=== PATIENT | male | born 1945 | race Caucasian/White ===

== ENCOUNTER 2022-04-03 12:17 | Outpatient (CLI) | payer MEDICARE, BC, SELFPAY ==
--- OUTSIDE RECORDS SUMMARY | 2022-04-03 12:33 | XMS_ITS | Encounter Summary ---
:1945 Author Organization [facility] Address [address] [place] [address] Support Name Relationship Address Phone MARINO LEWIS Unavailable [id number] [place] [address] MARION LEWIS Unavailable [phone] [place] [address] Insurance Providers: All historical and current Section Date Range: From patient's date of to the date document was created.This section includes the names of all active insurance providers for the patient. Insurance Type of Plan Start of End of Group Member Insurance Policy P atient's Provider Coverage Name Policy Policy Number ID Provider's Bird's Relationship Coverage Coverage Telephone Name to Policy Number Bird [place] Jul 15, [id number] HIGGINS P ATIENT [facility] (WNR) ADVANTAGE (WNR) 2017 9 [id number] [phone] NNIS 1 [place] Jul 15, [id number] LIANEWAGNER P ATIENT [facility] (WNR) ADVANTAGE (WNR) 2017 9 [id number] [phone] NN[place] 1 [place] Jul 15, [id number] TONIEMARGUERITE P ATIENT [facility] (WNR) ADVANTAGE (WNR) 2017 8 [id number] [phone] NNIS 1 Selected Encounter This section includes the information on record at [facility] for the Encounter. Date/Time Encounter Type Encounter Description Reason Provider Source Jun 12, 2021 09:32 Outpatient Encounter TELEPHONE TRIAGE KITTY CHAVEZ AM Encounter Template Text not used by [facility] Plan of Treatment: Future Appointments (+ 6 months) and Future Tests (+/- 45 days) The Plan of Treatment section includes future care activities for the patient from all [facility] treatment[facility]ilities. This section includes future appointments and future orders which are active, pending orscheduled.Future Appointments This section includes appointments that were scheduled to occur 6 months from the date of the Encounter, up to a maximum of 20 appointments. The data comes from all [facility] facilities. Appointment Date/Time Appointment Type Appointment Facili ty Name Jun 20, 2021 02:30 PM AM[facility]ATORY - [facility] ([facility]) Jul 19, 2021 01:00 PM [facility] ([facility]) Aug 16, 2021 01:00 PM [facility] ([facility]) November 21, 2021 12:30 PM AM[facility]ULATORY - [facility]INE [facility] Lab Results: +/- 30 days of the encounter This section includes the Chemistry and Hematology Lab Results on record with [facility] for the patient. Radiology Reports and Pathology Reports are provided separately, in subsequent sections.Lab Results This section contains the Chemistry/Hematology Results that were resulted 30 days before or 30 daysafter the date of the Encounter. Date/Time Source Result Type Result - Unit Interpretation Reference Range Comment Jun 20, 2021 02:28 [facility] LIVER FUNCTION TESTS Spec imen Type: PLASMA PM No comment enter ed. Ordering Provid er: JANESSA WISEMAN Report Released Date/Time: Jun 15, 2021 10:35 AM Reporting Lab: [facility] [address] [facility] [address] Performing Lab: [facility] [address] [facility] [address] BILIRUBIN, TOTAL 0.5 0.2-1.2 ALKALINE PHOSPHATASE 89 40-150 ALT/SGPT 18 <55 AST/SGOT 17 <34 GAMMA GTP 19 <64 Jun 20, 2021 [facility] CREATININE(INCLUDES EGFR) Sp ecimen Type: PLASMA 02:28 PM No comment enter ed. Ordering Provid er: JANESSA WISEMAN Report Released Date/Time: Jun 15, 2021 10:35 AM Reporting Lab: [facility] [address] [facility] [address] Performing Lab: [facility] [address] [facility] [address] CREATININE 1.2 0.7-1.2 ESTIMATED GFR(eGFR) 59 L >60 Jun 20, 2021 02:28 PM [facility] CBC Specim en Type: BLOOD No comment enter ed. Ordering Provid er: JANESSA WISEMAN Report Released Date/Time: Jun 15, 2021 10:35 AM Reporting Lab: [facility] [address] [facility] [address] Performing Lab: [facility] [address] [place] [facility] [address] WBC 8.62 4.0-11.0 RBC 4.48 L 4.6-6.2 HGB 14.4 13.5-17.9 HCT 44.5 41-54 MCV 99.3 80-100 MCH 32.1 27-33 MCHC 32.4 32.0-37.5 PLT 220 150-400 MPV 11.8 H 7.4-10.4 RDW 13.3 11.5-14.5 Encounter Notes: All associated encounter notes This section contains the clinical notes associated to the Encounter. Date/Time Encounter Note(s) Provider Source Jun 12, 2021 09:32 AM REPORT OF CONTACT: CECELIA HER [facility] LOCAL TITLE: SCREENING COVID CONTACT CENTER NOT E STANDARD TITLE: REPORT OF CONTACT DATE OF NOTE: JUN 12, 2021@09:32 ENTRY DATE: JUN 12, 2021@09:32:29 AUTHOR: CECELIA HER EXP COSIGNER: URGENCY: STATUS: COMPLETED Coronavirus Disease 2019 (COVID-19) Screen The patient was asked if in the last 14 days the y have had new onset of any COVID-19 symptoms. They report the following: No symptoms Within the past 14 days, the patient reports no exposure to someone with a febrile/respiratory illness or someone with a kn own or suspected case of COVID-19 (within 6 feet for > 15 minutes). Result: Screen is negative. /tahira/ CECELIA HER VISN23 [facility] Signed: 06/12/2021 09:32
--- OUTSIDE RECORDS SUMMARY | 2022-04-03 12:33 | XMS_ITS | Clinical Summary ---
:1945 Author Organization [facility] [place] [address] Care Team Providers Name Role Phone Gregory Day MD Primary Care Provider FlygenHolden phelps MD Unavailable [phone] Allergies Active Allergy Reactions Severity Noted Date Comments Diatrizoate Meglumine (Iv Contrast Dye) Renal Failure 03/29/2017 Lisinopril Cough 02/17/2016 Medications Medication Sig Dispensed Refills Start Date End Date Status CINNAMON 500 MG 1 tab BID 0 01/06/2008 Act enid CAPIndications: Type II or unspecified type diabetes mellitus without mention of complication, not stated as uncontrolled MULTIVITAMIN TAB take 1 tablet by 0 09/22/2008 Active oral route once daily with food [id number] Take by mouth. 0 Active Oil (FISH OIL) 1,000 Take 2 capsules by mg (120 mg-180 mg) mouth in the cap morning and 1 capsule in the evening. aspirin (ECOTRIN) 81 Take 81 mg by 0 Active mg enteric coated mouth once daily tablet with a meal. cholecalciferol Take 1,000 Units 0 Active (VITAMIN D3) 1,000 by mouth once unit tablet daily. polyethylene glycoL Take 17 g by mouth 255 g 12 05/22/2017 Active (MIRALAX) 17 once daily if gram/dose needed for powderIndications: Constipation. Constipation, unspecified constipation type Insulin Woody, As directed. For 2 box 9 05/04/2020 Active Disposable, (DAVID administering PEN NEEDLE) 32 gauge insulin at home. x Indications: Diabetes mellitus due to underlying condition with stage 3a chronic kidney disease, with long-term current use of insulin (HC) insulin glargine, Inject 45 units 15 mL 0 08/17/2020 Active U-100, (LANTUS subcutaneous SOLOSTAR U-100 before bedtime. INSULIN) 100 unit/mL Wait until they (3 mL) call for this. penIndications: type Indications: type 2 diabetes mellitus 2 diabetes mellitus insulin lispro, Inject 14 units subcutaneous 3 times daily before meals. Blood glucose <150 = no extra insulin 15 mL 0 08/17/2020 Active U-100, (HUMALOG 151-199 = + 2 units KWIKPEN INSULIN) 100 200-249 = + 4 units unit/mL inpn 250-299 = + 6 units penIndications: Type 300-349 = + 8 units 2 diabetes mellitus >350 = + 5 units with other diabetic neurological Inject 13 Units subcutaneous 3 times daily before meals. Blood glucose <150 = no extra insulin complication (HC) 151-199 = + 2 units 200-249 = + 4 units 250-299 = + 6 units 300-349 = + 8 units >350 = + 5 units Graduated For personal use. 2 Each 0 05/25/2021 A ctive Compression Length: calf StockingsIndications Strength: 20-30 : HTN (hypertension) mmHg Circumference in cm: isosorbide Take 1.5 Tablets 145 Tablet 3 05/25/2021 Active mononitrate (IMDUR) (90 mg) by mouth 60 mg extended once daily. release tablet 24 hourIndications: Coronary artery disease involving tuscarora coronary artery of tuscarora heart without angina pectoris torsemide (DEMADEX) Take 1 Tablet (20 180 tablet. 3 05/29/2021 Active 20 mg mg) by mouth 2 tabletIndications: times daily. Acute respiratory failure with hypoxia (HC) metFORMIN Take 1 Tablet (500 180 tablet. 3 05/29/2021 Active (GLUCOPHAGE XR) 500 mg) by mouth 2 mg Extended-Release times daily with tabletIndications: meals. Diabetes mellitus due to underlying condition with stage 3a chronic kidney disease, with long-term current use of insulin (HC) amLODIPine (NORVASC) Take 0.5 Tablets 90 tablet. 3 05/29/2021 Active 5 mg (2.5 mg) by mouth tabletIndications: once daily. HTN (hypertension) gabapentin Take 1 Capsule 180 capsule. 3 05/29/2021 Active (NEURONTIN) 100 mg (100 mg) by mouth capsuleIndications: 2 times daily. Neuropathy metoprolol succinate TAKE 1 AND 1/2 135 Tablet 3 07/24/2021 Active (TOPROL XL) 50 mg TABLETS BY MOUTH sustained-release ONCE DAILY tabletIndications: Coronary artery disease involving tuscarora coronary artery of tuscarora heart without angina pectoris Eliquis 5 mg TAKE 1 TABLET BY 180 Tablet 3 07/24/2021 Active tabletIndications: MOUTH TWICE DAILY PAF (paroxysmal atrial fibrillation) (HC) atorvastatin TAKE ONE TABLET BY 90 Tablet 3 07/24/2021 Active (LIPITOR) 80 mg MOUTH ONCE DAILY tabletIndications: Hyperlipidemia, unspecified hyperlipidemia type nitroglycerin Place 1 Tablet 25 tablet. 5 10/16/2021 Active (Nitrostat) 0.4 mg (0.4 mg) under the sublingual tongue every 5 tabletIndications: minutes if needed Coronary artery for Chest Pain. disease due to lipid rich plaque traMADoL (ULTRAM) 50 Take 1 Tablet (50 14 Tablet 0 10/16/2021 Active mg mg) by mouth every tabletIndications: 6 hours if needed Injury of right for Pain. rotator cuff, initial encounter Active Problems Problem Noted Date Arthritis of right shoulder region 10/17/2021 Systolic congestive heart failure 08/18/2020 Diabetes mellitus due to underlying condition with sta ge 3a chronic kidney 08/18/2020 disease, with long-term current use of insulin Type 2 diabetes mellitus with diabetic neuropathy, wit h long-term current 06/24/2017 use of insulin Coronary artery disease involving tuscarora coronary devon ry of tuscarora heart 04/05/2017 without angina pectoris Acute renal failure with tubular necrosis 03/28/2017 Atrial fibrillation with RVR 03/27/2017 Centrilobular emphysema 03/26/2017 NSTEMI (non-ST elevated myocardial infarction) 017 Carotid artery disease 03/25/2017 Morbid obesity 06/24/2015 CAD (coronary artery disease) 10/28/2014 NEO 06/22/2014 AHI-40 06/28/2014 Hyperlipidemia with target LDL less than 70 05/13/2013 Occlusion and stenosis of carotid artery without menti on of cerebral 08/20/2012 infarction Overview: -Carotid US 03/31/12: Occluded left ICA. 50-69% CITLALI. -MRA 08/26/12: Chronic microvascular isch emia, small mature infarcts. Occluded LICA. Widely patent CITLALI, common carotids, bilateral vertebral arteries. Collateral flow to left middle and anterior cerebra l arteries through patent inaja of Will is collaterals. Unspecified essential hypertension 12/30/2006 Impotence of organic origin 10/19/2006 Benign Neoplasm of Colon 10/19/2006 Overview: Colonoscopy 09/2013 polyps repeat in 5 ye ars Colonoscopy 03/2019 polyps, repeat in 5 y ears with PEG 8L Diverticulosis of colon (without mention of hemorrhage ) 10/19/2006 Hx tobacco abuse, quit 1982 Resolved Problems Problem Noted Date Resolved Date JAKUB (acute kidney injury) 03/27/2017 04/13/2019 Noncompliance with CPAP treatment 03/26/20172020 Pulmonary edema cardiac cause 03/25/2017 04/13/2019 Ulcer of toe of left foot 10/19/2015 04/13/2019 Encounters Date Type Specialty Care Team Description 03/27/2022 Telephone Rios Dumont, Medicat ion Management (Dennis ESPINOSA 5 mg tablet) 03/26/2022 Office Visit Rios Dumont, Musculo skeletal Problem (Follow up righ t knee pain, RFA on 07/18/21) 03/26/2022 Travel 01/24/2022 Office Visit Gregory Day, Musculo skeletal Problem (Would MD like steroid in jections for both knees if p ossible); Diabetes (Arianai jenniffer follow up; labs done today ) 01/24/2022 Orders Only Lab, [facility] 01/24/2022 Travel 01/22/2022 Telephone Gregory Day, Lab (Ne ed orders) from Last 3 Months Immunizations Name Administration Dates Next Due AMB Influenza, IIV3 (Age >=3 03/31/2013, 05/16/2011, 008 years)(Flu Clinic Only) COVID-19 vaccine (Gratci 09/14/2020, 08/24/2020 30mcg/0.3mL) PF, MDV Hepatitis A (Adult) 12/31/2001, 05/06/2000 Hepatitis B (Adult) 12/31/2001, 05/06/2000 Inactivated Polio Vaccine 05/06/2000 Influenza A (H1N1), Inactivated (Age 1206/21/2009 >=3 Years) Influenza RIV4 (Age 18+ Years) 04/07/2020 PRESERV FREE Influenza, High-dose Inactivated 05/23/2018, 05/23/2016, Influenza, IIV3 (Age >=3 years) 07/01/2012, 03/28/2010, 1202/2009, 05/14/2007, 05/29/2006 Influenza, Inactivated AIIV4 (Age 65+ 03/26/2022, 03/17/2021 Years) Preserv Free Influenza, Inactivated IIV3 (Age 65+ 03/20/2017 Years) Preserv Free Pneumococcal Poly,23-Valent 07/04/2015, 06/05/2005 (Pneumovax) Pneumococcal conj 13-Valent (Prevnar 03/20/2017, 12/13/2014 13) Td (Age >=7 Years) 04/18/2010, 05/02/2004 Tdap 06/06/2020 Typhoid (injectable) 07/09/2014 Zoster (Shingrix-RZV, recombinant) 08/04/2020, 06/06/2020, 0 12/16/2019, 08/06/2019 Zoster (Zostavax-ZVL, live) 12/13/2014 Family History Medical History Relation Name Comments Heart attack Brother 1 Stroke Brother 1 of stroke d ue to a rupured aneurysm at 73 Other Brother 2 Killed in [place] [employer] war No Known Problems Brother 3 No Known Problems Brother 4 Alcohol/Drug Father Heart Disease Father Heart attack Father Cancer-breast Mother Cancer-breast Sister Relation Name Status Comments Brother 1 Brother 2 Brother 3 Alive Brother 4 Alive Child 1 Alive adopted Child 2 Alive adopted Father (Age 63) PR Mother (Age late 60's) Sister Alive Son 1 Alive Son 2 Alive Social History Tobacco Use Types Packs/Day Years Used Date Former Smoker Cigarettes 2 20 Quit: 12/30/18 82 Smokeless Tobacco: Never Used Tobacco Cessation: Counseling Given: Yes Comments: Alcohol Use Standard Drinks/Week Comments Yes 1 (1 standard drink = 0.6 oz pure alcoho l) Alcohol Habits Answer Date Recorded How often do you have a drink containing alcohol? 2-3 times a week 04/13/2019 How many drinks containing alcohol do you have on a 1 or 2 04/13/2019 typical day when you are drinking? How often do you have six or more drinks on one Never 04/13/2019 occasion? Comment: Not asked Sex Assigned at Date Recorded Not on file COVID-19 Exposure Response Date Recorded In the last 10 days, have you been in contact with No / Unsu re 03/26/2022 10:12 AM CDT someone who was confirmed or suspected to have Coronavirus/COVID-19? 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 VENDOR Plan of Treatment Upcoming Encounters Date Type Specialty Care Team Description 04/03/2022 Procedure Only Rios Dumont MD Arrived [address] [place] [phone] (Joaquín gilliam) 05/07/2022 Office Visit Gregory Day MD [address] [address] (Joaquín gilliam) 07/18/2022 Orders Only Lab, [facility] 07/18/2022 Office Visit Gregory Day MD [address] [address] (Joaquín gilliam) Health Maintenance Due Date Last Done Comments Medicare Wellness for age 65+ 02/11/2020 02/11/2019, 2014 COVID-19 vaccine series (4 - 08/28/2021 04/27/2021, 021, Booster for Pfizer series) 08/24/2020 BMI (ht and wt on same day) for 05/29/2022 05/29/2021, 11/12, age 18+ 04/13/2020, Additional history exists Depression screening for age 12+ 10/16/2022 10/16/2021, 10/2020, 08/17/2020, Additional history exists Tetanus booster 06/06/2030 06/06/2020, 04/18/2010, 05/02/2004 Pneumococcal series for age 65+ Completed 03/20/2017, 06/15, 12/13/2014, Additional history exists Tdap Completed 06/06/2020 Zoster (shingles) series for age Completed 08/04/2020, , 50+ 12/16/2019, Additional history exists Hepatitis C screening for age Completed 01/24/2022 18-79 Influenza for age 65+ Completed 03/26/2022, 03/17/2021, 04/07/2020, Additional history exists Procedures Procedure Name Priority Date/Time Associated Diagnosis Comme nts LIPID PANEL W Routine 01/24/2022 1:44 PM Hyperlipidemia with R esults for this REFLEX MEASURED LDL CDT target LDL less than procedure are in 70 the results section. HEMOGLOBIN A1C Routine 01/24/2022 1:44 PM Type 2 diabetes Resu lts for this CDT mellitus with diabetic proce dure are in neuropathy, with the results long-term current use sectio n. of insulin (HC) BASIC METABOLIC Routine 01/24/2022 1:44 PM Type 2 diabetes Res ults for this PANEL CDT mellitus with diabetic proce dure are in neuropathy, with the results long-term current use sectio n. of insulin (HC) Unspecified essential hypertension ANTI HCV Routine 01/24/2022 1:44 PM Need for hepatitis C R esults for this CDT screening test procedure are in the results section. from Last 3 Months Results (ABNORMAL) LIPID PANEL W REFLEX MEASURED LDL (01/24/2022 1:44 PM CDT) Patholo gist Method Time Signature CHOLESTEROL,TOTAL 81 (L) 100 - 199 01/25/2022 [facility] mg/dL 7:30 AM CDT [facility] TRIGLYCERIDES 147 <150 01/25/2022 [facility] mg/dL 7:30 AM CDT [facility] HDL CHOLESTEROL 24 (L) >40 mg/dL 01/25/2022 [facility] 7:30 AM CDT [facility] NON-HDL 57 <145 01/25/2022 [facility] CHOLESTEROL mg/dl 7:30 AM CDT [facility] CHOL/HDL RATIO 3.38 <4.50 01/25/2022 [facility] 7:30 AM CDT [facility] LDL CHOLESTEROL 28 <=130 01/25/2022 [facility] mg/dL 7:30 AM CDT [facility] VLDL CHOLESTEROL 29 <=30 01/25/2022 [facility] mg/dL 7:30 AM CDT [facility] PROVIDER ORDERED RANDOM 01/25/2022 [facility] STATUS 7:30 AM CDT [facility] Specimen Anatomical Collection Method / Collection Time Recei jessica Time (Source) Location / Volume Laterality Blood BLOOD SPECIMEN / Venipuncture / 01/24/2022 1:44 2021 1:46 Unknown Unknown PM CDT PM CDT Gregory Day MD CHEMISTRY Performing Organization Address City/[facility]/ZIP Code Phon e Number [facility] [address] [place], [place] [id number] [place] [address] LAB[facility]ATORY[facility] 2000 LABORATORY ANTI HCV (01/24/2022 1:44 PM CDT) [facility] Method Time Signature HEPATITIS C Non-Reacti Non-Reacti 01/25/2022 [facility] ANTIBODY ve ve 10:19 AM CDT [facility] Comment: Antibodies to HCV not detected; does not exclude the possibility of exposure to HCV. Specimen Anatomical Collection Method / Collection Time Recei jessica Time (Source) Location / Volume Laterality Blood BLOOD SPECIMEN / Venipuncture / 01/24/2022 1:44 2021 1:46 Unknown Unknown PM CDT PM CDT Gregory Day MD SEND OUTS Performing Organization Address City/State/ZIP Code Phon e Number [facility] [address] [place] [address] LABORATORY-CENTR[facility] 2000 LABORATORY (ABNORMAL) HEMOGLOBIN A1C MONITORING (POCT) (01/24/2022 1:44 PM CDT) Analysis Performed At [facility] logist Time Signature HEMOGLOBIN A1C 6.9 (H) <=6.4 % 01/24/2022 [facility] MONITORING 1:57 PM CDT [place] [facility] Specimen Anatomical Collection Method / Collection Time Recei jessica Time (Source) Location / Volume Laterality Blood BLOOD SPECIMEN / Venipuncture / 01/24/2022 1:44 2021 1:46 Unknown Unknown PM CDT PM CDT Narrative [facility] - 2021 1:57 PM CDT ? (<=6.9%) ? Indicates good control ? (7.0% to 7.9%) ? Indicates fa ir control ? (>=8.0%) ? Indicates poor control ?? NOTE: ??These thresholds are guideli hair and ?individual targets may va ry. Falsely low levels may be seen with: Recent Transfusion, Recent Significant B lood Loss, Hemolytic Diseases, or Falsely elevated levels may be seen with : Untreated Anemias, Splenectomy ? Gregory Day MD CHEMISTRY Performing Organization Address City/State/ZIP Code Phon e Number [facility] [address] [place], [place] [id number] (ABNORMAL) BASIC METABOLIC PANEL (01/24/2022 1:44 PM CDT) [facility] gist Method Time Signature SODIUM 140 135 - 145 01/25/2022 [facility] mmol/L 7:29 AM CDT [facility] POTASSIUM 4.6 3.5 - 5.0 01/25/2022 [facility] mmol/L 7:29 AM CDT [facility] CHLORIDE 101 98 - 110 01/25/2022 [facility] mmol/L 7:29 AM CDT [facility] CO2,TOTAL 27 21 - 31 01/25/2022 [facility] mmol/L 7:29 AM CDT [facility] ANION GAP 12 5 - 18 01/25/2022 [facility] 7:29 AM CDT [facility] GLUCOSE 256 (H) 65 - 100 01/25/2022 [facility] mg/dL 7:29 AM CDT [facility] CALCIUM 9.2 8.5 - 10.5 01/25/2022 [facility] mg/dL 7:29 AM CDT [facility] BUN 28 (H) 8 - 25 01/25/2022 [facility] mg/dL 7:29 AM CDT [facility] CREATININE 1.29 (H) 0.72 - 01/25/2022 [facility] 1.25 mg/dL 7:29 AM CDT [facility] BUN/CREAT RATIO 22 (H) 10 - 20 01/25/2022 [facility] 7:29 AM CDT [facility] eGFR 57 (L) >90 01/25/2022 [facility] mL/min/1.7 7:29 AM CDT LABORATORY-CHAU 3m2 TRAL LABORATORY Comment: As of 2021, eGFR is calcu lated by the CKD-EPI creatinine equation without race adjustment. eGFR can be inf luenced by muscle mass, exercise, and diet. The reported eGFR is an estimation only and is only applicable if the renal function is stable. Specimen Anatomical Collection Method / Collection Time Recei jessica Time (Source) Location / Volume Laterality Blood BLOOD SPECIMEN / Venipuncture / 01/24/2022 1:44 2021 1:46 Unknown Unknown PM CDT PM CDT Gregory Day MD CHEMISTRY Performing Organization Address City/State/ZIP Code Phon e Number [facility] [address] [place] [address] LABORATORY-CENTRAL 2000 LABORATORY from Last 3 Months Insurance Payer Benefit Plan / Subscriber ID Effective Dates Phone Addre ss Type Group MEDICARE PART A MEDICARE PART A [id number] 2010-Prese ATTN: CLAIMS - HB USE ONLY HB ONLY [address] [place] [address] MEDICARE PART B MEDICARE PART B [id number] 2014-Presen ATTN: CLAIMS - HB USE ONLY HB ONLY t [address] [place] [address] [address] [place] [id number] 2019-Presen [address] [address] [place] [id number] [employer] [place] [employer] [place] [id number] 2016-Presen [address] [place] [address] [place] [id number] Mateus Red Retail Self [id number] ([address]) [place] [address] Mateus Red Personal/Family Self 1945 [id number]) [place] [address] Advance Directives Latest Code Status on File Code Status Date Activated Date Inactivated Comments Full Code 03/23/2019 8:53 AM 03/24/2019 2:13 AM Full Code 03/25/2017 4:54 PM 04/02/2017 8:21 PM Full Code 03/25/2017 4:45 PM 03/25/2017 4:54 PM Full Code 03/25/2017 12:43 PM 03/25/2017 4:45 PM Code Status Discussion: Discussed Full Code 09/24/2012 6:58 AM 09/24/2012 3:15 PM Care Teams 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
--- OUTSIDE RECORDS SUMMARY | 2022-04-03 12:33 | XMS_ITS | Encounter Summary ---
:1945 Author Organization [facility] Address [address] [place] [address] Support Name Relationship Address Phone MARION LEWIS Unavailable [id number] [place] [address] MARION LEWIS Unavailable [id number] [place] [address] Insurance Providers: All historical and current Section [...] Bird [place] Jul 15, [id number] TONIEMARGUERITE P ATIENT [facility] (WNR) ADVANTAGE (WNR) 2017 9 [id number] [phone] NNIS 1 [place] Jul 15, [id number] ZACHERYHOPKINS P ATIENT [facility] (WNR) ADVANTAGE (WNR) 2017 9 [id number] [phone] NNIS 1 [place] Jul 15, [id number] TONIEMARGUERITE P ATIENT [facility] (WNR) ADVANTAGE (WNR) 2017 [id number] [phone] NNIS 1 Selected Encounter This section includes the information on record at [facility] for the Encounter. Date/Time Encounter Type Encounter Description Reason Provider Source Apr 19, 2021 01:33 Outpatient Encounter TELEPHONE/MEDICINE IHE Encounter Template Text not used by [facility] Plan of Treatment: Future Appointments (+ 6 months) and Future Tests (+/- 45 days) The Plan of Treatment section includes future care activities for the patient from all [facility] treatmentfacilities. This section includes future appointments and future orders which are active, pending orscheduled.Future Appointments This section includes appointments that were scheduled to occur 6 months from the date of the Encounter, up to a maximum of 20 appointments. The data comes from all [facility] treatment facilities. Appointment Date/Time Appointment Type Appointment Facili ty Name Apr 25, 2021 02:00 PM [facility] May 09, 2021 02:00 PM AMBULATORY - MED[facility]INE [facility]) Jun 20, 2021 02:30 PM AMBULATORY - NONE [facility]) Jul 19, 2021 01:00 PM [facility] Aug 16, 2021 01:00 PM [facility]) Encounter Notes: All associated encounter notes This section contains the clinical notes associated to the Encounter. Date/Time Encounter Note(s) Provider Source Apr 19, 2021 01:33 PM SLEEP MEDICINE NOTE: LAURYN DIAZ [facility] LOCAL TITLE: SLEEP MEDICINE NOTE STANDARD TITLE: SLEEP MEDICINE NOTE DATE OF NOTE: APR 19, 2021@13:33 ENTRY DATE: APR 19, 2021@13:34:04 AUTHOR: LAURYN DIAZ EXP COSIGNER: URGENCY: STATUS: COMPLETED Attempted to contact vet regarding overnight oxi metry results 30day download -Avg usage: 6hr 12min -80% days used >4hrs -AHI: 8.6 (CARLOS: 1, OAI: 1.2, HI: 6.4) -90% EPAP: 13.5, PS: 8.3 -Settings: EPAP: 12-15, ps: 7-10, Pmax: 22 Nocturnal hypoxia improved from 229 min to 38 mi n, an improvement from the residual hypoxia of 60 min from October. Overnight oximetry That night with average EPAP 12.5, avg PS 7.3, 1 1% of night in periodic breathing, no leak. Residual AHI 11.9/hr. Index (1/hr.) 20.5 Adjusted Index (1/hr.) 20.6 Basal SpO2(%) 90.0 Minimum SpO2(%) 77 Average Pulse Rate(bpm) 51.1 Cumulative time spent <88% O2 38.3 minutes. Impression: 1. Obstructive Sleep Apnea: severe 2. Central Sleep Apnea 3. Nocturnal Hypoxia 4. Obesity 5. COPD: unknown severity Recommendation: 1. Continue ASV with ongoing excellent adherence . Will increase PS to [id number] and change EPAP to [id number]. Inc Pmax to 25 2. Repeat overnight oximetry on current ASV sett ings 3. Follow up w/ sleep provider pending higinio carver for 07/2021 /tahira/ FLORY GUERRA PHYSICIAN INTERIOR DESIGN COORDINATOR Signed: 04/19/2021 13:46
--- OUTSIDE RECORDS SUMMARY | 2022-04-03 12:33 | XMS_ITS | Continuity of Care Document ---
:1945 Author Organization [facility] Care Team Providers Name Role Phone [facility] Unavailable Unavailable Problems Combined list of problems from Department of Defense and Veterans Affairs facilities. It does not include entries that were removed or entered in error. Problem Status Onset Problem Date of Comments Source Date Type Resolution AF- Atrial Active Condition [place] Fibrillation (SCT (C BOC) [id number]) Chronic obstructive Active Condition LISA lung disease (CBOC) Congestive heart Active Condition [facility] failure (CBOC) Coronary Active Condition [place]ISA arteriosclerosis (CB OC) Diabetes mellitus Active Condition RO CH[facility]ELLE (CBOC) Edema of lower leg Active Condition R [place] (CBOC) Essential hypertension Active Condition LISA (CBOC) Hyperlipidemia Active Condition REBEKAH STER (CBOC) Iron deficiency anemia Active Condition LISA (CBOC) Obesity Active Condition LISA (CBOC) Sleep apnea Active Condition [place] R (CBOC) Umbilical hernia Active Condition [facility] (CBOC) Varicose veins of Active Condition RO [place] lower extremity (CBO C) WELLNESS EXAM/HCM Inactive Condition 11/03/2017 [place] (CBOC) Diagnosis: ICD-10-CM Active Diagnosis [place] G47.30 Sleep apnea, [facility]with Provider Comments: Sleep apnea (SCT 48166558) Diagnosis: ICD-10-CM Active Diagnosis [place] G47.33 Obstructive V A HCS sleep apnea (adult) (pediatric)with Provider Comments: Obstructive sleep apnea (adult) (pediatric) Diagnosis: ICD-10-CM Active Diagnosis [place] Z79.01 [facility] (current) use of anticoagulantswith Provider 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: 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 Diagnosis: ICD-10-CM Active Diagnosis WALKER I50.9 Heart failure, (CBOC) unspecifiedwith Provider Comments: CHF Diagnosis: ICD-10-CM Active Diagnosis [place] 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 Provider Comments: Idio sleep related nonobstructive alveolar hypoventilation Diagnosis: ICD-10-CM Active Diagnosis [place] G47.33 Obstructive V A HCS sleep apnea (adult) (pediatric)with Provider Comments: Obstructive Sleep Apnea (Adult) (Pediatric) Diagnosis: ICD-10-CM Active Diagnosis WALK[place] Z71.3 Dietary (CBOC) counseling and surveillancewith Provider Comments: Dietary counseling and surveillance Diagnosis: ICD-10-CM Active Diagnosis WALKER I50.9 Heart failure, (CBOC) unspecifiedwith Provider Comments: Congestive heart failure ([facility] [id number]) Medications Combined list of outpatient medications from Department of Defense and Veterans Affairs facilities. Medications provided include 1) outpatient medications from the last 15 months, and 2) patient-reported medications. Medication Details Route Status Patient Prescription Prescription Last Ordering Order Source Instructions Expires Number Dispense Provider Date Date AMLODIPINE TAKE ORALLY DISCONT 12/16/2021 [id number] BEHER A,SA 12/15/ [place] BESYLATE ONE-HALF INUED 2 NDHYA R 2020 ER 10MG TAB TABLET (EDIT) (CBOC) BY MOUTH EVERY DAY AMLODIPINE TAKE ORALLY ACTIVE 12/14/2022 [id number] TUAN, SA 12/13/ [place] BESYLATE ONE-HALF 2 NDHYA R 2021 ER 5MG TAB TABLET (CBOC) BY MOUTH EVERY DAY APIXABAN TAKE ONE ORALLY ACTIVE 12/15/2022 [id number] Reyes SCHWARZ 12/31/ [place] 5MG TAB TABLET 2 ATTHEW S 2021 [facility] BY MOUTH HCS EVERY 12 HOURS TO PREVENT STROKES APIXABAN TAKE ONE ORALLY DISCONT 12/21/2021 [id number] RID GEWELL 12/20/ [place] 5MG TAB TABLET INUED 2 ,NAGA L 2020 [facility] BY MOUTH [facility] EVERY 12 HOURS TO PREVENT STROKES ASPIRIN TAKE ONE ORALLY ACTIVE TUAN,SA 12/13/ [place] 81MG TAB,EC TABLET NDHYA R 2014 ER BY MOUTH (CBOC) ATORVASTATI TAKE ONE ORALLY ACTIVE 12/14/2022 [id number] TUAN,SA 12/31/ [place] N CA 80MG TABLET 2 NDHYA R 2021 ER TAB BY MOUTH (CBOC) AT BEDTIME FOR CHOLESTE ROL ATORVASTATI TAKE ONE ORALLY DISCONT 12/16/2021 [id number] TUAN,SA 12/15/ [place] N CA 80MG TABLET INUED 2 NDHYA R 2020 ER TAB BY MOUTH (CBOC) AT BEDTIME FOR CHOLESTE ROL CYANOCOBALA TAKE ONE ORALLY ACTIVE 12/15/2022 [id number] B EHERA, 12/14/ [place] MIN 1000MCG TABLET 2 NDHYA R 2021 ER TAB BY MOUTH (CBOC) EVERY DAY FERROUS SO4 TAKE ONE ORALLY ACTIVE 12/15/2022 [id number] B EHERA, 12/14/ [place] 325MG TAB TABLET 2 NDHYA R 2021 ER BY MOUTH (CBOC) EVERY DAY FISH OIL TAKE 1 ORALLY ACTIVE [facility], 12/13/ [facility] 1000MG CAPSULE NDA R 2014 ER (500MG BY MOUTH (CBOC) DHA/EPA) CAP,ORAL GABAPENTIN TAKE ORALLY ACTIVE 12/14/2022 [id number] TUAN , 12/31/ [place] 100MG CAP FOUR 2 NDHYA R 2021 ER CAPSULES (CBOC) BY MOUTH EVERY MORNING AND TAKE TWO CAPSULES AT BEDTIME GABAPENTIN TAKE ORALLY DISCONT 12/16/2021 [id number] TUAN , 12/15/ [place] 100MG CAP FOUR INUED 2 NDHYA R 2020 ER CAPSULES (CBOC) BY MOUTH EVERY MORNING AND TAKE TWO CAPSULES AT BEDTIME INSULIN,ASP INJECT SUBCUT ACTIVE 12/26/2022 [id number] BE CARLOTTA, 12/25/ [place] ART,HUMAN 18 UNITS ANEOUS 2 NDHY2021 ER 100U/ML,NOV UNDER (CBOC) OLOG,FLEXPE THE SKIN N,3ML BEFORE MEALS *INJECT IMMEDIAT AMINATA PRIOR TO MEALTIME *DISCARD 28 DAYS AFTER INITIAL USE INSULIN,ASP INJECT SUBCUT DISCONT 12/16/2021 [id number] B EHERA, 12/15/ [place] ART,HUMAN 18 UNITS ANEOUS INUED 2 NDHYA R 2020 ER 100U/ML,NOV UNDER (CBOC) OLOG,FLEXPE THE SKIN N,3ML BEFORE MEALS *INJECT IMMEDIAT AMINATA PRIOR TO MEALTIME *DISCARD 28 DAYS AFTER INITIAL USE INSULIN,GLA INJECT SUBCUT ACTIVE 12/14/2022 [id number] BE CARLOTTA,SA 12/13/ [place] RGINE,HUMAN 50 UNITS ANEOUS 2 NDHYA R 2021 ER 100 UNIT/ML UNDER (CBOC) INJ,SOLOSTA THE SKIN R,3ML AT BEDTIME FOR DIABETES DISCAR D PEN 28 DAYS AFTER INITIAL USE INSULIN,GLA INJECT SUBCUT DISCONT 12/16/2021 [id number] B EHERA,SA 12/15/ [place] RGINE,HUMAN 50 UNITS ANEOUS INUED 2 NDHYA R 2020 ER 100 UNIT/ML UNDER (CBOC) INJ,SOLOSTA THE SKIN R,3ML AT BEDTIME FOR DIABETES DISCAR D PEN 28 DAYS AFTER INITIAL USE ISOSORBIDE TAKE ONE ORALLY ACTIVE 12/14/2022 [id number] B EHERA,SA 12/31/ [place] MONONITRATE TABLET 2 NDHYA R 2021 ER 30MG TAB,SA BY MOUTH (CBOC ) EVERY DAY ISOSORBIDE TAKE ONE ORALLY DISCONT 12/16/2021 [id number] TUAN,SA 12/15/ [place] MONONITRATE TABLET INUED 2 NDHYA R 2020 ER 30MG TAB,SA BY MOUTH (CBOC ) EVERY DAY METFORMIN TAKE ONE ORALLY ACTIVE 06/24/2022 [id number] BE CARLOTTA,SA 03/26/ [place] HCL 500MG TABLET 2 NDHYA R 2021 ER 24HR TAB,SA BY MOUTH (CBOC ) TWICE A DAY FOR DIABETES METFORMIN TAKE ONE ORALLY DISCONT 03/13/2022 [id number] B EHERA,SA 12/31/ [place] HCL 500MG TABLET INUED 2 NDHYA R 2021 ER 24HR TAB,SA BY MOUTH (CBOC ) TWICE A DAY FOR DIABETES METFORMIN TAKE ONE ORALLY DISCONT 01/18/2022 [id number] B EHERA,SA 12/31/ [place] HCL 500MG TABLET INUED 2 NDHYA R 2021 ER 24HR TAB,SA BY MOUTH (CBOC ) TWICE A DAY FOR DIABETES METFORMIN TAKE ONE ORALLY DISCONT 01/10/2022 [id number] B EHERA,SA 10/12/ [place] HCL 500MG TABLET INUED 2 NDHYA R 2022 ER 24HR TAB,SA BY MOUTH (CBOC ) TWICE A DAY FOR DIABETES METFORMIN TAKE ONE ORALLY DISCONT 06/24/2021 [id number] B EHERA,SA 06/15/ [place] HCL 500MG TABLET INUED 1 ND2020 ER 24HR TAB,SA BY MOUTH (CBOC ) TWICE A DAY FOR DIABETES METFORMIN TAKE ONE ORALLY DISCONT 06/15/2021 [id number] B EHERA,SA 03/27/ [place] HCL 500MG TABLET INUE 1 ND2020 ER 24HR TAB,SA BY MOUTH (CBOC ) TWICE A DAY FOR DIABETES METFORMIN TAKE ONE ORALLY DISCONT 03/16/2021 [id number] BE CARLOTTA,SA 01/06/ [place] HCL 500MG TABLET INUE 1 ND2020 ER 24HR TAB,SA BY MOUTH (CBOC ) TWICE A DAY FOR DIABETES METOPROLOL TAKE ONE ORALLY ACTIVE 12/14/2022 [id number] B EHERA,SA 12/31/ [place] SUCCINATE AND 2 2021 ER 50MG TAB,SA ONE-HALF (CBOC ) TABLETS BY MOUTH EVERY DAY METOPROLOL TAKE ONE ORALLY DISCONT 12/16/2021 [id number] B EHERA,SA 12/15/ [place] SUCCINATE AND INUED 2 2020 ER 50MG TAB,SA ONE-HALF (CBOC ) TABLETS BY MOUTH EVERY DAY MULTIVITAMI TAKE ONE ORALLY ACTIVE TUAN,SA 12/13 / [place] N/MINERALS TABLET 2021 ER SENIOR BY MOUTH (CBOC) FORMULA TAB EVERY DAY MULTIVITAMI TAKE 1 ORALLY ACTIVE 11/07/2022 [id number] BE CARLOTTA,SA 11/30/ [place] NS CAP/TAB TABLET 2 NDHY2021 ER BY MOUTH (CBOC) EVERY DAY MULTIVITAMI TAKE 1 ORALLY DISCONT 12/16/2021 [id number] BE CARLOTTA,SA 12/15/ [place] NS CAP/TAB TABLET INUED 2 2020 ER BY MOUTH (CBOC) EVERY DAY NITROGLYCER DISSOLVE SUBLIN ACTIVE 12/14/2022 [id number] TUAN,SA 12/13/ [place] IN 0.4MG ONE GUAL 2 2021 ER TAB,SUBLING TABLET (CBOC) UAL UNDER THE TONGUE EVERY DAY NEEDED FOR CHEST PAIN * MAY REPEAT EVERY 5 MINUTES- -NO MORE THAN 3 TOTAL NYSTATIN APPLY TOPICA ACTIVE 12/14/2022 [id number] TUAN,SA 12/13/ [place] [id number] THIN LLY 2 2021 ER M CREAM,TOP LAYER (CBOC) TOPICALL Y TWICE A DAY 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 AL USE ONLY RASH IN RIGHT ARM PIT POLYETHYLEN TAKE 17 ORALLY ACTIVE 12/14/2022 [id number] B EHERA,SA 12/13/ [place] E GLYCOL GRAMS BY 2 HY2021 ER 3350 MOUTH (CBOC) PWDR,ORAL EVERY DAY *MIX IN 4 TO 8 OUNCES OF LIQUID DIRECTED *USE COVER TO MEASURE POWDER* POLYETHYLEN TAKE 17 ORALLY DISCONT 12/16/2021 [id number] B EHLEHR,SA 12/15/ [place] E GLYCOL GRAMS BY INUED 1 2020 ER 3350 MOUTH (CBOC) PWDR,ORAL EVERY DAY *MIX IN 4 TO 8 OUNCES OF LIQUID DIRECTED *USE COVER TO MEASURE POWDER* TORSEMIDE TAKE ONE ORALLY ACTIVE 12/14/2022 [id number] BE CARLOTTA,SA 12/31/ [place] 20MG TAB TABLET 2 2021 ER BY MOUTH (CBOC) TWICE A DAY FOR CONGESTI VE HEART FAILURE TORSEMIDE TAKE ONE ORALLY DISCONT 12/16/2021 [id number] B EHERA,SA 12/15/ [place] 20MG TAB TABLET INUED 2 2020 ER BY MOUTH (CBOC) TWICE A DAY FOR CONGESTI VE HEART FAILURE ZOLPIDEM TAKE ONE ORALLY 12/22/2021 [id number] MERCED PRIETO 11/22/ [place] TARTRATE TABLET 2 ICA J 2021 [facility] 5MG TAB BY MOUTH HCS ONCE FOR SLEEP. TAKE ON AN EMPTY STOMACH BRING TO SLEEP LAB FOR SLEEP STUDY PROCEDUR E. Allergies, Adverse Reactions, Alerts Combined list of allergies from Department of Defense and Veterans Affairs facilities. It does not include entries that were removed or entered in error. Substance Category Reaction Severity Reaction Status Date Comments S ource type Reported CONTRAST Propensity Renal Propensity active [place] MEDIA to adverse failure to adverse [facility] reactions syndrome reactions to drug to drug (finding) (finding) LISINOPRIL Propensity Propensity active [place] to adverse to adverse 7 [facility] reactions reactions to drug to drug (finding) (finding) Immunizations Combined list of available immunizations from the Department of Defense and Veterans Affairs facilities. Immunization Series Date Administered Site Reaction Lot CVX Drug St atus Comments Source Given By Number Code Surgical Processor COVID-19 3 complet [place] (Groupiter), 2020 ed [facility] MRNA, LNP-S, H CS PF, 30 MCG/0.3 ML DOSE INFLUENZA, complet [place] UNSPECIFIED 2020 ed HE ALTH FORMULATION COVID-19 2 complet [place] (Groupiter), 2020 ed HEAL TH MRNA, LNP-S, PF, 30 MCG/0.3 ML DOSE COVID-19 1 complet [place] (Groupiter), 2020 ed [facility] MRNA, LNP-S, H CS PF, 30 MCG/0.3 ML DOSE TDAP complet [place] 2020 ed [facility] H[facility] INFLUENZA, complet [place] UNSPECIFIED 2020 ed OL [facility] FORMULATION HC S ZOSTER 2 complet ROCH EST RECOMBINANT 2020 ed ER (CBOC) ZOSTER 1 complet ROCH EST RECOMBINANT 2020 ed ER (CBOC) INFLUENZA, complet [place] SEASONAL, 2019 ed [facility] INJECTABLE, HC S PRESERVATIVE FREE INFLUENZA, complet [place] HIGH DOSE 2018 ed [facility] SEAS[facility] HCS INFLUENZA, complet [place] HIGH DOSE 2016 ed [facility] INFLUENZA, complet [place] HIGH DOSE 2016 ed [facility] PNEUMOCOCCAL complet [employer] [place] POLYSACCHARID 2015 ed [id number] ER E PPV23 08/24/16 (CB OC) INFLUENZA, complet [place] HIGH DOSE 2015 ed ER SEASONAL (CBOC ) PNEUMOCOCCAL complet wyet h [place] CONJUGATE PCV 2015 ed Pharm, ER 13 [id number], (CBOC) 05/30 ZOSTER LIVE complet [employer] and [place] 2015 ed Co. Inc, ER [id number], (CBOC ) gato 09/2015 TD (ADULT), 2 complet per [place] LF TETANUS 2014 ed patient O [facility] TOXOID, reporting HC S PRESERVATIVE FREE, ADSORBED INFLUENZA, complet [place] SEASONAL, 2013 ed [facility] INJECTABLE H[facility] TDAP complet [place] 2009 ed [facility] Results Combined list of recent chemistry, hematology and other laboratory results from Department of Defense and Veterans Affairs, ranging from 15 months to all on record, depending upon the facility. Order Results Value Reference Date Interpretation Specimen Commen ts Source Name Range COVID-19 SARS-COV-2 Not 12/13 Specimen Typ e: NASOPHARYNGEAL [place] AND FLU (COVID-19) Detected /2021 No comment e ntered. IS [facility] SCRN RNA Ordering Provid er: LAURYN DIAZ PANEL [PRESENCE] Report Relea sed Date/Time: November 22, 2021 08:58 AM (REBEKAH) IN Reporting Lab: [facility] [address] Y SPECIMEN Performing L ab: [facility] BY [address] [place] [id number] WITH PROBE DETECTION COVID-19 INFLUENZA Not 12/13 Specimen Type : NASOPHARYNGEAL [place] AND FLU VIRUS A Detected /2021 No comment ente red. IS [facility] S[facility] RNA Ordering Provid er: LAURYN DIAZ PANEL [PRESENCE] Report Relea sed Date/Time: November 22, 2021 08:58 AM (REBEKAH) IN Reporting Lab: [facility] [address] Y SPECIMEN Performing L ab: [facility] BY [address] [facility] [address] WITH PROBE DETECTION COVID-19 INFLUENZA Not 12/13 Specimen Type : NASOPHARYNGEAL [place] AND FLU VIRUS B Detected /2021 No comment ente red. IS [facility] S[facility] RNA Ordering Provid er: LAURYN DIAZ PANEL [PRESENCE] Report Relea sed Date/Time: November 22, 2021 08:58 AM (REBEKAH) IN Reporting Lab: [facility] [address] [facility] [address] Y SPECIMEN Performing L ab: [facility] BY [address] [place] [phone] WITH PROBE DETECTION MICROALB CREATININE 67.4 58.0 - 12/13 Specimen Typ e: URINE LISA UMIN/CRE [MASS/VOLU 161.0 /2021 No comment e ntered. (CBOC) ATININE ME] IN Ordering Provid er: ALEXIS DICKERSON R RATIO URINE Report Released Date/Time: Dec 13, 2021 02:41 PM URINE Reporting Lab: [facility] [address] [place] [facility] [address] Performing Lab: [facility] [address] [place] [facility] [address] MICROALB MICROALBUM 22.0 <. - 12/13 Specimen Typ e: URINE LISA UMIN/CRE IN/CREATIN No comment e ntered. (CBOC) ATININE INE [MASS Ordering Prov ider: ALEXIS DICKERSON R RATIO RATIO] IN Report Releas ed Date/Time: Dec 13, 2021 02:41 PM URINE URINE Reporting Lab: [facility] [address] [place] [id number] Performing Lab: [facility] [address] [place] [phone] MICROALB MICROALBUM 14.8 <. - 12/13 Specimen Typ e: URINE LISA UMIN/CRE IN No comment ente red. (CBOC) ATININE [MASS/VOLU Ordering Pro vider: ALEXIS DICKERSON R RATIO ME] IN Report Released Date/Time: Dec 13, 2021 02:41 PM URINE URINE Reporting Lab: [facility] [address] [place] [id number] Performing Lab: [facility] [address] [place] [facility] [address] B 12 COBALAMIN 263 213 - 816 12/13 Specimen Typ e: SERUM LISA (VITAMIN /2021 No comment ente red. (CBOC) B12) Ordering Provid er: ALEXIS DICKERSON R [MASS/VOLU Report Relea sed Date/Time: Dec 13, 2021 02:41 PM ME] IN Reporting Lab: [facility] SERUM OR [address] [facility] [address] PLASMA Performing Lab: [facility] [address] [place] [facility] [address] CBC & LEUKOCYTES 8.93 4.0 - 11.0 06/ Specimen T ype: BLOOD LISA DIFF [#/VOLUME] /2021 Comment: Aut omated Differential Performed (CBOC) IN BLOOD Ordering Provi gay: ALEXIS DICKERSON BY Report Released Date/Time: Dec 13, 2021 02:29 PM AUTOMATED Reporting Lab : [facility] COUNT [address] [place] [facility] [address] Performing Lab: [facility] [address] [place] [facility] [address] CBC & ERYTHROCYT 3.86 4.6 - 6.2 06/ L Specimen Ty pe: BLOOD LISA DIFF ES /2021 Comment: Automa pedro Differential Performed (CBOC) [#/VOLUME] Ordering Pro vider: ALEXIS DICEKRSON IN BLOOD Report Release d Date/Time: Dec 13, 2021 02:29 PM BY Reporting Lab: [facility] AUTOMATED [facility] [address] COUNT Performing Lab: [facility] [address] [place] [facility] [address] CBC & HEMOGLOBIN 11.6 13.5 - 06/ L Specimen Type : BLOOD LISA DIFF [MASS/VOLU 17.9 /2021 Comment: Aut omated Differential Performed (CBOC) ME] IN Ordering Provid er: ALEXIS DICKERSON BLOOD Report Released Date/Time: Dec 13, 2021 02:29 PM Reporting Lab: [facility] [address] [place] [facility] [address] Performing Lab: [facility] [address] [place] [facility] [address] CBC & HEMATOCRIT 36.8 41 - 54 06/ L Specimen Type : BLOOD LISA DIFF [VOLUME /2021 Comment: Automa pedro Differential Performed (CBOC) FRACTION] Ordering Prov ider: ALEXIS DICKERSON OF BLOOD Report Release d Date/Time: Dec 13, 2021 02:29 PM BY Reporting Lab: [facility]OMATED [facility] [address] COUNT Performing Lab: [facility] [address] [place] [facility] [address] CBC & MCV 95.3 80 - 100 06/ Specimen Type: BLOOD LISA DIFF [ENTITIC /2021 Comment: Autom ated Differential Performed (CBOC) VOLUME] BY Ordering Pro vider: ALEXIS DICKERSON AUTOMATED Report Releas ed Date/Time: Dec 13, 2021 02:29 PM COUNT Reporting Lab: [facility] [address] [place] [address] Performing Lab: [facility] [address] [place] [address] CBC & MCH 30.1 27 - 33 12/13 Specimen Type: B LOOD LISA DIFF [ENTITIC /2021 Comment: Autom ated Differential Performed (CBOC) MASS] BY Ordering Provi gay: ALEXIS DICKERSON AUTOMATED Report Releas ed Date/Time: Dec 13, 2021 02:29 PM COUNT Reporting Lab: [facility] [address] [place] [address] Performing Lab: [facility] [address] [place] [address] CBC & MCHC 31.5 32.0 - 12/13 L Specimen Type: B LOOD LISA DIFF [MASS/VOLU 37.5 /2021 Comment: Aut omated Differential Performed (CBOC) ME] BY Ordering Provid er: ALEXIS DICKERSON AUTOMATED Report Releas ed Date/Time: Dec 13, 2021 02:29 PM COUNT Reporting Lab: [facility] [address] [place] [phone] Performing Lab: [facility] [address] [place] [phone] CBC & PLATELETS 275 150 - 400 12/13 Specimen Typ e: BLOOD LISA DIFF [#/VOLUME] /2021 Comment: Aut omated Differential Performed (CBOC) IN BLOOD Ordering Provi gay: ALEXIS DICKERSON BY Report Released Date/Time: Dec 13, 2021 02:29 PM AUTOMATED Reporting Lab : [facility] COUNT [address] [place] [address] Performing Lab: [facility] [address] [place] [facility] [address] CBC & PLATELET 11.6 7.4 - 10.4 12/13 H Specimen Typ e: BLOOD LISA DIFF MEAN /2021 Comment: Automa pedro Differential Performed (CBOC) VOLUME Ordering Provid er: ALEXIS DICKERSON [ENTITIC Report Release d Date/Time: Dec 13, 2021 02:29 PM VOLUME] IN Reporting La b: [facility] BLOOD BY [address] [facility] [address] AUTOMATED Performing La b: [facility] COUNT [address] [place] [phone] CBC & NEUTROPHIL 59.9 12/13 Specimen Type : BLOOD LISA DIFF S/100 Comment: Automa pedro Differential Performed (CBOC) LEUKOCYTES Ordering Pro vider: TUAN,ALEXIS R IN BLOOD Report Release d Date/Time: Dec 13, 2021 02:29 PM BY MANUAL Reporting Lab : [facility] COUNT [address] [place] [phone] Performing Lab: [facility] [address] [place] [facility] [address] CBC & LYMPHOCYTE 28.3 12/13 Specimen Type : BLOOD LISA DIFF S/ Comment: Automa pedro Differential Performed (CBOC) LEUKOCYTES Ordering Pro vider: TUAN,ALEXIS R IN BLOOD Report Release d Date/Time: Dec 13, 2021 02:29 PM BY MANUAL Reporting Lab : [facility] COUNT [address] [place] [facility] [address] Performing Lab: [facility] [address] [place] [facility] [address] CBC & MONOCYTES/ 9.0 12/13 Specimen Type : BLOOD LISA DIFF Comment: Automa pedro Differential Performed (CBOC) LEUKOCYTES Ordering Pro vider: TUAN,ALEXIS R IN BLOOD Report Release d Date/Time: Dec 13, 2021 02:29 PM BY Reporting Lab: [facility] [address] COUNT Performing Lab: [facility] [address] [place] [facility] [address] CBC & EOSINOPHIL 2.1 12/13 Specimen Type : BLOOD LISA DIFF S/ Comment: Automa pedro Differential Performed (CBOC) LEUKOCYTES Ordering Pro vider: TUAN,ALEXIS R IN BLOOD Report Release d Date/Time: Dec 13, 2021 02:29 PM BY Reporting Lab: [facility] AUTOMATED ONE [employer] [facility] [address] COUNT Performing Lab: [facility] [address] [place] [facility] [address] CBC & BASOPHILS/ 0.4 12/13 Specimen Type : BLOOD LISA DIFF Comment: Automa pedro Differential Performed (CBOC) LEUKOCYTES Ordering Pro vider: TUAN,ALEXIS R IN BLOOD Report Release d Date/Time: Dec 13, 2021 02:29 PM BY MANUAL Reporting Lab : [facility] COUNT [address] [place] [facility] [address] Performing Lab: [facility] [address] [place] [facility] [address] CBC & ERYTHROCYT 14.1 11.5 - 06 Specimen Type : BLOOD LISA DIFF E 14.5 /2021 Comment: Automa pedro Differential Performed (CBOC) DISTRIBUTI Ordering Pro vider: ALEXIS DICKERSON ON WIDTH Report Release d Date/Time: Dec 13, 2021 02:29 PM [RATIO] BY Reporting La b: [facility] AUTOMATED [facility] [address] COUNT Performing Lab: [facility] [address] [place] [facility] [address] CBC & LYMPHOCYTE 2.53 1.0 - 4.0 06 Specimen Ty pe: BLOOD LISA DIFF S /2021 Comment: Automa pedro Differential Performed (CBOC) [#/VOLUME] Ordering Pro vider: ALEXIS DICKERSON IN BLOOD Report Release d Date/Time: Dec 13, 2021 02:29 PM BY Reporting Lab: [facility] AUTOMATED [facility] [address] COUNT Performing Lab: [facility] [address] [place] [facility] [address] CBC & MONOCYTES 0.80 0.1 - 1.0 12/13 Specimen Typ e: BLOOD LISA DIFF [#/VOLUME] /2021 Comment: Aut omated Differential Performed (CBOC) IN BLOOD Ordering Provi gay: ALEXIS DICKERSON BY Report Released Date/Time: Dec 13, 2021 02:29 PM AUTOMATED Reporting Lab : [facility] COUNT [address] [place] [facility] [address] Performing Lab: [facility] [address] [place] [facility] [address] CBC & NEUTROPHIL 5.34 2.0 - 7.7 06 Specimen Ty pe: BLOOD LISA DIFF S /2021 Comment: Automa pedro Differential Performed (CBOC) [#/VOLUME] Ordering Pro vider: ALEXIS DICKERSON IN BLOOD Report Release d Date/Time: Dec 13, 2021 02:29 PM BY Reporting Lab: [facility] [id number] COUNT Performing Lab: [facility] [address] [place] [facility] [id number] CBC & EOSINOPHIL 0.19 0 - 0.5 06 Specimen Type : BLOOD LISA DIFF S /2021 Comment: Automa pedro Differential Performed (CBOC) [#/VOLUME] Ordering Pro vider: ALEXIS DICKERSON IN BLOOD Report Release d Date/Time: Dec 13, 2021 02:29 PM BY Reporting Lab: [facility] [address] [facility] [address] COUNT Performing Lab: [facility] [address] [place] [address] CBC & BASOPHILS 0.04 0 - 0.2 12/13 Specimen Type: BLOOD LISA DIFF [#/VOLUME] /2021 Comment: Aut omated Differential Performed (CBOC) IN BLOOD Ordering Provi gay: ALEXIS DICKERSON BY Report Released Date/Time: Dec 13, 2021 02:29 PM AUTOMATED Reporting Lab : [facility] [address] [place] [id number] Performing Lab: [facility] [address] [place] [id number] CBC & IG(META,MY 0.3 12/13 Specimen Type : BLOOD LISA DIFF KARISHMA,PRO) /2021 Comment: Autom ated Differential Performed (CBOC) Ordering Provid er: ALEXIS DICKERSON Report Released Date/Time: Dec 13, 2021 02:29 PM Reporting Lab: [facility] [address] [place] [id number] Performing Lab: [facility] [address] [place] [id number] CBC & IMMATURE 0.03 0 - 0.1 12/13 Specimen Type: BLOOD LISA DIFF GRANULOCYT /2021 Comment: Aut omated Differential Performed (CBOC) ES Ordering Provid er: ALEXIS DICKERSON [PRESENCE] Report Relea sed Date/Time: Dec 13, 2021 02:29 PM IN BLOOD Reporting Lab: [facility] [address] [place] [id number] AUTOMATED Performing La b: [facility] [address] [place] [address] COMPREHE CREATININE 1.0 0.7 - 1.2 12/13 Specimen T ype: PLASMA LISA NSIVE [MASS/VOLU /2021 No comment en tered. (CBOC) METABOLI ME] IN Ordering Provi gay: ALEXIS DICKERSON C SERUM OR Report Release d Date/Time: Dec 13, 2021 02:29 PM PANEL+MG PLASMA Reporting Lab: [facility] [address] [place] [facility] [address] Performing Lab: [facility] [address] [place] [facility] [address] COMPREHE UREA 26 8 - 26 12/13 Specimen Type: PLASMA LISA NSIVE /2021 No comment ente red. (CBOC) METABOLI [MASS/VOLU Ordering Pr ovider: TUAN,ALEXIS R C ME] IN Report Released Date/Time: Dec 13, 2021 02:29 PM PANEL+MG SERUM OR Reporting Lab : [facility] [address] [place] [facility] [address] Performing Lab: [facility] [address] [place] [facility] [address] COMPREHE GLUCOSE 96 74 - 100 12/13 Specimen Type: PLASMA LISA NSIVE [MASS/VOLU /2021 No comment en tered. (CBOC) METABOLI ME] IN Ordering Provi gay: TUAN,ALEXIS R C SERUM OR Report Release d Date/Time: Dec 13, 2021 02:29 PM PANEL+MG PLASMA Reporting Lab: [facility] [address] [place] [facility] [address] Performing Lab: [facility] [address] [place] [facility] [address] COMPREHE SODIUM 140 136 - 145 12/13 Specimen Type : PLASMA LISA NSIVE [MOLES/VOL /2021 No comment en tered. (CBOC) METABOLI UME] IN Ordering Provi gay: TUAN,ALEXIS R C SERUM OR Report Release d Date/Time: Dec 13, 2021 02:29 PM PANEL+MG PLASMA Reporting Lab: [facility] [address] [place] [facility] [address] Performing Lab: [facility] [address] [place] [facility] [address] COMPREHE POTASSIUM 4.0 3.5 - 5.1 12/13 Specimen Ty pe: PLASMA LISA NSIVE [MOLES/VOL /2021 No comment en tered. (CBOC) METABOLI UME] IN Ordering Provi gay: TUAN,ALEXIS R C SERUM OR Report Release d Date/Time: Dec 13, 2021 02:29 PM PANEL+MG PLASMA Reporting Lab: [facility] [address] [place] [facility] [address] Performing Lab: [facility] [address] [place] [facility] [address] COMPREHE CHLORIDE 103 98 - 107 12/13 Specimen Type : PLASMA LISA NSIVE [MOLES/VOL /2021 No comment en tered. (CBOC) METABOLI UME] IN Ordering Provi gay: TUAN,ALEXIS R C SERUM OR Report Release d Date/Time: Dec 13, 2021 02:29 PM PANEL+MG PLASMA Reporting Lab: [facility] [address] [place] [facility] [address] Performing Lab: [facility] [address] [place] [facility] [address] COMPREHE CARBON 26 22 - 29 12/13 Specimen Type: PLASMA LISA NSIVE DIOXIDE, No comment ente red. (CBOC) METABOLI TOTAL Ordering Provi gay: TUAN,ALEXIS R C [MOLES/VOL Report Relea sed Date/Time: Dec 13, 2021 02:29 PM PANEL+MG UME] IN Reporting Lab: [facility] [address] [facility] [address] PLASMA Performing Lab: [facility] [address] [place] [facility] [address] COMPREHE CALCIUM 9.8 8.4 - 10.2 12/13 Specimen Typ e: PLASMA LISA NSIVE [MASS/VOLU /2021 No comment en tered. (CBOC) METABOLI ME] IN Ordering Provi gya: TUAN,ALEXIS R C SERUM OR Report Release d Date/Time: Dec 13, 2021 02:29 PM PANEL+MG PLASMA Reporting Lab: [facility] [address] [place] [facility] [address] Performing Lab: [facility] [address] [place] [facility] [address] COMPREHE PROTEIN 7.1 6.0 - 8.3 12/13 Specimen Type : PLASMA LISA NSIVE [MASS/VOLU /2021 No comment en tered. (CBOC) METABOLI ME] IN Ordering Provi gay: TUAN,ALEXIS R C SERUM OR Report Release d Date/Time: Dec 13, 2021 02:29 PM PANEL+MG PLASMA Reporting Lab: [facility] [address] [place] [facility] [address] Performing Lab: [facility] [address] [place] [facility] [address] COMPREHE ALBUMIN 4.2 3.5 - 5.2 12/13 Specimen Type : PLASMA LISA NSIVE [MASS/VOLU /2021 No comment en tered. (CBOC) METABOLI ME] IN Ordering Provi gay: RIGO DICKERSONA R C SERUM OR Report Release d Date/Time: Dec 13, 2021 02:29 PM PANEL+MG PLASMA Reporting Lab: [facility] [address] [place] [address] Performing Lab: [facility] [address] [place] [facility] [address] COMPREHE BILIRUBIN. 0.5 0.2 - 1.2 12/13 Specimen T ype: PLASMA LISA NSIVE TOTAL /2021 No comment enter ed. (CBOC) METABOLI [MASS/VOLU Ordering Pr ovider: RIGO DICKERSONA R C ME] IN Report Released Date/Time: Dec 13, 2021 02:29 PM PANEL+MG SERUM OR Reporting Lab : [facility] [address] [place] [address] Performing Lab: [facility] [address] [place] [facility] [address] COMPREHE MAGNESIUM 2.4 1.6 - 2.6 12/13 Specimen Ty pe: PLASMA WALKER NSIVE [MASS/VOLU /2021 No comment en tered. (CBOC) METABOLI ME] IN Ordering Provi gay: RIGO DICKERSONA R C SERUM OR Report Release d Date/Time: Dec 13, 2021 02:29 PM PANEL+MG PLASMA Reporting Lab: [facility] [address] [place] [facility] [address] Performing Lab: [facility] [address] [place] [address] COMPREHE ANION GAP 11 5 - 15 12/13 Specimen Type : PLASMA LISA NSIVE IN SERUM /2021 No comment ente red. (CBOC) METABOLI OR PLASMA Ordering Pro vider: RIGO DICKERSONA R C Report Released Date/Time: Dec 13, 2021 02:29 PM PANEL+MG Reporting Lab: [facility] [address] [place] [facility] [address] Performing Lab: [facility] [address] [place] [facility] [address] COMPREHE ALKALINE 77 40 - 150 12/13 Specimen Type : PLASMA WALKER NSIVE PHOSPHATAS /2021 No comment en tered. (CBOC) METABOLI E Ordering Provi gay: ALEXIS DICKERSON R C [ENZYMATIC Report Relea sed Date/Time: Dec 13, 2021 02:29 PM PANEL+MG ACTIVITY/V Reporting L ab: [facility] OLUME] IN [address] [facility] [address] SERUM OR Performing Lab : [facility] [address] [place] [facility] [address] COMPREHE ALANINE 28 <55 - 55 12/13 Specimen Type: PLASMA WALKER NSIVE AMINOTRANS No comment en tered. (CBOC) METABOLI FERASE Ordering Provi gay: ALEXIS DICKERSON [ENZYMATIC Report Relea sed Date/Time: Dec 13, 2021 02:29 PM PANEL+MG ACTIVITY/V Reporting L ab: [facility] OLU[facility]] IN [address] [facility] [address] SERUM OR Performing Lab : [facility] [address] [place] [facility] [address] COMPREHE ASPARTATE 30 <34 - 34 12/13 Specimen Typ e: PLASMA WALKER NSIVE AMINOTRANS No comment en tered. (CBOC) METABOLI FERASE Ordering Prov ider: ALEXIS DICKERSON C [ENZYMATIC Report Relea sed Date/Time: Dec 13, 2021 02:29 PM PANEL+MG ACTIVITY/V Reporting L ab: [facility] OLUME] IN [address] [facility] [address] SERUM OR Performing Lab : [facility] [address] [place] [address] COMPREHE CREAT 78 60 12/13 Specimen Type: PLASMA WALKER NSIVE EGFR(CKD-E No comment en tered. (CBOC) METABOLI PI) Ordering Provi gay: ALEXIS DICKERSON Report Released Date/Time: Dec 13, 2021 02:29 PM PANEL+MG Reporting Lab: [facility] [address] [place] [facility] [address] Performing Lab: [facility] [address] [place] [facility] [address] FOLATE FOLATE 17.4 7.0 12/13 Specimen Type: S MARIA ALEJANDRA LISA [MASS/VOLU /2021 No comment en tered. (CBOC) ME] IN Ordering Provid er: ALEXIS DICKERSON SERUM OR Report Release d Date/Time: Dec 13, 2021 02:41 PM PLASMA Reporting Lab: [facility] [address] [place] [facility] [address] Performing Lab: [facility] [address] [place] [address] HEMOGLOB HEMOGLOBIN 7.7 4.0 - 6.0 06/ H Specimen T ype: BLOOD LISA IN A1C A1C/HEMOGL /2021 No comment en tered. (CBOC) OBIN.TOTAL Ordering Pro vider: ALEXIS DICKERSON IN BLOOD Report Release d Date/Time: Dec 13, 2021 02:29 PM Reporting Lab: [facility] [address] [place] [facility] [address] Performing Lab: [facility] [address] [place] [address] LIPID CHOLESTERO 93 <199 - 199 12/13 Specimen T ype: PLASMA LISA PANEL,NO L /2021 No comment ente red. (CBOC) N-FASTIN [MASS/VOLU Ordering Pr ovider: ALEXIS DICKERSON R G ME] IN Report Released Date/Time: Dec 13, 2021 02:29 PM SERUM OR Reporting Lab: [facility] [address] [place] [address] Performing Lab: [facility] [address] [place] [address] LIPID CHOLESTERO 27 40 06 L Specimen Type : PLASMA LISA PANEL,NO L IN HDL /2021 No comment ent ered. (CBOC) N-FASTIN [MASS/VOLU Ordering Pr ovider: ALEXIS DICKERSON R G ME] IN Report Released Date/Time: Dec 13, 2021 02:29 PM SERUM OR Reporting Lab: [facility] [address] [place] [address] Performing Lab: [facility] [address] [place] [address] LIPID CHOLESTERO 38 <99 - 99 12/13 Specimen Typ e: PLASMA LISA PANEL,NO L IN LDL /2021 No comment ent ered. (CBOC) N-FASTIN [MASS/VOLU Ordering Pr ovider: RIGO DICKERSONA R G ME] IN Report Released Date/Time: Dec 13, 2021 02:29 PM SERUM OR Reporting Lab: [facility] [address] CALCULATIO Performing L ab: [facility] [address] [place] [facility] [address] LIPID CHOLESTERO 28 <29 - 29 06 Specimen Typ e: PLASMA LISA PANEL,NO L IN VLDL /2021 No comment en tered. (CBOC) N-FASTIN [MASS/VOLU Ordering Pr ovider: ALEXIS DICKERSON G ME] IN Report Released Date/Time: Dec 13, 2021 02:29 PM SERUM OR Reporting Lab: [facility] [address] [facility] [address] CALCULATIO Performing L ab: [facility] N [address] [place] [facility] [address] LIPID CHOLESTERO 66 <129 - 129 12/13 Specimen T ype: PLASMA WALKER PANEL,NO L NON HDL /2021 No comment en tered. (CBOC) N-FASTIN [MASS/VOLU Ordering Pr ovider: ALEXIS DICKERSON G ME] IN Report Released Date/Time: Dec 13, 2021 02:29 PM SERUM OR Reporting Lab: [facility] [address] [place] [address] Performing Lab: [facility] [address] [place] [facility] [address] LIPID TRIGLYCERI 140 <149 - 149 12/13 Specimen T ype: PLASMA WALKER PANEL,NO DE /2021 No comment ente red. (CBOC) N-FASTIN [MASS/VOLU Ordering Pr ovider: ALEXIS DICKERSON G ME] IN Report Released Date/Time: Dec 13, 2021 02:29 PM SERUM OR Reporting Lab: [facility] [address] [place] [address] Performing Lab: [facility] [address] [place] [address] IRON IRON 50 65 - 175 06 L Specimen Type: SERUM [facility] [MASS/VOLU /2021 Comment: Spe cimen received is PLASMA. (CBOC) ME] IN Ordering Provid er: ALEXIS DICKERSON SERUM OR Report Release d Date/Time: Dec 14, 2021 07:50 AM PLASMA Reporting Lab: [facility] [address] [place] [address] Performing Lab: [facility] [address] [place] [facility] [address] IRON IRON 360 250 - 425 12/13 Specimen Type: SERUM LISA GROUP BINDING /2021 Comment: Specim en received is PLASMA. (CBOC) CAPACITY Ordering Provi gay: ALEXIS DICKERSON [MASS/VOLU Report Relea sed Date/Time: Dec 14, 2021 07:50 AM ME] IN Reporting Lab: [facility] SERUM OR [address] [place] [address] PLASMA Performing Lab: [facility] [address] [place] [address] IRON FERRITIN 20.6 21.8 - 06/ L Specimen Type: SERUM LISA GROUP [MASS/VOLU 274.7 /2021 Comment: Karlee lindsey received is PLASMA. (CBOC) ME] IN Ordering Provid er: ALEXIS DICKERSON SERUM OR Report Release d Date/Time: Dec 14, 2021 07:50 AM PLASMA Reporting Lab: [facility] [address] [place] [address] Performing Lab: [facility] [address] [place] [address] IRON IRON 14 20 - 50 12/13 L Specimen Type: S MARIA ALEJANDRA LISA GROUP SATURATION Comment: Karlee denysisidra received is PLASMA. (CBOC) Ordering Provid er: ALEXIS DICKERSON Report Released Date/Time: Dec 14, 2021 07:50 AM Reporting Lab: [facility] [address] [place] [address] Performing Lab: [facility] [address] [place] [address] IRON TRANSFERRI 288 163 - 382 12/13 Specimen Ty pe: SERUM LISA GROUP N /2021 Comment: Aleah miner received is PLASMA. (CBOC) [MASS/VOLU Ordering Pro vider: ALEXIS DICKERSON ME] IN Report Released Date/Time: Dec 14, 2021 07:50 AM SERUM OR Reporting Lab: [facility] [address] [place] [address] Performing Lab: [facility] [address] [place] [address] METHYLMA METHYLMALO 310 87 - 318 12/13 Specimen Ty pe: SERUM LISA ACID, RILEY /2021 Comment: This t est was developed and its analytical performance characteristics have been determined by [employer] [place], [place]. It has not been cleared or approved by the [place] (CBOC) [facility] [MOLES/VOL . Food and Dr ug Administration. This assay has been validated pursuant to the CLIA regulations and is used for clinical purposes. Test Performed by Jimmie Soto, [employer] Darlene Arredondokieran Coley, [employer]] [place] [address] [place] [address] Trent Olmstead M.D., Ph.D., Director of Laboratories , [place] [id number] SERUM OR Ordering Provi gay: ALEXIS DICKERSON PLASMA Report Released Date/Time: Dec 13, 2021 10:04 PM Reporting Lab: [facility] [address] [place] [facility] [address] Performing Lab: [facility] [address] [facility] Vital Signs Combined list of inpatient and outpatient Vital Signs from Department of Defense and Veterans Affairs, ranging from 12 months to all on record, depending upon the facility. Vital Sign Value Date Comments Source SYSTOLIC BLOOD PRESSURE 131 12/13/2021 14:13:05 LISA (CBOC) DIASTOLIC BLOOD PRESSURE 68 12/13/2021 14:13:05 LISA (CBOC) PULSE OXIMETRY 93% 12/13/2021 14:13:[address] (CBOC) WEIGHT 270 12/13/2021 14:13:05 [place] (CBOC) BMI 39kg/m2 12/13/2021 14:13:05 [place] (CBOC) PAIN 0 12/13/2021 14:13:05 [place] (CBOC) HEIGHT 69.783 12/13/2021 14:13:05 [place] (CBOC) TEMPERATURE 97.1 12/13/2021 14:13:05 [place] (CBOC) PULSE 70 12/13/2021 14:13:05 [place] (CBOC) RESPIRATION 20 12/13/2021 14:13:05 [place] (CBOC) WEIGHT 256 07/19/2021 14:06:52 [place] (CBOC) BMI 37kg/m2 07/19/2021 14:06:52 [place] (CBOC) WEIGHT 252 05/09/2021 15:37:23 [place] (CBOC) BMI 36kg/m2 05/09/2021 15:37:23 [place] (CBOC) WEIGHT 258 04/25/2021 15:27:16 [place] (CBOC) BMI 37kg/m2 04/25/2021 15:27:16 [place] (CBOC) WEIGHT 260 04/11/2021 15:15:48 [place] (CBOC) BMI 37kg/m2 04/11/2021 15:15:48 [place] (CBOC) Encounters Combined list of: 1) Encounters from Department of Veterans Affairs facilities going back up to the last 18 months. 2) Encounters from the Department of Defense facilities going back up to 280 months. Location Location Encounter Encounter Reason Attending ADM DC Stat us Disposition Source Details Type Number For Provider Date Date Visit MEASURE 08141-9.61 Diagnos CELIA BUCKNER 10/03 [place] BLOOD [id number] [facility] H[facility] LEVEL CM G47.33 Obstruc tive sleep apnea (adult) (pediat dewayne)
with Provide r Comment s: Obstruc tive Sleep Apnea (Adult) (Pediat dewayne) MEASURE 79427-6.61 Diagnos YANIRA STALLWORTHA 10/13 [place] BLOOD [id number] is: /2020 [facility] OXY[facility] ICD-10- HCS LEVEL CM G47.33 Obstruc tive sleep apnea (adult) (pediat dewayne)
with Provide r Comment s: Obstruc tive sleep apnea (adult) (pediat dewayne) PULMONARY 96856-4.61 Diagnos LAVERN, 10/19 [place] SERVICE/DE [id number] is: [place] [facility] OCEDURE ICD-10- HCS CM G47.33 Obstruc tive sleep apnea (adult) (pediat dewayne)
with Provide r Comment s: Obstruc tive Sleep Apnea (Adult) (Pediat dewayne) Outpatient 75933-3.61 10/21 [place] Encounter [id number] /2020 [facility] HCS Outpatient 00435-8.61 12/06 [place] Encounter [id number] [facility] OFFICE O/P 95369-6.61 Diagnos MARS DICKERSON 12/15 [place] EST MOD [id number] is: DHYA R ER 30-39 MIN 30 ICD-10- (CBOC) CM I50.9 Heart failure , unspeci fied
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 n Outpatient 32272-2.61 04/19 [place] Encounter [id number] /2020 [facility] Outpatient 47790-6.61 04/27 [place] Encounter [id number] /2020 [facility] Outpatient 24677-961 ZACARIAS,KITTY 06/12 [place] Encounter [id number] /2020 [facility] Outpatient 71819-2.61 06/14 [place] Encounter [id number] /2020 [facility] Outpatient 56685-7.61 06/15 [place] Encounter [id number] /2020 [facility] Outpatient 95114-1.61 08/16 [place] EST Encounter [id number] ER 94 (CBOC) Outpatient 12890-2.61 TRACE,JOD 11/20 [place] Encounter [id number] I [facility] Outpatient 29977-4.61 TRACE,JOD 11/20 [place] Encounter [id number] I [facility] OFFICE O/P 48316-6.61 Diagnos JOE,JODIE 11/21 [place] EST HI [id number] is: [place] J /2021 [facility] 40-54 MIN ICD-10- HCS CM G47.30 Sleep apnea, unspeci fied
with Provide r Comment s: Sleep apnea (SCT 0752432 6) Outpatient 09381-3.61 12/08 [place] Encounter [id number] /2021 [facility] OFFICE O/P 38550-4.61 Diagnos TUAN,CREWS 12/13 [place] EST MOD [id number] is: DHYA R ER 30-39 MIN 75 ICD-10- (CBOC) CM I50.9 Heart failure , unspeci fied
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
wi th Provide r Comment s: prison (curren t) use of anticoa gulants Outpatient 58913-1.61 12/18 [place] Encounter [id number] [facility] POLYSOM 04532-4.61 Diagnos PARKMALIKA 12/18 [place] 6/>YRS [id number] is: AHAT [facility] CPAP 4/> ICD-10- HCS PARM CM G47.30 Sleep apnea, unspeci fied
with Provide r Comment s: Sleep apnea (SCT 0021129 6) HC PRO 85635-6.61 Diagnos GENNARO MCKENNA 12/25 [place] PHONE CALL [id number] is: R MARISA O [facility] [place] 5-10 MIN ICD-10- HCS CM G47.33 Obstruc tive sleep apnea (adult) (pediat dewayne)
with Provide r Comment s: Obstruc tive sleep apnea (adult) (pediat dewayne) COLLJ & 18961-7.61 Diagnos MATIAS DIAZSSI 02/12 [place] INTERPJ [id number] is: [place] J [facility] [place] DATA EA 30 ICD-10- HCS D CM G47.30 Sleep apnea, unspeci fied
with Provide r Comment s: Sleep apnea ([facility] [id number] 6) Social History Combined list of available smoking, tobacco, and other social history from Department of Defense andVeterans Affairs facilities. Social History Type Response Date Comment Source Tobacco smoking status VA-TOBACCO FORMER USER 12/13/2021 [facility] ([facility] History of tobacco use VA-TOBACCO QUIT 15 YRS 12/13/2021 [facility] ([facility]) OR MORE History of tobacco use VA-TOBACCO FORMER USER 12/15/2020 [facility] ([facility]) History of tobacco use VA-TOBACCO QUIT 15 YRS 11/17/2019 [facility] ([facility]) OR MORE History of tobacco use VA-TOBACCO QUIT 15 YRS 01/13/2019 [facility] ([facility]) OR MORE History of tobacco use FORMER TOBACCO USER 7Y 12/24/2017 [facility] ([facility]) OR GREATER History of tobacco use FORMER TOBACCO USER 7Y 01/22/2017 [facility] ([facility]) OR GREATER History of tobacco use FORMER TOBACCO USER 7Y 01/02/2016 [facility] ([facility]) OR GREATER History of tobacco use FORMER TOBACCO USER 7Y 12/13/2014 [facility] ([facility]) OR GREATER
--- OUTSIDE RECORDS SUMMARY | 2022-04-03 12:33 | XMS_ITS | Encounter Summary ---
:1945 Author Organization [facility] Address [address] [place] [address] Support Name Relationship Address Phone MARION LEWIS Unavailable [address] [place] [address] MARION LEWIS Unavailable [phone] [employer] [place] [address] Insurance Providers: All historical and current Section [...] Bird [place] Jul 15, [id number] 800 TONIEMARGUERITE P ATIENT [facility] (WNR) ADVANTAGE (WNR) 2017 9 [id number] [phone] NNIS 1 [place] Jul 15, [id number] 800 LIANEWAGNER P ATIENT [facility] (WNR) ADVANTAGE (WNR) 2017 9 [id number] [phone] NN[place] 1 [place] Jul 15, [id number] 800 TONIEMARGUERITE P ATIENT [facility] (WNR) ADVANTAGE (WNR) 2017 8 [id number] [phone] NNIS 1 Selected Encounter This section includes the information on record at ID for the Encounter. 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 Date/Time Primary/Secondary Diagnosis Name Provider Source Diagnosis Apr 12, 2021 PRIMARY Idio sleep related NALLELYSMARLYN INIGUEZ [place] 11:59 AM nonobstructive HEN R HCS alveolar hypoventilation Apr 12, 2021 SECONDARY Other sleep apnea TALSNESSMARLYN [place] 11:59 AM HEN R HCS Apr 12, 2021 SECONDARY Sleep related TALSNESS,MARLYN [place] A 11:59 AM hypoventilation in HEN R HCS conditions classd elswhr Plan of Treatment: Future Appointments (+ 6 months) and Future Tests (+/- 45 days) The Plan of Treatment section includes future care activities for the patient from all ID treatmentfacilities. This section includes future appointments and future orders which are active, pending orscheduled.Future Appointments This section includes appointments that were scheduled to occur 6 months from the date of the Encounter, up to a maximum of 20 appointments. The data comes from all ID treatment facilities. Appointment Date/Time Appointment Type Appointment Facili ty Name Apr 11, 2021 02:00 PM AM[facility]ULATORY - [facility] [place] ([facility]) Apr 25, 2021 02:00 PM [facility] [place] ([facility]) May 09, 2021 02:00 PM [facility]ORY - [facility]IC[facility] [place] ([facility]) Jun 20, 2021 02:30 PM AMBULATORY - NONE [place] ([facility]) Jul 19, 2021 01:00 PM AM[facility] - [facility]IC[place] ([facility]) Aug 16, 2021 01:00 PM [facility]ORY - [facility] ([facility]) Encounter Notes: All associated encounter notes This section contains the clinical notes associated to the Encounter. Date/Time Encounter Note(s) Provider Source Apr 07, 2021 03:19 PM PROCEDURE NOTE: NEELIMA PEÑA [facility] LOCAL TITLE: SLEEP PROCEDURE NOTE STANDARD TITLE: PROCEDURE NOTE DATE OF NOTE: APR 07, 2021@15:19 ENTRY DATE: APR 07, 2021@15:19:18 AUTHOR: NEELIMA PEÑA EXP COSIGNER: URGENCY: STATUS: COMPLETED Overnight Oximetry Study Date: 03/30/2021 04/07/2021 - Overnight oximetry study results ent ered by RITCHIE Valero Patient on overnight oximetry study while on: Po sitive Airway Pressure (PAP) PAP Settings: ASV - Max Pressure: 22, EPAP 12-15 , PS 7-10, Breath Rate: Auto That night with average EPAP 12.5, avg PS 7.3, 1 1% of night in periodic breathing, no leak. Residual AHI 11.9/hr. Comments: Index (1/hr.) 20.5 Adjusted Index (1/hr.) 20.6 Basal SpO2(%) 90.0 Minimum SpO2(%) 77 Average Pulse Rate(bpm) 51.1 Cumulative time spent <88% O2 38.3 minutes. Time spent below(%) 100 100% 95 97.3% 90 47.3% 85 0.4% 80 0.0% 75 0.0% 70 0.0% Desaturation Event: drop in SpO2 by at least 4% for a minimum duration of 10 seconds. Comments: Assessment: Reviewed SLICK fro m 10/2020. 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 Residual AHI on night of this SLICK was in t he mild range, improved form severe baseline sleep apnea. Nocturnal hypoxia improved from 229 min to 38 min, an improvement from the residual hypoxia of 60 m in from October. Higher levels of pressure galicia pport appear to be improving the hypoxia, suggesting underlying hypoventilation as the explanation fo r the finding; would trial increasing the min PS to 8 cwp and repeating an SLICK. Clinical correlation recommended. Results of oximetry study will be discussed with patient. /tahira/ NEELIMA PEÑA DO Staff Physician Signed: 04/12/2021 12:00 Receipt Acknowledged By: * AWAITING SIGNATURE * ROSE SPARROW * AWAITING SIGNATURE * LAURYN DIAZ
--- OUTSIDE RECORDS SUMMARY | 2022-04-03 12:34 | XMS_ITS | Encounter Summary ---
:1945 Author Organization [facility] Address [address] [place] [address] Support Name Relationship Address Phone MARION LEWIS Unavailable [address] [place] [address] MARION LEWIS Unavailable [address] [address] Insurance Providers: All historical and current Section [...] Bird [place] Jul 15, [id number] HIGGINS P ATIENT [employer] (WNR) ADVANTAGE (WNR) 2017 9 [id number] [phone] NNIS 1 [place] Jul 15, [id number] 800 ZACHERYHOPKINS P ATIENT [employer] (WNR) ADVANTAGE (WNR) 2017 9 [id number] [phone] NN[place] 1 [place] Jul 15, [id number] 800 TONIEMARGUERITE P ATIENT [employer] (WNR) ADVANTAGE (WNR) 2017 8 [id number] [phone] NNIS 1 Selected Encounter This section includes the information on record at [place] for the Encounter. Date/Time Encounter Type Encounter Description Reason Provider Source Jun 14, 2021 02:18 Outpatient Encounter RESPIRATORY THERAPY PM IHE Encounter Template Text not used by [place] Plan of Treatment: Future Appointments (+ 6 [...] 20 appointments. The data comes from all [place] treatment facilities. Appointment Date/Time Appointment Type Appointment Lien ty Name Jun 20, 2021 02:30 PM AM[facility]ULATORY - [facility] ([facility]) Jul 19, 2021 01:00 PM AMBULATORY - MEDICINE [facility]) Aug 16, 2021 01:00 PM AMBULATORY - [facility] ([facility]) November 21, 2021 12:30 PM AMBULATORY - MEDICINE [facility] Dec 13, 2021 02:00 PM AMBULATORY - [facility] ([facility]) Dec 13, 2021 02:15 PM AMBULATORY - [facility]) Lab Results: +/- 30 days of the encounter This section includes the Chemistry and Hematology Lab Results on record with [place] for the patient. Radiology Reports and Pathology Reports are provided separately, in subsequent sections.Lab Results This section contains the Chemistry/Hematology Results that were resulted 30 days before or 30 daysafter the date of the Encounter. Date/Time Source Result Type Result - Unit Interpretation Reference Range Comment Jun 20, 2021 [facility] CREATININE(INCLUDES EGFR) Sp ecimen Type: PLASMA 02:28 PM No comment enter ed. Ordering Provid er: JANESSA WISEMAN Report Released Date/Time: Jun 15, 2021 10:35 AM Reporting Lab: [facility] [address] [facility] [address] Performing Lab: [facility] [address] [facility] [address] CREATININE 1.2 0.7-1.2 ESTIMATED GFR(eGFR) 59 L >60 Jun 20, 2021 02:28 [facility] LIVER FUNCTION TESTS Spec imen Type: PLASMA PM No comment enter ed. Ordering Provid er: JANESSA WISEMAN Report Released Date/Time: Jun 15, 2021 10:35 AM Reporting Lab: [facility] [address] [facility] [address] Performing Lab: [facility] [address] [facility] [address] BILIRUBIN, TOTAL 0.5 0.2-1.2 ALKALINE PHOSPHATASE 89 40-150 ALT/SGPT 18 <55 AST/SGOT 17 <34 GAMMA GTP 19 <64 Jun 20, 2021 02:[address] [facility] CBC Specim en Type: BLOOD No comment enter ed. Ordering Provid er: JANESSA WISEMAN Report Released Date/Time: Jun 15, 2021 10:35 AM Reporting Lab: [facility] [address] [place] [facility] [address] Performing Lab: [facility] [address] [facility] [address] WBC 8.62 4.0-11.0 RBC 4.48 L 4.6-6.2 HGB 14.4 13.5-17.9 HCT 44.5 41-54 MCV 99.3 80-100 MCH 32.1 27-33 MCHC 32.4 32.0-37.5 PLT 220 150-400 MPV 11.8 H 7.4-10.4 RDW 13.3 11.5-14.5 Encounter Notes: All associated encounter notes This section contains the clinical notes associated to the Encounter. Date/Time Encounter Note(s) Provider Source Jun 14, 2021 02:18 PM REPORT OF CONTACT: KRISTINA LUTZ [facility] LOCAL TITLE: PATIENT CONTACT NOTE STANDARD TITLE: REPORT OF CONTACT DATE OF NOTE: JUN 14, 2021@14:18 ENTRY DATE: JUN 14, 2021@14:18:25 AUTHOR: KRISTINA LUTZ EXP COSIGNER: URGENCY: STATUS: COMPLETED Patient contact Name of [place]: RONA SCHILLING Name/Relationship of Contact if other than Veter an: Date & Time of Contact: Jun@14:18 Type of Contact: Telephone Reason for Contact: Patient called left message regarding his supply order, senior underwriter called back left message to call back [phone] and advise goo d time to call him back. /tahira/ KRISTINA LUTZ ADVANCED MSA Signed: 06/14/2021 14:19
--- OUTSIDE RECORDS SUMMARY | 2022-04-03 12:34 | XMS_ITS | Encounter Summary ---
:1945 Author Organization [facility] Address [address] [place] [address] Support Name Relationship Address Phone MARION LEWIS Unavailable [address] [place] [address] MARION LEWIS Unavailable [address] [place] [address] Insurance Providers: All historical and current Section [...] [place] Jul 15, [id number] 800 HIGGINS P ATIENT [employer] (WNR) ADVANTAGE (WNR) 2017 9 [id number] [phone] NNIS 1 [place] Jul 15, [id number] 800 LIANEWAGNER P ATIENT [employer] (WNR) ADVANTAGE (WNR) 2017 9 [id number] [phone] NN[place] 1 [place] Jul 15, [id number] 800 TONIEMARGUERITE P ATIENT [employer] (WNR) ADVANTAGE (WNR) 2017 8 [id number] [phone] NNIS 1 Selected Encounter This section includes the information on record at [place] for the Encounter. Date/Time Encounter Type Encounter Description Reason Provider Source Aug 16, 2021 01:00 Outpatient Encounter TELEPHONE/ANCILLARY PM IHE Encounter Template Text not used [...] 20 appointments. The data comes from all [place] treatment facilities. Appointment Date/Time Appointment Type Appointment Facili ty Name November 21, 2021 12:30 PM AMBULATORY - MEDICINE [facility] Dec 13, 2021 02:00 PM [facility] - [facility] [place] ([facility]) Dec 13, 2021 02:15 PM AM[facility]ULATORY MEDICINE [place] ([facility]) Dec 18, 2021 08:30 PM AMBULATORY - MEDICINE [facility] Feb 12, 2022 10:00 AM AMBULATORY - MEDICINE [facility] Social History: Smoking Status (Most current) and Tobacco Use (All prior to encounter date) This section includes the most current, and the historical, smoking and tobacco-related health factors from the [place] facility where the Encounter took place.Current Smoking Status This section includes the most current smoking, or tobacco-related health factor, from the [place] facility where the Encounter took place. Date/Time Current Smoking Status Comment Facility Dec 15, 2020 09:15 AM VA-TOBACCO FORMER USER [facility] ([facility]) Tobacco Use History This section includes a history of the smoking, or tobacco- related health factors, that were collected on or before the date of the Encounter. The data comes from the [place] facility where the Encounter took place. Date/Time Smoking Status/Tobacco Use Comment [facility] Dec 15, 2020 09:15 AM VA-TOBACCO QUIT 15 YRS OR MORE [place] ([facility]) November 17, 2019 07:57 AM VA-TOBACCO FORMER USER [facility] ([facility]) November 17, 2019 07:57 AM VA-TOBACCO QUIT 15 YRS OR MORE [place] ([facility]) Jan 13, 2019 09:15 AM VA-TOBACCO FORMER USER [facility] ([facility]) Jan 13, 2019 09:15 AM VA-TOBACCO QUIT 15 YRS OR MORE [place] ([facility]) Dec 24, 2017 10:43 AM FORMER TOBACCO USER 7Y OR GREATER [place] ([facility]) Jan 22, 2017 10:10 AM FORMER TOBACCO USER 7Y OR GREATER [place] ([facility]) Jan 02, 2016 03:00 PM FORMER TOBACCO USER 7Y OR GREATER [facility] ([facility]) Dec 13, 2014 08:05 AM FORMER TOBACCO USER 7Y OR GREATER [facility] ([facility]) Encounter Notes: All associated encounter notes This section contains the clinical notes associated to the Encounter. Date/Time Encounter Note(s) Provider Source Aug 16, 2021 01:19 PM NO SHOW NOTE: [facility] ([facility]) LOCAL TITLE: NO SHOW/CANCELLATION CLINIC NOTE STANDARD TITLE: NO SHOW NOTE DATE OF NOTE: AUG 16, 2021@13:19 ENTRY DATE: AUG 16, 2021@13:19:15 AUTHOR: OLIVIER DURON EXP COSIGNER: URGENCY: STATUS: COMPLETED NO SHOW/CANCELLATION CLINIC NOTE Has ADDEND A not seen for scheduled appointment due t o: No Show - did not call in for scheduled MOVE Check-In Group No show letter sent. Appointment Rescheduled: Yes Patient is already scheduled for subsequent clas s Please review patient chart and medications for renewal needs (if appropriate). /tahira/ OLIVIER DURON RDN, LD REGISTERED DIETITIAN Signed: 08/16/2021 13:20 Receipt Acknowledged By: 08/16/2021 13:41 /RITCHIE Cabral [place], [place] CB for MONET MACIAS * AWAITING SIGNATURE * LOE CHACKO * AWAITING SIGNATURE * STEVE DOMINGUEZ 08/16/2021 13:41 /RITCHIE Cabral [place] [facility] 08/16/2021 ADDENDUM STATUS: COMPLETED Contact: No show letter sent to [place]'s addres s on file. Aug /RITCHIE Cabral [place] [facility] Signed: 08/16/2021 13:41
--- OUTSIDE RECORDS SUMMARY | 2022-04-03 12:34 | XMS_ITS | Encounter Summary ---
:1945 Author Organization [facility] Address [address] [place] [address] Support Name Relationship Address Phone MARION LEWIS Unavailable [address] [place] [address] MARION LEWIS Unavailable [address] [place] [address] Insurance Providers: All historical and current Section [...] Bird [place] Jul 15, [id number] 800 TONIEMARGUERITE P ATIENT [facility] (WNR) ADVANTAGE (WNR) 2017 9 [id number] [phone] NNIS 1 [place] Jul 15, [id number] 800 TONIEDE P ATIENT [facility] (WNR) ADVANTAGE (WNR) 2017 9 [id number] [phone] NN[place] 1 [place] Jul 15, [id number] 800 TONIEDE P ATIENT [facility] (WNR) ADVANTAGE (WNR) 2017 8 [id number] [phone] NNIS 1 Selected Encounter This section includes the information on record at [place] for the Encounter. Date/Time Encounter Type Encounter Reason Provider Source Description November 20, 2021 10:27 Outpatient ADMIN PAT ACTIVTIES Elizabeth WOODWARD AM Encounter (MASNONCT) IHE Encounter Template Text not used by [place] Plan of Treatment: Future Appointments (+ 6 months) and Future Tests (+/- 45 days) The Plan of Treatment section includes future care activities for the patient from all [place] [facility] This section includes future appointments and future orders which are active, pending orscheduled.Future Appointments This section includes appointments that were scheduled to occur 6 months from the date of the Encounter, up to a maximum of 20 appointments. The data comes from all [place] treatment facilities. Appointment Date/Time Appointment Type Appointment Facili ty Name November 21, 2021 12:30 PM AMBULATORY - MEDICINE [facility] Dec 13, 2021 02:00 PM AMBULATORY - MEDICINE [facility]) Dec 13, 2021 02:15 PM AMBULATORY - MEDICINE [facility]) Dec 18, 2021 08:30 PM AMBULATORY - MEDICINE [facility] Feb 12, 2022 10:00 AM AMBULATORY - MEDICINE [facility] Lab Results: +/- 30 days of the encounter This section includes the Chemistry and Hematology Lab Results on record with [place] for the patient. Radiology Reports and Pathology Reports are provided separately, in subsequent sections.Lab Results This section contains the Chemistry/Hematology Results that were resulted 30 days before or 30 daysafter the date of the Encounter. Date/Time Source Result Type Result - Unit Interpretation Reference Range Comment Dec 13, 2021 09:29 [facility] COVID-19 AND FLU SCRN Spe cimen Type: NASOPHARYNGEAL PM PANEL (REBEKAH) No comment enter ed. Ordering Provid er: LAURYN DIAZ Report Released Date/Time: November 22, 2021 08:58 AM Reporting Lab: [facility] [address] [facility] [address] Performing Lab: [facility] [address] COVID-19 PCR (REBEKAH) Not Detected Not De tected FLU A PCR (REBEKAH) Not Detected Not Detec pedro FLU B PCR (REBEKAH) Not Detected Not Detec pedro Dec 13, 2021 [place] ([facility] MICROALBUMIN/CREATININE RATIO Specimen Type: URINE 02:52 PM URINE No comment enter ed. Ordering Provid er: ALEXIS DICKERSON Report Released Date/Time: Dec 13, 2021 02:41 PM Reporting Lab: [facility] [address] [facility] [address] Performing Lab: [facility] [address] [facility] [address] CREATININE,UR RANDOM 67.4 58.0-161. 0 ALB/CREAT RATIO,UR 22.0 <29.9 MICROALBUMIN,UR 14.8 <29.9 Dec 13, 2021 02:52 PM [facility] ([facility]) HEMOGLOBIN A1C Specimen Type: BLOOD No comment enter ed. Ordering Provid er: ALEXIS DICKERSON Report Released Date/Time: Dec 13, 2021 02:29 PM Reporting Lab: [facility] [address] [facility] [address] Performing Lab: [facility] [address] [facility] [address] HEMOGLOBIN A1C 7.7 H 4.0-6.0 Dec 13, 2021 02:52 PM [facility] ([facility]) B 12 Specimen Type: SERUM No comment enter ed. Ordering Provid er: ALEXIS DICKERSON Report Released Date/Time: Dec 13, 2021 02:41 PM Reporting Lab: [facility] [address] [facility] [address] Performing Lab: [facility] [address] [facility] [address] B 12 [phone] Dec 13, 2021 02:52 [facility] ([facility]) LIPID PANEL,NON-FASTING Spe cimen Type: PLASMA PM No comment enter ed. Ordering Provid er: ALEXIS DICKERSON Report Released Date/Time: Dec 13, 2021 02:29 PM Reporting Lab: [facility] [address] [facility] [address] Performing Lab: [facility] [address] [facility] [address] CHOLESTEROL 93 <199 .HDL 27 L >40 LDL CALCULATION 38 <99 VLDL CALCULATION 28 <29 NON HDL CHOLESTEROL 66 <129 TRIG(NON FASTING) 140 <149 Dec 13, 2021 02:52 PM [facility] ([facility]) FOLATE Specimen Type: SERUM No comment enter ed. Ordering Provid er: ALEXIS DICKERSON R Report Released Date/Time: Dec 13, 2021 02:41 PM Reporting Lab: [facility] [address] [facility] [address] Performing Lab: [facility] [address] [facility] [address] FOLATE 17.4 >7.0 Dec 13, 2021 [place] ([facility]) COMPREHENSIVE METABOLIC Specim en Type: PLASMA 02:52 PM PANEL+MG No comment enter ed. Ordering Provid er: ALEXIS DICKERSON Report Released Date/Time: Dec 13, 2021 02:29 PM Reporting Lab: [facility] [address] Performing Lab: [facility] [address] CREATININE 1.0 0.7-1.2 UREA NITROGEN 26 8-26 GLUCOSE 96 74-100 SODIUM 140 136-145 POTASSIUM 4.0 3.5-5.1 CHLORIDE 103 98-107 CO2 26 22-29 CALCIUM 9.8 8.4-10.2 PROTEIN,TOTAL 7.1 6.0-8.3 ALBUMIN 4.2 3.5-5.2 BILIRUBIN, TOTAL 0.5 0.2-1.2 MAGNESIUM 2.4 1.6-2.6 ANION GAP 11 5-15 ALKALINE PHOSPHATASE 77 40-150 ALT/SGPT 28 <55 AST/SGOT 30 <34 CREAT EGFR(CKD-EPI) 78 >60 Dec 13, 2021 02:52 PM [facility] ([facility]) CBC & DIFF Specimen Type: BLOOD Comment: Automa pedro Differential Performed Ordering Provid er: ALEXIS DICKERSON Report Released Date/Time: Dec 13, 2021 02:29 PM Reporting Lab: [facility] [address] Performing Lab: [facility] [address] WBC 8.93 4.0-11.0 RBC 3.86 L 4.6-6.2 HGB 11.6 L 13.5-17.9 HCT 36.8 L 41-54 MCV 95.3 80-100 MCH 30.1 27-33 MCHC 31.5 L 32.0-37.5 PLT 275 150-400 MPV 11.6 H 7.4-10.4 NEUT 59.9 LYMPHS 28.3 MONO 9.0 EOSINO 2.1 BASO 0.4 RDW 14.1 11.5-14.5 ABS LYMPH 2.53 1.0-4.0 ABS MONO 0.80 0.1-1.0 ABS NEUT 5.34 2.0-7.7 ABS EOS 0.19 0-0.5 ABS BASO 0.04 0-0.2 IG(META,MYELO,PRO) 0.3 ABS IMMATURE GRAN 0.03 0-0.1 Dec 13, 2021 02:52 [facility] ([facility]) METHYLMA ACID, [facility] Specim en Type: SERUM PM Comment: This t est was developed and its analytical performance characteristics have been determined by [facility] [place], [place]. It has not been cleared or approved by the U.S . Food and Drug Administration. This assay has been validated pursuant to the CLIA regulations and is used for clinical purposes. Test Performed by [employer], [employer] [place], [address] [place] [address] Trent Olmstead M.D., Ph.D., Director of Laboratories , CLIA [id number] Ordering Provid er: ALEXIS DICKERSON Report Released Date/Time: Dec 13, 2021 10:04 PM Reporting Lab: [facility] [address] [facility] [address] Performing Lab: [address] METHYLMA ACID, [facility] [phone] Dec 13, 2021 02:52 PM [facility]) IRON GROUP Specimen Type: SERUM Comment: Specim en received is PLASMA. Ordering Provid er: ALEXIS DICKERSON Report Released Date/Time: Dec 14, 2021 07:50 AM Reporting Lab: [facility] [address] [facility] [address] Performing Lab: [facility] [address] [facility] [address] IRON 50 L 65-175 TIBC,CALCULATED 360 250-425 FERRITIN 20.6 L 21.8-274.7 IRON SATURATION 14 L 20-50 TRANSFERRIN 288 163-382 Encounter Notes: All associated encounter notes This section contains the clinical notes associated to the Encounter. Date/Time Encounter Note(s) Provider Source November 20, 2021 10:28 AM TELEHEALTH NOTE: YANET WOODWARD IS [facility] LOCAL TITLE: TELEHEALTH TECHNOLOGY SCREENING (T TS)-HISTORICAL STANDARD TITLE: TELEHEALTH NOTE DATE OF NOTE: NOVEMBER 20, 2021@10:28 ENTRY DATE: NOVEMBER 20, 2021@10:29:05 AUTHOR: YANET WOODWARD EXP COSIGNER: URGENCY: STATUS: COMPLETED unable to do [facility] ([facility]) at t his time. Unable to complete screen. Spoke with patient test call scheduled w [facility] residential mortgage underwriter today @1 /tahira/ YANET WOODWARD [employer] TECH Signed: 11/20/2021 10:30
--- OUTSIDE RECORDS SUMMARY | 2022-04-03 12:34 | XMS_ITS | Encounter Summary ---
:1945 Author Organization [facility] Address [address] [place] [address] Support Name Relationship Address Phone MARION LEWIS Unavailable [address] [place] [address] MARION LEWIS Unavailable [phone] [place] [address] Insurance Providers: All historical and current Section [...] Bird [place] Jul 15, [id number] 800 HIGGINS P ATIENT [facility] (WNR) ADVANTAGE (WNR) 2017 9 [id number] [phone] NNIS 1 [place] Jul 15, [id number] 800 LIANEWAGNER P ATIENT [facility] (WNR) ADVANTAGE (WNR) 2017 9 [id number] [phone] NN[place] 1 [place] Jul 15, [id number] 800 TONIEMARGUERITE P ATIENT [facility] (WNR) ADVANTAGE (WNR) 2017 8 [id number] [phone] NNIS 1 Selected Encounter This section includes the information on record at [place] for the Encounter. Date/Time Encounter Type Encounter Description Reason Provider Source Jun 15, 2021 10:29 Outpatient Encounter CLINICAL PHARMACY AM IHE Encounter Template Text not used by [place] Plan of Treatment: Future Appointments (+ 6 months) and Future Tests (+/- 45 days) The Plan of Treatment section includes future care activities for the patient from all [place] treatmentfacilities. This section includes future appointments and future orders which are active, pending orscheduled.Future Appointments This section includes appointments that were scheduled to occur 6 months from the date of the Encounter, up to a maximum of 20 appointments. The data comes from all [place] treatment facilities. Appointment Date/Time Appointment Type Appointment Lien ty Name Jun 20, 2021 02:30 PM AM[facility]ULATORY - [facility] Jul 19, 2021 01:00 PM AMBULATORY - [facility] [place] ([facility] Aug 16, 2021 01:00 PM AMBULATORY - [facility] November 21, 2021 12:30 PM AM[facility]ULATORY - MEDICINE [facility] Dec 13, 2021 02:00 PM AMBULATORY - [facility] ([facility] Dec 13, 2021 02:15 PM AMBULATORY - [facility] ([facility] Lab Results: +/- 30 days of the encounter This section includes the Chemistry and Hematology Lab Results on record with [place] for the patient. Radiology Reports and Pathology Reports are provided separately, in subsequent sections.Lab Results This section contains the Chemistry/Hematology Results that were resulted 30 days before or 30 daysafter the date of the Encounter. Date/Time Source Result Type Result - Unit Interpretation Reference Range Comment Jun 20, 2021 02:28 [facility] LIVER FUNCTION TESTS Spec imen Type: PLASMA PM No comment enter ed. Ordering Provid er: JANESSA WISEMAN Report Released Date/Time: Jun 15, 2021 10:35 AM Reporting Lab: [facility] [address] [facility] [address] Performing Lab: [facility] [address] [facility] [address] BILIRUBIN, TOTAL 0.5 0.2-1.2 ALKALINE PHOSPHATASE 89 40-150 ALT/SGPT 18 <55 AST/SGOT 17 <34 GAMMA GTP 19 <64 Jun 20, 2021 02:28 PM [facility] CBC Specim en Type: BLOOD No comment enter ed. Ordering Provid er: JANESSA WISEMAN Report Released Date/Time: Jun 15, 2021 10:35 AM Reporting Lab: [facility] [address] [facility] [address] Performing Lab: [facility] [address] [facility] [address] WBC 8.62 4.0-11.0 RBC 4.48 L 4.6-6.2 HGB 14.4 13.5-17.9 HCT 44.5 41-54 MCV 99.3 80-100 MCH 32.1 27-33 MCHC 32.4 32.0-37.5 PLT 220 150-400 MPV 11.8 H 7.4-10.4 RDW 13.3 11.5-14.5 Jun 20, 2021 [facility] CREATININE(INCLUDES EGFR) Sp ecimen Type: PLASMA 02:28 PM No comment enter ed. Ordering Provid er: JANESSA WISEMAN Report Released Date/Time: Jun 15, 2021 10:35 AM Reporting Lab: [facility] [address] [facility] [address] Performing Lab: [facility] [address] CREATININE 1.2 0.7-1.2 ESTIMATED GFR(eGFR) 59 L >60 Encounter Notes: All associated encounter notes This section contains the clinical notes associated to the Encounter. Date/Time Encounter Note(s) Provider Source Jun 15, 2021 10:29 AM LETTERS: KATHY DASH [facility] LOCAL TITLE: FOLLOW UP RESULTS LETTER STANDARD TITLE: LETTERS DATE OF NOTE: JUN 15, 2021@10:29 ENTRY DATE: JUN 15, 2021@10:29:36 AUTHOR: KATHY DASH EXP COSIGNER: URGENCY: STATUS: COMPLETED SUBJECT: Anticoag [facility] [address] [place] [address] Jun RONA BINGHAMANTHONY [address] [facility] [id number] Dear : I am writing to follow up with you on your antic oagulant (blood thinning) medication, Apixaban. Due to the importance of preventing blood clots and stroke, along with the bleeding risk associated with the medication , we check in periodically to make sure things are going well for you. I am sending you this letter as a courtesy follow up. We periodically (usually once yearly or every si x months) require [place] lab monitoring to assure your blood thinner medicati on is safe to continue. We check your complete blood count, creatinine and liver function. The complete blood count measures hemoglobin and platelets, w hich can be used to alert us if there may be a potential problem with bleedin g. The creatinine tests kidney function, to verify that your body elimin ates the medication at a good rate. The liver function tests verify that your liver is working well. You are due for some labs. I have scheduled your lab draw appointment for Jun at 12:45 in the [facility] to morelia arcos with your other appointment scheduled. If you would like to guerrero ge this appointment, please call our office at [phone], option 1 to have this appointment changed. If you ever have any questions or problems, incl uding any signs of bleeding, medication changes, or surgeries or procedures c oming up, you can always give our office a call. I hope you are doing well. Thank you for your se rvice. Sincerely, [facility] Team --------- Phone number: [phone] -option 1 to schedule or reschedule an appointm ent -option 2 to refill medications or call the april ne number on the bottle -option 3 for all other communication Fax number: [phone] Clinic Hours: Saturday-Saturday, 8:00am to 4:00pm (e xcluding Federal holidays) KATHY DASH MAGAZINE PUBLISHER
--- OUTSIDE RECORDS SUMMARY | 2022-04-03 12:35 | XMS_ITS | Encounter Summary ---
:1945 Author Organization [facility] rs Address [address] [place] [address] Support Name Relationship Address Phone MARION LEWIS Unavailable [phone] [place] [address] MARION LEWIS Unavailable [phone] [place] [address] Insurance Providers: All historical and current Section [...] Bird [place] Jul 15, [id number] TONIEMARGUERITE P ATIENT [facility] (WNR) ADVANTAGE (WNR) 2017 9 [id number] [phone] NNIS 1 [place] Jul 15, [id number] 800 LIANEHariDE P ATIENT [facility] (WNR) ADVANTAGE (WNR) 2017 9 [id number] [phone] NN[place] 1 [place] Jul 15, [id number] 800 TONIEDE P ATIENT [facility] (WNR) ADVANTAGE (WNR) 2017 8 [id number] [phone] NNIS 1 Selected Encounter This section includes the information on record at [place] for the Encounter. Date/Time Encounter Type Encounter Reason Provider Source Description November 20, 2021 01:39 Outpatient ADMIN PAT ACTIVTIES Elizabeth WOODWARD PM Encounter (MASNONCT) IHE Encounter Template Text not used by [place] Plan of Treatment: Future Appointments (+ 6 months) and Future Tests (+/- 45 days) The Plan of Treatment section includes future care activities for the patient from all [place] [facility] This section includes future appointments and future orders which are active, pending orscheduled.Future Appointments This section includes appointments that were scheduled to occur 6 months from the date of the Encounter, up to a maximum of 20 appointments. The data comes from all [place] treatment facilities. Appointment Date/Time Appointment Type Appointment Facili ty Name November 21, 2021 12:30 PM AMBULATORY - [facility]INE [facility] Dec 13, 2021 02:00 PM AMBULATORY - [facility] Dec 13, 2021 02:15 PM AMBULATORY - MED[facility]INE [facility] Dec 18, 2021 08:30 PM AMBULATORY - MEDICINE [facility] Feb 12, 2022 10:00 AM AMBULATORY - MEDICINE [facility] Lab Results: +/- 30 days of the encounter This section includes the Chemistry and Hematology Lab Results on record with [place] for the patient. Radiology Reports and Pathology Reports are provided separately, in subsequent sections.Lab Results This section contains the Chemistry/Hematology Results that were resulted 30 days before or 30 daysafter the date of the Encounter. Date/Time Source Result Type Result - Unit Interpretation Reference Range Comment Dec 13, 2021 09:29 [facility] COVID-19 AND FLU SCRN Spe cimen Type: NASOPHARYNGEAL PM PANEL (REBEKAH) No comment enter ed. Ordering Provid er: LAURYN DIAZ Report Released Date/Time: November 22, 2021 08:58 AM Reporting Lab: [facility] [address] [facility] [address] Performing Lab: [facility] [address] COVID-19 PCR (REBEKAH) Not Detected Not De tected FLU A PCR (REBEKAH) Not Detected Not Detec pedro FLU B PCR (REBEKAH) Not Detected Not Detec pedro Dec 13, 2021 [place] ([facility]) MICROALBUMIN/CREATININE RATIO Specimen Type: URINE 02:52 PM URINE No comment enter ed. Ordering Provid er: ALEXIS DICKERSON Report Released Date/Time: Dec 13, 2021 02:41 PM Reporting Lab: [facility] [address] [facility] [address] Performing Lab: [facility] [address] [facility] [address] CREATININE,UR RANDOM 67.4 58.0-161. 0 ALB/CREAT RATIO,UR 22.0 <29.9 MICROALBUMIN,UR 14.8 <29.9 Dec 13, 2021 02:52 PM [facility] ([facility]) HEMOGLOBIN A1C Specimen Type: BLOOD No comment enter ed. Ordering Provid er: ALEXIS DICKERSON Report Released Date/Time: Dec 13, 2021 02:29 PM Reporting Lab: [facility] [address] Performing Lab: [facility] [address] HEMOGLOBIN A1C 7.7 H 4.0-6.0 Dec 13, 2021 [facility] ([facility]) COMPREHENSIVE METABOLIC Specim en Type: PLASMA 02:52 PM PANEL+MG No comment enter ed. Ordering Provid er: ALEXIS DICKERSON Report Released Date/Time: Dec 13, 2021 02:29 PM Reporting Lab: [facility] [address] Performing Lab: [facility] [address] CREATININE 1.0 0.7-1.2 UREA NITROGEN 26 8-26 GLUCOSE 96 74-100 SODIUM 140 136-145 POTASSIUM 4.0 3.5-5.1 CHLORIDE 103 98-107 CO2 26 22-29 CALCIUM 9.8 8.4-10.2 PROTEIN,TOTAL 7.1 6.0-8.3 ALBUMIN 4.2 3.5-5.2 BILIRUBIN, TOTAL 0.5 0.2-1.2 MAGNESIUM 2.4 1.6-2.6 ANION GAP 11 5-15 ALKALINE PHOSPHATASE 77 40-150 ALT/SGPT 28 <55 AST/SGOT 30 <34 CREAT EGFR(CKD-EPI) 78 >60 Dec 13, 2021 02:52 [facility]) LIPID PANEL,NON-FASTING Spe cimen Type: PLASMA PM No comment enter ed. Ordering Provid er: ALEXIS DICKERSON Report Released Date/Time: Dec 13, 2021 02:29 PM Reporting Lab: [facility] [address] Performing Lab: [facility] [address] CHOLESTEROL 93 <199 .HDL 27 L >40 LDL CALCULATION 38 <99 VLDL CALCULATION 28 <29 NON HDL CHOLESTEROL 66 <129 TRIG(NON FASTING) 140 <149 Dec 13, 2021 02:52 PM [facility] ([facility]) B 12 Specimen Type: SERUM No comment enter ed. Ordering Provid er: ALEXIS DICKERSON Report Released Date/Time: Dec 13, 2021 02:41 PM Reporting Lab: [facility] [address] [facility] [address] Performing Lab: [facility] [address] B 12 [phone] Dec 13, 2021 02:52 PM [facility] ([facility]) FOLATE Specimen Type: SERUM No comment enter ed. Ordering Provid er: ALEXIS DICKERSON R Report Released Date/Time: Dec 13, 2021 02:41 PM Reporting Lab: [facility] [address] Performing Lab: [facility] [address] FOLATE 17.4 >7.0 Dec 13, 2021 02:52 PM [facility] ([facility]) CBC & DIFF Specimen Type: BLOOD Comment: Automa pedro Differential Performed Ordering Provid er: ALEXIS DICKERSON Report Released Date/Time: Dec 13, 2021 02:29 PM Reporting Lab: [facility] [address] Performing Lab: [facility] [address] WBC 8.93 4.0-11.0 RBC 3.86 L 4.6-6.2 [...] GRAN 0.03 0-0.1 Dec 13, 2021 02:52 [facility] ([facility]) METHYLMA ACID, QUEST Specim en Type: SERUM PM Comment: This t est was developed and its analytical performance characteristics have been determined by [employer] [place], [place]. It has not been cleared or approved by the U.S . Food and Drug Administration. This assay has been validated pursuant to the CLIA regulations and is used for clinical purposes. Test Performed by [employer], [employer] [place], [address] [place] [address] Trent Olmstead M.D., Ph.D., Director of Laboratories , CLIA [id number] Ordering Provid er: ALEXIS DICKERSON Report Released Date/Time: Dec 13, 2021 10:04 PM Reporting Lab: [facility] [address] [facility] [address] Performing Lab: [address] METHYLMA ACID, QUEST [phone] Dec 13, 2021 02:[address] [facility]) IRON GROUP Specimen Type: SERUM Comment: Specim en received is PLASMA. Ordering Provid er: ALEXIS DICKERSON Report Released Date/Time: Dec 14, 2021 07:50 AM Reporting Lab: [facility] [address] [facility] [address] Performing Lab: [facility] [address] [facility] [address] IRON 50 L 65-175 TIBC,CALCULATED 360 250-425 FERRITIN 20.6 L 21.8-274.7 IRON SATURATION 14 L 20-50 TRANSFERRIN 288 163-382 Encounter Notes: All associated encounter notes This section contains the clinical notes associated to the Encounter. Date/Time Encounter Note(s) Provider Source November 20, 2021 01:39 PM TELEHEALTH NOTE: YANET WOODWARD IS [facility] LOCAL TITLE: TELEHEALTH TECHNOLOGY SCREENING (T TS) STANDARD TITLE: TELEHEALTH NOTE DATE OF NOTE: NOVEMBER 20, 2021@13:39 ENTRY DATE: NOVEMBER 20, 2021@13:39:54 AUTHOR: YANET WOODWARD EXP COSIGNER: URGENCY: STATUS: COMPLETED [place] agrees to [place] Video Connect (VVC) and has capability to complete a VVC visit. has completed a test call or a VV C visit on his/her personal device. Phone (texting): Device(s) they can use: iOS Device (iPhone or iP ad) /tahira/ YANET Chambers [employer] Signed: 11/20/2021 13:40
--- OUTSIDE RECORDS SUMMARY | 2022-04-03 12:35 | XMS_ITS | Encounter Summary ---
:1945 Author Organization [facility] rs Address [address] [place] [address] Support Name Relationship Address Phone MARION LEWIS Unavailable [address] [place] [address] MARION LEWIS Unavailable [address] [place] [address] Insurance Providers: All historical and current Section [...] Bird [place] Jul 15, [id number] 800 TONIEMARGUERITE P ATIENT [facility] (WNR) ADVANTAGE (WNR) 2017 9 [id number] [phone] NNIS 1 [place] Jul 15, [id number] 800 ZACHERYHOPKINS P ATIENT [facility] (WNR) ADVANTAGE (WNR) 2017 9 [id number] [phone] NNIS 1 [place] Jul 15, [id number] 800 TONIEMARGUERITE P ATIENT [facility] (WNR) ADVANTAGE (WNR) 2017 8 [id number] [phone] NNIS 1 Selected Encounter This section includes the information on record at [place] for the Encounter. Date/Time Encounter Type Encounter Description Reason Provider Source Apr 27, 2021 12:00 Outpatient Encounter EVENT (HISTORICAL) AM IHE Encounter Template Text not used [...] 20 appointments. The data comes from all [place] treatment facilities. Appointment Date/Time Appointment Type Appointment Facili ty Name May 09, 2021 02:00 PM AM[facility]ATORY - [facility] [place] ([facility] Jun 20, 2021 02:30 PM AM[facility]ULATORY - [facility] ([facility] Jul 19, 2021 01:00 PM AMBULATORY - MEDICINE [place] ([facility]) Aug 16, 2021 01:00 PM AMBULATORY [facility] ([facility]) Immunizations: All administered on the encounter date This section contains immunizations associated to the Encounter. Immunization Series Date Issued Reaction Comments COVID-19 (Bid Nerd), MRNA, LNP-S, PF, 30 MCG/0.3 3 Apr 27, 2021 ML DOSE
--- OUTSIDE RECORDS SUMMARY | 2022-04-03 12:35 | XMS_ITS | Encounter Summary ---
:1945 Author Organization [facility] rs Address [address] [place] [address] Support Name Relationship Address Phone MARION LEWIS Unavailable [phone] [place] [address] MARION LEWIS Unavailable [phone] [place] [address] Insurance Providers: All historical and current Section [...] Bird [place] Jul 15, [id number] TONIEMARGUERITE P ATIENT [facility] (WNR) ADVANTAGE (WNR) 2017 9 [id number] [phone] NNIS 1 [place] Jul 15, [id number] LIANEHariDE P ATIENT [facility] (WNR) ADVANTAGE (WNR) 2017 9 [id number] [phone] NNIS 1 [place] Jul 15, [id number] TONIEDE P ATIENT [facility] (WNR) ADVANTAGE (WNR) 2017 8 [id number] [phone] NNIS 1 Selected Encounter This section includes the information on record at [facility] for the Encounter. Date/Time Encounter Type Encounter Reason Provider Source Description November 21, 2021 OFFICE O/P EST SLEEP MEDICINE ICD-10-CM G47.30 MERCED DIAZ 12:30 PM HI 40-54 MIN Sleep apnea, unspecified with Provider Comments: Sleep apnea (SCT [id number]) IHE Encounter Template Text not used by [facility] Assessments - Encounter Diagnoses This section includes the primary and secondary diagnoses documented for the Encounter. Date/Time Primary/Secondary Diagnosis Name Provider Source Diagnosis November 22, 2021 PRIMARY Sleep apnea, JOELAURYN Elizabeth LEÓN V A 08:50 AM unspecified HCS November 22, 2021 SECONDARY Chronic JOELAURYN Cohn MAU V A 08:50 AM obstructive [facility] pulmonary disease, unspecified November 22, 2021 SECONDARY Hypoxemia JOELAURYN J MAU V A 08:50 AM HCS Plan of Treatment: Future Appointments (+ 6 months) and Future Tests (+/- 45 days) The Plan of Treatment section includes future care activities for the [facility] This section includes future appointments and future orders which are active, pending orscheduled.Future Appointments This section includes appointments that were scheduled to occur 6 months from the date of the Encounter, up to a maximum of 20 appointments. The data comes from all [facility] treatment facilities. Appointment Date/Time Appointment Type Appointment Facili ty Name Dec 13, 2021 02:00 PM AMBULATORY - MEDICINE [place] ([facility]) Dec 13, 2021 02:15 PM [facility]ORY - MEDICINE [place] ([facility]) Dec 18, 2021 08:30 PM AM[facility]ORY - MEDICINE [facility] Feb 12, 2022 10:00 AM AMBULATORY - MEDICINE [facility] Lab Results: +/- 30 days of the encounter This section includes the Chemistry and Hematology Lab Results on record with [facility] for the patient. Radiology Reports and Pathology Reports are provided separately, in subsequent sections.Lab Results This section contains the Chemistry/Hematology Results that were resulted 30 days before or 30 daysafter the date of the Encounter. Date/Time Source Result Type Result - Unit Interpretation Reference Range Comment Dec 13, 2021 09:29 [facility] COVID-19 AND FLU SCRN Spe cimen Type: NASOPHARYNGEAL PM PANEL (REBEKAH) No comment enter ed. Ordering Provid er: LAURYN DIAZ Report Released Date/Time: November 22, 2021 08:58 AM Reporting Lab: [facility] [place] [place] [facility] [address] Performing Lab: [facility] M[place] [facility] [address] COVID-19 PCR (REBEKAH) Not Detected Not De tected FLU A PCR (REBEKAH) Not Detected Not Detec pedro FLU B PCR (REBEKAH) Not Detected Not Detec pedro Dec 13, 2021 [facility] [place] ([facility]) MICROALBUMIN/CREATININE RATIO Specimen Type: URINE 02:52 PM URINE No comment enter ed. Ordering Provid er: ALEXIS DICKERSON Report Released Date/Time: Dec 13, 2021 02:41 PM Reporting Lab: [facility] [address] [facility] [address] Performing Lab: [facility] [address] [facility] [address] CREATININE,UR RANDOM 67.4 58.0-161. 0 ALB/CREAT RATIO,UR 22.0 <29.9 MICROALBUMIN,UR 14.8 <29.9 Dec 13, 2021 02:52 PM [place] ([facility]) HEMOGLOBIN A1C Specimen Type: BLOOD No comment enter ed. Ordering Provid er: ALEXIS DICKERSON Report Released Date/Time: Dec 13, 2021 02:29 PM Reporting Lab: [facility] [address] [facility] [address] Performing Lab: [facility] [address] HEMOGLOBIN A1C 7.7 H 4.0-6.0 Dec 13, 2021 02:52 [facility] [place] ([facility]) LIPID PANEL,NON-FASTING Spe cimen Type: PLASMA PM No comment enter ed. Ordering Provid er: ALEXIS DICKERSON Report Released Date/Time: Dec 13, 2021 02:29 PM Reporting Lab: [facility] [address] [facility] [address] Performing Lab: [facility] [address] CHOLESTEROL 93 <199 .HDL 27 L >40 LDL CALCULATION 38 <99 VLDL CALCULATION 28 <29 NON HDL CHOLESTEROL 66 <129 TRIG(NON FASTING) 140 <149 Dec 13, 2021 02:52 PM [place] ([facility]) B 12 Specimen Type: SERUM No comment enter ed. Ordering Provid er: ALEXIS DICKERSON Report Released Date/Time: Dec 13, 2021 02:41 PM Reporting Lab: [facility] [address] [facility] [address] Performing Lab: [facility] [address] B 12 [phone] Dec 13, 2021 [place] ([facility]) COMPREHENSIVE METABOLIC Specim en Type: PLASMA 02:52 PM PANEL+MG No comment enter ed. Ordering Provid er: ALEXIS DICKERSON Report Released Date/Time: Dec 13, 2021 02:29 PM Reporting Lab: [facility] [address] Performing Lab: [facility] [address] CREATININE 1.0 0.7-1.2 UREA NITROGEN 26 8-26 GLUCOSE 96 74-100 SODIUM 140 136-145 POTASSIUM 4.0 3.5-5.1 CHLORIDE 103 98-107 CO2 26 22-29 CALCIUM 9.8 8.4-10.2 PROTEIN,TOTAL 7.1 6.0-8.3 ALBUMIN 4.2 3.5-5.2 BILIRUBIN, TOTAL 0.5 0.2-1.2 MAGNESIUM 2.4 1.6-2.6 ANION GAP 11 5-15 ALKALINE PHOSPHATASE 77 40-150 ALT/SGPT 28 <55 AST/SGOT 30 <34 CREAT EGFR(CKD-EPI) 78 >60 Dec 13, 2021 02:52 PM [place] ([facility]) FOLATE Specimen Type: SERUM No comment enter ed. Ordering Provid er: ALEXIS DICKERSON Report Released Date/Time: Dec 13, 2021 02:41 PM Reporting Lab: [facility] [address] Performing Lab: [facility] [address] FOLATE 17.4 >7.0 Dec 13, 2021 02:52 PM [place] ([facility]) CBC & DIFF Specimen Type: BLOOD Comment: Automa pedro Differential Performed Ordering Provid er: ALEXIS DICKERSON Report Released Date/Time: Dec 13, 2021 02:29 PM Reporting Lab: [facility] [address] Performing Lab: [facility] [address] WBC 8.93 4.0-11.0 RBC 3.86 L 4.6-6.2 [...] GRAN 0.03 0-0.1 Dec 13, 2021 02:52 [place] ([facility]) METHYLMA ACID, [facility] Specim en Type: SERUM PM Comment: This t est was developed and its analytical performance characteristics have been determined by [employer] [place], [place]. It has not been cleared or approved by the U.[place] . Food and Drug Administration. This assay has been validated pursuant to the CLIA regulations and is used for clinical purposes. Test Performed by [facility], [employer] [facility], [address] [place] [address] Trent Olmstead M.D., Ph.D., Director of Laboratories , CLIA [id number] Ordering Provid er: ALEXIS DICKERSON Report Released Date/Time: Dec 13, 2021 10:04 PM Reporting Lab: [facility] [address] [place] [facility] [address] Performing Lab: [address] METHYLMA ACID, [place]ST [phone] Dec 13, 2021 02:52 PM [place] ([facility]) IRON GROUP Specimen Type: SERUM Comment: Specim en received is PLASMA. Ordering Provid er: ALEXIS DICKERSON Report Released Date/Time: Dec 14, 2021 07:50 AM Reporting Lab: [facility] [address] [facility] [address] Performing Lab: [facility] [address] [facility] [address] IRON 50 L 65-175 TIBC,CALCULATED 360 250-425 FERRITIN 20.6 L 21.8-274.7 IRON SATURATION 14 L 20-50 TRANSFERRIN [phone] Encounter Notes: All associated encounter notes This section contains the clinical notes associated to the Encounter. Date/Time Encounter Note(s) Provider Source November 21, 2021 12:22 PM SLEEP MEDICINE NOTE: LAURYN DIAZ [facility] LOCAL TITLE: SLEEP MEDICINE NOTE STANDARD TITLE: SLEEP MEDICINE NOTE DATE OF NOTE: NOVEMBER 21, 2021@12:22 ENTRY DATE: NOVEMBER 21, 2021@12:22:07 AUTHOR: LAURYN DIAZ COSIGNER: URGENCY: STATUS: COMPLETED SLEEP MEDICINE NOTE Has ADDENDA Visit completed via [facility] video call with consent but switched to a phone encounter due to poor internet connection History of Present Illness -Mateus is a 76y/o male with a significant PMH for Obesity (BMI: 36.8), DM, HTN, CAD, CHF, COPD, and HLD. He was contacted today for follow up on his complex sleep disordered breathing. He was started on empiric ASV treatment due to high residual central and obstructive apneas on BiPAP 18/35jbH4G (residual 51). Empiric ASV was trialed because PSG titration roach d remained unavailable due to COVID-19. Mateus is doing well on ASV. He descri bes less fragmentation with ASV and wakes feeling more re sted. He denies any difficulty with mask fit or pressure settings. D kaylah was prescribed supplemental O2 with his prior BiPAP settings wh ich he is no longer using. Two overnight oximetry tests have been completed with ongoing nocturnal hypoxia. Rx changes on his ASV device were changed to inc EPAP to 13-16, PS: 08-12 04/2021 but was not synchron ized with [facility]. New settings were re-sent to [facility] today. Sleep Schedule -11:30pm -Sleep latency of <15min -Nocturnal awakenings: 1-3x -Wakes: 8am -Naps: none [place] Sleepiness Scale Using the scale: 0=Never 1=Slight chance of dozing 2=Moderate chance of dozing 3=High chance of dozing, how often are y ou likely to doze off in the following situations? 1. Sitting and reading 1 2. Watching TV 3 3. Sitting inactive in a public place 0 4. As a passenger in a car for an hour without a break 3 5. Lying down to rest in the afternoon as circu mstances permit 3 6. Sitting and talking to someone 1 7. Sitting quietly after lunch without alcohol 1 8. In a car while stopped for a few minutes in traffic 1 TOTAL: 13 day download -Avg usage: 5hr 40min -Percent days used >4hrs: 66.7% -AHI: 12.1 -Settings: EPAP: 11-12, PS: 5-10 -90% EPAP: 13.5 PS: 8.1 -Leak: 1hr 7min -Inc mask leak occurring in the second half of t he night 03/30/2021 - Overnight oximetry study results Patient on overnight oximetry study while on: [...] 0.4% 80 0.0% 75 0.0% 70 0.0% 10/13/2020 - Overnight oximetry study results Patient on overnight oximetry study while on: PAP Settings: ASV - Max Pressure: 22, Mi n EPAP: 10, Max EPAP: 12, Min Pressure Support: 4, Max Pressure Support: 10, Breath Rat e: Auto Positive airway pressure derived AHI on evening of this study 15.3 /hr. Comments: Index (1/hr.) 24.4 Adjusted Index (1/hr.) 24.5 Basal SpO2(%) 89.8 Minimum SpO2(%) 77 Average Pulse Rate(bpm) 49.6 Cumulative time spent <88% O2 60.7 minutes. Time spent below(%) 100 100% 95 97.2% 90 51.3% 85 1.5% 80 0.1% 75 0.0% 70 0.0% Date: 06/22/2014 ([facility]) Sleep Efficiency: 78.8% AHI: 40.7 (supine AHI: 98) O2 Danial: 75% BMI: 35.6 PLMi: 43 PLMi w/ arousal: 1.1 Date: 08/06/2017 (Titration study at [facility]) Sleep Efficiency: 92% AHI: 14 RDI: 16 O2 Danial: 81% BMI: 34 PLMi: 63 PLMi w/ arousal: 3.6 -Titrated to BiPAP 18/10 with 2lpm O2 (residual AHI: 3.1, TST: 38) -TCM: 39-46mm Past Medical History Active problems - Computerized Problem List is t he source for the followin. Diabetes mellitus 2. Essential hypertension 3. Hyperlipidemia 4. Obesity 5. Edema of lower leg 6. Umbilical hernia 7. Coronary arteriosclerosis 8. Congestive heart failure 9. Chronic obstructive lung disease 10. Iron deficiency anemia 11. Sleep apnea 12. AF- Atrial Fibrillation 13. Varicose veins of lower extremity Medications: Active Outpatient Medications (including Supplie s): Outpatient Medications Status 1) AMLODIPINE BESYLATE 10MG TAB TAKE ONE-HALF TA BLET BY ACTIVE MOUTH EVERY DAY 2) APIXABAN 5MG TAB TAKE ONE TABLET BY MOUTH TAYO RY 12 ACTIVE HOURS TO PREVENT STROKES 3) ATORVASTATIN CALCIUM 80MG TAB TAKE ONE TABLET BY ACTIVE MOUTH AT BEDTIME FOR CHOLESTEROL 4) GABAPENTIN 100MG CAP TAKE FOUR CAPSULES BY MO UTH ACTIVE EVERY MORNING AND TAKE TWO CAPSULES AT BEDTIME 5) INSULIN,ASPART 100UN/ML BETZY FLEXPEN 3ML INJE CT 18 ACTIVE UNITS UNDER THE SKIN BEFORE MEALS *INJECT IMMEDIATELY PRIOR TO MEALTIME *DISCARD 28 DAYS AFTER INITIAL USE 6) INSULIN,GLARGINE 100 UNT/ML 3ML SOLOSTAR INJE CT 50 ACTIVE UNITS UNDER THE SKIN AT BEDTIME FOR DIABETESDISCARD PEN 28 DAYS AFTER INITIAL USE 7) ISOSORBIDE MONONITRATE 30MG SA TAB TAKE ONE T ABLET BY ACTIVE MOUTH EVERY DAY 8) METFORMIN HCL 500MG 24HR SA TAB TAKE ONE TABL ET BY ACTIVE (S) MOUTH TWICE A DAY FOR DIABETES 9) METOPROLOL SUCCINATE 50MG SA TAB TAKE ONE AND ACTIVE ONE-HALF TABLETS BY MOUTH EVERY DAY 10) MULTIVITAMIN CAP/TAB TAKE 1 TABLET BY MOUTH EVERY DAY ACTIVE 11) NEEDLE,PEN 31G,8MM USE 1 NEEDLE UNDER THE SK IN ACTIVE DIRECTED *DISPOSE OF IN A HARD-PLASTIC CONTAINE R WITH A SCREW-ON LID CONTACT GARBAGE HAULER FO R PROPER DISPOSAL 12) NITROGLYCERIN 0.4MG SL TAB DISSOLVE ONE TABL ET UNDER ACTIVE THE TONGUE EVERY DAY NEEDED FOR CHEST PAIN * MAY REPEAT EVERY 5 MINUTES--NO MORE THAN 3 TOTAL 13) POLYETHYLENE GLYCOL 3350 ORAL PWDR TAKE 17 G DANIEL BY ACTIVE MOUTH EVERY DAY *MIX IN 4 TO 8 OUNCES OF LIQUID DIRECTED*USE COVER TO MEASURE POWDER* 14) TORSEMIDE 20MG TAB TAKE ONE TABLET BY MOUTH TWICE A ACTIVE DAY FOR CONGESTIVE HEART FAILURE Non-VA Medications Status 1) Non-VA ASPIRIN 81MG EC TAB 81MG MOUTH ACTIVE 2) Non-VA FISH OIL 1000MG (500MG DHA/EPA) CAP 10 00MG ACTIVE MOUTH 16 Total Medications Allergies: CONTRAST MEDIA (May 08, 2017) LISINOPRIL (May 08, 2017) Physical Exam: Vitals: BP: 134/60 (12/15/2020 09:18) P: 54 (12/15/2020 09:18) R: 18 (12/15/2020 09:18) T: 97.7 F [36.5 C] (12/15/2020 09:18) WT: 256 lb [116.12 kg] (07/19/2021 14:06) Pain: 0 (12/15/2020 09:18) General Appearance - Well nourished, NAD 04/07/2020 ECHO 1. Normal left ventricular size and systolic fun ction with an estimated ejection fraction between 55%-65% and no regiona l wall motion abnormalities. 2. Mild concentric left ventricular hypertrophy. 3. Mild aortic valve sclerosis without stenosis. Impression: 1. Obstructive Sleep Apnea: severe 2. Central Sleep Apnea 3. Nocturnal Hypoxia 4. Obesity 5. COPD: unknown severity Recommendation: 1. Continue ASV with ongoing excellent adherence. Pressure setting changes were resent to modem today 2. Titration PSG to optimize PAP settings 3. Pre-PSG COVID screening ordered 4. Zolpidem 5mg to take if needed the night of t he sleep study 5. RTC 6-8 wks after sleep testing 40min spent on chart review, documentati on of note, and examining the . /tahira/ FLORY GUERRA PHYSICIAN [employer]ION [employer]URE EQUIPMENT SUPERVISOR Signed: 11/22/2021 09:03 11/22/2021 ADDENDUM STATUS: [facility]ED [facility] for 12[facility]18[facility]21. Mohini poe will need a COVID test prior to sleep study and wou ld like to have that done on 12/15/21 when he is there for another appointment at the [facility]. William flaherty reach out to to schedule a COVID test for that day. /tahira/ LORRIE MORENO MSA DISABILITY CASE MANAGER Signed: 11/22/2021 09:16 Receipt Acknowledged By: * AWAITING SIGNATURE * LEO CHACKO
--- OUTSIDE RECORDS SUMMARY | 2022-04-03 12:35 | XMS_ITS | Encounter Summary ---
:1945 Author Organization [facility] Address [address] [place] [address] Support Name Relationship Address Phone MARION LEWIS Unavailable [id number] [place] [address] MARION LEWIS Unavailable [id number] [place] [address] Insurance Providers: All historical and current Section [...] Bird [place] M[place] Jul 15, [id number] TONIEMARGUERITE P ATIENT [facility] (WNR) ADVANTAGE (WNR) 2017 9 [id number] [phone] NNIS 1 [place] Jul 15, [id number] ZACHERYHOPKINS P ATIENT [facility] (WNR) ADVANTAGE (WNR) 2017 9 [id number] [phone] NNIS 1 [place] Jul 15, [id number] TONIEMARGUERITE P ATIENT [facility] (WNR) ADVANTAGE (WNR) 2017 [id number] [phone] NNIS 1 Selected Encounter This section includes the information on record at [place] for the Encounter. Date/Time Encounter Type Encounter Description Reason Provider Source December 08, 2021 03:20 Outpatient Encounter PRIMARY CARE/MEDICINE PM [facility] Encounter Template Text not used by [place] Plan of Treatment: Future Appointments (+ 6 [...] 20 appointments. The data comes from all [place] treatment facilities. Appointment Date/Time Appointment Type Appointment Facili ty Name Dec 13, 2021 02:00 PM AMBULATORY - MEDICINE [facility]) Dec 13, 2021 02:15 PM AMBULATORY - MEDICINE [facility]) Dec 18, 2021 08:30 PM AMBULATORY - MEDICINE [facility] Feb 12, 2022 10:00 AM AMBULATORY - MEDICINE [facility] Lab Results: +/- 30 days of the encounter This section includes the Chemistry and Hematology Lab Results on record with [place] for the patient. Radiology Reports and Pathology Reports are provided separately, in subsequent sections.Lab Results This section contains the Chemistry/Hematology Results that were resulted 30 days before or 30 daysafter the date of the Encounter. Date/Time Source Result Type Result - Unit Interpretation Reference Range Comment Dec 13, 2021 09:29 [facility] COVID-19 AND FLU SCRN Spe cimen Type: NASOPHARYNGEAL PM PANEL (REBEKAH) No comment enter ed. Ordering Provid er: LAURYN DIAZ Report Released Date/Time: November 22, 2021 08:58 AM Reporting Lab: [facility] I [facility] [address] Performing Lab: [facility] [address] [address] COVID-19 PCR (REBEKAH) Not Detected Not De tected FLU A PCR (REBEKAH) Not Detected Not Detec pedro FLU B PCR (REBEKAH) Not Detected Not Detec pedro Dec 13, 2021 [facility]) MICROALBUMIN/CREATININE RATIO Specimen Type: URINE 02:52 PM URINE No comment enter ed. Ordering Provid er: ALEXIS DICKERSON Report Released Date/Time: Dec 13, 2021 02:41 PM Reporting Lab: [facility] I [address] [facility] [address] Performing Lab: [facility] [address] [address] CREATININE,UR RANDOM 67.4 58.0-161. 0 ALB/CREAT RATIO,UR 22.0 <29.9 MICROALBUMIN,UR 14.8 <29.9 Dec 13, 2021 02:52 PM [facility]) HEMOGLOBIN A1C Specimen Type: BLOOD No comment enter ed. Ordering Provid er: ALEXIS DICKERSON R Report Released Date/Time: Dec 13, 2021 02:29 PM Reporting Lab: [facility] [address] [facility] [address] Performing Lab: [facility] [address] [address] HEMOGLOBIN A1C 7.7 H 4.0-6.0 Dec 13, 2021 02:52 [facility] ([facility]) LIPID PANEL,NON-FASTING Spe cimen Type: PLASMA PM No comment enter ed. Ordering Provid er: ALEXIS DICKERSON R Report Released Date/Time: Dec 13, 2021 02:29 PM Reporting [facility] [address] Performing Lab: [facility] [address] CHOLESTEROL 93 <199 .HDL 27 L >40 LDL CALCULATION 38 <99 VLDL CALCULATION 28 <29 NON HDL CHOLESTEROL 66 <129 TRIG(NON FASTING) 140 <149 Dec 13, 2021 02:52 PM [facility] ([facility]) B 12 Specimen Type: SERUM No comment enter ed. Ordering Provid er: ALEXIS DICKERSON R Report Released Date/Time: Dec 13, 2021 02:41 PM Reporting Lab: [facility] [address] [address] Performing Lab: [facility] [address] [address] B 12 [phone] Dec 13, 2021 02:52 PM [facility] ([facility]) FOLATE Specimen Type: SERUM No comment enter ed. Ordering Provid er: ALEXIS DICKERSON R Report Released Date/Time: Dec 13, 2021 02:41 PM Reporting Lab: [facility] [address] [facility] [address] Performing Lab: [facility] [address] [address] FOLATE 17.4 >7.0 Dec 13, 2021 [facility] ([facility]) COMPREHENSIVE METABOLIC Specim en Type: PLASMA 02:52 PM PANEL+MG No comment enter ed. Ordering Provid er: ALEXIS DICKERSON R Report Released Date/Time: Dec 13, 2021 02:29 PM Reporting Lab: [facility] [address] [address] Performing Lab: [facility] [address] [facility] [address] CREATININE 1.0 0.7-1.2 UREA NITROGEN 26 8-26 GLUCOSE 96 74-100 SODIUM 140 136-145 POTASSIUM 4.0 3.5-5.1 CHLORIDE 103 98-107 CO2 26 22-29 CALCIUM 9.8 8.4-10.2 PROTEIN,TOTAL 7.1 6.0-8.3 ALBUMIN 4.2 3.5-5.2 BILIRUBIN, TOTAL 0.5 0.2-1.2 MAGNESIUM 2.4 1.6-2.6 ANION GAP 11 5-15 ALKALINE PHOSPHATASE 77 40-150 ALT/SGPT 28 <55 AST/SGOT 30 <34 CREAT EGFR(CKD-EPI) 78 >60 Dec 13, 2021 02:52 PM [facility] ([facility]) CBC & DIFF Specimen Type: BLOOD Comment: Automa pedro Differential Performed Ordering Provid er: ALEXIS DICKERSON Report Released Date/Time: Dec 13, 2021 02:29 PM Reporting Lab: [facility] [address] Performing Lab: [facility] [address] WBC 8.93 4.0-11.0 RBC 3.86 L 4.6-6.2 [...] 0.03 0-0.1 Dec 13, 2021 02:52 [facility] ([facility]) METHYLMA ACID, QUEST Specim en Type: SERUM PM Comment: This t est was developed and its analytical performance characteristics have been determined by [employer] [place], [place]. It has not been cleared or approved by the [place] . Food and Drug Administration. This assay has been validated pursuant to the CLIA regulations and is used for clinical purposes. Test Performed by [facility], [employer] [facility], [address] [place] [address] Trent Olmstead M.D., Ph.D., Director of Laboratories , CLIA [id number] Ordering Provid er: ALEXIS DICKERSON Report Released Date/Time: Dec 13, 2021 10:04 PM Reporting Lab: [facility] [address] [facility] [address] Performing Lab: [address] METHYLMA ACID, QUEST [phone] Dec 13, 2021 02:52 PM [facility] ([facility]) IRON GROUP Specimen Type: SERUM Comment: Specim en received is PLASMA. Ordering Provid er: ALEXIS DICKERSON Report Released Date/Time: Dec 14, 2021 07:50 AM Reporting Lab: [facility] [address] [facility] [address] Performing Lab: [facility] [address] [facility] [address] [facility] [address] IRON 50 L 65-175 TIBC,CALCULATED 360 250-425 FERRITIN 20.6 L 21.8-274.7 IRON SATURATION 14 L 20-50 TRANSFERRIN 288 163-382 Encounter Notes: All associated encounter notes This section contains the clinical notes associated to the Encounter. Date/Time Encounter Note(s) Provider Source December 08, 2021 03:20 PM NURSING IMMUNIZATION NOTE: PETTY GREEN ([facility]) LOCAL TITLE: VAAES NSG COVID-19 VACCINE ADMINIS TRATION STANDARD TITLE: NURSING IMMUNIZATION NOTE DATE OF NOTE: DECEMBER 08, 2021@15:20 ENTRY DATE: DECEMBER 08, 2021@15:21:30 AUTHOR: PETTY GREEN EXP COSIGNER: URGENCY: STATUS: COMPLETED VAAES NSG COVID-19 VACCINE ADMINISTRATION H as ADDENDA Pfizer COVID-19 Vaccine given previously Patient received a prior dose of the Pfizer COVI D-19 Vaccine. Date: April 27, 2021 Series: Series 3 Location: [facility] // PETTY GREEN LPN LICENSED PRACTICAL NURSE Signed: 12/08/2021 15:22 12/08/2021 ADDENDUM STATUS: COMPLETED Influenza Immunization: The patient has received the seasonal influenza vaccine for the current season at another location. Date: March 17, 2021 Location: [facility] /[facility]/ PETTY GREEN LPN LICENSED PRACTICAL NURSE Signed: 12/08/2021 15:25
--- OUTSIDE RECORDS SUMMARY | 2022-04-03 12:35 | XMS_ITS | Encounter Summary ---
:1945 Author Organization [facility] rs Address [address] [place] [address] Support Name Relationship Address Phone MARION LEWIS Unavailable [id number] [place] [address] MARION LEWIS Unavailable [phone] [place] [address] Insurance Providers: All historical and current Section [...] Bird [place] M[place] Jul 15, [id number] [place] P ATIENT [facility] (WNR) ADVANTAGE (WNR) 2017 9 [id number] [phone] NNIS 1 [place] Jul 15, [id number] TONIEMARGUER[place] P ATIENT [facility] (WNR) ADVANTAGE (WNR) 2017 9 [id number] [phone] NNIS 1 [place] Jul 15, [id number] [place] P ATIENT [facility] (WNR) ADVANTAGE (WNR) 2017 8 [id number] [phone] NNIS 1 Selected Encounter This section includes the information on record at [place] for the Encounter. Date/Time Encounter Type Encounter Reason Provider Source Description Dec 13, 2021 OFFICE O/P EST PRIMARY ICD-10-CM I50.9 ALEXIS DICKERSON 02:15 PM MOD 30-39 MIN CARE/MEDICINE Heart failure, R unspecified with Provider Comments: CHF IHE Encounter Template Text not used by [facility] Assessments - Encounter Diagnoses This section includes the primary and secondary diagnoses documented for the Encounter. Date/Time Primary/Secondary Diagnosis Name Provider Source Diagnosis Dec 13, 2021 PRIMARY Heart failure, ALEXIS DICKERSON 02:52 PM unspecified R ([facility]) Dec 13, 2021 SECONDARY Asymptomatic ALEXIS DICKERSON 02:52 PM varicose veins of R ([facility]) bilateral lower extremities Dec 13, 2021 SECONDARY Athscl heart ALEXIS DICKERSON 02:52 PM disease of [place] R ([facility]) coronary artery w/o ang pctrs Dec 13, 2021 SECONDARY Edema, unspecified ALEXIS DICKERSONST ER 02:52 PM R ([facility]) Dec 13, 2021 SECONDARY Encounter for ALEXIS DICKERSON 02:52 PM general adult R ([facility]) medical exam w abnormal findings Dec 13, 2021 SECONDARY Essential (primary) ALEXIS DICKERSONS TER 02:52 PM hypertension R ([facility]) Dec 13, 2021 SECONDARY Hyperlipidemia, ALEXIS DICKERSON 02:52 PM unspecified R ([facility]) Dec 13, 2021 SECONDARY Obesity, ALEXIS DICKERSON 02:52 PM unspecified R ([facility]) Dec 13, 2021 SECONDARY Sleep apnea, ALEXIS DICKERSON 02:52 PM unspecified R ([facility]) Dec 13, 2021 SECONDARY Type 2 diabetes ALEXIS DICKERSON 02:52 PM mellitus with R ([facility]) diabetic neuropathy, unsp Dec 13, 2021 SECONDARY Type 2 diabetes ALEXIS DICKERSON 02:52 PM mellitus with R ([facility]) hyperglycemia Dec 13, 2021 SECONDARY Umbilical hernia ALEXIS DICKERSON 02:52 PM without obstruction R ([facility]) or gangrene Dec 13, 2021 SECONDARY Unspecified atrial ALEXIS DICKERSONST ER 02:52 PM fibrillation R ([facility]) Plan of Treatment: Future Appointments (+ 6 months) and Future Tests (+/- 45 days) The Plan of Treatment section includes future care activities for the patient from all [place] treatmentfacilities. This section includes future appointments and future orders which are active, pending orscheduled.Future Appointments This section includes appointments that were scheduled to occur 6 months from the date of the Encounter, up to a maximum of 20 appointments. The data comes from all [place] treatment facilities. Appointment Date/Time Appointment Type Appointment Facili ty Name Dec 18, 2021 08:30 PM AMBULATORY - MEDICINE [facility] CS Feb 12, 2022 10:00 AM AMBULATORY - MEDICINE [facility] CS Lab Results: +/- 30 days of the encounter This section includes the Chemistry and Hematology Lab Results on record with [place] for the patient. Radiology Reports and Pathology Reports are provided separately, in subsequent sections.Lab Results This section contains the Chemistry/Hematology Results that were resulted 30 days before or 30 daysafter the date of the Encounter. Date/Time Source Result Type Result - Unit Interpretation Reference Range Comment Dec 13, 2021 09:29 [facility] COVID-19 AND FLU SCRN Spe cimen Type: NASOPHARYNGEAL PM PANEL (REBEKAH) No comment enter ed. Ordering Provid er: LAURYN DIAZ Report Released Date/Time: November 22, 2021 08:58 AM Reporting Lab: [facility] [address] [facility] [address] [facility] [id number] Performing Lab: [facility] [id number] COVID-19 PCR (REBEKAH) Not Detected Not De tected FLU A PCR (REBEKAH) Not Detected Not Detec pedro FLU B PCR (REBEKAH) Not Detected Not Detec pedro Dec 13, 2021 [facility] ([facility]) MICROALBUMIN/CREATININE RATIO Specimen Type: URINE 02:52 PM URINE No comment enter ed. Ordering Provid er: ALEXIS DICKERSON Report Released Date/Time: Dec 13, 2021 02:41 PM Reporting Lab: [facility] [address] [facility] [address] Performing Lab: [facility] [address] CREATININE,UR RANDOM 67.4 58.0-161. 0 ALB/CREAT RATIO,UR 22.0 <29.9 MICROALBUMIN,UR 14.8 <29.9 Dec 13, 2021 02:52 PM [facility] ([facility]) HEMOGLOBIN A1C Specimen Type: BLOOD No comment enter ed. Ordering Provid er: ALEXIS DICKERSON Report Released Date/Time: Dec 13, 2021 02:29 PM Reporting Lab: [facility] [address] [facility] [address] Performing Lab: [facility] [address] HEMOGLOBIN A1C 7.7 H 4.0-6.0 Dec 13, 2021 02:52 PM [facility] ([facility]) B 12 Specimen Type: SERUM No comment enter ed. Ordering Provid er: ALEXIS DICKERSON Report Released Date/Time: Dec 13, 2021 02:41 PM Reporting Lab: [facility] [address] [facility] [address] Performing Lab: [facility] [address] [facility] [address] B 12 [phone] Dec 13, 2021 02:52 [facility] ([facility]) LIPID PANEL,NON-FASTING Spe cimen Type: PLASMA PM No comment enter ed. Ordering Provid er: ALEXIS DICKERSON Report Released Date/Time: Dec 13, 2021 02:29 PM Reporting Lab: [facility] [address] [facility] [address] Performing Lab: [facility] [address] CHOLESTEROL 93 <199 .HDL 27 L >40 LDL CALCULATION 38 <99 VLDL CALCULATION 28 <29 NON HDL CHOLESTEROL 66 <129 TRIG(NON FASTING) 140 <149 Dec 13, 2021 02:52 PM [facility] ([facility]) FOLATE Specimen Type: SERUM No comment enter ed. Ordering Provid er: ALEXIS DICKERSON Report Released Date/Time: Dec 13, 2021 02:41 PM Reporting Lab: [facility] [address] [facility] [address] Performing Lab: [facility] [address] [address] FOLATE 17.4 >7.0 Dec 13, 2021 [facility] ([facility]) COMPREHENSIVE METABOLIC Specim en Type: PLASMA 02:52 PM PANEL+MG No comment enter ed. Ordering Provid er: ALEXIS DICKERSON Report Released Date/Time: Dec 13, 2021 02:29 PM Reporting Lab: [facility] [address] [facility] [address] Performing Lab: [facility] [address] [facility] [address] CREATININE 1.0 0.7-1.2 UREA NITROGEN 26 8-26 GLUCOSE 96 74-100 SODIUM 140 136-145 POTASSIUM 4.0 3.5-5.1 CHLORIDE 103 98-107 CO2 26 22-29 CALCIUM 9.8 8.4-10.2 PROTEIN,TOTAL 7.1 6.0-8.3 ALBUMIN 4.2 3.5-5.2 BILIRUBIN, TOTAL 0.5 0.2-1.2 MAGNESIUM 2.4 1.6-2.6 ANION GAP 11 5-15 ALKALINE PHOSPHATASE 77 40-150 ALT/SGPT 28 <55 AST/SGOT 30 <34 CREAT EGFR(CKD-EPI) 78 >60 Dec 13, 2021 02:52 PM [facility] ([facility]) CBC & DIFF Specimen Type: BLOOD Comment: Automa pedro Differential Performed Ordering Provid er: ALEXIS DICKERSON Report Released Date/Time: Dec 13, 2021 02:29 PM Reporting Lab: [facility] [phone] Performing Lab: [facility] [address] WBC 8.93 4.0-11.0 RBC 3.86 L 4.6-6.2 [...] GRAN 0.03 0-0.1 Dec 13, 2021 02:52 [facility] ([facility]) METHYLMA ACID, QUEST Specim en Type: SERUM PM Comment: This t est was developed and its analytical performance characteristics have been determined by [facility] [place] [place]. It has not been cleared or approved by the U.S . Food and Drug Administration. This assay has been validated pursuant to the CLIA regulations and is used for clinical purposes. Test Performed by [facility]imm[facility], Mark media Darlene Arredondo [place], [address] [place] [address] Trent Olmstead M.D., Ph.D., Director of Laboratories , CLIA [id number] Ordering Provid er: ALEXIS DICKERSON Report Released Date/Time: Dec 13, 2021 10:04 PM Reporting Lab: [facility] [address] [facility] [address] Performing Lab: [facility] [address] [facility] METHYLMA ACID, QUEST [phone] Dec 13, 2021 02:52 PM [facility] ([facility]) IRON GROUP Specimen Type: SERUM Comment: Specim en received is PLASMA. Ordering Provid er: ALEXIS DICKERSON Report Released Date/Time: Dec 14, 2021 07:50 AM Reporting Lab: [facility] [address] [facility] [address] Performing Lab: [facility] [phone] IRON 50 L 65-175 TIBC,CALCULATED 360 250-425 FERRITIN 20.6 L 21.8-274.7 IRON SATURATION 14 L 20-50 TRANSFERRIN 288 163-382 Vital Signs: All taken on the encounter date This section contains inpatient and outpatient Vital Signs collected on the date of the Encounter. Date/Time Temperature Pulse Blood Respiratory SP02 Pain Height Weight Champ dy Source Pressure Rate Mass Index Dec 13, 97.1 F 70 131/68 20 /min 93 % 0 69.783 270 lb 39 ROCHES T 2021 02:13 /min mm[Hg] in ER PM ([facility]) Social History: Smoking Status (Most current) and Tobacco Use (All prior to encounter date) This section includes the most current, and the historical, smoking and tobacco-related health factors from the [place] facility where the Encounter took place.Current Smoking Status This section includes the most current smoking, or tobacco-related health factor, from the [place] facility where the Encounter took place. Date/Time Current Smoking Status Comment Facility Dec 13, 2021 02:15 PM VA-TOBACCO FORMER USER [facility] ([facility]) Tobacco Use History This section includes a history of the smoking, or tobacco- related health factors, that were collected on or before the date of the Encounter. The data comes from the [place] facility where the Encounter took place. Date/Time Smoking Status/Tobacco Use Comment [facility] Dec 13, 2021 02:15 PM VA-TOBACCO QUIT 15 YRS OR MORE [facility] ([facility]) Dec 15, 2020 09:15 AM VA-TOBACCO FORMER USER [facility] ([facility]) Dec 15, 2020 09:15 AM VA-TOBACCO QUIT 15 YRS OR MORE [facility] ([facility]) November 17, 2019 07:57 AM VA-TOBACCO FORMER USER [facility] ([facility]) November 17, 2019 07:57 AM VA-TOBACCO QUIT 15 YRS OR MORE [facility] ([facility]) Jan 13, 2019 09:15 AM VA-TOBACCO FORMER USER [facility] ([facility]) Jan 13, 2019 09:15 AM VA-TOBACCO QUIT 15 YRS OR MORE [facility] ([facility]) Dec 24, 2017 10:43 AM FORMER TOBACCO USER 7Y OR GREATER [facility] ([facility]) Jan 22, 2017 10:10 AM FORMER TOBACCO USER 7Y OR GREATER [facility] ([facility]) Jan 02, 2016 03:00 PM FORMER TOBACCO USER 7Y OR GREATER [facility] ([facility]) Dec 13, 2014 08:05 AM FORMER TOBACCO USER 7Y OR GREATER [facility] ([facility]) Encounter Notes: All associated encounter notes This section contains the clinical notes associated to the Encounter. Date/Time Encounter Note(s) Provider Source Dec 14, 2021 07:47 AM LETTERS: ALEXIS DICKERSON ([facility]) LOCAL TITLE: FOLLOW UP RESULTS LETTER STANDARD TITLE: LETTERS DATE OF NOTE: DEC 14, 2021@07:47 ENTRY DATE: DEC 14, 2021@07:47:34 AUTHOR: ALEXIS DICKERSON EXP COSIGNER: URGENCY: STATUS: COMPLETED [facility] [address] [place] [address] Dec RONA SCHILLING [address] [place] [address] Dear : I am writing to inform you of the results of the tests you had done at the [facility]. The tests below were performed and are satisfactory unless otherwise noted. - Cholesterol Tests (HDL = good and LDL = bad ) CHOLESTEROL 93 (12/13/21) (prefer less than 200 ) TRIGLYCERIDE____ (prefer less than 150) HDL 27 L (12/13/21) (prefer more than 39) LDL CALCULATION 38 (12/13/21) (prefer less than 100) MEASURED LDL____ (prefer less than 100) - Complete Blood Count (red/white blood cell cou nts and platelets) White count: WBC 8.93 (12/13/21) (normal is 4.0 -11.0) Hemoglobin: HGB 11.6 L (12/13/21) (normal Male is 13.5-17.9) (normal Female is 11.5-16) Hematocrit: HCT 36.8 L (12/13/21) (normal Male is 41-54) (normal Female is 34.5-48) Platelets: PLT 275 (12/13/21) (normal is 150-40 0) - Electrolytes including sodium and potassium SODIUM 140 (12/13/21) (normal is 137-144) POTASSIUM 4.0 (12/13/21) (normal is 3.5-5.0) CHLORIDE 103 (12/13/21) (normal is 98-107) CO2 26 (12/13/21) (normal is 22-29) UREA NITROGEN 26 (12/13/21) (normal Male is 8-2 6) (normal Female is 8-20) CREATININE 1.0 (12/13/21) (normal Male is 0.7-1 .2) (normal Female is 0.5-1.0) GLUCOSE 96 (12/13/21) (normal is 70-105) CALCIUM 9.8 (12/13/21) (normal is 8.4-10.2) MAGNESIUM 2.4 (12/13/21) (normal is 1.6-2.6) EGFR (02/15) 06/20/21 @ 1428 59 L CREATININE EGFR (CKD-EPI) 12/13/21 @ 1452 78 (norm al is >/=60) - Liver function Tests AST/SGOT 30 (12/13/21) (normal is 5-34) ALT/SGPT 28 (12/13/21) (normal is </= 55) ALK PHOSPHATASE 77 (12/13/21) (normal is 40-150 ) ALBUMIN 4.2 (12/13/21) (normal is 3.5-5.2) BILIRUBIN, TOTAL 0.5 (12/13/21) (normal is 0.3- 1.2) - Glycosylated Hemoglobin (good diabetic control if less than 7.0) HEMOGLOBIN A1C 7.7 H (12/13/21) (normal range i s 4.0-6.0) POC HGB A1C____ No data available - Vitamin B12/Folate Level SLT - Lab Tests Selected Collection DT Specimen Test Name Result Units Re f Range 12/13/2021 14:52 SERUM B 12 263 pg/mL 213 - 816 12/13/2021 14:52 SERUM FOLATE 17.4 ng/mL Ref: >= 7.0 MICROALBUMIN,UR 14.8 mg/L Ref: <=29.9 CREATININE,UR RANDOM 67.4 mg/dL 58.0 - 161.0 ALB/CREAT RATIO,UR 22.0 mg/g creat Ref: <=29.9 IRON 50 L ug/dL 65 - 175 TRANSFERRIN 288 mg/dL 163 - 382 TIBC,CALCULATED 360 ug/dL 250 - 425 IRON SATURATION 14 L % 20 - 50 FERRITIN 20.6 L ng/mL 21.8 - 274.7 Comments:A1C is stable with current diabetes man agement. HDL good cholesterol increases with increasing p hysical activity. B12 vitamin is borderline low normal. St art taking B12 1000mcg per day. I will send the prescription through [place] pharmacy. Your hemoglobin is low due t o borderline low iron level. As you do not have any sign and symptom of internal bleeding I will sta rt iron pills to take once daily. I will send that prescription from [facility]. Share this masage to your [facility] provider for appripriate follow up. If you have any further questions or problems, moises flaherty contact our nursing staff or me at the following number: ([place]) Sincerely, ALEXIS DICKERSON MD PHYSICIAN Dec 13, 2021 02:45 PM H & P NOTE: ALEXIS DICKERSON ([facility]) LOCAL TITLE: [facility] ANNUAL VISIT STANDARD TITLE: H & P NOTE DATE OF NOTE: DEC 13, 2021@14:45 ENTRY DATE: DEC 13, 2021@14:45:40 AUTHOR: ALEXIS DICKERSON COSIGNER: URGENCY: STATUS: COMPLETED Reason for Visit: Annual HPI: 76 years old MALE with PMH of listed below presents today for annual. He is comanaged at [facility] in [place], [place]. His Primary Care provider is Dr. Day. . His [facility] PCP reduced to his amlodipine from 5 mg to 2.5 mg. He does not have any other specific complaints. Past Medical History: Active problems - Computerized Problem List is t he source for the followin. Diabetes mellitus 2. Essential hypertension 3. Hyperlipidemia 4. Obesity 5. Edema of lower leg 6. Umbilical hernia 7. Coronary arteriosclerosis 8. Congestive heart failure 9. Chronic obstructive lung disease 10. Iron deficiency anemia 11. Sleep apnea 12. AF- Atrial Fibrillation ([facility] [id number]) 13. Varicose veins of lower extremity PAST SURGICAL HISTORY: Coronary artery disease, status post angioplasty . SOCIAL HISTORY: He lives with his in [place]. He quit [employer] in the . He does not drink alcohol. He does not use any illegal d rugs. 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 FAMILY HISTORY: Mother from breast cancer. Father from congestive heart failure and heart attacks. One sibling from diabete s complications. Seven siblings, they are healthy. Two children, they a re healthy. Essential Medication List - reviewed with [place] t/Caregiver FACILITY ALLERGY/ADR -------- No Remote Allergy/ADR Data available for this pa ti [facility] CONTRAST MEDIA [facility] LISINOPRIL Active Medications: + -+--------+--------+--------+--------+ Medication (Local) New Med Old Dose New Dose Discontd + -+--------+--------+--------+--------+ APIXABAN 5MG TAB Directions: TAKE ONE TABLET BY MOUTH EVERY 12 HOURS TO PREVENT STROKES Expires: 12/21/21 Status: ACTIVE + -+--------+--------+--------+--------+ ATORVASTATIN CALCIUM 80MG TAB Directions: TAKE ONE TABLET BY MOUTH AT BEDTIME FOR CHOLESTEROL Expires: 12/16/21 Status: ACTIVE + -+--------+--------+--------+--------+ GABAPENTIN 100MG CAP Directions: TAKE FOUR CAPSULES BY MOUTH EVERY MORNING AND TAKE TWO CAPSULES AT BEDTIME Expires: 12/16/21 Status: ACTIVE + -+--------+--------+--------+--------+ INSULIN,ASPART 100UN/ML BETZY FLEXPEN 3ML Directions: INJECT 18 UNITS UNDER THE SKIN BEFORE MEALS *INJECT IMMEDIATELY PRIOR TO MEALTIME *DISCARD 28 DAYS AFTER INITIAL USE Expires: 12/16/21 Status: ACTIVE + -+--------+--------+--------+--------+ INSULIN,GLARGINE 100 UNT/ML 3ML SOLOSTAR Directions: INJECT 50 UNITS UNDER THE SKIN AT BEDTIME FOR DIABETESDISCARD PEN 28 DAYS AFTER INITIAL USE Expires: 12/16/21 Status: ACTIVE + -+--------+--------+--------+--------+ ISOSORBIDE MONONITRATE 30MG SA TAB Directions: TAKE ONE TABLET BY MOUTH EVERY DAY Expires: 12/16/21 Status: ACTIVE + -+--------+--------+--------+--------+ METOPROLOL SUCCINATE 50MG SA TAB Directions: TAKE ONE AND ONE-HALF TABLETS BY MOUTH EVERY DAY Expires: 12/16/21 Status: ACTIVE + -+--------+--------+--------+--------+ MULTIVITAMIN CAP/TAB Directions: TAKE 1 TABLET BY MOUTH EVERY DAY Expires: 11/07/22 Status: ACTIVE + -+--------+--------+--------+--------+ NEEDLE,PEN 31G,8MM Directions: USE 1 NEEDLE UNDER THE SKIN DIRECTED *DISPOSE OF IN A HARD-PLASTIC CONTAINER WITH A SCREW-ON LID CONTACT GARBAGE KAVITA FOR PROPER DISPOSAL Expires: 12/16/21 Status: ACTIVE + -+--------+--------+--------+--------+ NITROGLYCERIN 0.4MG SL TAB Directions: DISSOLVE ONE TABLET UNDER THE TONGUE EVERY DAY NEEDED FOR CHEST PAIN * MAY REPEAT EVERY 5 MINUTES--NO MORE THAN 3 TOTAL Expires: 12/16/21 Status: ACTIVE + -+--------+--------+--------+--------+ POLYETHYLENE GLYCOL 3350 ORAL PWDR Directions: TAKE 17 GRAMS BY MOUTH EVERY DAY *MIX IN 4 TO 8 OUNCES OF LIQUID DIRECTED*USE COVER TO MEASURE POWDER* Expires: 12/16/21 Status: ACTIVE + -+--------+--------+--------+--------+ TORSEMIDE 20MG TAB Directions: TAKE ONE TABLET BY MOUTH TWICE A DAY FOR CONGESTIVE HEART FAILURE Expires: 12/16/21 Status: ACTIVE + -+--------+--------+--------+--------+ ZOLPIDEM TARTRATE 5MG TAB Directions: TAKE ONE TABLET BY MOUTH ONCE FOR SLEEP. TAKE ON AN EMPTY STOMACH BRING TO SLEEP LAB FOR SLEEP STUDY PROCEDURE. Expires: 12/22/21 Status: ACTIVE + -+--------+--------+--------+--------+ METFORMIN HCL 500MG 24HR SA TAB Directions: TAKE ONE TABLET BY MOUTH TWICE A DAY FOR DIABETES Expires: 01/18/22 Status: ACTIVE/SUSP + -+--------+--------+--------+--------+ Pending Medications: + -+--------+--------+--------+--------+ Medication (Local) New Med Old Dose New Dose Discontd + -+--------+--------+--------+--------+ AMLODIPINE BESYLATE 5MG TAB Directions: TAKE ONE-HALF TABLET BY MOUTH EVERY DAY Quantity: 45 Status: PENDING + -+--------+--------+--------+--------+ ATORVASTATIN CALCIUM 80MG TAB Directions: TAKE ONE TABLET BY MOUTH AT BEDTIME FOR CHOLESTEROL Quantity: 90 Status: PENDING + -+--------+--------+--------+--------+ GABAPENTIN 100MG CAP Directions: TAKE FOUR CAPSULES BY MOUTH EVERY MORNING AND TAKE TWO CAPSULES AT BEDTIME Quantity: 540 Status: PENDING + -+--------+--------+--------+--------+ INSULIN,GLARGINE 100 UNT/ML 3ML SOLOSTAR Directions: INJECT 50 UNITS UNDER THE SKIN AT BEDTIME FOR DIABETESDISCARD PEN 28 DAYS AFTER INITIAL USE Quantity: 10 Status: PENDING + -+--------+--------+--------+--------+ ISOSORBIDE MONONITRATE 30MG SA TAB Directions: TAKE ONE TABLET BY MOUTH EVERY DAY Quantity: 90 Status: PENDING + -+--------+--------+--------+--------+ METFORMIN HCL 500MG 24HR SA TAB Directions: TAKE ONE TABLET BY MOUTH TWICE A DAY FOR DIABETES Quantity: 180 Status: PENDING + -+--------+--------+--------+--------+ METOPROLOL SUCCINATE 50MG SA TAB Directions: TAKE ONE AND ONE-HALF TABLETS BY MOUTH EVERY DAY Quantity: 135 Status: PENDING + -+--------+--------+--------+--------+ NITROGLYCERIN 0.4MG SL TAB Directions: DISSOLVE ONE TABLET UNDER THE TONGUE EVERY DAY NEEDED FOR CHEST PAIN * MAY REPEAT EVERY 5 MINUTES--NO MORE THAN 3 TOTAL Quantity: 100 Status: PENDING + -+--------+--------+--------+--------+ NYSTATIN [id number] UNT/GM CREAM Directions: APPLY THIN LAYER TOPICALLY TWICE A DAY EXTERNAL USE ONLY Quantity: 30 Status: PENDING + -+--------+--------+--------+--------+ POLYETHYLENE GLYCOL 3350 ORAL PWDR Directions: TAKE 17 GRAMS BY MOUTH EVERY DAY *MIX IN 4 TO 8 OUNCES OF LIQUID DIRECTED*USE COVER TO MEASURE POWDER* Quantity: 510 Status: PENDING + -+--------+--------+--------+--------+ TORSEMIDE 20MG TAB Directions: TAKE ONE TABLET BY MOUTH TWICE A DAY FOR CONGESTIVE HEART FAILURE Quantity: 180 Status: PENDING + -+--------+--------+--------+--------+ Non-VA Medications: + -+--------+--------+--------+--------+ Medication (Local) New Med Old Dose New Dose Discontd + -+--------+--------+--------+--------+ ASPIRIN 81MG EC TAB Directions: 81MG MOUTH Status: ACTIVE + -+--------+--------+--------+--------+ FISH OIL 1000MG (500MG DHA/EPA) CAP Directions: 1000MG MOUTH Status: ACTIVE + -+--------+--------+--------+--------+ MULTIVITAMIN/MINERALS SENIOR FORMULA TAB Directions: 1 TABLET MOUTH EVERY DAY Status: ACTIVE + -+--------+--------+--------+--------+ REVIEW OF SYSTEMS: General: No weight change No weakness No fever, chills, night sweats. HEENT: No headache No dizziness CVS: No chest pain, chest pressure Respiratory: No shortness of breath, No wheezing, cough. GI: No constipation, diarrhea, No melena, hematochezia No abdominal pain. Urinary: No frequency, dysuria, hematuria or inc ontinence. Musculoskeletal: No muscle pain No joints pain. 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 Psychiatric: No depression, No suicidal thought Physical Exam: Temp: 97.1 F [36.2 C] (12/13/2021 14:) Pulse:70 (12/13/2021 14:) BP: 131/68 (12/13/2021 14:) Resp: 20 (12/13/2021:) Weight: 270 lb [122.47 kg] (12/13/2021:) Pain: 0 (12/13/2021:) O2 Sat: 93% (12/13/2021:) BMI: 39.1 General appearance: When I went in to see him, he was sitting on the chair in no acute distress. CVS: S1, S2 normal no murmur RR Lungs: Bilaterally clear, no wheezes or crackles noted. Abdomen: Soft, nontender, nondistended, no organomegaly, no CVA tenderness or suprapubic tenderness. Umbilical hernia present. Extremities: Varicose veins but no cyanosis, clu bbing, or edema. ELECTRONICS RESEARCH ENGINEER: AAOx3. Cranial nerves II through XII grossly intact. Motor and sensory exams are normal. HEENT: Head atraumatic, normocephalic, nontender . Neck: Neck is supple, no thyromegaly or lymphad enopathy. Eyes: PERRLA, EOI. Ears: Bilateral external ears, ear canals, and TM look normal. Musculoskeletal: Joints show full range of motio n no joint swelling. Psychiatric: Patient's mood and affect is normal . Skin: He has a few seborrheic keratosis on his b ack Labs: CBC, COMP, A1C, lipid panel, B12, folic ac id and urine microalbumin. Assessment/Plan: #1. Congestive heart failure, asymptomatic: Tors emide 20 mg twice daily. #2. Atrial fibrillation: Eliquis 5 mg twice mel y and metoprolol 75 mg once daily. #3. Coronary artery disease, asymptomatic: Aspir in 81 mg, Isosorbide Mononitrate 30 mg p.o. daily, Metoprolol 75 mg o nce daily. #4. Diabetes: Diabetic diet and regular exercise , Aspart 18 units with each meal and Lantus 50 units once daily. Six-mo [facility] follow-up with Dr. Day at [facility]. He gets a diabetic eye exam there. The last eye exam 1 month ago. I do not have the records to review. #5. Diabetic neuropathy: Gabapentin 400 mg in th e morning and 200 mg at bedtime. #6. Hypertension: His ambulatory blood pressures , as well as clinic blood pressures are normal. Amlodipine 2.5 mg, Metopro lol Succinate 75 mg. #7. Hyperlipidemia: He is tolerating Atorvastati n 80 mg without any side effects. #8. Obesity: Regular exercise and a healthy diet have been recommended. #9. Sleep apnea: Continue using the CPAP machine . #10. Leg edema due to congestive heart failure: Recommended him to keep the leg elevated while sleeping and sitting for a prolonged period. #11. Varicose veins in the lower extremities: As ymptomatic. 30-minute walking exercise every day. #12. Umbilical hernia, asymptomatic. #13. Annual Exam: RTC 1 yr. - I have renewed his medication with a one-year supply. - Continue current medicines. - Have ordered the above lab tests, will notify him of the results and further plan. - Regular exercise healthy diet. Health Care Maintenance - Colon Cancer Screening: Given his age he does not need a Pap test -PSA: Given his age he does not need a PSA test - Vaccinations: IM - Immunizations Immunization Series Date Facility Reaction Info COVID-19 ([employer]), MRNA, LNP-S, P* 3 04/27/2021 [facility] 2 09/14/2020 [facility] 1 08/24/2020 [facility] INFLUENZA, HIGH DOSE SEASONAL 05/23/2018 [facility] 04/12/2017 [facility] 06/13/2016 [facility]* 04/12/2015 [facility] * INFLUENZA, SEASONAL, INJECTABLE [facility] INFLUENZA, SEASONAL, INJECTABLE,* 04/14/2019 [facility]* INFLUENZA, UNSPECIFIED FORMULATIO* 03/17/2021 [facility]* 04/07/2020 [facility]* PNEUMOCOCCAL CONJUGATE PCV 13 12/13/2014 [facility] * <C> PNEUMOCOCCAL POLYSACCHARIDE PPV23 07/04/2015 [facility] * <C> TD (ADULT), 2 LF TETANUS TOXOID,* [place] <C> TDAP 06/06/2020 [facility]* [place] ZOSTER LIVE 12/13/2014 [facility] * <C> ZOSTER RECOMBINANT 2 12/16/2019 [facility] * 1 08/06/2019 [facility] * <C> See the Detailed Immunizations Health Summar y Component[DIM] for Comments CVF - Future Appointment: 12/18/2021 20:30 [facility] SLEEP PSG ATTENDED 02/12/2022 10:00 [facility] SLE[facility] PHONE JOE The above plan has been discussed with him. He v oiced understanding of the plan. I have spent a total of 35 minutes in direct dis cussion, physical exam, counseling, reviewing medical record and dictati ng medical note. Clinical Reminders: Diabetic Eye Screening: Patient declined eye exam at this encounter. Diabetic Foot Exam - Complete: A complete foot exam was completed at this visi t with the following findings: Visual Inspection: Normal Pedal pulses: Dorsalis pedis and/or posterior tibial pulses n ormal/present -SENSORY EXAM: Abnormal/Decreased or absent sensation to monof ilament The following risk level was identified for leigh s patient: RISK SCORE: --LEVEL 1 - (LOW RISK) No Level 3 red flag history Normal sensory exam Normal pedal pulse exam or normal vascular stud y Either foot deformity or minor foot infection p resent or both FOOT CARE EDUCATION: -Examine feet daily -Bathe feet daily -Use clean non-restrictive socks -Ulcers lead to gangrene and amputation -Do not walk barefoot and wear properly fitted shoes -Seek medical attention immediately for new grecia t injuries or ulcers /es/ ALEXIS DICKERSON MD PHYSICIAN Signed: 12/13/2021 14:53 Dec 13, 2021 02:22 PM ADVANCE DIRECTIVE: MERRICK CEDENO ([facility]) LOCAL TITLE: AD NOTIFICATION AND SCREENING STANDARD TITLE: ADVANCE DIRECTIVE DATE OF NOTE: DEC 13, 2021@14:22 ENTRY DATE: DEC 13, 2021@14:22:20 AUTHOR: MERRICK CEDENO EXP COSIGNER: URGENCY: STATUS: COMPLETED ADVANCE DIRECTIVE NOTIFICATION: Patient was given written notification of the f barbara rights: 1. Accept or refuse any medical treatment. 2. Complete a durable power of manager of distribution for the [facility] care. 3. Complete a living will. ADVANCE DIRECTIVE SCREENING: Does patient have an Advance Directive? The patient has an Advance Directive. Does the patient wish to make any changes or re voke their current Advance Directive? Yes, the patient has an Advance Directive, but it is not in the medical record. was asked to obtain a copy for their medical record. /tahira/ MERRICK CEDENO SHAKE TABLE OPERATOR Signed: 12/13/2021 14:22 Dec 13, 2021 02:16 PM PRIMARY CARE NURSING NOTE: MERRICK CEDENO ([facility]) LOCAL TITLE: [facility] NURSING PROGRESS NOTE STANDARD TITLE: PRIMARY CARE NURSING NOTE DATE OF NOTE: DEC 13, 2021@14:16 ENTRY DATE: DEC 13, 2021@14:16:40 AUTHOR: MERRICK CEDENO EXP COSIGNER: URGENCY: STATUS: COMPLETED TYPE OF VISIT: Appointment Check In Type of appointment: In-person appointment REASON FOR VISIT: Annual, comanaged with [facility], nonfasting ALLERGIES: CONTRAST MEDIA (May 08, 2017) LISINOPRIL (May 08, 2017) VITAL SIGNS: Blood Pressure: 131/68 (12/13/2021 14:13) Pulse: 70 (12/13/2021 14:13) Respiration: 20 (12/13/2021 14:13) Temperature: 97.1 F [36.2 C] (12/13/2021 14:13) Weight: 270 lb [122.47 kg] (12/13/2021 14:13) Height: 69.783 in [177.2 cm] (12/13/2021 14:13) BMI: 39.1 O2 Sat: 93% (12/13/2021 14:13) Pain: 0 (12/13/2021 14:13) PAIN SCREEN: Patient is not having significant pain that the y wish to discuss with their provider today. Suicide Screen: C-SSRS Screening [place] Suicide Severity Rating Scale (C-SSRS) screener 1. Over the past month, have you wished you wer e or wished you could go to sleep and not wake up? No 2. Over the past month, have you had any actual thoughts of killing yourself? No 3. Over the past month, have you been thinking about how you might do this? Response not required due to responses to other questions. 4. Over the past month, have you had these thou ghts and had some intention of acting on them? Response not required due to responses to other questions. 5. Over the past month, have you started to wor k out or worked out the details of how to kill yourself? Response not required due to responses to other questions. 6. If yes, at any time in the past month did yo u intend to carry out this plan? Response not required due to responses to other questions. 7. In your lifetime, have you ever done anythin g, started to do anything, or prepared to do anything to end you r life (for example, collected pills, obtained a gun, gave away valu steve, went to the roof but didn't jump)? No 8. If YES, was this within the past 3 months? Response not required due to responses to other questions. Depression Screening: Perform PHQ-2 A PHQ-2 screen was performed. The score was 0 w hich is a negative screen for depression. Over the past two weeks, how often have you bee n bothered by the following problems? 1. Little interest or pleasure in doing things Not at all 2. Feeling down, depressed, or hopeless Not at all Alcohol Use Screen (AUDIT-C): Alcohol Screen: SCREEN FOR ALCOHOL (AUDIT-C) An alcohol screening test (AUDIT-C) was negativ e (score=3). 1. How often did you have a drink containing al cohol in the past year? Two to three times per week 2. How many drinks containing alcohol did you h ave on a typical day when you were drinking in the past year? One or two drinks 3. How often did you have six or more drinks on one occasion in the past year? Never Nursing Annual Screening: Fall History Screen During the past 12 months, have you had any fal ls? Patient does not report any falls in the past 1 2 months. MEDICATIONS: Patient is on one of the following medication c lasses: Antihypertensives, Antidepressants, Antipsychot ics, Diuretics, or Controlled substance medication used for pain. FALL RISK ADVICE: Fall Risk Advice provided. Handout entitled Fa ll Prevention At Home reviewed and given to patient and/or significan t other. Alcohol Use Screen Alcohol Screen: SCREEN FOR ALCOHOL (AUDIT-C) An alcohol screening test (AUDIT-C) was negativ e (score=3). 1. How often did you have a drink containing al cohol in the past year? Two to three times per week 2. How many drinks containing alcohol did you h ave on a typical day when you were drinking in the past year? One or two drinks 3. How often did you have six or more drinks on one occasion in the past year? Never Script Talk Screen Are you able to read your prescription bottles with your glasses, magnifiers or other aids? Yes or patient not taking any prescriptions. Skin Screen Patient reports any current pressure ulcers, a history of pressure ulcers, or a wound from a medical billing supervisor or Patient is bed-confined or a wheelchair-user or Patient requires assistance to transfer/change position No, Skin Screen is Negative Home Abuse/Violence Screen Is your home free of abuse and violence? Yes Outpatient Nutrition Screen Body Mass Index (BMI)= 39.1 [place]: Collection DT Specimen Test Name Result Units R ef Range 12/15/2020 10:12 BLOOD HEMOGLOBIN A1C 6.8 H % 4 .0 - 6.0 [place] Hgb A1C: No data available [place] Hgb A1C: No data available Point of Care Hgb A1C: POC HGB A1C____ Is patient's BMI less than 18.5? No Does patient have swallowing, coughing, or chew ing problems affecting oral intake? No Has patient experienced unplanned weight loss o r gain greater than 10 pounds over the last 2 months? No Is patient's Hgb A1C (Glycosylated Hemoglobin) greater than 9.5? No Is patient receiving Total Parenteral Nutrition (TPN) or Tube Feedings? No Patient Health Education Screen BARRIERS/SPECIAL NEEDS: No barriers identified PREFERRED STYLE OF LEARNING: Reading Client Assistive Service (NICK) Screen Does the patient require assistance with outpat ient visit? No Tobacco Use Screening: The patient is a former tobacco user. The patient quit fifteen or more years ago. CHF Weight Monitoring Educ/[place]: CHF and Weight Monitoring Education Patient declined brochure related to CHF and We ight Monitoring at this visit. Homelessness/Food Insecurity Screen: In the past 2 months, have you been living in s table housing that you own, rent, or stay in as part of a household? Y es - Living in stable housing. Are you worried or concerned that in the next 2 months you may NOT have stable housing that you own, rent, or stay in a s part of a household? No - Not worried about housing near future The reports the following: Within the past 12 months, you worried whether your food would run out before you got money to buy more. Never true Within the past 12 months, the food you bought just didn't last and you didn't have money to get more. Never true /es/ MERRICK CEDENO LPN Signed: 12/13/2021 14:21
--- OUTSIDE RECORDS SUMMARY | 2022-04-03 12:36 | XMS_ITS | Encounter Summary ---
:1945 Author Organization [facility] Address [address] [place] [id number] Support Name Relationship Address Phone MARION LEWIS Unavailable [id number] [place] [address] MARION LEWIS Unavailable [phone] [employer] [place] [address] Insurance Providers: All historical and current Section [...] Bird [place] Jul 15, [id number] TONIEMARGUERITE P ATIENT [facility] (WNR) ADVANTAGE (WNR) 2017 9 [id number] [phone] NNIS 1 [place] Jul 15, [id number] ZACHERYHOPKINS P ATIENT [facility] (WNR) ADVANTAGE (WNR) 2017 9 [id number] [phone] NNIS 1 [place] Jul 15, [id number] TONIEMARGUERITE P ATIENT [facility] (WNR) ADVANTAGE (WNR) 2017 8 [id number] [phone] NNIS 1 Selected Encounter This section includes the information on record at [place] for the Encounter. Date/Time Encounter Type Encounter Reason Provider Source Description Dec 18, 2021 POLYSOM 6/>YRS SLEEP STUDY ICD-10-CM G47.30 JO PARK AT 08:30 PM CPAP 4/> PARM Sleep apnea, unspecified with Provider Comments: Sleep apnea ([facility] [id number]) IHE Encounter Template Text not used by [facility] Assessments - Encounter Diagnoses This section includes the primary and secondary diagnoses documented for the Encounter. Date/Time Primary/Secondary Diagnosis Name Provider Source Diagnosis Jan 18, 2022 PRIMARY Sleep apnea, [facility] 08:23 PM unspecified A [facility] Plan of Treatment: Future Appointments (+ 6 months) and Future Tests (+/- 45 days) The Plan of Treatment section includes future care activities for the patient from all [place] treatmentfacilities. This section includes future appointments and future orders which are active, pending orscheduled.Future Appointments This section includes appointments that were scheduled to occur 6 months from the date of the Encounter, up to a maximum of 20 appointments. The data comes from all [place] treatment facilities. Appointment Date/Time Appointment Type Appointment Facili ty Name Feb 12, 2022 10:00 AM AMBULATORY - MEDICINE [facility] Lab Results: +/- 30 days of the encounter This section includes the Chemistry and Hematology Lab Results on record with [facility] for the patient. Radiology Reports and Pathology Reports are provided separately, in subsequent sections.Lab Results This section contains the Chemistry/Hematology Results that were resulted 30 days before or 30 daysafter the date of the Encounter. Date/Time Source Result Type Result - Unit Interpretation Reference Range Comment Dec 13, 2021 09:29 [facility] COVID-19 AND FLU SCRN Spe cimen Type: NASOPHARYNGEAL PM PANEL (REBEKAH) No comment enter ed. Ordering Provid er: LAURYN DIAZ Report Released Date/Time: November 22, 2021 08:58 AM Reporting Lab: [facility] [phone] Performing Lab: [facility] [phone] COVID-19 PCR (REBEKAH) Not Detected Not De tected FLU A PCR (REBEKAH) Not Detected Not Detec pedro FLU B PCR (REBEKAH) Not Detected Not Detec pedro Dec 13, 2021 [facility] ([facility]) MICROALBUMIN/CREATININE RATIO Specimen Type: URINE 02:52 PM URINE No comment enter ed. Ordering Provid er: ALEXIS DICKERSON Report Released Date/Time: Dec 13, 2021 02:41 PM Reporting Lab: [facility] [phone] Performing Lab: [facility] [address] CREATININE,UR RANDOM 67.4 58.0-161. 0 ALB/CREAT RATIO,UR 22.0 <29.9 MICROALBUMIN,UR 14.8 <29.9 Dec 13, 2021 02:52 PM [facility] ([facility]) HEMOGLOBIN A1C Specimen Type: BLOOD No comment enter ed. Ordering Provid er: ALEXIS DICKERSON Report Released Date/Time: Dec 13, 2021 02:29 PM Reporting Lab: [facility] [phone] Performing Lab: [facility] [address] HEMOGLOBIN A1C 7.7 H 4.0-6.0 Dec 13, 2021 02:52 PM [facility] ([facility]) B 12 Specimen Type: SERUM No comment enter ed. Ordering Provid er: ALEXIS DICKERSON Report Released Date/Time: Dec 13, 2021 02:41 PM Reporting [facility] [address] Performing Lab: [facility] [address] B 12 [phone] Dec 13, 2021 [facility] ([facility]) COMPREHENSIVE METABOLIC Specim en Type: PLASMA 02:52 PM PANEL+MG No comment enter ed. Ordering Provid er: ALEXIS DICKERSON Report Released Date/Time: Dec 13, 2021 02:29 PM Reporting [facility] [address] Performing Lab: [facility] [address] CREATININE 1.0 0.7-1.2 UREA NITROGEN 26 8-26 GLUCOSE 96 74-100 SODIUM 140 136-145 POTASSIUM 4.0 3.5-5.1 CHLORIDE 103 98-107 CO2 26 22-29 CALCIUM 9.8 8.4-10.2 PROTEIN,TOTAL 7.1 6.0-8.3 ALBUMIN 4.2 3.5-5.2 BILIRUBIN, TOTAL 0.5 0.2-1.2 MAGNESIUM 2.4 1.6-2.6 ANION GAP 11 5-15 ALKALINE PHOSPHATASE 77 40-150 ALT/SGPT 28 <55 AST/SGOT 30 <34 CREAT EGFR(CKD-EPI) 78 >60 Dec 13, 2021 02:52 PM [facility] ([facility]) FOLATE Specimen Type: SERUM No comment enter ed. Ordering Provid er: ALEXIS DICKERSON Report Released Date/Time: Dec 13, 2021 02:41 PM Reporting Lab: [facility] [address] Performing Lab: [facility] [phone] FOLATE 17.4 >7.0 Dec 13, 2021 02:52 [facility] ([facility]) LIPID PANEL,NON-FASTING Spe cimen Type: PLASMA PM No comment enter ed. Ordering Provid er: ALEXIS DICKERSON Report Released Date/Time: Dec 13, 2021 02:29 PM Reporting Lab: [facility] [address] Performing Lab: [facility] [address] CHOLESTEROL 93 <199 .HDL 27 L >40 LDL CALCULATION 38 <99 VLDL CALCULATION 28 <29 NON HDL CHOLESTEROL 66 <129 TRIG(NON FASTING) 140 <149 Dec 13, 2021 02:52 PM [facility] ([facility]) CBC & DIFF Specimen Type: BLOOD Comment: Automa pedro Differential Performed Ordering Provid er: ALEXIS DICKERSON Report Released Date/Time: Dec 13, 2021 02:29 PM Reporting Lab: [facility] [address] Performing Lab: [facility] [address] WBC 8.93 4.0-11.0 RBC 3.86 L 4.6-6.2 [...] GRAN 0.03 0-0.1 Dec 13, 2021 02:52 [facility] ([facility]) METHYLMA ACID, QUEST Specim en Type: SERUM PM Comment: This t est was developed and its analytical performance characteristics have been determined by [employer] [place], [place]. It has not been cleared or approved by the U.S . Food and Drug Administration. This assay has been validated pursuant to the CLIA regulations and is used for clinical purposes. Test Performed by [employer], [employer] [facility] [place], [address] [place] [address] Trent Olmstead M.D., Ph.D., Director of Laboratories , CLIA [id number] Ordering Provid er: ALEXIS DICKERSON Report Released Date/Time: Dec 13, 2021 10:04 PM Reporting Lab: [facility] [address] Performing Lab: [address] METHYLMA ACID, QUEST [phone] Dec 13, 2021 02:[address] [facility]) IRON GROUP Specimen Type: SERUM Comment: Specim en received is PLASMA. Ordering Provid er: ALEXIS DICKERSON Report Released Date/Time: Dec 14, 2021 07:50 AM Reporting Lab: [facility] [address] Performing Lab: [facility] [address] IRON 50 L 65-175 TIBC,CALCULATED 360 250-425 FERRITIN 20.6 L 21.8-274.7 IRON SATURATION 14 L 20-50 TRANSFERRIN 288 163-382 Encounter Notes: All associated encounter notes This section contains the clinical notes associated to the Encounter. Date/Time Encounter Note(s) Provider Source Dec 21, 2021 03:23 PM PULMONARY PROCEDURE NOTE: [facility] LOCAL TITLE: CP SLEEP STUDY PROCEDURE STANDARD TITLE: PULMONARY PROCEDURE NOTE DATE OF NOTE: DEC 21, 2021@15:23:45 ENTRY DATE: DEC 21, 2021@15:23:45 AUTHOR: CLINICAL,DEVICE PRO EXP COSIGNER: URGENCY: STATUS: COMPLETED PROCEDURE SUMMARY CODE: Machine Resulted DATE/TIME PERFORMED: DEC 18, 2021@22:41:2 DOCUMENT IN VISTA IMAGING SEE FULL REPORT IN VISTA IMAGING SIGNATURE NOT REQUIRED SEE SIGNATURE IN VISTA IMAGING ([employer] PSG Bi) AUTO-INSTRUMENT DIAGNOS IS Procedure: PSG POLYSOMNOGRAM REPORT (TITRATION STUDY) Date of Study: 12/18/2021 22:47:55 Requesting Provider: LAURYN DIAZ, Interpreting Physician: NAKITA STALLWORTH MD, Douglas birmingham MD Scoring Technologist: Caterina Barragan, RPS, COUNTER ATTENDANT ------CLINICAL PRESENTATION------ The patient [age] year old male with a BMI o f 39.0, with history of complex sleep disordered breathing on ASV and Ep worth Sleepiness Scale value of 13 who presents with the following indication s for PSG: Excessive Daytime Sleepiness, Sleep-related disordered breathing. ------ASSESSMENT------ - This is a full night titration study which dem onstrated improvement of Sleep apnea in lateral position with ASV setting of EPAP 15 and PS 5-10 cwp with sleep consolidation but hypoxemia was noted in supine position and despite of IVAPS trial sleep fragmentation was n ot approved. ASV and iVAPS were attempted - Sleep-related hypoventilation was not present. ------RECOMMENDATIONS------ - Recommend nightly use of ASV EPAP 15 with pres sure support 5-10 cm H2O with concomitant positional therapy to control sleep- related breathing disorder for the entire duration of sleep or to a minimum target compliance of 70%. - Recommend concominant positional therapy. Base d on review of patient current ASV compliance report would also recomme nd to optimize mask fitting. - Clinical correlation for periodic limb movemen ts for RLS - Suggest optimizing sleep hygiene, avoiding sle ep deprivation, and advise against drowsy driving/hazardous situations. - Weight management recommended. - The results of the sleep study will be discuss ed with the patient. Follow-up in Sleep Clinic will be recommended to assess response to therapy. ------POLYSOMNOGRAPHIC DATA------ Titration study with standard montage and TCM mo nitoring ------SLEEP ARCHITECTURE------ - The total sleep time was 392 minutes minutes. Sleep latency was 02 minutes. REM latency was 73 minutes. There were 92 arous als with an arousal index of 14.1. Sleep efficiency was normal at 79.6%. Wake after sleep onset was 98 minutes. The patient spent 14.9% of total sleep time in Stage N1, 64.3% in Stage N2, 0.0% in Stage N3, and 20.7% in REM. ------CARDIORESPIRATORY PARAMETERS------ - Mean SpO2 during sleep was 90.0% on room air, and SpO2 danial was 77.0% during sleep on room air. - Events: Apnea/Hypopnea index was 17.6. With re spiratory effort related arousals (RERAs) added, the total respiratory di sturbance index (RDI) was 17.6. The obsructive apnea/hypopnea index was 12 .7, central apnea/hypopnea index was 4.9, and the mixed apnea index was 0.0 . - Sustained sleep associated hypoventilation was assessed with transcutaneous CO2 monitoring during this PSG. Patient had a ba seline average of 32.0 mmHg during sleep with a maximum PCO2 of 39.0 during sleep. - Cardiac Summary: The heart rate ranged from 50 to 97 with the following dysrhythmias noted: PVCs ------MOVEMENT ACTIVITY------ - Limb activity there were 499 limb movements re corded. The PLM index was76.4 per hour, and the PLM arousal index was 3.7. - Behavior: frequent limb movements. Stage REM s leep was expressed with normal muscle atonia. - Bruxism: none witnessed ------TREATMENT------ - ASV EPAP 15 with pressure support 5-10 cm H2O. Started on ASV settings of EPAP 8 cm H2O PS 3-15 cm H2O with improvement of obstructive events when in lateral position and on settings of EPAP 14-15 a nd pressure support 5-11 cm H2O. Despite getting to optimal pressures on ASV , patient had persistence of hypoxemia in supine position. Modality changed t o iVAPS EPAP 16 cm H2O Max PS 14 Min PS 7, target respiratory rate 13 and targ et Va 4.0 mid study due to persistence of hypoxia. Final settings were EPAP 17 cm H2O Max PS 13 Min PS 8, target respiratory rate 14 and target Va 4.3 where REM supine was observed but there was more central respiratory events ob served at these settings. Improvement of Sleep apnea in lateral position w ith ASV setting of EPAP 15 and PS 5-10 cwp with sleep consolidation but hyp oxemia was noted in supine position. - Pressure relief functionality was not employed - airfit f20 full face mask large Total Pressure-pending md review - ASV ASV ASV ASV ASV ASV IPAP (min/max) - {Range} 14 / 5 EPAP (min/max) - {Range} 08 / 08 10 / 1 0 Pressure Support (min/max) - PS Oxygen (L/min) - O2 Vol 0.0 0.0 0.0 0.0 0.0 0.0 0.0 ETCO2 (max) 0 {max} 0 0 0 0 0 0 0 TCO2 (max) 39 {max} 39 39 38 38 37 37 36 Total Sleep Time (min) 392 {min} 00 07 08 18 16 17 04 Supine (min) 163 {min} 00 07 08 18 04 00 00 REM (min) 81 {min} 00 00 00 00 00 00 02 Apnea Episodes (#) 25 {tot} 0 3 0 6 2 0 0 Apnea/Hypopnea Index (AHI) 17.6 {AHI} 0.0 85.7 30.0 70.0 18.8 0.0 0.0 NREM AHI 21.4 {AHI} 0.0 85.7 30.0 70.0 18.8 0.0 0.0 REM AHI 3.0 {AHI} 0.0 0.0 0.0 0.0 0.0 0.0 0.0 Obstructive Apnea Index 1.4 {AI} 0.0 8.6 0.0 20.0 7.5 0.0 0.0 Central Apnea Index 2.4 {CARLOS} 0.0 17.1 0.0 0.0 0.0 0.0 0.0 Mixed Apnea Index 0.0 {%} 0.0 0.0 0.0 0.0 0.0 0.0 0.0 Obstructive Hypopnea Index 11.3 {HI} 0.0 60.0 3 0.0 50.0 11.3 0.0 0.0 Central Hypopnea Index 2.4 {HI} 0.0 0.0 0.0 0.0 0.0 0.0 0.0 RERA Index 0.0 {RI} 0.0 0.0 0.0 0.0 0.0 0.0 0.0 AHI-4% (hypopneas w/4% desat) 13.3 {AHI4} 0.0 7 7.1 22.5 60.0 11.3 0.0 0.0 Mean Sleep SpO2 (%) 90.0 {%} 93.0 88.0 86.0 87.0 88.0 88.0 87.0 Min SpO2 (%) 77.0 {%} 93.0 78.0 84.0 77.0 78.0 88.0 86.0 % of Sleep Time with SpO2 < 88% 17.1 {88} 0.0 5 6.9 96.2 54.3 72.1 23.6 79.0 Total Pressure-pending md review - ASV IVAPS IVAPS - There is one more pressure change of only target va which is not showing up on here. IPAP (min/max) - {Range} 20 / 25 23 / 30 25 / 3 0 EPAP (min/max) - {Range} 15 / 15 16 / 16 17 / 1 7 Pressure Support (min/max) - PS 05 / 10 07 / 14 08 / 13 Oxygen (L/min) - O2 Vol 0.0 0.0 0.0 ETCO2 (max) 0 {max} 0 0 0 TCO2 (max) 39 {max} 36 33 33 Total Sleep Time (min) 392 {min} 106 18 197 Supine (min) 163 {min} 11 18 97 REM (min) 81 {min} 23 00 55 Apnea Episodes (#) 25 {tot} 3 0 11 Apnea/Hypopnea Index (AHI) 17.6 {AHI} 10.1 35.7 14.0 NREM AHI 21.4 {AHI} 13.0 35.7 17.8 REM AHI 3.0 {AHI} 0.0 0.0 4.3 Obstructive Apnea Index 1.4 {AI} 0.0 0.0 0.0 Central Apnea Index 2.4 {CARLOS} 1.7 0.0 3.4 Mixed Apnea Index 0.0 {%} 0.0 0.0 0.0 Obstructive Hypopnea Index 11.3 {HI} 7.3 35.7 6 .4 Central Hypopnea Index 2.4 {HI} 1.1 0.0 4.3 RERA Index 0.0 {RI} 0.0 0.0 0.0 AHI-4% (hypopneas w/4% desat) 13.3 {AHI4} 7.3 1 3.0 11.3 Mean Sleep SpO2 (%) 90.0 {%} 89.0 90.0 92.0 Min SpO2 (%) 77.0 {%} 81.0 83.0 85.0 % of Sleep Time with SpO2 < 88% 17.1 {88} 14.7 18.7 4.0 ------SLEEP ARCHITECTURE------ Start Time: 12/18/2021 22:41:21 End Time: 12/19/2021 07:00:15 Total Recording Time 492.5 Sleep Efficiency 79.59% Initial sleep latency 2.0 Initial REM latency 73.5 Wake after sleep onset 98.5 % TST Stage N1 58.5 14.9% Stage N2 252.0 64.3% Stage N3 0.0 0.0% Stage REM 81.0 20.7 % Supine Sleep 163.5 41.7% Total Sleep Time (TST) 392.0 ------DISORDERED BREATHING PROFILE------ NREM REM TST Obstructive Events Index 16.0 0.0 12.70 Apnea Index 1.7 0.0 1.38 Hypopnea Index 14.3 0.0 11.33 Central Events Index 5.4 3.0 4.90 Apnea Index 2.9 0.7 2.45 Hypopnea Index 2.5 2.2 2.45 Mixed Events Index 0.0 0.0 0.00 Apnea Index 0.0 0.0 0.00 Hypopnea Index 0.0 0.0 0.00 Overall Apnea/Hypopnea Index 21.41 2.96 17.60 RERA 0.0 0.0 0.0 Respiratory Disturbance Index 21.4 3.0 17.6 ------AROUSAL PROFILE------ Arousal Index (#/hr) Movement Related (%) Breathing Related (%) 14.1 0.3 0.5 Total NREM Index 13.7 Total REM Index 4.4 -----POSITION PROFILE------ Supine Left Right Prone AHI 36.7 2.3 6.0 0.0 RDI 36.7 2.3 6.0 0.0 ------PERIODIC LIMB MOVEMENT PROFILE------ PLM Index 76.4 PLM Arousal Index 3.7 ------OXYGEN SUMMARY------ Awake Baseline 92.0% Sleep Baseline 90.0% NREM Danial 86.0% REM Danial 86.0% Overall Danial 77.0% > 90% 81 ?? 90% 71 ?? 80% 61 ?? 70% < 61% %TST 51.6% 47.9% 0.4% 0.0% 0.0% Time Spent < 88% 17.1% 67.1 Minutes ------HEART RATE------ Max HR (Wake) 94.0 Max HR (TST) 97.0 Mean HR (TST) 66.0 -----TCM DATA BY SLEEP STAGE------ TOTAL SLEEP TIME NREM REM WAKE Avg (mmHg) (normal 35-45) 32.0 33.0 32.0 31.0 Max (mmHg)) 39.0 39.0 36.0 39.0 Time Spent > 50mmHg 0.0 minutes or 0.0 % of TST 0.0 minutes or 0.0 % of TST 0.0 minutes of 0.0 % of TST 0.0 minutes or 0.0 %of TIB Time Spent > 55mmHg 0.0 minutes or 0.0 % of TST 0.0 minutes or 0.0 % of TST 0.0 minutes of 0.0 % of TST 0.0 minutes or 0.0 %of TIB -----TCM DATA BY POSITION----- Supine Left Right Prone Avg (mmHg) (normal 35-45) 32.0 34.0 29.0 0.0 Max (mmHg) 39.0 37.0 31.0 0.0 Time Spent > 50mmHg 0.0 minutes or 0.0 % of TIB 0.0 minutes or 0.0 % of TIB 0.0 minutes or 0.0 % of TIB 0.0 minutes or 0.0 % of TIB Time Spent > 55mmHg 0.0 minutes or 0.0 % of TIB 0.0 minutes or 0.0 % of TIB 0.0 minutes or 0.0 % of TIB 0.0 minutes or 0.0 % of TIB TECHNOLOGIST COMMENTS: Patient was seen for an A SV titration with TCM monitoring. He has a hx of HTN, CHF, COPD, afib and NEO. He was on bipap but had centrals and obstructive apneas and was guerrero ged to ASV therapy. Patient feels ASV is working better for him and is more comfortable. He complains of dry mouth and we discussed some possible solutio ns. 5 mg trazadone was taken at 2230. Patient slept with the HOB flat in late ral and supine. All stages of sleep appeared to be present. EKG appeared NSR w ith occasional arrythmias, examples listed epochs 26, 137, 157, 943 Frequen t limb movements noted in NREM sleep. Limb movements reduced in REM sleep. PLMD 76.2 He wore an airfit F20 FFM large with good fit. He was started on A SV settings: EPAP 8, Max PS 15, Min PS 3. This was increased to an EPAP 15, max PS 10 and min PS 5. It was increased for obstructive events and low oxy gen saturations. These are the ASV's maxed out settings. The patient had lateral REM witnessed on these ASV settings that appeared to be well supp orted but patient had low baseline oxygen sats at 89%. Once patient was sl eeping supine he continued having obstructive events and low oxygen saturat ions on the maxed out ASV settings. He was then transitioned to IVAPS for observation with events and oxygen levels in supine sleep. Ivaps was started on epoch 477. First setting: EPAP 16, Max PS 14, Min PS 7. Target VA 4.0, Ti Max 2.0, Ti Min 0.5, RISE 300, Trigger M, Cycle M. The patient's settings were increased a few times. The EPAP and Min PS were increased for obstructi ve events and the target va was increased for low oxygen saturations and the rate was increased for observation with centrals/central hypopneas. Aman perez IVAPS settings : EPAP 17, Max PS 13, Min PS 8 Target VA 4.3, Target rate 1 4, ti Max 2.5, Ti min 1.8, Rise 300, trigger M, cycle H. These final settin gs appeared to support the patient's breathing in lateral and supine REM an d NREM sleep. More central apneas/hypopneas were seen on ivaps but overal o bstructions and oxygen saturations were better on ivaps. Many adjustmen ts were made to the ti min and max and the cycle/trigger to help create a b ramesh waveform but no adjustments seemed to make big changes. TCM avg 32 high 39 Hypoventilation did not appear to be present. MD to review and d etermine best treatment for patient. Sleep team will continue to follow. Monitored: Frontal, central and occipital EEG, E OG, submentalis EMG, oronasal thermocouple, nasal pressure, ECG, thoracic and abdominal inductance plethysmography, right and left anterior tibiali s EMG, snore sensor, plethysmography, pulse oximetry, and audio and v ideo recording. An epoch by epoch review of the entire study was performed vicky serra a board-certified/board-eligible sleep physician lu metcalf signature appears below the interpretation. Scoring: The AASM Manual for the Scoring of Sleep and Associated Events: Rules, Terminology and Techni benja Specifications v 2.4.0 2017. The AHI in this report uses a hypopnea def inition of 4% SpO2 desaturation. The AHI is consistent with the morelia urrent hypopnea definition according to AASM criteria. Report Digitally Signed By: NAKITA STALLWORTH MD (12/21/2021 3:23:39 PM) Administrative Closure: 12/21/2021 by: CLINICAL,DEVICE PROXY SERVICE Dec 19, 2021 01:44 PM PULMONARY PROCEDURE NOTE: [facility] LOCAL TITLE: CP SLEEP STUDY PROCEDURE STANDARD TITLE: PULMONARY PROCEDURE NOTE DATE OF NOTE: DEC 19, 2021@13:44:33 ENTRY DATE: DEC 19, 2021@13:44:33 AUTHOR: CLINICAL,DEVICE PRO EXP COSIGNER: URGENCY: STATUS: COMPLETED PROCEDURE SUMMARY CODE: Machine Resulted DATE/TIME PERFORMED: DEC 18, 2021@22:41:2 DOCUMENT IN [employer] IMAGING SEE FULL REPORT IN [employer] IMAGING SIGNATURE NOT REQUIRED SEE SIGNATURE IN [employer] IMAGING ([facility] PSG Bi) AUTO-INSTRUMENT DIAGNOS IS Procedure: PSG General Information Name: ID: Sex: Age: Medical \T\ Medication History Sleep Disorder Comments Patient was seen for an ASV titration with SHAWNEE lerma. He has a hx of HTN, CHF, COPD, afib and NEO. He was on bipap bu t had centrals and obstructive apneas and was changed to ASV therap y. Patient feels ASV is working better for him and is more comfortable. He complains of dry mouth and we discussed some possible solutions. 5 mg traza done was taken at 2230. Patient slept with the HOB flat in lateral and s upine. All stages of sleep appeared to be present. EKG appeared NSR with oc casional arrythmias, examples listed epochs 26, 137, 157, 943 Frequent limb mo vements noted in NREM sleep. Limb movements reduced in REM sleep. PLMD 76.2 H e wore an airfit F20 FFM large with good fit. He was started on ASV setti ngs: EPAP 8, Max PS 15, Min PS 3. This was increased to an EPAP 15, max PS 1 0 and min PS 5. It was increased for obstructive events and low oxygen saturations. These are the ASV's maxed out settings. The patient had late ral REM witnessed on these ASV settings that appeared to be well supported but patient had low baseline oxygen sats at 89%. Once patient was sleeping galicia pine he continued having obstructive events and low oxygen saturations on the maxed out ASV settings. He was then transitioned to IVAPS for observatio n with events and oxygen levels in supine sleep. Ivaps was started on epo ch 477. First setting: EPAP 16, Max PS 14, Min PS 7. Target VA 4.0, Ti Max 2 .0, Ti Min 0.5, RISE 300, Trigger M, Cycle M. The patient's settings were increased a few times. The EPAP and Min PS were increased for obstructive e vents and the target va was increased for low oxygen saturations and the rat e was increased for observation with centrals/central hypopneas. Fin al IVAPS settings : EPAP 17, Max PS 13, Min PS 8 Target VA 4.3, Target rate 1 4, ti Max 2.5, Ti min 1.8, Rise 300, trigger M, cycle H. These final settin gs appeared to support the patient's breathing in lateral and supine REM an d NREM sleep. More central apneas/hypopneas were seen on ivaps but overal o bstructions and oxygen saturations were better on ivaps. Many adjustmen ts were made to the ti min and max and the cycle/trigger to help create a b ramesh waveform but no adjustments seemed to make big changes. TCM avg 32 high 39 Hypoventilation did not appear to be present. to review and d etermine best treatment for patient. Sleep team will continue to follow. Lights out: 10:47:55 PM Lights on: 07:00:13 AM Time Total Supine Side Prone Upright Recording (TRT) 8h 12.5m 3h 31.5m 4h 41.0m 0h 0. 0m 0h 0.0m Sleep (TST) 6h 32.0m 2h 43.5m 3h 48.5m 0h 0.0m 0 h 0.0m Latency N1 N2 N3 REM Onset Per. Cnc Machinist. Eff. Actual 0h 2.0m 0h 4.0m 3h 52.5m 1h 13.5m 0h 2.0m 0h 15.0m 79.59% Stg Dur Wake N1 N2 N3 REM Total 97.0 58.5 252.0 0.5 81.0 Supine 46.0 37.0 98.0 0.5 28.0 Side 51.0 21.5 154.0 0.0 53.0 Prone 0.0 0.0 0.0 0.0 0.0 Upright 0.0 0.0 0.0 0.0 0.0 Stg % Wake N1 N2 N3 REM Total 19.8 14.9 64.3 0.1 20.7 Supine 9.4 9.4 25.0 0.1 7.1 Side 10.4 5.5 39.3 0.0 13.5 Prone 0.0 0.0 0.0 0.0 0.0 Upright 0.0 0.0 0.0 0.0 0.0 Apnea Summary Sub Supine Side Prone Upright Total 25 Total 25 22 3 REM 1 1 0 0 0 NREM 24 21 3 0 0 Obs 9 REM 0 0 0 NREM 9 9 0 0 0 Mix 0 REM 0 0 0 NREM 0 0 0 0 0 Rufus 16 REM 1 1 0 NREM 15 12 3 0 0 Rera Summary Sub Supine Side Prone Upright Total 0 Total 0 0 0 REM 0 0 0 0 0 NREM 0 0 0 0 0 Hypopnea Summary Sub Supine Side Prone Upright Total 90 Total 90 78 12 REM 3 3 0 0 0 NREM 87 75 12 0 0 AHI Total Obs Mix Rufus 17.60 Apnea 3.83 1.38 0.00 Hypopnea 13.78 -- -- -- Total Supine Side Prone Upright Position AHI 17.60 36.70 3.94 0.00 0.00 REM AHI 2.96 NREM AHI 21.41 Position RDI 17.60 36.70 3.94 0.00 0.00 REM RDI 2.96 NREM RDI 21.41 Threshold: 2% <100% <90% <80% <70% <60% <50% <40 % Supine 158.0 102.0 7.0 0.0 0.0 0.0 0.0 Side 97.0 43.0 0.0 0.0 0.0 0.0 0.0 Prone 0.0 0.0 0.0 0.0 0.0 0.0 0.0 Upright 0.0 0.0 0.0 0.0 0.0 0.0 0.0 Total 255.0 145.0 7.0 0.0 0.0 0.0 0.0 Index 31.3 17.8 0.9 0.0 0.0 0.0 0.0 Threshold: 3% <100% <90% <80% <70% <60% <50% <40 % Supine 131.0 91.0 7.0 0.0 0.0 0.0 0.0 Side 60.0 34.0 0.0 0.0 0.0 0.0 0.0 Prone 0.0 0.0 0.0 0.0 0.0 0.0 0.0 Upright 0.0 0.0 0.0 0.0 0.0 0.0 0.0 Total 191.0 125.0 7.0 0.0 0.0 0.0 0.0 Index 23.4 15.3 0.9 0.0 0.0 0.0 0.0 Threshold: 4% <100% <90% <80% <70% <60% <50% <40 % Supine 113.0 83.0 7.0 0.0 0.0 0.0 0.0 Side 47.0 29.0 0.0 0.0 0.0 0.0 0.0 Prone 0.0 0.0 0.0 0.0 0.0 0.0 0.0 Upright 0.0 0.0 0.0 0.0 0.0 0.0 0.0 Total 160.0 112.0 7.0 0.0 0.0 0.0 0.0 Index 19.6 13.7 0.9 0.0 0.0 0.0 0.0 Threshold: 4% <100% <90% <80% <70% <60% <50% <40 % Supine 113 83 7 0 0 0 0 Side 47 29 0 0 0 0 0 Prone 0 0 0 0 0 0 0 Upright 0 0 0 0 0 0 0 Total 160 112 7 0 0 0 0 # of Awakenings 11 Wake after sleep onset 97.0m Wake after persistent sleep 95.5m [employer] Arousals Index Apneas 9 1.4 Hypopneas 32 4.9 Leg Movements 24 3.7 Snore 0 0.0 PTT Arousals 0 0.0 Spontaneous 27 4.1 Total 89 13.6 PLMS LMs Index Total LMs during PLMS 499 76.4 LMs w/ Microarousals 24 3.7 LM LMs Index w/ Microarousal 0 0.0 w/ Awakening 0 0.0 w/ Resp Event 0 0.0 Spontaneous 2 0.3 Total 2 0.3 Desaturation threshold settin% Minimum desaturation settin seconds SaO2 danial: 77% The longest event was a 28 sec obstructive Hypop eder with a minimum SaO2 of 92%. The lowest SaO2 was 77% associated with a 26 sec obstructive Apnea. EKG Rates EKG Avg Max Min Awake 69 94 54 Asleep 66 97 50 EKG Events: Tachycardia Administrative Closure: 12/19/2021 by: CLINICAL,DEVICE PROXY SERVICE Dec 19, 2021 09:03 AM SLEEP MEDICINE NOTE: CATERINA BARRAGAN [facility] LOCAL TITLE: SLEEP PSG HANDOFF STANDARD TITLE: SLEEP MEDICINE NOTE DATE OF NOTE: DEC 19, 2021@09:03 ENTRY DATE: DEC 19, 2021@09:03:49 AUTHOR: CATERINA BARRAGAN EXP COSIGNER: URGENCY: STATUS: COMPLETED SLEEP PSG HANDOFF Has ADDENDA Sleep Lab to CPAP Clinic Polysomnography (PSG) H and-Off -Diagnostic Apnea-Hypopnea Index (AHI) -Chief complaint/indication for PSG Patient HX : Diabetes, HTN, CHF, COPD, afib. Was on BiPAP but his NEO and CSA were not well controlled so he was changed to ASV. Some discomfort on bipap but patient feels ASV is working better for him. Com plains of dry mouth with ASV. Effective treatment modality and suggested sett ings Volume Assured Pressure Support (iVAPS) -Pending physician interpretation Covid prescreening was conducted upon ar sandral. Patient denies all symptoms and their temperature was within normal range. Type of study ordered: Titration with TCM Sleep Medications: 5 mg trazadone taken at 2230 Positions and stages: Patient slept in lateral a nd supine. HOB was flat. All stages of sleep appeared to be present. EKG appeared NSR with occasi onal arrythmias. Examples listed on epochs 26, 137, 157, 943 PLMD 76.2 ; frequent limb mo vements were witnessed in NREM sleep. Limb movements were reduced in REM sleep. Mask: Patient wore an airfit F20 full fa ce mask with good fit. Leak maintained <5 the majority of the night, Titration: Patient was started on ASV se ttings : EPAP 8 , Max PS 15, Min PS 3. This was increased to EPAP 1 5, Max PS 10, Min PS 5. Treatment was increased for obstructive apneas and hypop neas and for low baseline oxygen saturations of 88- 90%. These are maxed out ASV settings. Patient h ad lateral REM witnessed on these settings with low baseline oxygen saturati ons. In supine, the patient began having obstructive hypopneas and low sats in supine sleep on the maxed out ASV settings. He was then transitioned to ivaps for ob servation on epoch 477. Ivaps starting pressure was EPAP 16, Max PS 14, Min PS 7. Target VA 4.0, target rate 13, ti max 2.0 ti min 0.5 rise 300 cycle medium, trigger me dium, The EPAP and min PS were titrated for obstructiv e events The target VA was titrated for low oxygen level s The rate was titrated for central hypopneas/investigations chief eas Ti min /max and trigger/cycl e were adjusted to create a better waveform but the changes did not appear to make a big impact in t he flow. Patient's I:E was maintained around 1:2. Final IVPAS settings: EPAP 17, Max PS 13 , Min PS 8, Target VA 4.3, Target Rate 14, Ti max 2.5, Ti min 1.8, Rise 300, Trigger Me dium cycle High. REM supine and lateral REM were both witnessed o n the final ivaps settings. Patient had increased centra ls on ivaps therapy but overall his obstructions and his oxygen saturations improved on ivaps. Low Sat 77% un-sustained TCM avg 33, high 39. Hypoventilation did not erma ear to be present. was patient seen REM supine? Yes on IVAPS therap yMissy ESPINOSA to review best pressures for the patient. Sleep team will continue to follow /tahira/ SAMMY CLEANING MULTIPLE PRESSURE RIVETER OPERATOR Signed: 12/19/2021 09:04 Receipt Acknowledged By: * AWAITING SIGNATURE * JOHN MCKENNA * AWAITING SIGNATURE * NAKITA STALLWORTH 12/21/2021 15:31 /tahira/ DOUGLAS BHATTI MD SLEEP MEDICINE FELLOW 12/21/2021 18:41 /tahira/ NORY NGUYEN RRT REGISTERED RESPIRATORY THERAPIST 12/21/2021 ADDENDUM STATUS: COMPLETED Reviewed PSG study with supervising physician this was a full night titration study. Patient has hx of compex sle ep disordered breathing and is currently on ASV EPAP to 13-15 cm H2O, PS: 8-12 cm H2O. Patient has persistence of hypoxia as noted on SLICK despite being adherent with ASV. current plan: - Based on study, patient had significant improv ement with respiratory events and hypoxia when on lateral position. - Can continue ASV but would change EPAP from 13 -15 cm H2O to 15 cm H2O and change PS from 8-12 cm H2O to 5-10 cm H2O. - New ASV settings recommended: EPAP 15 PS 5-15 cm H2O - Since events were more in the supine position, recommend concominant use of positional therapy with ASV- shift engineer sleep p ositional therapy- will recommend to place prosthetics order for this. Formal polysomnography repor t will follow in the EMR. Please refer to the formal PSG report for details. Sleep CM will call patient and discuss results /tahira/ DOUGLAS BHATTI MD SLEEP MEDICINE FELLOW Signed: 12/21/2021 15:42 Receipt Acknowledged By: * AWAITING SIGNATURE * JOHN MCKENNA 12/21/2021 18:41 /tahira/ NORY NGUYEN RRT REGISTERED RESPIRATORY THERAPIST 12/21/2021 ADDENDUM STATUS: COMPLETED Settings have been changed at this time. Changed settings: ASV settings : EPAP 15 , Max PS 15, Min PS 5. DreamStation settings: Max Pressure 30.0 Min EPAP 15 Max EPAP 15 Min PS 5 Max PS 15 Bi-Flex 2 /tahira/ NORY NGUYEN, COUNTER ATTENDANT REGISTERED RESPIRATORY THERAPIST Signed: 12/21/2021 18:45
--- OUTSIDE RECORDS SUMMARY | 2022-04-03 12:36 | XMS_ITS | Encounter Summary ---
:1945 Author Organization [facility] Address [address] [place] [address] Support Name Relationship Address Phone MARION LEWIS Unavailable [id number] [place] [address] MARION LEWIS Unavailable [phone] [place] [address] Insurance Providers: All historical and current Section [...] Bird [place] Jul 15, [id number] TONIEMARGUERITE P ATIENT [facility] (WNR) ADVANTAGE (WNR) 2017 9 [id number] [phone] NNIS 1 [place] Jul 15, [id number] ZACHERYHOPKINS P ATIENT [facility] (WNR) ADVANTAGE (WNR) 2017 9 [id number] [phone] NNIS 1 [place] Jul 15, [id number] TONIEMARGUERITE P ATIENT [facility] (WNR) ADVANTAGE (WNR) 2017 8 [id number] [phone] NNIS 1 Selected Encounter This section includes the information on record at [place] for the Encounter. 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 This section includes future appointments and future orders which are active, pending orscheduled.Future Appointments This section includes appointments that were scheduled to occur 6 months from the date of the Encounter, up to a maximum of 20 appointments. The data comes from all [place] treatment facilities. Appointment Date/Time Appointment Type Appointment Facili ty Name Dec 18, 2021 08:30 PM AMBULATORY - MEDICINE [facility] Feb 12, 2022 10:00 AM AMBULATORY - MEDICINE [facility] Lab Results: +/- 30 days of the encounter This section includes the Chemistry and Hematology Lab Results on record with [place] for the patient. Radiology Reports and Pathology Reports are provided separately, in subsequent sections.Lab Results This section contains the Chemistry/Hematology Results that were resulted 30 days before or 30 daysafter the date of the Encounter. Date/Time Source Result Type Result - Unit Interpretation Reference Range Comment Dec 13, 2021 09:29 [facility] COVID-19 AND FLU SCRN Spe cimen Type: NASOPHARYNGEAL PM PANEL (REBEKAH) No comment enter ed. Ordering Provid er: LAURYN DIAZ Report Released Date/Time: November 22, 2021 08:58 AM Reporting Lab: [facility] [address] [facility] [address] Performing Lab: [facility] [address] [facility] [address] COVID-19 PCR (REBEKAH) Not Detected Not De tected FLU A PCR (REBEKAH) Not Detected Not Detec pedro FLU B PCR (REBEKAH) Not Detected Not Detec pedro Dec 13, 2021 [place] ([facility]) MICROALBUMIN/CREATININE RATIO Specimen Type: URINE 02:52 PM URINE No comment enter ed. Ordering Provid er: ALEXIS DICKERSON Report Released Date/Time: Dec 13, 2021 02:41 PM Reporting Lab: [facility] [place] [address] Performing Lab: [facility] [address] CREATININE,UR RANDOM 67.4 58.0-161. 0 ALB/CREAT RATIO,UR 22.0 <29.9 MICROALBUMIN,UR 14.8 <29.9 Dec 13, 2021 02:52 PM [place] ([facility]) HEMOGLOBIN A1C Specimen Type: BLOOD No comment enter ed. Ordering Provid er: ALEXIS DICKERSON Report Released Date/Time: Dec 13, 2021 02:29 PM Reporting Lab: [facility] [address] Performing Lab: [facility] [address] HEMOGLOBIN A1C 7.7 H 4.0-6.0 Dec 13, 2021 02:52 PM [place] ([facility]) B 12 Specimen Type: SERUM No comment enter ed. Ordering Provid er: ALEXIS DICKERSON Report Released Date/Time: Dec 13, 2021 02:41 PM Reporting Lab: [facility] [address] Performing Lab: [facility] [address] B 12 [phone] Dec 13, 2021 [place] ([facility]) COMPREHENSIVE METABOLIC Specim en Type: PLASMA 02:52 PM PANEL+MG No comment enter ed. Ordering Provid er: ALEXIS DICKERSON Report Released Date/Time: Dec 13, 2021 02:29 PM Reporting Lab: [facility] [address] Performing Lab: [facility] [address] CREATININE 1.0 0.7-1.2 [place]A NITROGEN 26 8-26 GLUCOSE 96 74-100 SODIUM 140 136-145 POTASSIUM 4.0 3.5-5.1 CHLORIDE 103 98-107 CO2 26 22-29 CALCIUM 9.8 8.4-10.2 PROTEIN,TOTAL 7.1 6.0-8.3 ALBUMIN 4.2 3.5-5.2 BILIRUBIN, TOTAL 0.5 0.2-1.2 MAGNESIUM 2.4 1.6-2.6 ANION GAP 11 5-15 ALKALINE PHOSPHATASE 77 40-150 ALT/SGPT 28 <55 AST/SGOT 30 <34 CREAT EGFR(CKD-EPI) 78 >60 Dec 13, 2021 02:52 [place] ([facility]) LIPID PANEL,NON-FASTING Spe cimen Type: PLASMA PM No comment enter ed. Ordering Provid er: ALEXIS DICKERSON Report Released Date/Time: Dec 13, 2021 02:29 PM Reporting Lab: [facility] [address] [facility] [address] Performing Lab: [facility] [address] [facility] [address] CHOLESTEROL 93 <199 .HDL 27 L >40 LDL CALCULATION 38 <99 VLDL CALCULATION 28 <29 NON HDL CHOLESTEROL 66 <129 TRIG(NON FASTING) 140 <149 Dec 13, 2021 02:52 PM [place] ([facility]) FOLATE Specimen Type: SERUM No comment enter ed. Ordering Provid er: ALEXIS DICKERSON Report Released Date/Time: Dec 13, 2021 02:41 PM Reporting Lab: [facility] [address] [facility] [address] Performing Lab: [facility] [address] FOLATE 17.4 >7.0 Dec 13, 2021 02:52 PM [place] ([facility]) CBC & DIFF Specimen Type: BLOOD Comment: Automa pedro Differential Performed Ordering Provid er: ALEXIS DICKERSON Report Released Date/Time: Dec 13, 2021 02:29 PM Reporting Lab: [facility] [address] [facility] [address] Performing Lab: [facility] [address] [facility] [address] WBC 8.93 4.0-11.0 RBC 3.86 L 4.6-6.2 [...] GRAN 0.03 0-0.1 Dec 13, 2021 02:52 [place] ([facility]) METHYLMA ACID, [facility] Specim en Type: SERUM PM Comment: This t est was developed and its analytical performance characteristics have been determined by [employer], [place]. It has not been cleared or approved by the U.[place] . Food and Drug Administration. This assay has been validated pursuant to the CLIA regulations and is used for clinical purposes. Test Performed by [employer], [employer] [place], [address] [place] [address] Trent Olmstead M.D., Ph.D., Director of Laboratories , CLIA [id number] Ordering Provid er: ALEXIS DICKERSON Report Released Date/Time: Dec 13, 2021 10:04 PM Reporting Lab: [facility] [address] [facility] [address] Performing Lab: [address] METHYLMA ACID, [place] [phone] Dec 13, 2021 02:52 PM [place] ([facility]) IRON GROUP Specimen Type: SERUM Comment: Specim en received is PLASMA. Ordering Provid er: ALEXIS DICKERSON Report Released Date/Time: Dec 14, 2021 07:50 AM Reporting Lab: [facility] [address] [facility] [address] Performing Lab: [facility] [address] [facility] [address] IRON 50 L 65-175 TIBC,CALCULATED 360 250-425 FERRITIN 20.6 L 21.8-274.7 IRON SATURATION 14 L 20-50 TRANSFERRIN 288 163-382 Encounter Notes: All associated encounter notes This section contains the clinical notes associated to the Encounter. Date/Time Encounter Note(s) Provider Source Dec 14, 2021 11:47 AM PHARMACY OUTPATIENT MEDICATION MGT NOT E: JANESSA WISEMAN [facility] LOCAL TITLE: PHARMACY ANTICOAGULATION CLINIC F/ U STANDARD TITLE: PHARMACY OUTPATIENT MEDICATION M GT NOTE DATE OF NOTE: DEC 14, 2021@11:47 ENTRY DATE: DEC 14, 2021@11:47:10 AUTHOR: JANESSA WISEMAN EXP COSIGNER: URGENCY: STATUS: COMPLETED DOAC DASHBOARD ALERT - Anticoagulant regimen: Apixaban 5mg every 12 h ours - Indication: Atrial fibrillation - Secondary Indication/Relevant PMH: - HTN, DM - CHF - CAD: NSTEMI 03/2017 - Prior major bleeds: none - Prior anticoagulants: none - Start date: ~04/2020, [place] 12/20/20 - Anticipated duration of therapy: Indefinite - CHADS2-VASC = 6 (age, HTN, DM, CHF, CAD - HAS-BLED = 3 (age, aspirin/NSAID use, +/-anemi a) SUBJECTIVE/OBJECTIVE: Obtained from chart review. dashboard flags: > 2 g hgb drop Labs ==== Age: 76 Height: 69.783 in [177.2 cm] (12/13/2021 14:13) Weight: 270 lb [122.47 kg] (12/13/2021 14:13) Collection DT Specimen Test Name Result Units Re f Range 12/13/2021 14:52 PLASMA CREATININE 1.0 mg/dL 0.7 - 1.2 06/20/2021 14:28 PLASMA CREATININE 1.2 mg/dL 0.7 - 1.2 12/15/2020 10:12 PLASMA CREATININE 1.2 mg/dL 0.7 - 1.2 12/16/2019 09:28 PLASMA CREATININE 1.1 mg/dL 0.7 - 1.2 02/10/2019 09:53 PLASMA CREATININE 1.1 mg/dL 0.7 - 1.2 02/13/2018 10:11 PLASMA!! CREATININE 1.1 mg/dL . 7 - 1.2 01/22/2017 10:33 PLASMA CREATININE 1.0 mg/dL .7 - 1.2 01/02/2016 15:45 SERUM !! CREATININE 1.1 mg/dL . 7 - 1.2 12/13/2014 09:04 SERUM CREATININE 0.9 mg/dL .7 - 1.2 02/19/2007 09:50 PLASMA!! CREATININE 1.2 mg/dL . 7 - 1.3 !! Indicates COMMENTS AVAILABLE...Refer to Inter im Lab Report. Cockcroft & Gault (Actual body weight) = 109 mL/ min Collection DT Spec WBC HGB HCT PLT MCV NEUT LYMP HS 12/13/2021 14:52 BLOOD 8.93 11.6 L 36.8 L 275 95 .3 59.9 28.3 06/20/2021 14:28 BLOOD 8.62 14.4 44.5 220 99.3 12/15/2020 10:12 BLOOD 7.80 13.4 L 41.2 210 99.5 60.4 28.1 Collection DT Specimen Test Name Result Units Re f Range 12/13/2021 14:52 PLASMA BILIRUBIN, TOTAL 0.5 mg/ dL 0.2 - 1.2 12/13/2021 14:52 PLASMA ALKALINE PHOSPHAT 77 U/L 40 - 150 12/13/2021 14:52 PLASMA AST/SGOT 30 U/L Ref: <=3 4 12/13/2021 14:52 PLASMA ALT/SGPT 28 U/L Ref: <=5 5 06/20/2021 14:28 PLASMA GAMMA GTP 19 U/L Ref: <= 64 ASSESSMENT/PLAN: - Concerns with Hgb noted. N o s/sx bleeding noted in recent PCP note. PCP aware of low hgb and relates this to low iron and low vit B12. Pt has been started on iron and b12 supplementation . No changes required at this time, will continue to monitor via DOAC Dashboard. - Continue anticoagulation at current dose. - Monitor dashboard for labs, drug interactions, and compliance. - Dashboard flags reviewed/cleared. - Lab monitoring frequency defined by dashboard or as clinically indicated. Time Spent:15min /tahira/ JANESSA WISEMAN CLINICAL PHARMACIST Signed: 12/14/2021 11:52
--- OUTSIDE RECORDS SUMMARY | 2022-04-03 12:37 | XMS_ITS | Encounter Summary ---
:1945 Author Organization [place] Address [address] [place] [address]. [place] [address] Care Team Providers Name Role Phone Gregory Day MD Primary Care Provider Reason for Visit Reason Comments Wound Infection Encounter Details Date Type Department Care Team Description 02/03/2021 Emergency [facility] and Gregory Shi , Recurrent cellulitis of [facility] lower leg [address] [place] [address] [place], [place] [phone] [id number] Social History Tobacco Use Types Packs/Day Years Used Date Never Smoker Smokeless Tobacco: Never Used Alcohol Use Standard Drinks/Week Comments Not Currently 0 (1 standard drink = 0.6 oz pure alcoho l) Sex Assigned at Date Recorded Not on file COVID-19 Exposure Response Date Recorded In the last month, have you been in contact with No / Unsure 02/03/2021 10:46 AM CDT someone who was confirmed or suspected to have Coronavirus / COVID-19? documented as of this encounter Last Filed Vital Signs Vital Sign Reading Time Taken Comments Blood Pressure 139/64 02/03/2021 10:49 AM CDT Pulse 51 02/03/2021 10:49 AM CDT Temperature 36.6 ??C (97.9 ??F) 02/03/2021 10:49 AM CDT Respiratory Rate 14 02/03/2021 10:49 AM CDT Oxygen Saturation 94% 02/03/2021 10:49 AM CDT Inhaled Oxygen Concentration - - Weight 124.5 kg (274 lb 6.4 oz) 02/03/2021 10:49 AM CDT Height 182.9 cm (6') 02/03/2021 10:49 AM CDT Body Mass Index 37.22 02/03/2021 10:49 AM CDT documented in this encounter Discharge Instructions AttachmentsThe following attachments cannot be sent through Care Everywhere.Skin Infection, Cellulitis ([place])documented in this encounter Medications at Time of Discharge Medication Sig Dispensed Refills Start Date End Date saccharomyces boulardii Take 1 capsule (250 20 capsule 0 (FLORASTOR) 250 MG mg) by mouth 2 capsule times daily clindamycin (CLEOCIN) 300 Take 1 capsule (300 30 capsule 0 0 02/03/2021 02/13/2021 MG capsule mg) by mouth 3 times daily for 10 days documented as of this encounter ED Notes Louisa Lomax RN - 02/03/2021 11:00 AM CDT ED Nursing Triage Note (General) Mateus Red is a 75 year old Male that presents to triage private car With history of cellulitisto vasques of left leg. Took last of oral Keflex this morning and worried that leg is not getting any better. BP 139/64 Pulse 51 Temp 97.9 ??F (36.6 ??C) (Oral) Resp 14 Ht 1.829 m (6') Wt 124.5 kg (274 lb 6.4 oz) SpO2 94% BMI 37.22 kg/m?? t Patient appears alert and oriented, in no acute distress., and cooperative and calm behavior. GCS Total = 15 Airway: intact Breathing noted as Normal Circulation Normal Skin: Normal Action taken: Roomed in [facility] Spouse Gregory Shi PA-C - 02/03/2021 10:41 AM CDT Images from the original note were not included. History Chief Complaint Patient presents with ??? Wound Infection HPI Mateus Red is a 75 year old male who is up here on vacation staying at his daughter's cabin. Hehad a telemedicine appointment with his provider ( Michelle Sood PA-C) yesterday due to the fact that he had an infected left lower extremity that was complicated by infection and started on Keflex 4 times daily. She felt it was difficult to assess the wound through video and wanted someone to lay eyes on this wound. He took his last Keflex today. She had suggested may be starting him with doxycycline or extending the Keflex until his seen back in the [facility]. He denies any fever or chills.No drainage from this wound. He does have what appears to be a divot in the anterior tibial area butthis is scabbed over nicely and no warmth to the touch. His medical history is significant for atrial fibrillation for which she is on Eliquis, CAD, carotid artery disease, emphysema, diverticulosis, history of renal failure, obesity, non-STEMI, diabetes type 2 with diabetic neuropathy long-term use of insulin, and hypertension. Allergies: Allergies Allergen Reactions ??? Contrast Dye ??? Lisinopril Cough Problem List: There are no problems to display for this patient. Past Medical History: History reviewed. No pertinent past medical history. Past Surgical History: History reviewed. No pertinent surgical history. Family History: History reviewed. No pertinent family history. Social History: Marital Status: [2] Social History Tobacco Use ??? Smoking status: Never Smoker ??? Smokeless tobacco: Never Used Substance Use Topics ??? Alcohol use: Not Currently ??? Drug use: Never Medications: No current outpatient medications on file. Review of Systems Constitutional: Negative for fatigue and fever. HENT: Negative for facial swelling and sore throat. Eyes: Negative for visual disturbance. Respiratory: Negative for stridor. Cardiovascular: Negative for chest pain. Gastrointestinal: Negative for abdominal pain, constipation, diarrhea, nausea and vomiting. Skin: Positive for wound. Negative for pallor. Wound to the patient's left anterior vasques Neurological: Negative for seizures and weakness. Hematological: Negative for adenopathy. Psychiatric/Behavioral: Negative for agitation and confusion. Physical Exam BP: 139/64 Pulse: 51 Temp: 97.9 ??F (36.6 ??C) Resp: 14 Height: 182.9 cm (6') Weight: 124.5 kg (274 lb 6.4 oz) SpO2: 94 % Physical Exam Vitals and nursing note reviewed. Constitutional: General: He is not in acute distress. Appearance: He is not ill-appearing or toxic-appearing. HENT: Head: No raccoon eyes or Allison's sign. Jaw: No trismus. Right Ear: No drainage or tenderness. Left Ear: No drainage or tenderness. Nose: Nose normal. Eyes: General: Lids are normal. Gaze aligned appropriately. No scleral icterus. Extraocular Movements: Extraocular movements intact. Right eye: No nystagmus. Left eye: No nystagmus. Pupils: Right eye: Pupil is reactive and not sluggish. Left eye: Pupil is reactive and not sluggish. Neck: Vascular: No JVD. Trachea: No tracheal deviation. Cardiovascular: Rate and Rhythm: Normal rate. Pulmonary: Effort: Pulmonary effort is normal. No respiratory distress. Breath sounds: No stridor. No wheezing. Abdominal: General: Bowel sounds are normal. Palpations: There is no mass. Tenderness: There is no guarding. Musculoskeletal: General: No deformity or signs of injury. Normal range of motion. Skin: General: Skin is warm and dry. Coloration: Skin is not ashen, jaundiced, mottled or pale. Findings: Signs of injury and wound present. No abrasion, abscess, bruising, ecchymosis, erythema or rash. Comments: Healing wound to the patient's left anterior vasques no signs of significant erythema or warmth. Yellowish color to the surrounding skin. No drainage. I did not appreciate any abscess or fluid collection. Neurological: General: No focal deficit present. Mental Status: He is alert and oriented to person, place, and time. GCS: GCS eye subscore is 4. GCS verbal subscore is 5. GCS motor subscore is 6. Motor: No tremor or seizure activity. Psychiatric: Mood and Affect: Mood normal. ED Course Results for orders placed or performed during the hospital encounter of 02/03/21 (from the past 24 hour(s)) CBC with platelets differential Narrative The following orders were created for panel order CBC with platelets differential. Procedure Abnormality Status --------- ------ CBC with platelets and d...[[id number]] Abnormal Final result Please view results for these tests on the individual orders. Erythrocyte sedimentation rate auto Result Value Ref Range Erythrocyte Sedimentation Rate 18 0 - 20 mm/hr C-Reactive Protein high sensitivity GH Result Value Ref Range C-Reactive Protein High Sensitivity 0.6 mg/L CBC with platelets and differential Result Value Ref Range WBC Count 7.7 4.0 - 11.0 10e3/uL RBC Count 3.91 (L) 4.40 - 5.90 10e6/uL Hemoglobin 12.6 (L) 13.3 - 17.7 g/dL Hematocrit 38.1 (L) 40.0 - 53.0 % MCV 97 78 - 100 fL MCH 32.2 26.5 - 33.0 pg MCHC 33.1 31.5 - 36.5 g/dL RDW 13.7 10.0 - 15.0 % Platelet Count 205 150 - 450 10e3/uL % Neutrophils 60 % % Lymphocytes 27 % % Monocytes 9 % % Eosinophils 3 % % Basophils 1 % % Immature Granulocytes 0 % NRBCs per 100 WBC 0 <1 /100 Absolute Neutrophils 4.6 1.6 - 8.3 10e3/uL Absolute Lymphocytes 2.1 0.8 - 5.3 10e3/uL Absolute Monocytes 0.7 0.0 - 1.3 10e3/uL Absolute Eosinophils 0.3 0.0 - 0.7 10e3/uL Absolute Basophils 0.1 0.0 - 0.2 10e3/uL Absolute Immature Granulocytes 0.0 <=0.0 10e3/uL Absolute NRBCs 0.0 10e3/uL Medications - No data to display Assessments & Plan (with Medical Decision Making) I have reviewed the nursing notes. I have reviewed the findings, diagnosis, plan and need for follow up with the patient. Discharge Medication List as of 02/03/2021 11:46 AM START taking these medications Details clindamycin (CLEOCIN) 300 MG capsule Take 1 capsule (300 mg) by mouth 3 times daily for 10 days, Disp-30 capsule, R-0, Local Print saccharomyces boulardii (FLORASTOR) 250 MG capsule Take 1 capsule (250 mg) by mouth 2 times daily, Disp-20 capsule, R-0, Local Print Final diagnoses: Recurrent cellulitis of lower leg - left Afebrile. Vital signs stable. Patient with some recurrent infection to his left lower leg. Currentlyon Keflex but finishing this today. Did have a telemedicine evaluation by Michelle Sood PA-C yesterday with recommendations of either extending Keflex or adding doxycycline. Given his diabetes advised against Bactrim. Examining his wound I do not see any significant signs of infection. CBC shows normal white blood cells no left shift. CRP is normal. ESR is normal. Blood cultures are pending. However he does have a history of recurrent cellulitis. We will treat empirically at this time pending reviewby his provider in the [facility]. He can discontinue his Keflex and we will start him on clindamycin for broader coverage. Follow-up sooner if there is any other concerns problems or questions. Rx was written for probiotics as well given all of his antibiotic use. 02/03/2021 [facility] Gregory Shi PA-C 02/03/21 1218 documented in this encounter Plan of Treatment Not on filedocumented as of this encounter Procedures Procedure Name Priority Date/Time Associated Comments Diagnosis CBC WITH PLATELETS AND STAT 02/03/2021 11:16 R esults for this DIFFERENTIAL AM CDT procedure are i n the results section. C-REACTIVE PROTEIN, STAT 02/03/2021 11:16 Resu lts for this HIGH SENSITIVITY AM CDT procedure a re in the results section. CBC WITH PLATELETS & STAT 02/03/2021 11:16 Res ults for this DIFFERENTIAL AM CDT procedure are i n the results section. ERYTHROCYTE STAT 02/03/2021 11:16 Results for this SEDIMENTATION RATE AM CDT procedure are in AUTO the results section. BLOOD CULTURE STAT 02/03/2021 11:16 Results fo r this AM CDT procedure are i n the results section. BLOOD CULTURE STAT 02/03/2021 11:16 Results fo r this AM CDT procedure are i n the results section. documented in this encounter Results (ABNORMAL) CBC with platelets and differential (02/03/2021 11:16 AM CDT) [facility] Method Time Signature WBC Count 7.7 4.0 - 02/03/2021 LABORATORY 11.0 11:31 AM CDT 10e3/uL RBC Count 3.91 (L) 4.40 - 02/03/2021 [facility] 5.90 11:31 AM CDT 10e6/uL Hemoglobin 12.6 (L) 13.3 - 02/03/2021 [facility] 17.7 g/dL 11:31 AM CDT Hematocrit 38.1 (L) 40.0 - 02/03/2021 [facility] 53.0 % 11:31 AM CDT MCV 97 78 - 100 02/03/2021 [facility] fL 11:31 AM CDT MCH 32.2 26.5 - 02/03/2021 [facility] 33.0 pg 11:31 AM CDT MCHC 33.1 31.5 - 02/03/2021 [facility] 36.5 g/dL 11:31 AM CDT RDW 13.7 10.0 - 02/03/2021 [facility] 15.0 % 11:31 AM CDT Platelet Count 205 150 - 450 02/03/2021 [facility] 10e3/uL 11:31 AM CDT % Neutrophils 60 % 02/03/2021 [facility] 11:31 AM CDT % Lymphocytes 27 % 02/03/2021 [facility] 11:31 AM CDT % Monocytes 9 % 02/03/2021 [facility] 11:31 AM CDT % Eosinophils 3 % 02/03/2021 [facility] 11:31 AM CDT % Basophils 1 % 02/03/2021 [facility] 11:31 AM CDT % Immature 0 % 02/03/2021 [facility] Granulocytes 11:31 AM CDT NRBCs per 100 0 <1 /100 02/03/2021 [facility] WBC 11:31 AM CDT Absolute 4.6 1.6 - 8.3 02/03/2021 LAB[facility]ATORY Neutrophils 10e3/uL 11:31 AM CDT Absolute 2.1 0.8 - 5.3 02/03/2021 [facility] Lymphocytes 10e3/uL 11:31 AM CDT Absolute 0.7 0.0 - 1.3 02/03/2021 [facility] Monocytes 10e3/uL 11:31 AM CDT Absolute 0.3 0.0 - 0.7 02/03/2021 [facility] Eosinophils 10e3/uL 11:31 AM CDT Absolute 0.1 0.0 - 0.2 02/03/2021 [facility] Basophils 10e3/uL 11:31 AM CDT Absolute 0.0 <=0.0 02/03/2021 LABORATORY Immature 10e3/uL 11:31 AM CDT Granulocytes Absolute NRBCs 0.0 10e3/uL 02/03/2021 LABORATORY 11:31 AM CDT Specimen Anatomical Collection Method / Collection Time Recei jessica Time (Source) Location / Volume Laterality Blood STRUCTURE OF RIGHT Venipuncture / 02/03/2021 11:16 UPPER LIMB / Unknown AM CDT 11:27 AM CDT Unknown Gregory Windy Shi PA-C LAB - BLOOD ORDERABLES Performing Organization Address City/State/ZIP Code Phon e Number [place] [address] Hospital Laboratory [address] Laboratory Blood Culture Arm, Right (02/03/2021 11:16 AM CDT) athologist Signature Culture No Growth AMEYA 02/09/2021 LABORATORY 7:43 AM CDT Specimen Anatomical Collection Method / Collection Time Recei jessica Time (Source) Location / Volume Laterality Blood STRUCTURE OF RIGHT Venipuncture / 02/03/2021 11:16 UPPER LIMB / Unknown AM CDT 11:27 AM CDT Unknown Gregory Windy Shi PA-C LAB - MICRO GENERAL ORDERABL ES Performing Organization Address City/[facility]/ZIP Code Phon e Number [place] [address] Hospital Laboratory [address] Laboratory Blood Culture Arm, Right (02/03/2021 11:16 AM CDT) athologist Signature Culture No Growth AMEYA 02/09/2021 LABORATORY 7:43 AM CDT Specimen Anatomical Collection Method / Collection Time Recei jessica Time (Source) Location / Volume Laterality Blood STRUCTURE OF RIGHT Venipuncture / 02/03/2021 11:16 UPPER LIMB / Unknown AM CDT 11:26 AM CDT Unknown Gregory Windy Shi PA-C LAB - MICRO GENERAL ORDERABL ES Performing Organization Address City/State/ZIP Code Phon e [place] [address] Hospital Laboratory [address] Laboratory C-Reactive Protein high sensitivity GH (02/03/2021 11:16 AM CDT) P athologist Signature C-Reactive 0.6 mg/L 02/03/2021 LABORATORY Protein High 12:00 PM CDT Sensitivity Comment: Low risk < 1.0 mg/L Average risk 1.0 to 3.0 mg/L High risk > 3.0 mg/L Acute inflamation > 10.0 mg/L Specimen Anatomical Collection Method / Collection Time Recei jessica Time (Source) Location / Volume Laterality Blood STRUCTURE OF RIGHT Venipuncture / 02/03/2021 11:16 UPPER LIMB / Unknown AM CDT 11:27 AM CDT Unknown Gregory Shi PA-C LAB - BLOOD ORDERABLES Performing Organization Address City/[facility]/ZIP Code [place] [address] [facility] [address] Laboratory Erythrocyte sedimentation rate auto (02/03/2021 11:16 AM CDT) Patholo gist Method Time Signature Erythrocyte 18 0 - 20 02/03/2021 LABORATORY Sedimentation Rate mm/hr 12:16 PM CDT Specimen Anatomical Collection Method / Collection Time Recei jessica Time (Source) Location / Volume Laterality Blood STRUCTURE OF RIGHT Venipuncture / 02/03/2021 11:16 UPPER LIMB / Unknown AM CDT 11:28 AM CDT Unknown Gregory Shi PA-C LAB - BLOOD ORDERABLES Performing Organization Address City/State/ZIP Code Phon e Number LABORATORY [facility] [place] [address] [facility] [address] Laboratory documented in this encounter Visit Diagnoses Diagnosis Recurrent cellulitis of lower leg Cellulitis and abscess of leg, except fo ot documented in this encounter Care Teams Utilities Operator Relationship Specialty Start Date End Date Gregory Day MD PCP - General Family Medicine 02/03/21 [facility] [place] [address] documented as of this encounter
--- OUTSIDE RECORDS SUMMARY | 2022-04-03 12:37 | XMS_ITS | Encounter Summary ---
:1945 Author Organization [facility] Address [address] [place] [address] Support Name Relationship Address Phone MARION LEWIS Unavailable [address] [place] [address] MARION LEWIS Unavailable [phone] [place] [address] Insurance Providers: All historical and current Section [...] Bird [place] Jul 15, [id number] LIANEWAGNER P ATIENT [facility] (WNR) ADVANTAGE (WNR) 2017 9 [id number] [phone] NNIS 1 [place] Jul 15, [id number] ZACHERYHOPKINS P ATIENT [facility] (WNR) ADVANTAGE (WNR) 2017 9 [id number] [phone] NN[place] 1 [place] Jul 15, [id number] LIANEWAGNER P ATIENT [facility] (WNR) ADVANTAGE (WNR) 2017 8 [id number] [phone] NNIS 1 Selected Encounter This section includes the information on record at [facility] for the Encounter. Date/Time Encounter Type Encounter Reason Provider Source Description Dec 25, 2021 PRO PHONE TELEPHONE/MEDICIN ICD-10-CM G47.33 LIZA MCKENNA TINA 11:55 AM CALL 5-10 MIN E Obstructive sleep MARISA apnea (adult) (pediatric) with Provider Comments: Obstructive sleep apnea (adult) (pediatric) IHE Encounter Template Text not used by [facility] Assessments - Encounter Diagnoses This section includes the primary and secondary diagnoses documented for the Encounter. Date/Time Primary/Secondary Diagnosis Name Provider Source Diagnosis Dec 25, 2021 PRIMARY Obstructive sleep CLARISAJOHN [facility] 11:55 AM apnea (adult) MARISA [facility] (pediatric) Plan of Treatment: Future Appointments (+ 6 months) and Future Tests (+/- 45 days) The Plan of Treatment section includes future care activities for the patient from all [facility] treatmentfacilities. This section includes future appointments and future orders which are active, pending orscheduled.Future Appointments This section includes appointments that were scheduled to occur 6 months from the date of the Encounter, up to a maximum of 20 appointments. The data comes from all [facility] treatment facilities. Appointment Date/Time Appointment Type Appointment Facili ty Name Feb 12, 2022 10:00 AM AMBULATORY - MEDICINE [facility] CS Lab Results: +/- 30 days of [...] comment enter ed. Ordering Provid er: LAURYN BORGES Report Released Date/Time: November 22, 2021 08:58 AM Reporting Lab: [facility] [address] [facility] [address] Performing Lab: [facility] [address] [facility] [address] COVID-19 PCR (REBEKAH) Not Detected Not De tected FLU A PCR (REBEKAH) Not Detected Not Detec pedro FLU B PCR (REBEKAH) Not Detected Not Detec pedro Dec 13, 2021 [place] ([facility]) MICROALBUMIN/CREATININE RATIO Specimen Type: URINE 02:52 PM URINE No comment enter ed. Ordering Provid er: ALEXIS DICKERSON Report Released Date/Time: Dec 13, 2021 02:41 PM Reporting Lab: [facility] [address] [facility] [address] Performing Lab: [facility] [address] [facility] [address] CREATININE,UR RANDOM 67.4 58.0-161. 0 ALB/CREAT RATIO,UR 22.0 <29.9 MICROALBUMIN,UR 14.8 <29.9 Dec 13, 2021 02:52 PM [place] ([facility]) HEMOGLOBIN A1C Specimen Type: BLOOD No comment enter ed. Ordering Provid er: ALEXIS DICKERSON Report Released Date/Time: Dec 13, 2021 02:29 PM Reporting Lab: [facility] [address] [facility] [address] [facility] Lab[facility] [address] HEMOGLOBIN A1C 7.7 H 4.0-6.0 Dec 13, 2021 02:52 PM [place] ([facility]) B 12 Specimen Type: SERUM No comment enter ed. Ordering Provid er: ALEXIS DICKERSON Report Released Date/Time: Dec 13, 2021 02:41 PM Reporting Lab: [facility] [address] [facility] [address] Performing Lab: [facility] [address] B 12 [phone] Dec 13, 2021 02:52 [place] ([facility]) LIPID PANEL,NON-FASTING Spe cimen Type: PLASMA PM No comment enter ed. Ordering Provid er: ALEXIS DICKERSON Report Released Date/Time: Dec 13, 2021 02:29 PM Reporting Lab: [facility] [address] [facility] [address] Performing Lab: [facility] [address] CHOLESTEROL 93 <199 .HDL 27 L >40 LDL CALCULATION 38 <99 VLDL CALCULATION 28 <29 NON HDL CHOLESTEROL 66 <129 TRIG(NON FASTING) 140 <149 Dec 13, 2021 [place] ([facility]) COMPREHENSIVE METABOLIC Specim en Type: PLASMA 02:52 PM PANEL+MG No comment enter ed. Ordering Provid er: ALEXIS DICKERSON Report Released Date/Time: Dec 13, 2021 02:29 PM Reporting Lab: [facility] [address] [facility] [address] Performing Lab: [facility] [address] [facility] [address] CREATININE 1.0 0.7-1.2 UREA NITROGEN 26 8-26 GLUCOSE 96 74-100 SODIUM 140 136-145 POTASSIUM 4.0 3.5-5.1 CHLORIDE 103 98-107 CO2 26 22-29 CALCIUM 9.8 8.4-10.2 PROTEIN,TOTAL 7.1 6.0-8.3 ALBUMIN 4.2 3.5-5.2 BILIRUBIN, TOTAL 0.5 0.2-1.2 MAGNESIUM 2.4 1.6-2.6 ANION GAP 11 5-15 ALKALINE PHOSPHATASE 77 40-150 ALT/SGPT 28 <55 AST/SGOT 30 <34 CREAT EGFR(CKD-EPI) 78 >60 Dec 13, 2021 02:52 PM [place] ([facility]) FOLATE Specimen Type: SERUM No comment enter ed. Ordering Provid er: ALEXIS DICKERSON Report Released Date/Time: Dec 13, 2021 02:41 PM Reporting Lab: [facility] ONE [facility] D[address] [facility] [address] Performing Lab: [facility] [address] FOLATE 17.4 >7.0 Dec 13, 2021 02:52 PM [place] ([facility]) CBC & DIFF Specimen Type: BLOOD Comment: Automa pedro Differential Performed Ordering Provid er: ALEXIS DICKERSON Report Released Date/Time: Dec 13, 2021 02:29 PM Reporting Lab: [facility] [address] [facility] [address] Performing Lab: [facility] ONE [facility] DRI [facility] [address] WBC 8.93 4.0-11.0 RBC 3.86 L 4.6-6.2 [...] GRAN 0.03 0-0.1 Dec 13, 2021 02:52 [place] ([facility]) METHYLMA ACID, QUEST Specim en Type: SERUM PM Comment: This t est was developed and its analytical performance characteristics have been determined by [employer] [place], [place]. It has not been cleared or approved by the U.S . Food and Drug Administration. This assay has been validated pursuant to the CLIA regulations and is used for clinical purposes. Test Performed by [facility], [employer] [place], [address] [place] [address] Trent Olmstead M.D., Ph.D., Director of Laboratories , CLIA [id number] Ordering Provid er: ALEXIS DICKERSON Report Released Date/Time: Dec 13, 2021 10:04 PM Reporting Lab: [facility] [address] [facility] [address] Performing Lab: [address] METHYLMA ACID, [facility]ST [phone] Dec 13, 2021 02:52 PM [place] ([facility]) IRON GROUP Specimen Type: SERUM Comment: Specim en received is PLASMA. Ordering Provid er: ALEXIS DICKERSON Report Released Date/Time: Dec 14, 2021 07:50 AM Reporting Lab: [facility] [address] [facility] [address] Performing Lab: [facility] D[address] [facility] [address] IRON 50 L 65-175 TIBC,CALCULATED 360 250-425 FERRITIN 20.6 L 21.8-274.7 IRON SATURATION 14 L 20-50 TRANSFERRIN 288 163-382 Encounter Notes: All associated encounter notes This section contains the clinical notes associated to the Encounter. Date/Time Encounter Note(s) Provider Source Dec 25, 2021 11:56 AM SLEEP MEDICINE NOTE: JOHN MCKENNA PA [facility] LOCAL TITLE: SLEEP MEDICINE NOTE STANDARD TITLE: SLEEP MEDICINE NOTE DATE OF NOTE: DEC 25, 2021@11:56 ENTRY DATE: DEC 25, 2021@11:56:57 AUTHOR: JOHN MCKENNA EXP COSIGNER: URGENCY: STATUS: COMPLETED DIRECTOR OF INTERCOLLEGIATE ATHLETICS NOTE REASON: POST-PSG PATIENT FOLLOW-UP DATE OF STUDY: 12/18/2021 ORDERING PHYSICIAN: Lauryn Borges PA-C INTERPRETING PHYSICIAN: NAKITA STALLWORTH MD, Patience birmingham MD CHIEF COMPLAINT: Excessive Daytime Sleepiness, S leep-related disordered breathing. IMPRESSRION: - This is a full night titration study which dem onstrated improvement of Sleep apnea in lateral position with ASV setting of EPAP 15 and PS 5-10 cwp with sleep consolidation but hypoxemia was noted in supine position and despite of IVAPS trial sleep fragmentation was n ot approved. ASV and iVAPS were attempted - Sleep-related hypoventilation was not present. PLAN: - Recommend nightly use of ASV EPAP 15 with pres sure support 5-10 cm H2O with concomitant positional therapy to control sleep- related breathing disorder for the entire duration of sleep or to a minimum target compliance of 70%. - Based on study, patient had significant improv ement with respiratory events and hypoxia when on lateral position. - Can continue ASV but would change EPAP from 13 -15 cm H2O to 15 cm H2O and change PS from 8-12 cm H2O to 5-10 cm H2O. - New ASV settings recommended: EPAP 15 PS 5-15 cm H2O - Recommend concomitant positional therapy. Base d on review of patient current ASV compliance report would also recomme nd to optimize mask fitting. - Clinical correlation for periodic limb movemen ts for RLS - Suggest optimizing sleep hygiene, avoiding sle ep deprivation, and advise against drowsy driving/hazardous situations. - Weight management recommended. *Chief Complaint, Impression, and Plan obtained from interpreting provider. PATIENT RESPONSE: -Patient verbalized understanding of sleep study results and is agreeable to plan of care. -Discussed positional therapy with patient - salma balized understanding. PLAN OF CARE/FOLLOW-UP APPOINTMENTS: -Follow up in provider clinic as planned. F/U sc heduled 02/12/2022 -Order for [employer] positional therapy device placed through [employer] -Co-signing RT to verify PAP settings changed malka naik MD recommendations TOTAL TIME SPENT WITH PATIENT: 7 minutes /es/ JOHN MCKENNA RN REGISTERED NURSE Signed: 12/25/2021 12:01 Receipt Acknowledged By: * AWAITING SIGNATURE * MATIAS GIBSON
--- OUTSIDE RECORDS SUMMARY | 2022-04-03 12:37 | XMS_ITS | Encounter Summary ---
:1945 Author Organization [facility] Address [address] [place] [address]. [place] [address] Care Team Providers Name Role Phone Gregory Day MD Primary Care Provider Encounter Details Date Type Department Care Team Description 02/03/2021 Travel Social History Tobacco Use Types Packs/Day Years [...] / COVID-19? documented as of this encounter Plan of Treatment Not on filedocumented as of this encounter Visit Diagnoses Not on filedocumented in this encounter Care Teams Medical Instructor Relationship Specialty Start Date End Date Gregory Day MD PCP - General Family Medicine 02/03/21 [facility] [address] [place] [address] documented as of this encounter
--- OUTSIDE RECORDS SUMMARY | 2022-04-03 12:37 | XMS_ITS | Encounter Summary ---
:1945 Author Organization [facility] Address [address] [place] [address] Support Name Relationship Address Phone MARION LEWIS Unavailable [address] [place] [address] MARION LEWIS Unavailable [address] [place] [address] Insurance Providers: All historical and current Section [...] Bird [place] Jul 15, [id number] TONIEMARGUERITE P ATIENT [facility] (WNR) ADVANTAGE (WNR) 2017 9 [id number] [phone] NNIS 1 [place] Jul 15, [id number] ZACHERYHOPKINS P ATIENT [facility] (WNR) ADVANTAGE (WNR) 2017 8 [id number] [phone] NNIS 1 [place] Jul 15, [id number] 800 TONIEMARGUERITE P ATIENT [facility] (WNR) ADVANTAGE (WNR) 2017 9 [id number] [phone] NNIS 1 Selected Encounter This section includes the information on record at [place] for the Encounter. Date/Time Encounter Type Encounter Reason Provider Source Description Feb 12, 2022 [facility] [employer] [facility] TELEPHONE/MEDICIN ICD-10-CM G47.30 LAURYN DIAZ 10:00 AM DATA EA 30 D E Sleep apnea, unspecified with Provider Comments: Sleep apnea ([facility] [id number]) IHE Encounter Template Text not used by [facility] Assessments - Encounter Diagnoses This section includes the primary and secondary diagnoses documented for the Encounter. Date/Time Primary/Secondary Diagnosis Name Provider Source Diagnosis Feb 12, 2022 PRIMARY Sleep apnea, LAURYN DIAZ V A 10:00 AM unspecified [facility] Feb 12, 2022 SECONDARY Chronic LAURYN DIAZ V A 10:00 AM obstructive [facility] pulmonary disease, unspecified Feb 12, 2022 SECONDARY Hypoxemia LAURYN DIAZ V A 10:00 AM [facility] Feb 12, 2022 SECONDARY Obesity, LAURYN DIAZ V A 10:00 AM unspecified [facility] Encounter Notes: All associated encounter notes This section contains the clinical notes associated to the Encounter. Date/Time Encounter Note(s) Provider Source Feb 12, 2022 10:17 AM SLEEP MEDICINE NOTE: LAURYN DIAZ [facility] LOCAL TITLE: SLEEP MEDICINE NOTE STANDARD TITLE: SLEEP MEDICINE NOTE DATE OF NOTE: FEB 12, 2022@10:17 ENTRY DATE: FEB 12, 2022@10:17:32 AUTHOR: LAURYN DIAZ EXP COSIGNER: URGENCY: STATUS: COMPLETED Visit completed via phone encounter per patient request History of Present Illness -Mateus is a 76y/o male with a significant PMH f or Obesity (BMI: 39.06), DM, HTN, CAD, CHF, COPD, and HLD. He was contacted ruma lauren for follow up on his complex sleep disordered kenton athing. He was started on empiric ASV treatment due to high residual central and obstructive apneas on BiPAP 18/03fpD4U (residual 51). He was then referred for a titration PSG du e to nocturnal hypoxia on his ASV settings. He continued to have supine relate d in supine sleep despite an iVAPS trial. Recommendations were to continue ASV with inc EPAP [id number], PS: 5- 10. Mateus feels he is sleeping well with the ne w pressure settings. His ESS has improved from 13 during his last office visi t to 6 today. Download was significant for ongoing mask leak which may be contributing to inc residual AHI. Residual AHI was significant for mostly hypopnea s. He was also prescribed nightshift positional therapy after his sleep st udy which he has only used intermittently stating he has difficulty keeping it on because the magnets on the device keep disconnecting. Sleep Schedule -11-11:30pm -Sleep latency of <15min -Nocturnal awakenings: 1x (nocturia) -Wakes: 8-8:30 -Naps: none [place]ona Sleepiness Scale Using the scale: 0=Never 1=Slight chance of dozing 2=Moderate chance of dozing 3=High chance of dozing, how often are y ou likely to doze off in the following situations? 1. Sitting and reading 1 2. Watching TV 0 3. Sitting inactive in a public place 0 4. As a passenger in a car for an hour without a break 3 5. Lying down to rest in the afternoon as circu mstances permit 1 6. Sitting and talking to someone 0 7. Sitting quietly after lunch without alcohol 1 8. In a car while stopped for a few minutes in traffic 0 TOTAL: 6 30day download ASV -Avg usage: 6hr 3min -Percent days used >4hrs: 96.7% -AHI: 12.2 (OAI: 0.1, CARLOS: 0.3, HI: 11.8) -Settings: EPAP: 15, PS: 5-15 -90% EPAP: 15 PS: 6 -Leak: 3hr 21min PSG Date: 12/18/21 BMI: 39 Sleep efficiency: 79.6 PLMi: 76.4 PLMi w/ arousal: 3.7 TCM: 32-39 mmHg Stage REM w/ normal muscle atonia Improvement in sleep apnea in lateral position w/ ASV (EPAP: 15, PS: :5-10). Hypoxemia was noted in supine position despite t he use of IVAPS trial 03/30/2021 - Overnight oximetry study results Patient [...] 80 0.1% 75 0.0% 70 0.0% Date: 08/06/2017 (Titration study at [facility]) Sleep Efficiency: 92% AHI: 14 RDI: 16 O2 Danial: 81% BMI: 34 PLMi: 63 PLMi w/ arousal: 3.6 -Titrated to BiPAP 18/10 with 2lpm O2 (residual AHI: 3.1, TST: 38) -TCM: 39-46mm Date: 06/22/2014 ([facility]) Sleep Efficiency: 78.8% AHI: 40.7 (supine AHI: 98) O2 Danial: 75% BMI: 35.6 PLMi: 43 PLMi w/ arousal: 1.1 04/07/2020 ECHO 1. Normal left ventricular size and systolic fun ction with an estimated ejection fraction between 55%-65% and no regiona l wall motion abnormalities. 2. Mild concentric left ventricular hypertrophy. 3. Mild aortic valve sclerosis without stenosis. Impression: 1. Obstructive Sleep Apnea: severe 2. Central Sleep Apnea 3. Nocturnal Hypoxia in supine sleep: recent PSG w/ ineffective iVAPS trial 4. Obesity 5. COPD: unknown severity Recommendation: 1. Continue ASV with ongoing excellent adherence 2. Replace mask to improve l eak on his Airfit F30. Consider trial of Airfit F20 that fit well during PSG 3. Mail Bumper belt as an al ternative to nightshift positional therapy to avoid supine sleep 4. Consider repeating overnight oximetry once ma sk fit is optimized 5. RTC 6mo or sooner if needed Time on encounter: 30min /tahira/ FLORY GUERRA PHYSICIAN AVIONICS REPAIR TECHNICIAN Signed: 02/12/2022 12:36
--- OUTSIDE RECORDS SUMMARY | 2022-04-03 12:37 | XMS_ITS | Encounter Summary ---
:1945 Author Organization [facility] Address [address] [place] [address] Support Name Relationship Address Phone MARION LEWIS Unavailable [address] [place] [address] MARION LEWIS Unavailable [phone] [place] [address] Insurance Providers: All historical and current Section [...] Bird [place] Jul 15, [id number] HIGGINS P ATIENT [employer] (WNR) ADVANTAGE (WNR) 2017 9 [id number] [phone] NNIS 1 [place] Jul 15, [id number] ZACHERYHOPKINS P ATIENT [employer] (WNR) ADVANTAGE (WNR) 2017 9 [id number] [phone] NN[place] 1 [place] Jul 15, [id number] TONIEMARGUERITE P ATIENT [employer] (WNR) ADVANTAGE (WNR) 2017 8 [id number] [phone] NNIS 1 Selected Encounter This section includes the information on record at [place] for the Encounter. Date/Time Encounter Type Encounter Description Reason Provider Source Dec 18, 2021 08:30 Outpatient Encounter SLEEP STUDY PM IHE Encounter Template Text not used [...] 20 appointments. The data comes from all [place] treatment facilities. Appointment Date/Time Appointment Type Appointment Lien crowe Name Feb 12, 2022 10:00 AM AMBULATORY - MEDICINE [facility] Lab Results: +/- 30 days of the encounter This section includes the Chemistry and Hematology Lab Results on record with [place] for the patient. Radiology Reports and Pathology Reports are provided separately, in subsequent sections.Lab Results This section contains the Chemistry/Hematology Results that were resulted 30 days before or 30 daysafter the date of the Encounter. Date/Time Source Result Type Result - Unit Interpretation Reference Range Comment Dec 13, 2021 09:29 [facility] COVID-19 AND FLU SCRN Spe cimen Type: NASOPHARYNGEAL PM PANEL (REBEKAH) No comment enter ed. Ordering Provid er: LAURYN DIAZ Report Released Date/Time: November 22, 2021 08:58 AM Reporting Lab: [facility] [address] [facility] [address] Performing Lab: [facility] [address] [facility] [address] COVID-19 PCR (REBEKAH) Not Detected Not De tected FLU A PCR (REBEKAH) Not Detected Not Detec pedro FLU B PCR (REBEKAH) Not Detected Not Detec pedro Dec 13, 2021 [place] ([facility]) MICROALBUMIN/CREATININE RATIO Specimen Type: URINE 02:52 PM URINE No comment enter ed. Ordering Provid er: ALEXIS DICKERSON Report Released Date/Time: Dec 13, 2021 02:41 PM Reporting Lab: [facility] [address] [facility] [address] Performing Lab: [facility] [address] [facility] [address] CREATININE,UR RANDOM 67.4 58.0-161. 0 ALB/CREAT RATIO,UR 22.0 <29.9 MICROALBUMIN,UR 14.8 <29.9 Dec 13, 2021 02:52 PM [place] ([facility]) HEMOGLOBIN A1C Specimen Type: BLOOD No comment enter ed. Ordering Provid er: ALEXIS DICKERSON Report Released Date/Time: Dec 13, 2021 02:29 PM Reporting Lab: [facility] [address] [facility] [address] Performing Lab: [facility] DRI [facility] [address] HEMOGLOBIN A1C 7.7 H 4.0-6.0 Dec 13, 2021 02:52 [place] ([facility]) LIPID PANEL,NON-FASTING Spe cimen Type: PLASMA PM No comment enter ed. Ordering Provid er: ALEXIS DICKERSON Report Released Date/Time: Dec 13, 2021 02:29 PM Reporting Lab: [facility] DRI [facility] [address] Performing Lab: [facility] [address] CHOLESTEROL 93 <199 .HDL 27 L >40 LDL CALCULATION 38 <99 VLDL CALCULATION 28 <29 NON HDL CHOLESTEROL 66 <129 TRIG(NON FASTING) 140 <149 Dec 13, 2021 02:52 PM [place] ([place]) B 12 Specimen Type: SERUM No comment enter ed. Ordering Provid er: ALEXIS DICKERSON Report Released Date/Time: Dec 13, 2021 02:41 PM Reporting Lab: [facility] [address] Performing Lab: [facility] [address] B 12 [phone] Dec 13, 2021 02:52 PM [place] ([facility]) FOLATE Specimen Type: SERUM No comment enter ed. Ordering Provid er: ALEXIS DICKERSON Report Released Date/Time: Dec 13, 2021 02:41 PM Reporting Lab: [facility] I [facility] [address] Performing Lab: [facility] [address] FOLATE 17.4 >7.0 Dec 13, 2021 [place] ([facility]) COMPREHENSIVE METABOLIC Specim en Type: PLASMA 02:52 PM PANEL+MG No comment enter ed. Ordering Provid er: ALEXIS DICKERSON Report Released Date/Time: Dec 13, 2021 02:29 PM Reporting [facility] [address] Performing Lab: [facility] [address] CREATININE 1.0 0.7-1.2 UREA NITROGEN 26 8-26 GLUCOSE 96 74-100 SODIUM 140 136-145 POTASSIUM 4.0 3.5-5.1 CHLORIDE 103 98-107 CO2 26 22-29 CALCIUM 9.8 8.4-10.2 PROTEIN,TOTAL 7.1 6.0-8.3 ALBUMIN 4.2 3.5-5.2 BILIRUBIN, TOTAL 0.5 0.2-1.2 MAGNESIUM 2.4 1.6-2.6 ANION GAP 11 5-15 ALKALINE PHOSPHATASE 77 40-150 ALT/SGPT 28 <55 AST/SGOT 30 <34 CREAT EGFR(CKD-EPI) 78 >60 Dec 13, 2021 02:52 PM [place] ([facility]) CBC & DIFF Specimen Type: BLOOD Comment: Automa pedro Differential Performed Ordering Provid er: ALEXIS DICKERSON Report Released Date/Time: Dec 13, 2021 02:29 PM Reporting Lab: [facility] [address] Performing Lab: [facility] [address] WBC 8.93 4.0-11.0 RBC 3.86 L 4.6-6.2 [...] GRAN 0.03 0-0.1 Dec 13, 2021 02:52 [place] ([facility]) METHYLMA ACID, [facility] Specim en Type: SERUM PM Comment: This t est was developed and its analytical performance characteristics have been determined by [employer], [place]. It has not been cleared or approved by the U.S . Food and Drug Administration. This assay has been validated pursuant to the CLIA regulations and is used for clinical purposes. Test Performed by [facility] Darlene Arredondo [place], [address] [place], [place] Trent Olmstead M.D., Ph.D., Director of Laboratories , CLIA [id number] Ordering Provid er: ALEXIS DICKERSON Report Released Date/Time: Dec 13, 2021 10:04 PM Reporting Lab: [facility] ONE [facility] DRI [facility] [address] Performing Lab: [facility] [address] [facility] METHYLMA ACID, [facility] [phone] Dec 13, 2021 02:52 PM [place] ([facility]) IRON GROUP Specimen Type: SERUM Comment: Specim en received is PLASMA. Ordering Provid er: ALEXIS DICKERSON Report Released Date/Time: Dec 14, 2021 07:50 AM Reporting Lab: [facility] [address] Performing Lab: [facility] [address] IRON 50 L 65-175 TIBC,CALCULATED 360 250-425 FERRITIN 20.6 L 21.8-274.7 IRON SATURATION 14 L 20-50 TRANSFERRIN [phone]
--- OUTSIDE RECORDS SUMMARY | 2022-04-03 12:37 | XMS_ITS | Clinical Summary ---
:1945 Author Organization [facility] Address [address] [place] [address]. [place] [address] Care Team Providers Name Role Phone Gregory Day MD Primary Care Provider Allergies Active Allergy Reactions Severity Noted Date Comments Contrast Dye High 02/03/2021 Lisinopril Cough 02/03/2021 Medications Medication Sig Dispensed Refills Start Date End Date Status saccharomyces boulardii Take 1 capsule 20 capsule 0 02/03/2021 Active (FLORASTOR) 250 MG (250 mg) by capsule mouth 2 times daily Social History Tobacco Use Types Packs/Day Years Used Date Never Smoker Smokeless Tobacco: Never Used Alcohol Use Standard Drinks/Week Comments Not Currently 0 (1 standard drink = 0.6 oz pure alcoho l) Sex Assigned at Date Recorded Not on file Last Filed Vital Signs Vital Sign Reading [...] Mass Index 37.22 02/03/2021 10:49 AM CDT Plan of Treatment Health Maintenance Due Date Last Done Comments ADVANCE CARE PLANNING 1945 ANNUAL REVIEW OF HM ORDERS 1945 HEPATITIS C SCREENING 1963 LIPID 1980 FALL RISK ASSESSMENT 2010 MEDICARE ANNUAL WELLNESS 2010 VISIT COVID-19 Vaccine (3 - 02/14/2021 09/14/2020, 08/24/2020 Booster for Pfizer series) PHQ-2 (once per calendar 07/15/2021 year) INFLUENZA VACCINE (#1) 2022 04/07/2020, 05/23/2018, 03/20/2017, Additional history exists DTAP/TDAP/TD IMMUNIZATION 06/06/2030 06/06/2020, 05/02/2004 (2 - Td or Tdap) IPV IMMUNIZATION Aged Out 05/06/2000 No longer eligi ble based on patient 's age to complete this topic HEPATITIS B IMMUNIZATION Aged Out 12/31/2001, 05/06/2000 No longer eligible based on patient 's age to complete this topic Pneumococcal Vaccine: 65+ Completed 03/20/2017, 07/04/2015 , Years 12/13/2014, Additional history exists ZOSTER IMMUNIZATION Completed 08/04/2020, 06/06/2020, 12/13/2014 MENINGITIS IMMUNIZATION Aged Out No longe r eligible based on patient 's age to complete this topic Insurance Payer Benefit Plan / Subscriber ID Effective Phone Address T ype Group Dates BCBS BCBS [place] [id number] 2019-Prese [phone] [address] [address] PPO BLUE nt [address] [place] [address] MEDICARE MEDICARE FOR HB [id number] 2010-Pres [phone] ATTN CLAIMS Medicare SUPPLEMENT ent 40 [address] [place] [address] Care Teams Guest Services Director Relationship Specialty Start Date End Date Gregory Day MD PCP - General Family Medicine 02/03/21 [facility] [address] [place] [address]
== END 2022-04-03 12:18 | disposition home or self-care (01) ==
PROVIDERS: PCP Family Medicine; Visit Provider Family Medicine
DX: M17.12 Unilateral primary osteoarthritis, left knee (principal); M25.562 Pain in left knee
CPT/HCPCS: 64454

== ENCOUNTER 2022-04-23 14:59 | Outpatient (REF) | payer MEDICARE, BC, SELFPAY ==
--- OUTSIDE RECORDS SUMMARY | 2022-04-23 15:03 | XMS_ITS | Clinical Summary ---
:1945 Author Organization [facility] [place] [address] Care Team Providers Name Role Phone Gregory Day MD Primary Care Provider FlygenHolden phelps MD Unavailable [phone] Allergies Active Allergy Reactions Severity Noted Date [...] Active oral route once daily with food Hprvp-4-AFR-EPA-Fish Take by mouth. 0 Active Oil (FISH [...] powderIndications: Constipation. Constipation, unspecified constipation type Insulin [place], As directed. For 2 box 9 05/04/2020 [...] tablet 24 hourIndications: Coronary artery disease involving [place] coronary artery of [place] heart without angina pectoris torsemide (DEMADEX) Take [...] ONCE DAILY tabletIndications: Coronary artery disease involving [place] coronary artery of [place] heart without angina pectoris Eliquis 5 mg [...] use of insulin Coronary artery disease involving [place] coronary devon ry of [place] heart 04/05/2017 without angina pectoris Acute renal [...] and anterior cerebra l arteries through patent [place] of [place] is collaterals. Unspecified essential hypertension [...] Encounters Date Type Specialty Care Team Description 04/06/2022 Orders Only Rios Dumont, <No sca ns attached> 04/03/2022 Procedure Only Rios Dumont Proce dure (Left knee MD genicular nerve block ) 03/27/2022 Telephone Rios Dumont Medicat ion Management (Eliquis 5 mg t ablet) 03/26/2022 Office Visit Rios Dumont Musculo skeletal Problem (Follow up righ t knee pain, RFA on 07/18/21) 03/26/2022 Travel 01/24/2022 Office Visit Gregory Day Musculo skeletal Problem (Would like sue roid injections for both knees if possible); Diab etes (Routine follow up; labs done today) 01/24/2022 Orders Only Lab, [facility] 01/24/2022 Travel 01/22/2022 Telephone Gregory Day Lab (Ne ed orders) from Last 3 Months Immunizations Name Administration Dates Next Due AMB Influenza, IIV3 (Age >=3 03/31/2013, 05/16/2011, 008 years)(Flu Clinic Only) COVID-19 vaccine (MotherKnows 09/14/2020, 08/24/2020 30mcg/0.3mL) PF, MDV Hepatitis A (Adult) 12/31/2001, 05/06/2000 Hepatitis B (Adult) 12/31/2001, 05/06/2000 Inactivated Polio Vaccine 05/06/2000 Influenza A (H1N1), Inactivated (Age 1206/21/2009 >=3 Years) Influenza RIV4 (Age 18+ Years) 04/07/2020 PRESERV FREE Influenza, High-dose Inactivated 05/23/2018, 05/23/2016, Influenza, IIV3 (Age >=3 years) 07/01/2012, 03/28/2010, 02/2009, 05/14/2007, 05/29/2006 Influenza, Inactivated AIIV4 (Age 65+ [...] at 73 Other Brother 2 Killed in [employer] war No Known Problems Brother 3 No Known Problems Brother 4 Alcohol/Drug Father Heart Disease Father Heart attack Father Cancer-breast Mother Cancer-breast Sister Relation Name Status Comments Brother 1 Brother 2 Brother 3 Alive Brother 4 Alive Child 1 Alive adopted Child 2 Alive adopted Father (Age 63) [place] Mother (Age late 60's) Sister Alive Son [...] 180.3 cm (5' 10.98) 05/29/2021 9:19 AM HEEL COMPRESSOR Body Mass Index 38.32 05/29/2021 9:19 AM HEEL COMPRESSOR Plan of Treatment Upcoming Encounters Date Type Specialty Care Team Description 04/24/2022 Procedure Only Rios Dumont MD [address] [phone] (Wo tawana) 05/07/2022 Office Visit Gregory Day MD [address] [phone] (Joaquín gilliam) 07/18/2022 Orders Only Lab, [facility] 07/18/2022 Office Visit Gregory Day MD [address] [place], [place] [address] (Wo rk) Health Maintenance Due Date Last Done Comments Medicare Wellness for age 65+ 02/11/2020 02/11/2019, 2014 COVID-19 vaccine series (4 - 06/22/2021 04/27/2021, 021, Booster for Pfizer series) 08/24/2020 [...] Name Priority Date/Time Associated Diagnosis Comme nts AMB CONSULT FOR Routine 04/03/2022 12:00 Osteoarthritis of bot h Results for this INJECTION AM CDT knees, unspecified procedure are in osteoarthritis t ype the results Chronic pain of left section . knee LIPID PANEL W Routine 01/24/2022 1:44 PM [...] results section. from Last 3 Months Results AMB CONSULT FOR INJECTION (04/03/2022 12:00 AM CDT) Narrative This result has an attachment that is no t available. Rios Dumont MD AMB REFERRAL/CONSULT ORD (ABNORMAL) LIPID PANEL W REFLEX MEASURED LDL (01/24/2022 1:44 PM CDT) [facility] Method Time Signature CHOLESTEROL,TOTAL 81 (L) 100 [...] Organization Address City/State/ZIP Code Phon e Number [facility] [address] [place] [address] LABORATORY-CENTRAL 2000 LABORATORY ANTI HCV (01/24/2022 1:44 PM CDT) [facility] gist Method Time Signature HEPATITIS C Non-Reacti Non-Reacti 01/25/2022 [facility] ANTIBODY ve ve 10:19 AM CDT LABORATORY-CHAU TRAL LABORATORY Comment: Antibodies to HCV not detected; does not exclude the possibility of exposure to HCV. Specimen Anatomical Collection Method / Collection Time Recei jessica Time (Source) Location / Volume Laterality Blood BLOOD SPECIMEN / Venipuncture / 01/24/2022 1:44 2021 1:46 Unknown Unknown PM CDT PM CDT Gregory Day MD SEND OUTS Performing Organization Address City/[facility]/ZIP Code Phon e Number [facility] [address] [place] [address] LABORATORY-CENTRAL 2000 LABORATORY (ABNORMAL) HEMOGLOBIN A1C MONITORING (POCT) (01/24/2022 1:44 PM CDT) Analysis Performed At Path logist Time Signature HEMOGLOBIN A1C 6.9 (H) <=6.4 % 01/24/2022 [facility] MONITORING 1:57 PM CDT [place] (POCT) [facility] Specimen Anatomical Collection Method / Collection Time Recei jessica Time (Source) Location / Volume Laterality Blood BLOOD SPECIMEN / Venipuncture / 01/24/2022 1:44 2021 1:46 Unknown Unknown PM CDT PM CDT Narrative [facility] - 2021 1:57 PM CDT ? [...] Gregory Day MD CHEMISTRY Performing Organization Address [facility] Code Phon e Number [facility] [address] [place] [address] (ABNORMAL) BASIC METABOLIC PANEL (01/24/2022 1:44 PM CDT) [facility] gist Method Time Signature SODIUM 140 135 - 145 01/25/2022 [facility] mmol/L 7:29 AM CDT LABORATORY-CHAU TRAL LABORATORY POTASSIUM 4.6 3.5 - 5.0 01/25/2022 [facility] mmol/L 7:29 AM CDT LABORATORY-CHAU TRAL LABORATORY CHLORIDE 101 98 - 110 01/25/2022 [facility] mmol/L 7:29 AM CDT LABORATORY-[facility]AU TRAL LABORATORY CO2,TOTAL 27 21 - 31 01/25/2022 [facility] mmol/L 7:29 AM CDT LABORATORY-[facility]AU TRAL LABORATORY ANION GAP 12 5 - 18 01/25/2022 [facility] 7:29 AM CDT LABORATORY-[facility] LABORATORY GLUCOSE 256 (H) 65 - 100 01/25/2022 [facility] mg/dL 7:29 AM CDT LABORATORY-[facility]AU TRAL LABORATORY CALCIUM 9.2 8.5 - 10.5 01/25/2022 [facility] mg/dL 7:29 AM CDT LABORATORY-[facility]AU TRAL LABORATORY BUN 28 (H) 8 - 25 01/25/2022 [facility] mg/dL 7:29 AM CDT LABORATORY-[facility]AU TRAL LABORATORY CREATININE 1.29 (H) 0.72 - 01/25/2022 [facility] 1.25 mg/dL 7:29 AM CDT LABORATORY-[facility]AU TRAL LABORATORY BUN/CREAT RATIO 22 (H) 10 - 20 01/25/2022 [facility] 7:29 AM CDT LABORATORY-[facility] LABORATORY eGFR 57 (L) >90 01/25/2022 [facility] mL/min/1.7 7:29 AM CDT LABORATORY-CHAU 3m2 TRAL [...] Organization Address City/State/ZIP Code Phon e Number [facility] [address] [place] [address] LABORATORY-CENTRAL 2000 LABORATORY from Last 3 Months Insurance Payer Benefit Plan / Subscriber ID Effective Dates Phone Addre ss Type Group MEDICARE PART A MEDICARE PART A [id number] 2010-Prese ATTN: CLAIMS - HB USE ONLY HB ONLY nt [address] [place] [address] MEDICARE PART B MEDICARE PART B [id number] 2014-Presen ATTN: CLAIMS - HB USE ONLY HB ONLY t [address] [place] [address] [place] BL[place]OSS [id number] 2019-Presen [address] [address] [place], [place] MR PB ONLY [id number] [place] BL[place] [id number] 2016-Presen [address] [address] [place] [address] [place], [place] [id number] Mateus Red Retail Self 1945 [address] (Home) [place] [address] Mateus Red Personal/Family Self 1945 [phone] [place] (Home) [place] [address] Advance Directives Latest Code Status on File Code Status Date Activated Date Inactivated Comments Full Code 03/23/2019 8:53 AM 03/24/2019 2:13 AM Full Code 03/25/2017 4:54 PM 04/02/2017 8:21 PM Full Code 03/25/2017 4:45 PM 03/25/2017 4:54 PM Full Code 03/25/2017 12:43 PM 03/25/2017 4:45 PM Code Status Discussion: Discussed Full Code 09/24/2012 6:58 AM 09/24/2012 3:15 PM Care Teams Host Relationship Specialty Start Date End Date Gregory Day MD PCP - General 11/20/05 [address] [place] [address] Holden Pink, Cardiology Cardiovascular Disease 09/03
--- OUTSIDE RECORDS SUMMARY | 2022-04-23 15:03 | XMS_ITS | Encounter Summary ---
:1945 Author Organization [facility] rs Address [address] [place] [address] Support Name Relationship Address Phone MARION LEWIS Unavailable [address] [employer] [address] [place] [address] MARION LEWIS Unavailable [address] [place] [address] Insurance Providers: All historical and current Section [...] Bird [place] MEDICARE MCR Jul 15, [id number] TONIEMARGUERITE P ATIENT [facility] (WNR) ADVANTAGE (WNR) 2017 9 [id number] [phone] NNIS 1 [place] MEDICARE MCR Jul 15, [id number] LIANEHariDE P ATIENT [facility] (WNR) ADVANTAGE (WNR) 2017 9 [id number] [phone] NNIS 1 [place] MEDICARE MCR Jul 15, [id number] TONIEDE P ATIENT [facility] (WNR) ADVANTAGE (WNR) 2017 8 [id number] [phone] NNIS 1 Selected Encounter This section includes the information on record at [place] for the Encounter. Date/Time Encounter Type Encounter Reason Provider Source Description November 21, 2021 OFFICE O/P EST SLEEP MEDICINE ICD-10-CM G47.30 MERCED DIAZ 12:30 PM HI 40-54 MIN Sleep apnea, unspecified with Provider Comments: Sleep apnea (SCT [id number]) IHE Encounter Template Text not used by PR Assessments - Encounter Diagnoses This section includes [...] care activities for the patient from all [facility]. This section includes future appointments and future orders which are active, pending orscheduled.Future Appointments This section includes appointments that were scheduled to occur 6 months from the date of the Encounter, up to a maximum of 20 appointments. The data comes from all [place] treatment facilities. Appointment Date/Time Appointment Type Appointment Facili ty Name Dec 13, 2021 02:00 PM AMBULATORY - MEDICINE [place] [facility] Dec 13, 2021 02:15 PM [facility] - MEDICINE [place] [facility] Dec 18, 2021 08:30 PM AMBULATORY - MEDICINE [facility] Feb 12, 2022 10:00 AM AMBULATORY - MEDICINE [facility] Lab Results: +/- 30 days of the encounter This section includes the Chemistry and Hematology Lab Results on record with [place] for the patient. Radiology Reports and Pathology Reports are provided separately, in subsequent sections.Lab Results This section contains the Chemistry/Hematology Results that were resulted 30 days before or 30 daysafter the date of the Encounter. Date/Time Source Result Type Result - Unit Interpretation Reference Range Comment Dec 13, 2021 09:29 [facility] COVID-19 AND FLU SCRN Spe cimen Type: NASOPHARYNGEAL PM PANEL (REBEKAH) No comment enter ed. Ordering Provid er: LAURYN DIAZ Report Released Date/Time: November 22, 2021 08:58 AM Reporting Lab: [facility] [address] [facility] [facility] [address] Performing Lab: [facility] I M[facility]I [facility] [address] COVID-19 PCR (REBEKAH) Not Detected Not De tected FLU A PCR (REBEKAH) Not Detected Not Detec pedro FLU B PCR (REBEKAH) Not Detected Not Detec pedro Dec 13, 2021 [facility] [facility] MICROALBUMIN/CREATININE RATIO Specimen Type: URINE 02:52 PM URINE No comment enter ed. Ordering Provid er: ALEXIS DICKERSON Report Released Date/Time: Dec 13, 2021 02:41 PM Reporting Lab: [facility] [address] [facility] [address] Performing Lab: [facility] [address] [facility] [address] CREATININE,UR RANDOM 67.4 58.0-161. 0 ALB/CREAT RATIO,UR 22.0 <29.9 MICROALBUMIN,UR 14.8 <29.9 Dec 13, 2021 02:52 PM [place] [facility]) HEMOGLOBIN A1C Specimen Type: BLOOD No comment enter ed. Ordering Provid er: ALEXIS DICKERSON Report Released Date/Time: Dec 13, 2021 02:29 PM Reporting Lab: [facility] [address] [facility] [address] Performing Lab: [facility] [address] HEMOGLOBIN A1C 7.7 H 4.0-6.0 Dec 13, 2021 02:52 PM [place] ([facility]) B 12 Specimen Type: SERUM No comment enter ed. Ordering Provid er: ALEXIS DICKERSON Report Released Date/Time: Dec 13, 2021 02:41 PM Reporting Lab: [facility] [address] [facility] [address] Performing Lab: [facility] [address] [facility] [address] B 12 [phone] Dec 13, 2021 02:52 [place] [facility]) LIPID PANEL,NON-FASTING Spe cimen Type: PLASMA PM No comment enter ed. Ordering Provid er: ALEXIS DICKERSON R Report Released Date/Time: Dec 13, 2021 02:29 PM Reporting Lab: [facility] [address] [facility] [address] Performing Lab: [facility] [address] [facility] [address] CHOLESTEROL 93 <199 .HDL 27 L >40 LDL CALCULATION 38 <99 VLDL CALCULATION 28 <29 NON HDL CHOLESTEROL 66 <129 TRIG(NON FASTING) 140 <149 Dec 13, 2021 02:52 PM [place] [facility]) FOLATE Specimen Type: SERUM No comment enter ed. Ordering Provid er: ALEXIS DICKERSON R Report Released Date/Time: Dec 13, 2021 02:41 PM Reporting Lab: [facility] [address] [facility] [address] Performing Lab: [facility] [address] FOLATE 17.4 >7.0 Dec 13, 2021 [place] [facility]) COMPREHENSIVE METABOLIC Specim en Type: PLASMA 02:52 PM PANEL+MG No comment enter ed. Ordering Provid er: ALEXIS DICKERSON Report Released Date/Time: Dec 13, 2021 02:29 PM Reporting Lab: [facility] [address] [facility] [address] Performing Lab: [facility] [address] CREATININE 1.0 0.7-1.2 [facility] NITROGEN 26 8-26 GLUCOSE 96 74-100 SODIUM 140 136-145 POTASSIUM 4.0 3.5-5.1 CHLORIDE 103 98-107 CO2 26 22-29 CALCIUM 9.8 8.4-10.2 PROTEIN,TOTAL 7.1 6.0-8.3 ALBUMIN 4.2 3.5-5.2 BILIRUBIN, TOTAL 0.5 0.2-1.2 MAGNESIUM 2.4 1.6-2.6 ANION GAP 11 5-15 ALKALINE PHOSPHATASE 77 40-150 ALT/SGPT 28 <55 AST/SGOT 30 <34 CREAT EGFR(CKD-EPI) 78 >60 Dec 13, 2021 02:52 PM [place] ([facility]) CBC & DIFF Specimen Type: BLOOD Comment: Automa pedro Differential Performed Ordering Provid er: ALEXIS DICKERSON Report Released Date/Time: Dec 13, 2021 02:29 PM Reporting Lab: [facility] [address] Performing Lab: [facility] [address] WBC 8.93 4.0-11.0 RBC 3.86 L 4.6-6.2 [...] GRAN 0.03 0-0.1 Dec 13, 2021 02:52 [place] ([facility]) METHYLMA ACID, [facility] Specim en Type: SERUM PM Comment: This t est was developed and its analytical performance characteristics have been determined by [facility] [place], [place]. It has not been cleared or approved by the U.S . Food and Drug Administration. This assay has been validated pursuant to the CLIA regulations and is used for clinical purposes. Test Performed by [facility], [employer] [facility] [place], [address] [place] [address] Trent Olmstead M.D., Ph.D., Director of Laboratories , CLIA [id number] Ordering Provid er: ALEXIS DICKERSON Report Released Date/Time: Dec 13, 2021 10:04 PM Reporting Lab: [facility] [address] [facility] [address] [facility] [address] Performing Lab: [address] METHYLMA ACID, QUEST [phone] Dec 13, 2021 02:52 PM [place] ([facility]) IRON GROUP Specimen Type: SERUM Comment: Specim en received is PLASMA. Ordering Provid er: ALEXIS DICKERSON Report Released Date/Time: Dec 14, 2021 07:50 AM Reporting Lab: [facility] [address] [facility] [address] Performing Lab: [facility] [address] [facility] [address] IRON 50 L 65-175 TIBC,CALCULATED 360 250-425 FERRITIN 20.6 L 21.8-274.7 IRON SATURATION 14 L 20-50 TRANSFERRIN [phone] Encounter Notes: All associated encounter notes This section contains the clinical notes associated to the Encounter. Date/Time Encounter Note(s) Provider Source November 21, 2021 12:22 PM SLEEP MEDICINE NOTE: LAURYN DIAZ [facility] LOCAL TITLE: SLEEP MEDICINE NOTE STANDARD [...] residual central and obstructive apneas on BiPAP 18/23tzU7Y (residual 51). Empiric ASV was trialed because [...] 04/2021 but was not synchron ized with [facility]. New settings were re-sent to [facility] today. Sleep Schedule -11:30pm -Sleep latency of <15min -Nocturnal awakenings: 1-3x -Wakes: 8am -Naps: none [place] Sleepiness Scale Using the scale: 0=Never 1=Slight [...] 0.1% 75 0.0% 70 0.0% Date: 06/22/2014 ([facility]) Sleep Efficiency: 78.8% AHI: 40.7 (supine AHI: 98) O2 Danial: 75% BMI: 35.6 PLMi: 43 PLMi w/ arousal: 1.1 Date: 08/06/2017 (Titration study at [facility]) Sleep Efficiency: 92% AHI: 14 [...] examining the . /tahira/ FLORY GUERRA PHYSICIAN BUSINESS SYSTEMS ADMINISTRATOR Signed: 11/22/2021 09:03 11/22/2021 ADDENDUM STATUS: COMPLETED [facility] sleep [facility] is scheduled for 12/18/21. Mohini poe will need a COVID test prior to sleep study and wou ld like to have that done on 12/15/21 when he is there for another appointment at the [facility]. William flaherty reach out to to schedule a COVID test for that day. /tahira/ LORRIE MORENO MSA GUITAR TECHNICIAN Signed: 11/22/2021 09:16 Receipt Acknowledged By: * AWAITING SIGNATURE * LEO CHACKO
--- OUTSIDE RECORDS SUMMARY | 2022-04-23 15:03 | XMS_ITS | Encounter Summary ---
:1945 Author Organization [facility] rs Address [address] [place] [address] Support Name Relationship Address Phone MARION LEWIS Unavailable [id number] [place] [address] MARION LEWIS Unavailable [phone] [place] [address] Insurance Providers: All historical and current Section [...] [place] Jul 15, [id number] [place] P ATIENT [facility] (WNR) ADVANTAGE (WNR) 2017 9 [id number] [phone] NNIS 1 [place] Jul 15, [id number] TONIEMARGUERITE P ATIENT [facility] (WNR) ADVANTAGE (WNR) 2017 9 [id number] [phone] NNIS 1 [place] Jul 15, [id number] [place] P ATIENT [facility] (WNR) ADVANTAGE (WNR) 2017 8 [id number] [phone] NNIS 1 Selected Encounter This section includes the information on record at PA for the Encounter. Date/Time Encounter Type Encounter [...] heart ALEXIS DICKERSON 02:52 PM disease of [place] R ([facility]) coronary artery w/o ang pctrs [...] care activities for the patient from all PA treatmentfacilities. This section includes future appointments and future orders which are active, pending orscheduled.Future Appointments This section includes appointments that were scheduled to occur 6 months from the date of the Encounter, up to a maximum of 20 appointments. The data comes from all PA treatment facilities. Appointment Date/Time Appointment Type Appointment Facili ty Name Dec 18, 2021 08:30 PM AMBULATORY - MEDICINE [facility] CS Feb 12, 2022 10:00 AM AMBULATORY - MEDICINE [facility] CS Lab Results: +/- 30 days of the encounter This section includes the Chemistry and Hematology Lab Results on record with PA for the patient. Radiology Reports and Pathology Reports are provided separately, in subsequent sections.Lab Results This section contains the Chemistry/Hematology Results that were resulted 30 days before or 30 daysafter the date of the Encounter. Date/Time Source Result Type Result - Unit Interpretation Reference Range Comment Dec 13, 2021 09:29 [facility] COVID-19 AND FLU SCRN Spe cimen Type: NASOPHARYNGEAL PM PANEL (REBEKAH) No comment enter ed. Ordering Provid er: LAURYN DIAZ Report Released Date/Time: November 22, 2021 08:58 AM Reporting Lab: [facility] [address] [facility] [address] [facility] [id number] Performing Lab: [facility] [address] [facility] [address] COVID-19 PCR (REBEKAH) Not Detected Not De tected FLU A PCR (REBEKAH) Not Detected Not Detec pedro FLU B PCR (REBEKAH) Not Detected Not Detec pedro Dec 13, 2021 [facility] ([facility]) MICROALBUMIN/CREATININE RATIO Specimen Type: URINE 02:52 PM URINE No comment enter ed. Ordering Provid er: ALEXIS DICKERSON Report Released Date/Time: Dec 13, 2021 02:41 PM Reporting Lab: [facility] [address] [facility] [address] Performing Lab: [facility] [address] [facility] [address] CREATININE,UR RANDOM 67.4 58.0-161. 0 ALB/CREAT RATIO,UR 22.0 <29.9 MICROALBUMIN,UR 14.8 <29.9 Dec 13, 2021 02:52 PM [facility] ([facility]) HEMOGLOBIN A1C Specimen Type: BLOOD No comment enter ed. Ordering Provid er: ALEXIS DICKERSON Report Released Date/Time: Dec 13, 2021 02:29 PM Reporting Lab: [facility] [address] [facility] [address] Performing Lab: [facility] [address] [facility] [address] HEMOGLOBIN A1C 7.7 H 4.0-6.0 Dec 13, 2021 02:52 [facility] ([facility]) LIPID PANEL,NON-FASTING Spe cimen Type: PLASMA PM No comment enter ed. Ordering Provid er: ALEXIS DICKERSON Report Released Date/Time: Dec 13, 2021 02:29 PM Reporting Lab: [facility] [address] [facility] [address] Performing Lab: [facility] [address] [facility] [address] CHOLESTEROL 93 <199 .HDL 27 L >40 LDL CALCULATION 38 <99 VLDL CALCULATION 28 <29 NON HDL CHOLESTEROL 66 <129 TRIG(NON FASTING) 140 <149 Dec 13, 2021 [facility] ([facility]) COMPREHENSIVE METABOLIC Specim en Type: PLASMA 02:52 PM PANEL+MG No comment enter ed. Ordering Provid er: ALEXIS DICKERSON Report Released Date/Time: Dec 13, 2021 02:29 PM Reporting Lab: [facility] [address] [facility] [address] Performing [facility]: [facility] [address] CREATININE 1.0 0.7-1.2 UREA NITROGEN 26 8-26 GLUCOSE 96 74-100 SODIUM 140 136-145 POTASSIUM 4.0 3.5-5.1 CHLORIDE 103 98-107 CO2 26 22-29 CALCIUM 9.8 8.4-10.2 PROTEIN,TOTAL 7.1 6.0-8.3 ALBUMIN 4.2 3.5-5.2 BILIRUBIN, TOTAL 0.5 0.2-1.2 MAGNESIUM 2.4 1.6-2.6 ANION GAP 11 5-15 ALKALINE PHOSPHATASE 77 40-150 ALT/SGPT 28 <55 AST/SGOT 30 <34 CREAT EGFR(CKD-EPI) 78 >60 Dec 13, 2021 02:52 PM [facility] ([facility]) B 12 Specimen Type: SERUM No comment enter ed. Ordering Provid er: ALEXIS DICKERSON Report Released Date/Time: Dec 13, 2021 02:41 PM Reporting Lab: [facility] [address] [facility] [address] Performing Lab: [facility] [address] [facility] [address] B 12 [phone] Dec 13, 2021 02:52 PM [facility] ([facility]) FOLATE Specimen Type: SERUM No comment enter ed. Ordering Provid er: TUAN,ALEXIS R Report Released Date/Time: Dec 13, 2021 02:41 PM Reporting Lab: [facility] [address] Performing Lab: [facility] [address] FOLATE 17.4 >7.0 Dec 13, 2021 02:52 PM [facility] ([facility]) CBC & DIFF Specimen Type: BLOOD Comment: Automa pedro Differential Performed Ordering Provid er: ALEXIS DICKERSON R Report Released Date/Time: Dec 13, 2021 02:29 PM Reporting Lab: [facility] [address] Performing Lab: [facility] [address] WBC 8.93 4.0-11.0 RBC 3.86 L 4.6-6.2 [...] GRAN 0.03 0-0.1 Dec 13, 2021 02:52 [facility] ([facility]) METHYLMA ACID, QUEST Specim en Type: SERUM PM Comment: This t est was developed and its analytical performance characteristics have been determined by [email or web address] [place], [place]. It has not been cleared or approved by the U.S . Food and Drug Administration. This assay has been validated pursuant to the CLIA regulations and is used for clinical purposes. Test Performed by [facility] [place] [facility] [place], [address] [place] [address] Trent Olmstead M.D., Ph.D., Director of Laboratories , CLIA [id number] Ordering Provid er: ALEXIS DICKERSON Report Released Date/Time: Dec 13, 2021 10:04 PM Reporting Lab: [facility] [address] [facility] [address] Performing Lab: [facility] [id number] [facility] METHYLMA ACID, QUEST [phone] Dec 13, 2021 02:52 PM [facility] ([facility]) IRON GROUP Specimen Type: SERUM Comment: Specim en received is PLASMA. Ordering Provid er: ALEXIS DICKERSON Report Released Date/Time: Dec 14, 2021 07:50 AM Reporting Lab: [facility] [address] Performing Lab: [facility] [address] IRON 50 L 65-175 TIBC,CALCULATED 360 250-425 [...] smoking and tobacco-related health factors from the PA facility where the Encounter took place.Current Smoking Status This section includes the most current smoking, or tobacco-related health factor, from the PA facility where the Encounter took place. Date/Time Current Smoking Status Comment Facility Dec 13, 2021 02:15 PM PA-TOBACCO QUIT 15 YRS OR MORE [facility] ([facility]) Tobacco Use History This section includes a history of the smoking, or tobacco- related health factors, that were collected on or before the date of the Encounter. The data comes from the PA facility where the Encounter took place. Date/Time Smoking Status/Tobacco Use Comment [facility] Dec 13, 2021 02:15 PM PA-TOBACCO QUIT 15 YRS OR MORE [facility] ([facility]) Dec 15, 2020 09:15 AM VA-TOBACCO FORMER USER [facility] Dec 15, 2020 09:15 AM VA-TOBACCO QUIT 15 YRS OR MORE [facility] ([facility]) November 17, 2019 07:57 AM VA-TOBACCO FORMER USER [facility] ([facility]) November 17, 2019 07:57 AM VA-TOBACCO QUIT 15 YRS OR MORE [facility] ([facility]) Jan 13, 2019 09:15 AM VA-TOBACCO FORMER USER [facility] ([facility]) Jan 13, 2019 09:15 AM VA-TOBACCO QUIT 15 YRS OR MORE [facility] ([facility]) Dec 24, 2017 10:43 AM FORMER TOBACCO USER 7Y OR GREATER [facility] ([facility]) Jan 22, 2017 10:10 AM FORMER TOBACCO USER 7Y OR GREATER [facility] ([facility]) Jan 02, 2016 03:00 PM FORMER TOBACCO USER 7Y OR GREATER [facility] ([facility]) Dec 13, 2014 08:05 AM FORMER TOBACCO USER 7Y OR GREATER [facility] ([facility]) Encounter Notes: All associated encounter notes This section contains the clinical notes associated to the Encounter. Date/Time Encounter Note(s) Provider Source Dec 14, 2021 07:47 AM LETTERS: ALEXIS DICKERSON ([facility]) LOCAL TITLE: FOLLOW UP RESULTS LETTER STANDARD TITLE: LETTERS DATE OF NOTE: DEC 14, 2021@07:47 ENTRY DATE: DEC 14, 2021@07:47:34 AUTHOR: ALEXIS DICKERSON EXP COSIGNER: URGENCY: STATUS: COMPLETED [facility] [address] [place] [address] Dec RONA SCHILLING [address] [place] [address] Dear [place]: I am writing to inform you of the results of the tests you had done at the [facility] [place], operated by [facility]. The tests below were performed and are [...] day. I will send the prescription through PA pharmacy. Your hemoglobin is low due t o borderline low iron level. As you do not have any sign and symptom of internal bleeding I will sta rt iron pills to take once daily. I will send that prescription from [facility]. Share this masage to your [facility] provider for appripriate follow up. If you have any further questions or problems, moises flaherty contact our nursing staff or me at the following number: ([place]) Sincerely, ALEXIS DICKERSON MD PHYSICIAN Dec 13, 2021 02:45 PM H & P NOTE: ALEXIS DICKERSON ([facility]) LOCAL TITLE: [facility] ANNUAL VISIT STANDARD TITLE: H & P NOTE DATE OF NOTE: DEC 13, 2021@14:45 ENTRY DATE: DEC 13, 2021@14:45:40 AUTHOR: ALEXIS DICKERSON COSIGNER: URGENCY: STATUS: COMPLETED Reason for Visit: Annual HPI: 76 years old MALE with PMH of listed below presents today for annual. He is comanaged at [facility] in [place], [place]. His Primary Care provider is Dr. [...] 11. Sleep apnea 12. AF- Atrial Fibrillation ([facility] [id number]) 13. Varicose veins of lower extremity PAST SURGICAL HISTORY: Coronary artery disease, status post angioplasty . SOCIAL HISTORY: He lives with his in [place]. He quit Jor[employer] in the . He does not drink alcohol. He does not use any illegal d rugs. 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 FAMILY HISTORY: Mother from breast cancer. Father from congestive heart failure and heart attacks. One sibling from diabete s complications. Seven siblings, they are healthy. Two children, they a re healthy. Essential Medication List - reviewed with [place] t/Caregiver FACILITY ALLERGY/ADR -------- No Remote Allergy/ADR Data available for this pa ti [facility] CONTRAST MEDIA [facility] LISINOPRIL Active Medications: + -+--------+--------+--------+--------+ Medication [...] HARD-PLASTIC CONTAINER WITH A SCREW-ON LID CONTACT [place] FOR PROPER DISPOSAL Expires: 12/16/21 Status: ACTIVE [...] Quantity: 100 Status: PENDING + -+--------+--------+--------+--------+ NYSTATIN [id number] UNT/GM CREAM Directions: APPLY THIN LAYER TOPICALLY [...] Musculoskeletal: No muscle pain No joints pain. APPLICATIONS SUPPORT SPECIALIST: No numbness, tingling sensation, weakness. Psychiatric: No [...] but no cyanosis, clu bbing, or edema. APPLICATIONS SUPPORT SPECIALIST: AAOx3. Cranial nerves II through XII grossly [...] and Lantus 50 units once daily. Six-mo [facility] follow-up with Dr. Day at [facility]. He gets a diabetic eye exam [...] Immunization Series Date Facility Reaction Info COVID-19 ([employer]), MRNA, LNP-S, P* 3 04/27/2021 [facility]* 2 09/14/2020 [facility] 1 08/24/2020 [facility] INFLUENZA, HIGH DOSE SEASONAL 05/23/2018 [facility] 04/12/2017 [facility]* 06/13/2016 [facility]* 04/12/2015 [facility] * INFLUENZA, SEASONAL, INJECTABLE [facility] INFLUENZA, SEASONAL, INJECTABLE,* 04/14/2019 [facility] INFLUENZA, UNSPECIFIED FORMULATIO* 03/17/2021 [facility]* 04/07/2020 [facility]* PNEUMOCOCCAL CONJUGATE PCV 13 12/13/2014 [facility] * <C> PNEUMOCOCCAL POLYSACCHARIDE PPV23 07/04/2015 [facility] * <C> TD (ADULT), 2 LF TETANUS TOXOID,* [place] <C> TDAP 06/06/2020 [facility]* [place] ZOSTER LIVE 12/13/2014 [facility] * <C> ZOSTER RECOMBINANT 2 12/16/2019 [facility] * 1 08/06/2019 [facility] * <C> See the Detailed Immunizations Health [...] 2021 02:22 PM ADVANCE DIRECTIVE: MERRICK CEDENO ([facility]) LOCAL TITLE: AD NOTIFICATION AND SCREENING STANDARD TITLE: ADVANCE DIRECTIVE DATE OF NOTE: DEC 13, 2021@14:22 ENTRY DATE: DEC 13, 2021@14:22:20 AUTHOR: MERRICK CEDENO EXP COSIGNER: URGENCY: STATUS: COMPLETED ADVANCE DIRECTIVE NOTIFICATION: Patient was given written notification of the f barbara rights: 1. Accept or refuse any medical treatment. 2. Complete a durable power of ip attorney for [facility] care. 3. Complete a living will. ADVANCE DIRECTIVE SCREENING: Does patient have an Advance Directive? The patient has an Advance Directive. Does the patient wish to make any changes or re voke their current Advance Directive? Yes, the patient has an Advance Directive, but it is not in the medical record. [place] was asked to obtain a copy for their medical record. /tahiar/ MERRICK CEDENO VOTING MACHINE REPAIRER Signed: 12/13/2021 14:22 Dec 13, 2021 02:16 PM PRIMARY CARE NURSING NOTE: MERRICK CEDENO ([facility]) LOCAL TITLE: [facility] NURSING PROGRESS NOTE STANDARD TITLE: PRIMARY CARE NURSING NOTE DATE OF NOTE: DEC 13, 2021@14:16 ENTRY DATE: DEC 13, 2021@14:16:40 AUTHOR: MERRICK CEDENO EXP COSIGNER: URGENCY: STATUS: COMPLETED TYPE OF VISIT: Appointment Check In Type of appointment: In-person appointment REASON FOR VISIT: Annual, comanaged with [place], nonfasting ALLERGIES: CONTRAST MEDIA (May 08, 2017) [...] their provider today. Suicide Screen: C-SSRS Screening [place] Suicide Severity Rating Scale (C-SSRS) screener 1. [...] pressure ulcers, or a wound from a pediatric medical assistant or Patient is bed-confined or a wheelchair-user or Patient requires assistance to transfer/change position No, Skin Screen is Negative Home Abuse/Violence Screen Is your home free of abuse and violence? Yes Outpatient Nutrition Screen Body Mass Index (BMI)= 39.1 [place]: Collection DT Specimen Test Name Result Units R ef Range 12/15/2020 10:12 BLOOD HEMOGLOBIN A1C 6.8 H % 4 .0 - 6.0 [place] Hgb A1C: No data available [place] Hgb A1C: No data available Point of [...]
--- OUTSIDE RECORDS SUMMARY | 2022-04-23 15:03 | XMS_ITS | Continuity of Care Document ---
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 It does not include entries that were removed or entered in error. 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 Provider Comments: 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 Diagnosis: ICD-10-CM Active Diagnosis [place] I50.9 Heart failure, (CBOC) unspecifiedwith Provider Comments: CHF Diagnosis: ICD-10-CM Active Diagnosis [place] 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 Provider Comments: Idio sleep related nonobstructive alveolar hypoventilation Diagnosis: ICD-10-CM Active Diagnosis [place] G47.33 Obstructive V A HCS sleep apnea (adult) (pediatric)with Provider Comments: Obstructive Sleep Apnea (Adult) (Pediatric) Diagnosis: ICD-10-CM Active Diagnosis [place] Z71.3 Dietary (CBOC) counseling and surveillancewith Provider Comments: Dietary counseling and surveillance Diagnosis: ICD-10-CM Active Diagnosis [place] I50.9 Heart failure, (CBOC) unspecifiedwith Provider Comments: Congestive heart failure ([facility] [id number]) Medications Combined list of outpatient medications from Department of Defense and Veterans Affairs facilities. Medications provided include 1) outpatient medications from the last 15 months, and 2) patient-reported medications. Medication Details Route Status Patient Prescription Prescription Last Ordering Order Source Instructions Expires Number Dispense Provider Date Date AMLODIPINE TAKE ORALLY DISCONT 12/16/2021 [id number] BEHER A,SA 12/15/ [place] BESYLATE ONE-HALF INUED 2 NDHYA R 2020 ER 10MG TAB TABLET (EDIT) (CBOC) BY MOUTH EVERY DAY AMLODIPINE TAKE ORALLY ACTIVE 12/14/2022 [id number] TUAN, SA 12/13/ [place] BESYLATE ONE-HALF 2 NDHYA R 2021 ER 5MG TAB TABLET (CBOC) BY MOUTH EVERY DAY APIXABAN TAKE ONE ORALLY ACTIVE 12/15/2022 [id number] Reyes SCHWARZ 12/31/ [place] 5MG TAB TABLET 2 ATTHEW S 2021 [facility] BY MOUTH HCS EVERY 12 HOURS TO PREVENT STROKES APIXABAN TAKE ONE ORALLY DISCONT 12/21/2021 [id number] RID GEWELL 12/20/ [place] 5MG TAB TABLET INUED 2 ,NAGA L 2020 [facility] BY MOUTH [facility] EVERY 12 HOURS TO PREVENT STROKES ASPIRIN TAKE ONE ORALLY ACTIVE TUAN,SA 12/13/ [place] 81MG TAB,EC TABLET NDHYA R 2014 ER BY MOUTH (CBOC) ATORVASTATI TAKE ONE ORALLY ACTIVE 12/14/2022 [id number] TUAN,SA 12/31/ [place] N CA 80MG TABLET 2 NDHYA R 2021 ER TAB BY MOUTH (CBOC) AT BEDTIME FOR CHOLESTE ROL ATORVASTATI TAKE ONE ORALLY DISCONT 12/16/2021 [id number] TUAN,SA 12/15/ [place] N CA 80MG TABLET INUED 2 NDHYA R 2020 ER TAB BY MOUTH (CBOC) AT BEDTIME FOR CHOLESTE ROL CYANOCOBALA TAKE ONE ORALLY ACTIVE 12/15/2022 [id number] B EHERA, 12/14/ [place] MIN 1000MCG TABLET 2 NDHYA R 2021 ER TAB BY MOUTH (CBOC) EVERY DAY FERROUS SO4 TAKE ONE ORALLY ACTIVE 12/15/2022 [id number] B EHERA, 12/14/ [place] 325MG TAB TABLET 2 NDHYA R 2021 ER BY MOUTH (CBOC) EVERY DAY FISH OIL TAKE 1 ORALLY ACTIVE [facility], 12/13/ [facility] 1000MG CAPSULE NDA R 2014 ER (500MG BY MOUTH (CBOC) DHA/EPA) CAP,ORAL GABAPENTIN TAKE ORALLY ACTIVE 12/14/2022 [id number] TUAN , 12/31/ [place] 100MG CAP FOUR 2 NDHYA R 2021 ER CAPSULES (CBOC) BY MOUTH EVERY MORNING AND TAKE TWO CAPSULES AT BEDTIME GABAPENTIN TAKE ORALLY DISCONT 12/16/2021 [id number] TUAN , 12/15/ [place] 100MG CAP FOUR INUED 2 NDHYA R 2020 ER CAPSULES (CBOC) BY MOUTH EVERY MORNING AND TAKE TWO CAPSULES AT BEDTIME INSULIN,ASP INJECT SUBCUT ACTIVE 12/26/2022 [id number] BE CARLOTTA, 12/25/ [place] ART,HUMAN 18 UNITS ANEOUS 2 NDHY2021 ER 100U/ML,NOV UNDER (CBOC) OLOG,FLEXPE THE SKIN N,3ML BEFORE MEALS *INJECT IMMEDIAT AMINATA PRIOR TO MEALTIME *DISCARD 28 DAYS AFTER INITIAL USE INSULIN,ASP INJECT SUBCUT DISCONT 12/16/2021 [id number] B EHERA, 12/15/ [facility] ART,HUMAN 18 UNITS ANEOUS INUED 2 NDHYA R 2020 ER 100U/ML,NOV UNDER (CBOC) OLOG,FLEXPE THE SKIN N,3ML BEFORE MEALS *INJECT IMMEDIAT AMINATA PRIOR TO MEALTIME *DISCARD 28 DAYS AFTER INITIAL USE INSULIN,GLA INJECT SUBCUT ACTIVE 12/14/2022 [id number] BE CARLOTTA,SA 12/13/ [facility] RGINE,HUMAN 50 UNITS ANEOUS 2 NDHYA R 2021 ER 100 UNIT/ML UNDER (CBOC) INJ,SOLOSTA THE SKIN R,3ML AT BEDTIME FOR DIABETES DISCAR D PEN 28 DAYS AFTER INITIAL USE INSULIN,GLA INJECT SUBCUT DISCONT 12/16/2021 [id number] B EHERA,SA 12/15/ [place] RGINE,HUMAN 50 UNITS ANEOUS INUED 2 NDHYA R 2020 ER 100 UNIT/ML UNDER (CBOC) INJ,SOLOSTA THE SKIN R,3ML AT BEDTIME FOR DIABETES DISCAR D PEN 28 DAYS AFTER INITIAL USE ISOSORBIDE TAKE ONE ORALLY ACTIVE 12/14/2022 [id number] B EHERA,SA 12/31/ [place] MONONITRATE TABLET 2 NDHYA R 2021 ER 30MG TAB,SA BY MOUTH (CBOC ) EVERY DAY ISOSORBIDE TAKE ONE ORALLY DISCONT 12/16/2021 [id number] TUAN,SA 12/15/ [place] MONONITRATE TABLET INUED 2 NDHYA R 2020 ER 30MG TAB,SA BY MOUTH (CBOC ) EVERY DAY METFORMIN TAKE ONE ORALLY ACTIVE 06/24/2022 [id number] BE CARLOTTA,SA 03/26/ [place] HCL 500MG TABLET 2 NDHYA R 2021 ER 24HR TAB,SA BY MOUTH (CBOC ) TWICE A DAY FOR DIABETES METFORMIN TAKE ONE ORALLY DISCONT 03/13/2022 [id number] B EHERA,SA 12/31/ [facility] HCL 500MG TABLET INUED 2 NDHYA R 2021 ER 24HR TAB,SA BY MOUTH (CBOC ) TWICE A DAY FOR DIABETES METFORMIN TAKE ONE ORALLY DISCONT 01/18/2022 [id number] B EHERA,SA 12/31/ [facility] HCL 500MG TABLET INUED 2 NDHYA R 2021 ER 24HR TAB,SA BY MOUTH (CBOC ) TWICE A DAY FOR DIABETES METFORMIN TAKE ONE ORALLY DISCONT 01/10/2022 [id number] B EHERA,SA 10/12/ [facility] HCL 500MG TABLET INUED 2 NDHYA R 2022 ER 24HR TAB,SA BY MOUTH (CBOC ) TWICE A DAY FOR DIABETES METFORMIN TAKE ONE ORALLY DISCONT 06/24/2021 [id number] B EHERA,SA 06/15/ [facility] HCL 500MG TABLET INUED 1 2020 ER 24HR TAB,SA BY MOUTH (CBOC ) TWICE A DAY FOR DIABETES METFORMIN TAKE ONE ORALLY DISCONT 06/15/2021 [id number] B EHERA,SA 03/27/ [facility] HCL 500MG TABLET INUE 1 2020 ER 24HR TAB,SA BY MOUTH (CBOC ) TWICE A DAY FOR DIABETES METOPROLOL TAKE ONE ORALLY ACTIVE 12/14/2022 [id number] B EHERA,SA 12/31/ [facility] SUCCINATE AND 2 2021 ER 50MG TAB,SA ONE-HALF (CBOC ) TABLETS BY MOUTH EVERY DAY METOPROLOL TAKE ONE ORALLY DISCONT 12/16/2021 [id number] B EHERA,SA 12/15/ [facility] SUCCINATE AND INUED 2 2020 ER 50MG TAB,SA ONE-HALF (CBOC ) TABLETS BY MOUTH EVERY DAY MULTIVITAMI TAKE ONE ORALLY ACTIVE TUAN,SA 12/13 / [place] N/MINERALS TABLET 2021 ER SENIOR BY MOUTH (CBOC) FORMULA TAB EVERY DAY MULTIVITAMI TAKE 1 ORALLY ACTIVE 11/07/2022 [id number] BE CARLOTTA,SA 11/30/ [facility] NS CAP/TAB TABLET 2 2021 ER BY MOUTH (CBOC) EVERY DAY MULTIVITAMI TAKE 1 ORALLY DISCONT 12/16/2021 [id number] BE CARLOTTA,SA 12/15/ [facility] NS CAP/TAB TABLET INUED 2 2020 ER BY MOUTH (CBOC) EVERY DAY NITROGLYCER DISSOLVE SUBLIN ACTIVE 12/14/2022 [id number] TUAN,SA 12/13/ [facility] IN 0.4MG ONE GUAL 2 2021 ER TAB,SUBLING TABLET (CBOC) UAL UNDER THE TONGUE EVERY DAY NEEDED FOR CHEST PAIN * MAY REPEAT EVERY 5 MINUTES- -NO MORE THAN 3 TOTAL NYSTATIN APPLY TOPICA ACTIVE 12/14/2022 [id number] TUAN,SA 12/13/ [place] [id number] THIN LLY 2 R 2021 ER M CREAM,TOP LAYER (CBOC) TOPICALL Y TWICE A DAY GAGGERMAN AL USE ONLY RASH IN RIGHT ARM PIT POLYETHYLEN TAKE 17 ORALLY ACTIVE 12/14/2022 [id number] B EHERA,SA 12/13/ [facility] E GLYCOL GRAMS BY 2 NDHY R 2021 ER 3350 MOUTH (CBOC) PWDR,ORAL EVERY DAY *MIX IN 4 TO 8 OUNCES OF LIQUID DIRECTED *USE COVER TO MEASURE POWDER* POLYETHYLEN TAKE 17 ORALLY DISCONT 12/16/2021 [id number] B EHERA,SA 12/15/ [facility] E GLYCOL GRAMS BY INUED 1 NDHY2020 ER 3350 MOUTH (CBOC) PWDR,ORAL EVERY DAY *MIX IN 4 TO 8 OUNCES OF LIQUID DIRECTED *USE COVER TO MEASURE POWDER* TORSEMIDE TAKE ONE ORALLY ACTIVE 12/14/2022 [id number] BE CARLOTTA,SA 12/31/ [facility] 20MG TAB TABLET 2 NDHY R 2021 ER BY MOUTH (CBOC) TWICE A DAY FOR CONGESTI VE HEART FAILURE TORSEMIDE TAKE ONE ORALLY DISCONT 12/16/2021 [id number] B EHERA,SA 12/15/ [facility] 20MG TAB TABLET INUED 2 HY2020 ER BY MOUTH (CBOC) TWICE A DAY FOR CONGESTI VE HEART FAILURE ZOLPIDEM TAKE ONE ORALLY 12/22/2021 [id number] YANIRA N,MERCED 11/22/ [place] TARTRATE TABLET 2 ICA J [...] atus Comments Source 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-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 complet [place] ([employer] [place]), 2020 ed [facility] MRNA, LNP-S, H CS PF, 30 MCG/0.3 ML DOSE INFLUENZA, complet [place] UNSPECIFIED 2020 ed HE ALTH FORMULATION COVID-19 2 complet AL [place] ([employer] [place]), 2020 ed HEAL TH MRNA, LNP-S, PF, 30 MCG/0.3 ML DOSE COVID-19 1 complet [place] ([employer] [place]), 2020 ed [facility] MRNA, LNP-S, H CS PF, 30 MCG/0.3 ML DOSE TDAP complet [place] 2020 ed [facility] HCS INFLUENZA, complet [place] UNSPECIFIED 2019 ed OL [facility] FORMULATION HC S ZOSTER 2 complet ROCH EST RECOMBINANT 2019 ed ER (CBOC) ZOSTER 1 complet ROCH EST RECOMBINANT 2020 ed ER (CBOC) INFLUENZA, complet [place] SEASONAL, 2019 ed [facility] INJECTABLE, HC S PRESERVATIVE FREE INFLUENZA, complet [place] HIGH DOSE 2017 ed [facility] SEASONAL HCS INFLUENZA, complet [place] HIGH DOSE 2016 ed [facility] SEASONAL HCS INFLUENZA, complet [place] HIGH DOSE 2016 ed [facility] SEASONAL HCS PNEUMOCOCCAL complet [employer] [facility] POLYSACCHARID 2014 ed [id number] 5 ER E PPV23 08/24/16 (CB OC) INFLUENZA, complet [place] HIGH DOSE 2014 ed ER SEASONAL (CBOC ) PNEUMOCOCCAL complet wyet h [facility] CONJUGATE PCV 2015 ed Pharm, ER 13 [id number], (CBOC) 05/30 ZOSTER LIVE complet [employer] and [facility] 2014 ed [employer], ER [id number], (CBOC ) dec 1509/2015 TD (ADULT), 2 complet per [place] LF TETANUS 2015 ed patient O [facility] TOXOID, reporting [...] Detected /2021 No comment e ntered. IS [facility] SCRN RNA Ordering Provid er: LAURYN DIAZ PANEL [PRESENCE] Report Relea sed Date/Time: November 22, 2021 08:58 AM (REBEKAH) IN Reporting Lab: [facility] RESPIRATOR [facility] [address] Y SPECIMEN Performing L ab: [facility] BY [facility] [address] [facility] [address] WITH PROBE DETECTION COVID-19 INFLUENZA Not 12/13 Specimen Type : NASOPHARYNGEAL [place] AND FLU VIRUS A Detected /2021 No comment ente red. IS [facility] SCR[facility] RNA Ordering Provid er: LAURYN DIAZ PANEL [PRESENCE] Report Relea sed Date/Time: November 22, 2021 08:58 AM (REBEKAH) IN Reporting Lab: [facility] [address] Y SPECIMEN Performing L ab: [facility] BY [facility] [address] [facility] [address] WITH PROBE DETECTION COVID-19 INFLUENZA Not 12/13 Specimen Type : NASOPHARYNGEAL [place] AND FLU VIRUS B Detected /2021 No comment ente red. IS [facility] S[facility] RNA Ordering Provid er: LAURYN DIAZ PANEL [PRESENCE] Report Relea sed Date/Time: November 22, 2021 08:58 AM (REBEKAH) IN Reporting Lab: [facility] [address] Y SPECIMEN Performing L ab: [facility] BY [facility] [address] [facility] [address] WITH PROBE DETECTION MICROALB CREATININE 67.4 58.0 - 12/13 Specimen Typ e: URINE LISA UMIN/CRE [MASS/VOLU 161.0 /2021 No comment e ntered. (CBOC) ATININE ME] IN Ordering Provid er: TUAN,ALEXIS R RATIO URINE Report Released Date/Time: Dec 13, 2021 02:41 PM URINE Reporting Lab: [facility] [address] [place] [address] Performing Lab: [facility] [address] [facility] [address] MICROALB MICROALBUM 22.0 <. - 12/13 Specimen Typ e: URINE LISA UMIN/CRE IN/CREATIN No comment e ntered. (CBOC) ATININE INE [MASS Ordering Prov ider: TUAN,ALEXIS R RATIO RATIO] IN Report Releas ed Date/Time: Dec 13, 2021 02:41 PM URINE URINE Reporting Lab: [facility] [address] [facility] [address] [place] [address] Performing Lab: [facility] [address] [place] [address] MICROALB MICROALBUM 14.8 <. - 12/13 Specimen Typ e: URINE LISA UMIN/CRE IN No comment ente red. (CBOC) ATININE [MASS/VOLU Ordering Pro vider: TUAN,ALEXIS R RATIO ME] IN Report Released Date/Time: Dec 13, 2021 02:41 PM URINE URINE Reporting Lab: [facility] [address] [place] [address] Performing Lab: [facility] [address] [place] [address] HEMOGLOB HEMOGLOBIN 7.7 4.0 - 6.0 12/13 H Specimen T ype: BLOOD LISA IN A1C A1C/HEMOGL /2021 No comment en tered. (CBOC) OBIN.TOTAL Ordering Pro vider: TUANELEANOR JOHNSONHYA R IN BLOOD Report Release d Date/Time: Dec 13, 2021 02:29 PM Reporting Lab: [facility] [address] [place] [address] Performing Lab: [facility] [address] [place] [address] B 12 COBALAMIN 263 213 - 816 12/13 Specimen Typ e: SERUM LISA (VITAMIN /2021 No comment ente red. (CBOC) B12) Ordering Provid er: ALEXIS DICKERSON [MASS/VOLU Report Relea sed Date/Time: Dec 13, 2021 02:41 PM ME] IN Reporting Lab: [facility] SERUM OR [address] [facility] [address] PLASMA Performing Lab: [facility] [address] [place] [facility] [address] LIPID CHOLESTERO 93 <199 - 199 12/13 Specimen T ype: PLASMA LISA PANEL,NO L /2021 No comment ente red. (CBOC) N-FASTIN [MASS/VOLU Ordering Pr ovider: ALEXIS DICKERSON R G MA] IN Report Released Date/Time: Dec 13, 2021 02:29 PM SERUM OR Reporting Lab: [facility] PLASMA [address] [place] [address] Performing Lab: [facility] [address] [place] [address] LIPID CHOLESTERO 27 40 06/ L Specimen Type : PLASMA LISA PANEL,NO L IN HDL /2021 No comment ent ered. (CBOC) N-FASTIN [MASS/VOLU Ordering Pr ovider: ALEXIS DICKERSON R G MA] IN Report Released Date/Time: Dec 13, 2021 02:29 PM SERUM OR Reporting Lab: [facility] PLASMA [address] [place] [address] Performing Lab: [facility] [address] [place] [place] [address] LIPID CHOLESTERO 38 <99 - 99 12/13 Specimen Typ e: PLASMA LISA PANEL,NO L IN LDL /2021 No comment ent ered. (CBOC) N-FASTIN [MASS/VOLU Ordering Pr ovider: ALEXIS DICKERSON R G MA] IN Report Released Date/Time: Dec 13, 2021 02:29 PM SERUM OR Reporting Lab: [facility] PLASMA BY [address] [facility] [address] CALCULATIO Performing L ab: [facility] N [address] [place] [facility] [address] LIPID CHOLESTERO 28 <29 - 29 06 Specimen Typ e: PLASMA LISA PANEL,NO L IN VLDL /2021 No comment en tered. (CBOC) N-FASTIN [MASS/VOLU Ordering Pr ovider: ALEXIS DICKERSON G MA] IN Report Released Date/Time: Dec 13, 2021 02:29 PM SERUM OR Reporting Lab: [facility] PLASMA BY [address] [facility] [address] CALCULATIO Performing L ab: [facility] N [address] [place] [facility] [address] LIPID CHOLESTERO 66 <129 - 129 12/13 Specimen T ype: PLASMA LISA PANEL,NO L NON HDL /2021 No comment en tered. (CBOC) N-FASTIN [MASS/VOLU Ordering Pr ovider: ALEXIS DICKERSON ME] IN Report Released Date/Time: Dec 13, 2021 02:29 PM SERUM OR Reporting Lab: [facility] PLASMA [address] [place] [facility] [address] Performing Lab: [facility] [address] [place] [facility] [address] LIPID TRIGLYCERI 140 <149 - 149 12/13 Specimen T ype: PLASMA LISA PANEL,NO DE /2021 No comment ente red. (CBOC) N-FASTIN [MASS/VOLU Ordering Pr ovider: ALEXIS DICKERSON ME] IN Report Released Date/Time: Dec 13, 2021 02:29 PM SERUM OR Reporting Lab: [facility] PLASMA [address] [place] [facility] [address] Performing Lab: [facility] [address] [place] [facility] [address] COMPREHE CREATININE 1.0 0.7 - 1.2 12/13 Specimen T ype: PLASMA LISA NSIVE [MASS/VOLU /2021 No comment en tered. (CBOC) METABOLI ME] IN Ordering Provi gay: ALEXIS DICKERSON SERUM OR Report Release d Date/Time: Dec 13, 2021 02:29 PM PANEL+MG PLASMA Reporting Lab: [facility] [address] [place] [facility] [address] Performing Lab: [facility] [address] [place] [facility] [address] COMPREHE UREA 26 8 - 26 12/13 Specimen Type: PLASMA LISA NSIVE NITROGEN /2021 No comment ente red. (CBOC) METABOLI [MASS/VOLU Ordering Pr ovider: ALEXIS DICKERSON ME] IN Report Release d Date/Time: Dec 13, 2021 02:29 PM PANEL+MG SERUM OR Reporting Lab : [facility] PLASMA [address] [place] [facility] [address] Performing Lab: [facility] [address] [place] [address] COMPREHE GLUCOSE 96 74 - 100 12/13 Specimen Type: PLASMA LISA NSIVE [MASS/VOLU /2021 No comment en tered. (CBOC) METABOLI ME] IN Ordering Provi gay: TUAN,ALEXIS R C SERUM OR Report Release d Date/Time: Dec 13, 2021 02:29 PM PANEL+MG PLASMA Reporting Lab: [facility] [address] [place] [facility] [address] Performing Lab: [facility] [address] [facility] [address] COMPREHE SODIUM 140 136 - 145 12/13 Specimen Type : PLASMA LISA NSIVE [MOLES/VOL /2021 No comment en tered. (CBOC) METABOLI UME] IN Ordering Provi gay: TUAN,ALEXIS R C SERUM OR Report Release d Date/Time: Dec 13, 2021 02:29 PM PANEL+MG PLASMA Reporting Lab: [facility] [address] [facility] [address] [facility] [address] Performing Lab: [facility] [address] [facility] [address] COMPREHE POTASSIUM 4.0 3.5 - 5.1 12/13 Specimen Ty pe: PLASMA LISA NSIVE [MOLES/VOL /2021 No comment en tered. (CBOC) METABOLI UME] IN Ordering Provi gay: TUAN,ALEXIS R C SERUM OR Report Release d Date/Time: Dec 13, 2021 02:29 PM PANEL+MG PLASMA Reporting Lab: [facility] [address] [place] [facility] [address] Performing Lab: [facility] [address] [facility] [address] [facility] [address] COMPREHE CHLORIDE 103 98 - 107 12/13 Specimen Type : PLASMA LISA NSIVE [MOLES/VOL /2021 No comment en tered. (CBOC) METABOLI UME] IN Ordering Provi gay: TUAN,ALEXIS R C SERUM OR Report Release d Date/Time: Dec 13, 2021 02:29 PM PANEL+MG PLASMA Reporting Lab: [facility] [address] [place] [facility] [address] Performing Lab: [facility] [address] [place] [facility] [address] COMPREHE CARBON 26 22 - 29 12/13 Specimen Type: PLASMA LISA NSIVE DIOXIDE, No comment ente red. (CBOC) METABOLI TOTAL Ordering Provi gay: TUANELEANORALEXIS R C [MOLES/VOL Report Relea sed Date/Time: Dec 13, 2021 02:29 PM PANEL+MG UME] IN Reporting Lab: [facility] SERUM OR [address] [facility] [address] PLASMA Performing Lab: [facility] [address] [facility] [address] [place] [facility] [address] COMPREHE CALCIUM 9.8 8.4 - 10.2 12/13 Specimen Typ e: PLASMA LISA NSIVE [MASS/VOLU /2021 No comment en tered. (CBOC) METABOLI ME] IN Ordering Provi gay: TUAN,ALEXIS R C SERUM OR Report Release d Date/Time: Dec 13, 2021 02:29 PM PANEL+MG PLASMA Reporting Lab: [facility] [address] [facility] [address] [facility] [address] Performing Lab: [facility] [address] [facility] [address] COMPREHE PROTEIN 7.1 6.0 - 8.3 12/13 Specimen Type : PLASMA [place] NSIVE [MASS/VOLU /2021 No comment en tered. (CBOC) METABOLI ME] IN Ordering Provi gay: TUANRIGO JOHNSONA R C SERUM OR Report Release d Date/Time: Dec 13, 2021 02:29 PM PANEL+MG PLASMA Reporting Lab: [facility] [address] [place] [facility] [address] Performing Lab: [facility] [address] [facility] [address] COMPREHE ALBUMIN 4.2 3.5 - 5.2 12/13 Specimen Type : PLASMA LISA NSIVE [MASS/VOLU /2021 No comment en tered. (CBOC) METABOLI ME] IN Ordering Provi gay: TUAN,ALEXIS R C SERUM OR Report Release d Date/Time: Dec 13, 2021 02:29 PM PANEL+MG PLASMA Reporting Lab: [facility] [address] [place] [facility] [address] Performing Lab: [facility] [address] [facility] [address] COMPREHE BILIRUBIN. 0.5 0.2 - 1.2 12/13 Specimen T ype: PLASMA LISA NSIVE TOTAL /2021 No comment enter ed. (CBOC) METABOLI [MASS/VOLU Ordering Pr ovider: ALEXIS DICKERSON ME] IN Report Released Date/Time: Dec 13, 2021 02:29 PM PANEL+MG SERUM OR Reporting Lab : [facility] PLASMA [address] [place] [facility] [address] Performing Lab: [facility] [address] [place] [facility] [address] COMPREHE MAGNESIUM 2.4 1.6 - 2.6 12/13 Specimen Ty pe: PLASMA [place] NSIVE [MASS/VOLU /2021 No comment en tered. (CBOC) METABOLI ME] IN Ordering Provi gay: ALEXIS DICKERSON SERUM OR Report Release d Date/Time: Dec 13, 2021 02:29 PM PANEL+MG PLASMA Reporting Lab: [facility] [address] [place] [facility] [address] Performing Lab: [facility] [address] [place] [facility] [address] COMPREHE ANION GAP 11 5 - 15 12/13 Specimen Type : PLASMA [place] NSIVE IN SERUM /2021 No comment ente red. (CBOC) METABOLI OR PLASMA Ordering Pro vider: ALEXIS DICKERSON Report Released Date/Time: Dec 13, 2021 02:29 PM PANEL+MG Reporting Lab: [facility] [address] [place] [facility] [address] Performing Lab: [facility] [address] [place] [facility] [address] COMPREHE ALKALINE 77 40 - 150 12/13 Specimen Type : PLASMA [place] NSIVE PHOSPHATAS /2021 No comment en tered. (CBOC) METABOLI E Ordering Provi gay: ALEXIS DICKERSON [ENZYMATIC Report Relea sed Date/Time: Dec 13, 2021 02:29 PM PANEL+MG ACTIVITY/V Reporting L ab: [facility]] IN [address] [facility] [address] [place] Performing Lab : [facility] [address] [place] [facility] [address] COMPREHE ALANINE 28 <55 - 55 12/13 Specimen Type: PLASMA [place] NSIVE AMINOTRANS /2021 No comment en tered. (CBOC) METABOLI FERASE Ordering Provi gay: ALEXIS DICKERSON [ENZYMATIC Report Relea sed Date/Time: Dec 13, 2021 02:29 PM PANEL+MG ACTIVITY/V Reporting L ab: [facility]] IN [address] [facility] [address] [place] Performing Lab : [facility] [address] [place] [address] COMPREHE ASPARTATE 30 <34 - 34 12/13 Specimen Typ e: PLASMA LISA NSIVE AMINOTRANS /2021 No comment en tered. (CBOC) METABOLI FERASE Ordering Provi gay: ALEXIS DICKERSON [ENZYMATIC Report Relea sed Date/Time: Dec 13, 2021 02:29 PM PANEL+MG ACTIVITY/V Reporting L ab: [facility]] IN [address] [facility] [address] [place] Performing Lab : [facility] [address] [place] [facility] [address] COMPREHE CREAT 78 60 12/13 Specimen Type: PLASMA LISA NSIVE EGFR(CKD-E /2021 No comment en tered. (CBOC) METABOLI PI) Ordering Provi gay: ALEXIS DICKERSON Report Released Date/Time: Dec 13, 2021 02:29 PM PANEL+MG Reporting Lab: [facility] [address] [place] [facility] [address] Performing Lab: [facility] [address] [place] [facility] [address] FOLATE FOLATE 17.4 7.0 12/13 Specimen Type: S MARIA ALEJANDRA LISA [MASS/VOLU /2021 No comment en tered. (CBOC) ME] IN Ordering Provid er: ALEXIS DICKERSON [place] Report Release d Date/Time: Dec 13, 2021 02:41 PM PLASMA Reporting Lab: [facility] [address] [place] [facility] [address] Performing Lab: [facility] [address] [place] [facility] [address] CBC & LEUKOCYTES 8.93 4.0 - 11.0 12/13 Specimen T ype: BLOOD [place] DIFF [#/VOLUME] /2021 Comment: Aut omated Differential Performed (CBOC) IN BLOOD Ordering Provi gay: ALEXIS DICKERSON Report Released Date/Time: Dec 13, 2021 02:29 PM AUTOMATED Reporting Lab : [facility] [address] [place] [facility] [address] Performing Lab: [facility] [address] [facility] [facility] [address] CBC & ERYTHROCYT 3.86 4.6 - 6.2 12/13 L Specimen Ty pe: BLOOD LISA DIFF ES /2021 Comment: Automa pedro Differential Performed (CBOC) [#/VOLUME] Ordering Pro vider: ALEXIS DICKERSON IN BLOOD Report Release d Date/Time: Dec 13, 2021 02:29 PM BY Reporting Lab: [facility] AUTOMATED [facility] [address] COUNT Performing Lab: [facility] [address] [place] [address] CBC & HEMOGLOBIN 11.6 13.5 - 06/ L Specimen Type : BLOOD LISA DIFF [MASS/VOLU 17.9 /2021 Comment: Aut omated Differential Performed (CBOC) ME] IN Ordering Provid er: ALEXIS DICKERSON BLOOD Report Released Date/Time: Dec 13, 2021 02:29 PM Reporting Lab: [facility] [address] [place] [address] Performing Lab: [facility] [address] [facility] [address] CBC & HEMATOCRIT 36.8 41 - 54 12/13 L Specimen Type : BLOOD LISA DIFF [VOLUME /2021 Comment: Automa pedro Differential Performed (CBOC) FRACTION] Ordering Prov ider: ALEXIS DICKERSON OF BLOOD Report Release d Date/Time: Dec 13, 2021 02:29 PM BY Reporting Lab: [facility] [address] COUNT Performing Lab: [facility] [address] [facility] [address] CBC & MCV 95.3 80 - 100 12/13 Specimen Type: BLOOD LISA DIFF [ENTITIC /2021 Comment: Autom ated Differential Performed (CBOC) VOLUME] BY Ordering Pro vider: ALEXIS DICKERSON AUTOMATED Report Releas ed Date/Time: Dec 13, 2021 02:29 PM COUNT Reporting Lab: [facility] [address] [facility] [address] [facility] [facility] [address] Performing Lab: [facility] [address] [facility] [facility] [address] CBC & MCH 30.1 27 - 33 12/13 Specimen Type: B LOOD LISA DIFF [ENTITIC /2021 Comment: Autom ated Differential Performed (CBOC) MASS] BY Ordering Provi gay: ALEXIS DICKERSON AUTOMATED Report Releas ed Date/Time: Dec 13, 2021 02:29 PM COUNT Reporting Lab: [facility] [address] [place] [address] Performing Lab: [facility] [address] [place] [address] CBC & MCHC 31.5 32.0 - 06/ L Specimen Type: B LOOD LISA DIFF [MASS/VOLU 37.5 /2021 Comment: Aut omated Differential Performed (CBOC) ME] BY Ordering Provid er: ALEXIS DICKERSON AUTOMATED Report Releas ed Date/Time: Dec 13, 2021 02:29 PM COUNT Reporting Lab: [facility] [address] [facility] [facility] [address] Performing Lab: [facility] [address] [place] [address] CBC & PLATELETS 275 150 - 400 12/13 Specimen Typ e: BLOOD LISA DIFF [#/VOLUME] /2021 Comment: Aut omated Differential Performed (CBOC) IN BLOOD Ordering Provi gay: ALEXIS DICKERSON BY Report Released Date/Time: Dec 13, 2021 02:29 PM AUTOMATED Reporting Lab : [facility] COUNT [address] [facility] [facility] [address] Performing Lab: [facility] [address] [facility] [facility] [address] CBC & PLATELET 11.6 7.4 - 10.4 12/13 H Specimen Typ e: BLOOD LISA DIFF MEAN /2021 Comment: Automa pedro Differential Performed (CBOC) VOLUME Ordering Provid er: ALEXIS DICKERSON [ENTITIC Report Release d Date/Time: Dec 13, 2021 02:29 PM VOLUME] IN Reporting La b: [facility] BLOOD BY [address] [facility] [address] AUTOMATED Performing La b: [facility] [address] [place] [address] CBC & NEUTROPHIL 59.9 12/13 Specimen Type : BLOOD LISA DIFF S/100 /2021 Comment: Automa pedro Differential Performed (CBOC) LEUKOCYTES Ordering Pro vider: ALEXIS DICKERSON IN BLOOD Report Release d Date/Time: Dec 13, 2021 02:29 PM BY MANUAL Reporting Lab : [facility] [address] [place] [address] Performing Lab: [facility] [address] [place] [address] CBC & LYMPHOCYTE 28.3 12/13 Specimen Type : BLOOD LISA DIFF S/100 /2021 Comment: Automa pedro Differential Performed (CBOC) LEUKOCYTES Ordering Pro vider: TUANELEANORALEXIS R IN BLOOD Report Release d Date/Time: Dec 13, 2021 02:29 PM BY MANUAL Reporting Lab : [facility] [address] [place] [address] Performing Lab: [facility] [address] [place] [address] CBC & MONOCYTES/ 9.0 12/13 Specimen Type : BLOOD LISA DIFF 100 /2021 Comment: Automa pedro Differential Performed (CBOC) LEUKOCYTES Ordering Pro vider: TUANALEXIS R IN BLOOD Report Release d Date/Time: Dec 13, 2021 02:29 PM BY Reporting Lab: [facility] AUTOMATED [facility] [address] COUNT Performing Lab: [facility] [address] [place] [facility] [address] CBC & EOSINOPHIL 2.1 12/13 Specimen Type : BLOOD LISA DIFF S/100 Comment: Automa pedro Differential Performed (CBOC) LEUKOCYTES Ordering Pro vider: ELEANOR DICKERSONHYA R IN BLOOD Report Release d Date/Time: Dec 13, 2021 02:29 PM BY Reporting Lab: [facility] AUTOMATED [facility] [address] COUNT Performing Lab: [facility] [address] [facility] [facility] [address] CBC & BASOPHILS/ 0.4 12/13 Specimen Type : BLOOD LISA DIFF 100 Comment: Automa pedro Differential Performed (CBOC) LEUKOCYTES Ordering Pro vider: TUANELEANORALEXIS R IN BLOOD Report Release d Date/Time: Dec 13, 2021 02:29 PM BY MANUAL Reporting Lab : [facility] [address] [facility] [facility] [address] Performing Lab: [facility] [address] [place] [facility] [address] CBC & ERYTHROCYT 14.1 11.5 - 12/13 Specimen Type : BLOOD LISA DIFF E 14.5 /2021 Comment: Automa pedro Differential Performed (CBOC) DISTRIBUTI Ordering Pro vider: ELEANOR DICKERSONHYA R ON WIDTH Report Release d Date/Time: Dec 13, 2021 02:29 PM [RATIO] BY Reporting La b: [facility] AUTOMATED ONE [employer] [facility] [address] COUNT Performing Lab: [facility] [address] [place] [address] CBC & LYMPHOCYTE 2.53 1.0 - 4.0 06/ Specimen Ty pe: BLOOD LISA DIFF S /2021 Comment: Automa pedro Differential Performed (CBOC) [#/VOLUME] Ordering Pro vider: ALEXIS DICKERSON IN BLOOD Report Release d Date/Time: Dec 13, 2021 02:29 PM BY Reporting Lab: [facility] AUT[facility]ATED [facility] [address] COUNT Performing Lab: [facility] [address] [facility] [facility] [address] CBC & MONOCYTES 0.80 0.1 - 1.0 06 Specimen Typ e: BLOOD LISA DIFF [#/VOLUME] /2021 Comment: Aut omated Differential Performed (CBOC) IN BLOOD Ordering Provi gay: ALEXIS DICKERSON BY Report Released Date/Time: Dec 13, 2021 02:29 PM AUTOMATED Reporting Lab : [facility] COUNT [address] [facility] [facility] [address] Performing Lab: [facility] [address] [place] [address] CBC & NEUTROPHIL 5.34 2.0 - 7.7 12/13 Specimen Ty pe: BLOOD LISA DIFF S /2021 Comment: Automa pedro Differential Performed (CBOC) [#/VOLUME] Ordering Pro vider: ALEXIS DICKERSON IN BLOOD Report Release d Date/Time: Dec 13, 2021 02:29 PM BY Reporting Lab: [facility] AUTOMATED [facility] [address] COUNT Performing Lab : [facility] [address] [facility] [facility] [address] CBC & EOSINOPHIL 0.19 0 - 0.5 12/13 Specimen Type : BLOOD LISA DIFF S /2021 Comment: Automa pedro Differential Performed (CBOC) [#/VOLUME] Ordering Pro vider: ALEXIS DICKERSON IN BLOOD Report Release d Date/Time: Dec 13, 2021 02:29 PM BY Reporting Lab: [facility] AUTOMATED [facility] [address] COUNT Performing Lab: [facility] [address] [facility] [facility] [address] CBC & BASOPHILS 0.04 0 - 0.2 12/13 Specimen Type: BLOOD LISA DIFF [#/VOLUME] /2021 Comment: Aut omated Differential Performed (CBOC) IN BLOOD Ordering Provi gay: ALEXIS DICKERSON BY Report Released Date/Time: Dec 13, 2021 02:29 PM AUTOMATED Reporting Lab : [facility] [address] [place] [address] Performing Lab: [facility] [address] [place] [address] CBC & IG(META,MY 0.3 12/13 Specimen Type : BLOOD [place] DIFF KARISHMA,PRO) /2021 Comment: Autom ated Differential Performed (CBOC) Ordering Provid er: ALEXIS DICKERSON Report Released Date/Time: Dec 13, 2021 02:29 PM Reporting Lab: [facility] [address] [place] [address] Performing Lab: [facility] [address] [place] [address] CBC & IMMATURE 0.03 0 - 0.1 12/13 Specimen Type: BLOOD [place] DIFF GRANULOCYT /2021 Comment: Aut omated Differential Performed (CBOC) ES Ordering Provid er: ALEXIS DICKERSON [PRESENCE] Report Relea sed Date/Time: Dec 13, 2021 02:29 PM IN BLOOD Reporting Lab: [facility] BY [address] [place] [address] AUTOMATED Performing La b: [facility] COUNT [address] [place] [address] METHYLMA METHYLMALO 310 87 - 318 12/13 Specimen Ty pe: SERUM LISA ACID, RILEY /2021 Comment: This t est was developed and its analytical performance characteristics have been determined by [employer] [facility], [place]. It has not been cleared or approved by the [place] (CBOC) [place] [MOLES/VOL . Food and Dr ug Administration. This assay has been validated pursuant to the CLIA regulations and is used for clinical purposes. Test Performed by [employer], [employer] [facility] [place], [employer]] [place] [address] [place] [address] Trent Olmstead M.D., Ph.D., Director of Laboratories , CLIA [id number] SERUM OR Ordering Provi gay: ALEXIS DICKERSON PLASMA Report Released Date/Time: Dec 13, 2021 10:04 PM Reporting Lab: [facility] [address] [place] [address] Performing Lab: [address] IRON IRON 50 65 - 175 06/ L Specimen Type: SERUM [place] [facility] [MASS/VOLU /2021 Comment: Karlee lindsey received is PLASMA. (CBOC) ME] IN Ordering Provid er: ALEXIS DICKERSON SERUM OR Report Release d Date/Time: Dec 14, 2021 07:50 AM PLASMA Reporting Lab: [facility] [address] [place] [address] Performing Lab: [facility] [address] [facility] [facility] [address] IRON IRON 360 250 - 425 12/13 Specimen Type: SERUM [place] [facility] BINDING /2021 Comment: Specim en received is PLASMA. (CBOC) CAPACITY Ordering Provi gay: ALEXIS DICKERSON [MASS/VOLU Report Relea sed Date/Time: Dec 14, 2021 07:50 AM ME] IN Reporting Lab: [facility] SERUM OR [address] [facility] [address] PLASMA Performing Lab: [facility] [address] [place] [address] IRON FERRITIN 20.6 21.8 - 06 L Specimen Type: SERUM [facility] [MASS/VOLU 274.7 /2021 Comment: Karlee lindsey received is PLASMA. (CBOC) ME] IN Ordering Provid er: ALEXIS DICKERSON SERUM OR Report Release d Date/Time: Dec 14, 2021 07:50 AM PLASMA Reporting Lab: [facility] [address] [place] [address] Performing Lab: [facility] [address] [place] [address] IRON IRON 14 20 - 50 / L Specimen Type: S MARIA ALEJANDRA LISA GROUP SATURATION /2021 Comment: Karlee lindsey received is PLASMA. (CBOC) Ordering Provid er: ALEXIS DICKERSON Report Released Date/Time: Dec 14, 2021 07:50 AM Reporting Lab: [facility] [address] [place] [address] Performing Lab: [facility] [address] [place] [address] IRON TRANSFERRI 288 163 - 382 12/13 Specimen Ty pe: SERUM [facility] N /2021 Comment: Specim en received is PLASMA. (CBOC) [MASS/VOLU Ordering Pro vider: ALEXIS DICKERSON ME] IN Report Released Date/Time: Dec 14, 2021 07:50 AM SERUM OR Reporting Lab: [facility] PLASMA [address] [place] [facility] [address] Performing Lab: [facility] [address] [place] [facility] [address] Vital Signs Combined list of inpatient and [...] BMI 37kg/m2 04/25/2021 15:27:16 [place] R (CBOC) Encounters Combined list of: 1) Encounters from Department of Veterans Affairs facilities going back up to the last 18 months. 2) Encounters from the Department of Defense facilities going back up to 280 months. Location Location Encounter Encounter Reason Attending ADM DC Stat us Disposition Source Details Type Number For Provider Date Date Visit Outpatient 12/06 [place] Encounter [id number] /2021 [facility] OFFICE O/P Diagnos MARS DICKERSON 12/15 [place] EST MOD [id number] is: DHYA R /2020 ER 30-39 MIN 30 ICD-10- (CBOC) CM I50.9 Heart failure , unspeci fied
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 n Outpatient [id number] 04/19 [place] Encounter [id number] [facility] Outpatient [id number] 04/27 [place] Encounter [id number] /2020 [facility] Outpatient 98179-3.61 ZACARIAS,KITTY 06/12 [place] Encounter [id number] /2020 [facility] Outpatient [id number] 06/14 [place] Encounter [id number] /2020 [facility] Outpatient [id number] 06/15 [place] Encounter [id number] /2020 [facility] Outpatient 45179-4.61 08/16 [place] EST Encounter [id number] ER 94 (CBOC) Outpatient 49503-4.61 TRACE,JOD 11/20 [place] Encounter [id number] I [facility] Outpatient 41075-7.61 TRACE,JOD 11/20 [place] Encounter [id number] I [facility] OFFICE O/P 50528-3.61 Diagnos JOE,JODIE 11/21 [place] EST HI [id number] is: [place] [facility] 40-54 MIN ICD-10- HCS CM G47.30 Sleep apnea, unspeci fied
with Provide r Comment s: Sleep apnea ([facility] [id number] 6) Outpatient [id number] 12/08 [place] Encounter [id number] /2021 [facility] 17618-6.61 12/13 [place] EST Encounter [id number] ER 53 (CBOC) OFFICE O/P [id number] Diagnos TUAN,CREWS 12/13 [place] EST MOD [id number] is: DHYA R /2021 ER 30-39 MIN 75 ICD-10- (CBOC) CM I50.9 Heart failure , unspeci fied
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
with Provide r Comment s: Sleep apnea ([facility] [id number] 6) HC PRO 92285-6 Diagnos GENNARO MCKENNA 12/25 [place] PHONE CALL [id number] is: R MARISA /2021 O [facility] 5-10 MIN ICD-10- HCS CM G47.33 Obstruc tive sleep apnea (adult) (pediat dewayne)
with Provide r Comment s: Obstruc tive sleep apnea (adult) (pediat dewayne) COLLJ & 11045-1.61 Diagnos JODIE DIAZ 02/12 [place] INTERPJ [id number] is: [place] J /2021 [facility] DATA EA 30 ICD-10- HCS D CM G47.30 Sleep apnea, unspeci fied
with Provide r Comment s: Sleep apnea ([facility] [id number] 6) Social History Combined list of available smoking, tobacco, and other social history [facility]. Social History Type Response Date Comment Source Tobacco smoking status VA-TOBACCO FORMER USER 12/13/2021 [place] [facility] History of tobacco use VA-TOBACCO QUIT 15 YRS 12/13/2021 [place] [facility]) OR MORE History of tobacco use VA-TOBACCO FORMER USER 12/15/2020 [place] [facility]) History of tobacco use VA-TOBACCO QUIT 15 YRS 11/17/2019 [place] [facility]) OR MORE History of tobacco use VA-TOBACCO QUIT 15 YRS 01/13/2019 [place] ([facility]) OR MORE History of tobacco use FORMER TOBACCO USER 7Y 12/24/2017 [place] ([facility]) OR GREATER History of tobacco use FORMER TOBACCO USER 7Y 01/22/2017 [place] ([facility]) OR GREATER History of tobacco use FORMER TOBACCO USER 7Y 01/02/2016 [place] ([facility]) OR GREATER History of tobacco use FORMER TOBACCO USER 7Y 12/13/2014 [place] ([facility]) OR GREATER
--- OUTSIDE RECORDS SUMMARY | 2022-04-23 15:04 | XMS_ITS | Encounter Summary ---
:1945 Author Organization [facility] Address [address] [place] [address] Support Name Relationship Address Phone MARION LEWIS Unavailable [address] [place] [address] MARION LEWIS Unavailable [address] [address] Insurance Providers: All historical and current Section [...] Bird [place] Jul 15, [id number] TONIEMARGUERITE P ATIENT [facility] (WNR) ADVANTAGE (WNR) 2017 9 [id number] [phone] NN[place] 1 [place] Jul 15, [id number] 800 ZACHERYHOPKINS P ATIENT [facility] (WNR) ADVANTAGE (WNR) 2017 9 [id number] [phone] NN[place] 1 [place] Jul 15, [id number] 800 TONIEMARGUERITE P ATIENT [facility] (WNR) ADVANTAGE (WNR) 2017 8 [id number] [phone] NNIS 1 Selected Encounter This section includes the information on record at [place] for the Encounter. Date/Time Encounter Type Encounter Reason Provider Source Description Dec 18, 2021 POLYSOM 6/>YRS SLEEP STUDY ICD-10-CM G47.30 JO PARK AT 08:30 PM CPAP 4/> PARM Sleep apnea, unspecified with Provider Comments: Sleep apnea ([facility] [id number]) IHE Encounter Template Text not used by [facility] Assessments - Encounter Diagnoses This section includes the primary and secondary diagnoses documented for the Encounter. Date/Time Primary/Secondary Diagnosis Name Provider Source Diagnosis Jan 18, 2022 PRIMARY Sleep apnea, [facility] 08:23 PM unspecified A [facility] Plan of Treatment: Future Appointments (+ 6 months) and Future Tests (+/- 45 days) The Plan of Treatment section includes future care activities for the patient from all [place] treatmentfacilities. This section includes future appointments and future orders which are active, pending orscheduled.Future Appointments This section includes appointments that were scheduled to occur 6 months from the date of the Encounter, up to a maximum of 20 appointments. The data comes from all [place] treatment facilities. Appointment Date/Time Appointment Type Appointment Facili ty Name Feb 12, 2022 10:00 AM AMBULATORY - MEDICINE [facility] Lab Results: +/- 30 days of the encounter This section includes the Chemistry and Hematology Lab Results on record with [place] for the patient. Radiology Reports and Pathology Reports are provided separately, in subsequent sections.Lab Results This section contains the Chemistry/Hematology Results that were resulted 30 days before or 30 daysafter the date of the Encounter. Date/Time Source Result Type Result - Unit Interpretation Reference Range Comment Dec 13, 2021 09:29 [facility] COVID-19 AND FLU SCRN Spe cimen Type: NASOPHARYNGEAL PM PANEL (REBEKAH) No comment enter ed. Ordering Provid er: LAURYN DIAZ Report Released Date/Time: November 22, 2021 08:58 AM Reporting Lab: [facility] D[facility] [address] Performing Lab: [facility] [address] COVID-19 PCR (REBEKAH) Not Detected Not De tected FLU A PCR (REBEKAH) Not Detected Not Detec pedro FLU B PCR (REBEKAH) Not Detected Not Detec pedro Dec 13, 2021 [place] [facility]) MICROALBUMIN/CREATININE RATIO Specimen Type: URINE 02:52 PM URINE No comment enter ed. Ordering Provid er: ALEXIS DICKERSON Report Released Date/Time: Dec 13, 2021 02:41 PM Reporting Lab: [facility] [address] Performing Lab: [facility] [address] CREATININE,UR RANDOM 67.4 58.0-161. 0 ALB/CREAT RATIO,UR 22.0 <29.9 MICROALBUMIN,UR 14.8 <29.9 Dec 13, 2021 02:52 PM [place] ([facility]) HEMOGLOBIN A1C Specimen Type: BLOOD No comment enter ed. Ordering Provid er: ALEXIS DICKERSON Report Released Date/Time: Dec 13, 2021 02:29 PM Reporting Lab: [facility] [address] Performing Lab: [facility] [address] HEMOGLOBIN A1C 7.7 H 4.0-6.0 Dec 13, 2021 02:52 [place] ([facility]) LIPID PANEL,NON-FASTING Spe cimen Type: PLASMA PM No comment enter ed. Ordering Provid er: ALEXIS DICKERSON Report Released Date/Time: Dec 13, 2021 02:29 PM Reporting Lab: [facility] [address] Performing Lab: [facility] [address] CHOLESTEROL 93 <199 .HDL 27 L >40 LDL CALCULATION 38 <99 VLDL CALCULATION 28 <29 NON HDL CHOLESTEROL 66 <129 TRIG(NON FASTING) 140 <149 Dec 13, 2021 [place] ([facility]) COMPREHENSIVE METABOLIC Specim en Type: PLASMA 02:52 PM PANEL+MG No comment enter ed. Ordering Provid er: ALEXIS DICKERSON Report Released Date/Time: Dec 13, 2021 02:29 PM Reporting Lab: [facility] [address] Performing Lab: [facility] [address] CREATININE 1.0 0.7-1.2 UREA NITROGEN 26 8-26 GLUCOSE 96 74-100 SODIUM 140 136-145 POTASSIUM 4.0 3.5-5.1 CHLORIDE 103 98-107 CO2 26 22-29 CALCIUM 9.8 8.4-10.2 PROTEIN,TOTAL 7.1 6.0-8.3 ALBUMIN 4.2 3.5-5.2 BILIRUBIN, TOTAL 0.5 0.2-1.2 MAGNESIUM 2.4 1.6-2.6 ANION GAP 11 5-15 ALKALINE PHOSPHATASE 77 40-150 ALT/SGPT 28 <55 AST/SGOT 30 <34 CREAT EGFR(CKD-EPI) 78 >60 Dec 13, 2021 02:52 PM [place] ([facility]) FOLATE Specimen Type: SERUM No comment enter ed. Ordering Provid er: ALEXIS DICKERSON Report Released Date/Time: Dec 13, 2021 02:41 PM Reporting Lab: [facility] [address] Performing Lab: [facility] [address] FOLATE 17.4 >7.0 Dec 13, 2021 02:52 PM [place] ([facility]) B 12 Specimen Type: SERUM No comment enter ed. Ordering Provid er: ALEXIS DICKERSON Report Released Date/Time: Dec 13, 2021 02:41 PM Reporting Lab: [facility] [address] Performing Lab: [facility] [address] B 12 [phone] Dec 13, 2021 02:52 PM [place] ([facility]) CBC & DIFF Specimen Type: BLOOD Comment: Automa pedro Differential Performed Ordering Provid er: ALEXIS DICKERSON Report Released Date/Time: Dec 13, 2021 02:29 PM Reporting Lab: [facility] [address] Performing Lab: [facility] [address] WBC 8.93 4.0-11.0 RBC 3.86 L 4.6-6.2 [...] GRAN 0.03 0-0.1 Dec 13, 2021 02:52 [place] ([facility]) METHYLMA ACID, [place] Specim en Type: SERUM PM Comment: This t est was developed and its analytical performance characteristics have been determined by [facility] [place], [place]. It has not been cleared or approved by the U.S . Food and Drug Administration. This assay has been validated pursuant to the CLIA regulations and is used for clinical purposes. Test Performed by [facility], [facility] [place], [address] [place] [address] Trent Olmstead M.D., Ph.D., Director of Laboratories , CLIA [id number] Ordering Provid er: ALEXIS DICKERSON Report Released Date/Time: Dec 13, 2021 10:04 PM Reporting Lab: [facility] D[facility] [address] Performing Lab: [address] METHYLMA ACID, QUEST [phone] Dec 13, 2021 02:52 PM [facility]) IRON GROUP Specimen Type: SERUM Comment: Specim en received is PLASMA. Ordering Provid er: ALEXIS DICKERSON Report Released Date/Time: Dec 14, 2021 07:50 AM Reporting Lab: [facility] [address] Performing Lab: [facility] [address] IRON 50 L 65-175 TIBC,CALCULATED 360 250-425 FERRITIN 20.6 L 21.8-274.7 IRON SATURATION 14 L 20-50 TRANSFERRIN 288 163-382 Encounter Notes: All associated encounter notes This section contains the clinical notes associated to the Encounter. Date/Time Encounter Note(s) Provider Source Dec 21, 2021 03:23 PM PULMONARY PROCEDURE NOTE: [facility] LOCAL TITLE: CP SLEEP STUDY PROCEDURE STANDARD [...] [place] MD Scoring Technologist: Caterina Barragan, RPS, PHOTOVOLTAIC PANEL INSTALLER ------CLINICAL PRESENTATION------ The patient is a 76.5 [...] 19, 2021 01:44 PM PULMONARY PROCEDURE NOTE: [facility] LOCAL TITLE: CP SLEEP STUDY PROCEDURE STANDARD TITLE: PULMONARY PROCEDURE NOTE DATE OF NOTE: DEC 19, 2021@13:44:33 ENTRY DATE: DEC 19, 2021@13:44:33 AUTHOR: CLINICAL,DEVICE PRO EXP COSIGNER: URGENCY: STATUS: COMPLETED PROCEDURE SUMMARY CODE: Machine Resulted DATE/TIME PERFORMED: DEC 18, 2021@22:41:2 DOCUMENT IN [facility] SEE FULL REPORT IN [facility] SIGNATURE NOT REQUIRED SEE SIGNATURE IN [facility] ([facility] PSG Bi) AUTO-INSTRUMENT DIAGNOS IS [...] Latency N1 N2 N3 REM Onset Per. Rubber Trimmer. Eff. Actual 0h 2.0m 0h 4.0m 3h [...] 09:03 AM SLEEP MEDICINE NOTE: [facility] LOCAL TITLE: SLEEP PSG HANDOFF STANDARD [...] s The rate was titrated for central hypopneas/cigarette filter inspector eas Ti min /max and trigger/cycl e [...] will continue to follow /tahira/ [employer] QUALITY ENGINEER Signed: 12/19/2021 09:04 Receipt Acknowledged By: * [...] concominant use of positional therapy with ASV- night baker sleep p ositional therapy- will recommend to [...] PS 15 Bi-Flex 2 /tahira/ NORY NGUYEN, PHOTOVOLTAIC PANEL INSTALLER REGISTERED RESPIRATORY THERAPIST Signed: 12/21/2021 18:45
--- OUTSIDE RECORDS SUMMARY | 2022-04-23 15:04 | XMS_ITS | Encounter Summary ---
:1945 Author Organization [facility] Address [address] [place] [address] Support Name Relationship Address Phone MARION LEWIS Unavailable [address] [place] [address] MARION LEWIS Unavailable [address] [place] [address] Insurance Providers: All historical and current Section [...] [place] Jul 15, [id number] 800 TONIEMARGUERITE P ATIENT [facility] (WNR) ADVANTAGE (WNR) 2017 9 [id number] [phone] NNIS 1 [place] Jul 15, [id number] 800 ZACHERYHOPKINS P ATIENT [facility] (WNR) ADVANTAGE (WNR) 2017 9 [id number] [phone] NN[place] 1 [place] Jul 15, [id number] 800 TONIEMARGUERITE P ATIENT [facility] (WNR) ADVANTAGE (WNR) 2017 8 [id number] [phone] NNIS 1 Selected Encounter This section includes the information on record at [place] for the Encounter. Date/Time Encounter Type Encounter Reason Provider Source Description Feb 12, 2022 [facility] TELEPHONE/MEDICIN ICD-10-CM G47.30 LAURYN DIAZ 10:00 AM DATA EA 30 D E Sleep apnea, unspecified with Provider Comments: Sleep apnea ([facility] [id number]) IHE Encounter Template Text not used by [...] LAURYN DIAZ V A 10:00 AM unspecified [facility] Encounter Notes: All associated encounter notes This section contains the clinical notes associated to the Encounter. 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 He was then referred for a titration PSG du e to nocturnal hypoxia on his ASV settings. He continued to have supine relate d in supine sleep despite an iVAPS trial. Recommendations were to continue ASV with inc EPAP [id number], PS: 5- 10. Mateus feels he is [...] awakenings: 1x (nocturia) -Wakes: 8-8:30 -Naps: none Wilcox Sleepiness Scale Using the scale: 0=Never 1=Slight [...] 70 0.0% Date: 08/06/2017 (Titration study at [facility]) Sleep Efficiency: 92% AHI: 14 RDI: 16 O2 Danial: 81% BMI: 34 PLMi: 63 PLMi w/ arousal: 3.6 -Titrated to BiPAP 18/10 with 2lpm O2 (residual AHI: 3.1, TST: 38) -TCM: 39-46mm Date: 06/22/2014 ([facility]) Sleep Efficiency: 78.8% AHI: 40.7 (supine AHI: [...] on encounter: 30min /tahira/ FLORY GUERRA PHYSICIAN CHILD CARE SITTER Signed: 02/12/2022 12:36
--- OUTSIDE RECORDS SUMMARY | 2022-04-23 15:05 | XMS_ITS | Clinical Summary ---
:1945 Author Organization [facility] Address [address] [place] [address]. [place] [address] Care Team Providers Name Role Phone Gregory [...] Tobacco Use Types Packs/Day Years Used Date Smoking Tobacco: Never Smokeless Tobacco: Never Alcohol Use Standard Drinks/Week Comments Not Currently [...] WELLNESS 2010 VISIT COVID-19 Vaccine (3 - 11/09/2020 09/14/2020, 08/24/2020 Booster for Pfizer series) PHQ-2 [...] Address T ype Group Dates BCBS BCBS [place] [id number] 2019-Prese [phone] [address] [address] PPO BLUE nt [address] [place] [address] MEDICARE MEDICARE FOR HB [id number] 2010-Pres [phone] ATTN CLAIMS Medicare SUPPLEMENT ent 40 [address] [place] [address] Care Teams Manager Access Relationship Specialty Start Date End Date Gregory Day MD PCP - General Family Medicine 02/03/21 [facility] [address] [place] [address]
--- OUTSIDE RECORDS SUMMARY | 2022-04-23 15:05 | XMS_ITS | Encounter Summary ---
:1945 Author Organization [facility] Address [address] [place] [address]. [place] [address] Care Team Providers Name Role Phone Gregory Day MD Primary Care Provider Reason for Visit Reason Comments Wound Infection Encounter Details Date Type Department Care Team Description 02/03/2021 Emergency [facility] and Gregory Shi , Recurrent cellulitis of [facility] lower leg [address] [place] [place] [address] [place], [place] [phone] [id number] Social History Tobacco Use Types Packs/Day Years [...] be sent through Care Everywhere.Skin Infection, Cellulitis (Malawian)documented in this encounter Medications at Time of [...] Keflex until his seen back in the [facility]. He denies any fever or chills.No drainage [...] Status --------- ------ CBC with platelets and d...[[id number]] Abnormal Final result Please view results for [...] time pending reviewby his provider in the [facility]. He can discontinue his Keflex and we will start him on clindamycin for broader coverage. Follow-up sooner if there is any other concerns problems or questions. Rx was written for probiotics as well given all of his antibiotic use. 02/03/2021 [facility] Gregory Shi PA-C 02/03/21 1218 documented [...] platelets and differential (02/03/2021 11:16 AM CDT) [facility] Method Time Signature WBC Count 7.7 [...] CDT Absolute 4.6 1.6 - 8.3 02/03/2021 [facility] Neutrophils 10e3/uL 11:31 AM CDT Absolute [...] Address City/State/ZIP Code Phon e Number LABORATORY [place] [facility] [place] [address] Hospital Laboratory [address] Laboratory [...] MICRO GENERAL ORDERABL ES Performing Organization Address City/[facility]/ZIP Code Phon e Number LABORATORY [place] [facility] [place] [address] Hospital Laboratory [address] Laboratory Blood Culture Arm, Right (02/03/2021 11:16 AM CDT) P athologist Signature Culture No Growth AMEYA 02/09/2021 LABORATORY 7:43 AM CDT Specimen Anatomical Collection Method / Collection Time Recei jessica Time (Source) Location / Volume Laterality Blood STRUCTURE OF RIGHT Venipuncture / 02/03/2021 11:16 UPPER LIMB / Unknown AM CDT 11:26 AM CDT Unknown Gregory Windy Shi PA-C LAB - MICRO GENERAL ORDERABL ES Performing Organization Address City/State/ZIP Code Phon e Number LABORATORY [place] [facility] [place] [address] Hospital Laboratory [address] Laboratory [...] LAB - BLOOD ORDERABLES Performing Organization Address City/[facility]/ZIP Code Phon e Number LABORATORY [facility] [place] [address] [facility] Laboratory [address] Laboratory Erythrocyte [...] Address City/State/ZIP Code Phon e Number LABORATORY [facility] [place] [address] Hospital Laboratory [address] Laboratory documented in this encounter Visit Diagnoses Diagnosis Recurrent cellulitis of lower leg Cellulitis and abscess of leg, except fo ot documented in this encounter Care Teams Check Inspector Relationship Specialty Start Date End Date Gregory Day MD PCP - General Family Medicine 02/03/21 [place] [address] [place] [address] documented as of this encounter
--- OUTSIDE RECORDS SUMMARY | 2022-04-23 15:05 | XMS_ITS | Encounter Summary ---
:1945 Author Organization [facility] Address [address] [place] [address] Support Name Relationship Address Phone MARION LEWIS Unavailable [address] [place] [address] MARION LEWIS Unavailable [address] [place] [address] Insurance Providers: All historical and current Section [...] Bird [place] Jul 15, [id number] HIGGINS P ATIENT [facility] (WNR) ADVANTAGE (WNR) 2017 9 [id number] [phone] NNIS 1 [place] Jul 15, [id number] LIANEWAGNER P ATIENT [facility] (WNR) ADVANTAGE (WNR) 2017 9 [id number] [phone] NN[place] 1 [place] Jul 15, [id number] 800 HGIGINS P ATIENT [facility] (WNR) ADVANTAGE (WNR) 2017 8 [id number] [phone] NNIS 1 Selected Encounter This section includes the information on record at [place] for the Encounter. Date/Time Encounter Type Encounter Description Reason Provider Source Dec 13, 2021 02:00 Outpatient Encounter GENERAL INTERNAL PM MEDICINE IHE Encounter Template Text not used by [...] 18, 2021 08:30 PM AMBULATORY - MEDICINE [facility] Feb 12, 2022 10:00 AM AMBULATORY - MEDICINE [facility] Lab Results: +/- 30 days [...] Reference Range Comment Dec 13, 2021 09:29 [facility] COVID-19 AND FLU SCRN Spe cimen Type: NASOPHARYNGEAL PM PANEL (REBEKAH) No comment enter ed. Ordering Provid er: LAURYN DIAZ Report Released Date/Time: November 22, 2021 08:58 AM Reporting Lab: [facility] [address] [facility] [address] Performing Lab: [facility] [address] [facility] [address] COVID-19 PCR (REBEKAH) Not Detected Not De tected FLU A PCR (REBEKAH) Not Detected Not Detec pedro FLU B PCR (REBEKAH) Not Detected Not Detec pedro Dec 13, 2021 [place] ([facility]) MICROALBUMIN/CREATININE RATIO Specimen Type: URINE 02:52 PM URINE No comment enter ed. Ordering Provid er: ALEXIS DICKERSON Report Released Date/Time: Dec 13, 2021 02:41 PM Reporting Lab: [facility] [address] [facility] [address] Performing Lab: [facility] [address] CREATININE,UR RANDOM 67.4 58.0-161. 0 ALB/CREAT RATIO,UR 22.0 <29.9 MICROALBUMIN,UR 14.8 <29.9 Dec 13, 2021 02:52 PM [place] ([facility]) HEMOGLOBIN A1C Specimen Type: BLOOD No comment enter ed. Ordering Provid er: ALEXIS DICKERSON Report Released Date/Time: Dec 13, 2021 02:29 PM Reporting Lab: [facility] [address] Performing Lab: [facility] [address] HEMOGLOBIN A1C 7.7 H 4.0-6.0 Dec 13, 2021 02:52 PM [place] ([facility]) B 12 Specimen Type: SERUM No comment enter ed. Ordering Provid er: ALEXIS DICKERSON Report Released Date/Time: Dec 13, 2021 02:41 PM Reporting Lab: [facility] [address] Performing Lab: [facility] [address] B 12 [phone] Dec 13, 2021 [place] ([facility]) COMPREHENSIVE METABOLIC Specim en Type: PLASMA 02:52 PM PANEL+MG No comment enter ed. Ordering Provid er: ALEXIS DICKERSON Report Released Date/Time: Dec 13, 2021 02:29 PM Reporting Lab: [facility] [address] Performing Lab: [facility] [address] CREATININE 1.0 0.7-1.2 UREA NITROGEN 26 8-26 GLUCOSE 96 74-100 SODIUM 140 136-145 POTASSIUM 4.0 3.5-5.1 CHLORIDE 103 98-107 CO2 26 22-29 CALCIUM 9.8 8.4-10.2 PROTEIN,TOTAL 7.1 6.0-8.3 ALBUMIN 4.2 3.5-5.2 BILIRUBIN, TOTAL 0.5 0.2-1.2 MAGNESIUM 2.4 1.6-2.6 ANION GAP 11 5-15 ALKALINE PHOSPHATASE 77 40-150 ALT/SGPT 28 <55 AST/SGOT 30 <34 CREAT EGFR(CKD-EPI) 78 >60 Dec 13, 2021 02:52 [place] ([facility]) LIPID PANEL,NON-FASTING Spe cimen Type: PLASMA PM No comment enter ed. Ordering Provid er: ALEXIS DICKERSON Report Released Date/Time: Dec 13, 2021 02:29 PM Reporting Lab: [facility] [address] Performing Lab: [facility] [address] CHOLESTEROL 93 <199 .HDL 27 L >40 LDL CALCULATION 38 <99 VLDL CALCULATION 28 <29 NON HDL CHOLESTEROL 66 <129 TRIG(NON FASTING) 140 <149 Dec 13, 2021 02:52 PM [place] ([facility]) FOLATE Specimen Type: SERUM No comment enter ed. Ordering Provid er: ALEXIS DICKERSON Report Released Date/Time: Dec 13, 2021 02:41 PM Reporting Lab: [facility] [address] Performing Lab: [facility] [address] FOLATE 17.4 >7.0 Dec 13, 2021 02:52 PM [place] ([facility]) CBC & DIFF Specimen Type: BLOOD Comment: Automa pedro Differential Performed Ordering Provid er: ALEXIS DICKERSON Report Released Date/Time: Dec 13, 2021 02:29 PM Reporting Lab: [facility] [address] Performing Lab: [facility] [address] WBC 8.93 4.0-11.0 RBC 3.86 L 4.6-6.2 [...] GRAN 0.03 0-0.1 Dec 13, 2021 02:52 [place] ([facility]) METHYLMA ACID, QUEST Specim en Type: SERUM PM Comment: This t est was developed and its analytical performance characteristics have been determined by [place]. It has not been cleared or approved by the U.S . Food and Drug Administration. This assay has been validated pursuant to the CLIA regulations and is used for clinical purposes. Test Performed by Jimmie S[facility], [facility], [address] [place], [place] Trent Olmstead M.D., Ph.D., Director of Laboratories , [place] [id number] Ordering Provid er: ALEXIS DICKERSON Report Released Date/Time: Dec 13, 2021 10:04 PM Reporting Lab: [facility] [address] [facility] [address] Performing Lab: [address] METHYLMA ACID, [place] [phone] Dec 13, 2021 02:52 PM [place] ([facility]) IRON GROUP Specimen Type: SERUM Comment: Specim en received is PLASMA. Ordering Provid er: ALEXIS DICKERSON Report Released Date/Time: Dec 14, 2021 07:50 AM Reporting Lab: [facility] [address] [facility] [address] Performing Lab: [facility] [address] IRON 50 L 65-175 TIBC,CALCULATED 360 250-425 [...] took place. Date/Time Smoking Status/Tobacco Use Comment Facil ity Dec 13, 2021 02:15 PM VA-TOBACCO QUIT 15 YRS OR MORE [place] ([facility]) Dec 15, 2020 09:15 AM VA-TOBACCO FORMER USER [place] ([facility]) Dec 15, 2020 09:15 AM VA-TOBACCO QUIT 15 YRS OR MORE [place] ([facility]) November 17, 2019 07:57 AM VA-TOBACCO FORMER USER [facility] ([facility]) November 17, 2019 07:57 AM VA-TOBACCO QUIT 15 YRS OR MORE [place] ([facility]) Jan 13, 2019 09:15 AM VA-TOBACCO FORMER USER [facility] ([facility]) Jan 13, 2019 09:15 AM VA-TOBACCO QUIT 15 YRS OR MORE [place] ([facility]) Dec 24, 2017 10:43 AM FORMER TOBACCO USER 7Y OR GREATER [place] ([facility]) Jan 22, 2017 10:10 AM FORMER TOBACCO USER 7Y OR GREATER [place] ([facility]) Jan 02, 2016 03:00 PM FORMER TOBACCO USER 7Y OR GREATER [place] ([facility]) Dec 13, 2014 08:05 AM FORMER TOBACCO USER 7Y OR GREATER [place] ([facility])
--- OUTSIDE RECORDS SUMMARY | 2022-04-23 15:05 | XMS_ITS | Encounter Summary ---
:1945 Author Organization [facility] Address [address] [place] [address]. [place] [address] Care Team Providers Name Role Phone Gregory [...] on filedocumented in this encounter Care Teams Industrial Service Technician Relationship Specialty Start Date End Date Gregory Day MD PCP - General Family Medicine 02/03/21 [facility] [address] [place] [address] documented as of this encounter
[2022-04-23 17:12] LABS: SARS PCR* Negative SARS-CoV-2 (Negative)
== END 2022-04-23 15:00 | disposition home or self-care (01) ==
LOC: NPINS 14:59
PROVIDERS: PCP Family Medicine; Visit Provider Family Medicine
DX: Z20.822 Contact with and (suspected) exposure to COVID-19 (principal)
CPT/HCPCS: 87635

== ENCOUNTER 2022-04-24 12:00 | Outpatient (CLI) | payer MEDICARE, BC, SELFPAY ==
--- OUTSIDE RECORDS SUMMARY | 2022-04-24 12:03 | XMS_ITS | Continuity of Care Document ---
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 It does not include entries that were removed or entered in error. Problem Status Onset Problem Date of Comments Source Date Type Resolution AF- Atrial Active Condition LISA Fibrillation (SCT (C BOC) [id number]) Chronic obstructive Active Condition LISA lung disease [...] R [place] (CBOC) Diagnosis: ICD-10-CM Active Diagnosis [place] G47.30 Sleep apnea, [facility] unspecifiedwith Provider Comments: Sleep apnea (SCT [id number]) Diagnosis: ICD-10-CM Active Diagnosis [place] G47.33 Obstructive V [facility] HCS sleep apnea (adult) (pediatric)with Provider Comments: Obstructive sleep apnea (adult) (pediatric) Diagnosis: ICD-10-CM Active Diagnosis [place] Z79.01 salvage determiner [facility] (current) use of anticoagulantswith Provider Comments: salvage determiner (current) use of anticoagulants Diagnosis: ICD-10-CM Active Diagnosis [place] I50.9 Heart failure, (CBOC) unspecifiedwith Provider Comments: CHF Diagnosis: ICD-10-CM Active Diagnosis [place] 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 Provider Comments: Idio sleep related nonobstructive alveolar hypoventilation Diagnosis: ICD-10-CM Active Diagnosis [place] G47.33 Obstructive V A HCS sleep apnea (adult) (pediatric)with Provider Comments: Obstructive Sleep Apnea (Adult) (Pediatric) Diagnosis: ICD-10-CM Active Diagnosis [place] Z71.3 Dietary (CBOC) counseling and surveillancewith Provider Comments: Dietary counseling and surveillance Diagnosis: ICD-10-CM Active Diagnosis ERH[place] I50.9 Heart failure, (CBOC) unspecifiedwith Provider Comments: Congestive heart failure ([facility] [id number]) Medications Combined list of outpatient medications from Department of Defense and Veterans Affairs facilities. Medications provided include 1) outpatient medications from the last 15 months, and 2) patient-reported medications. Medication Details Route Status Patient Prescription Prescription Last Ordering Order Source Instructions Expires Number Dispense Provider Date Date AMLODIPINE TAKE ORALLY DISCONT 12/16/2021 [id number] BEHER A,SA 12/15/ [facility] BESYLATE ONE-HALF INUED 2 NDHYA R 2020 ER 10MG TAB TABLET (EDIT) (CBOC) BY MOUTH EVERY DAY AMLODIPINE TAKE ORALLY ACTIVE 12/14/2022 [id number] TUAN, SA 12/13/ [place] BESYLATE ONE-HALF 2 NDHYA R 2021 ER 5MG TAB TABLET (CBOC) BY MOUTH EVERY DAY APIXABAN TAKE ONE ORALLY ACTIVE 12/15/2022 [id number] Reyes SCHWARZ 12/31/ [place] 5MG TAB TABLET 2 ATTHEW S 2021 [facility] BY MOUTH HCS EVERY 12 HOURS TO PREVENT STROKES APIXABAN TAKE ONE ORALLY DISCONT 12/21/2021 [id number] RID GEWELL 12/20/ [place] 5MG TAB TABLET INUED 2 ,NAGA L 2020 [facility] BY MOUTH [facility] EVERY 12 HOURS TO PREVENT STROKES ASPIRIN TAKE ONE ORALLY ACTIVE TUAN,SA 12/13/ [place] 81MG TAB,EC TABLET NDHYA R 2014 ER BY MOUTH (CBOC) ATORVASTATI TAKE ONE ORALLY ACTIVE 12/14/2022 [id number] TUAN,SA 12/31/ [facility] N CA 80MG TABLET 2 NDHYA R 2021 ER TAB BY MOUTH (CBOC) AT BEDTIME FOR CHOLESTE ROL ATORVASTATI TAKE ONE ORALLY DISCONT 12/16/2021 [id number] TUAN,SA 12/15/ [facility] N CA 80MG TABLET INUED 2 NDHYA R 2020 ER TAB BY MOUTH (CBOC) AT BEDTIME FOR CHOLESTE ROL CYANOCOBALA TAKE ONE ORALLY ACTIVE 12/15/2022 [id number] B EHERA, 12/14/ [place] MIN 1000MCG TABLET 2 NDHYA R 2021 ER TAB BY MOUTH (CBOC) EVERY DAY FERROUS SO4 TAKE ONE ORALLY ACTIVE 12/15/2022 [id number] B EHERA, 12/14/ [facility] 325MG TAB TABLET 2 NDHYA R 2021 ER BY MOUTH (CBOC) EVERY DAY FISH OIL TAKE 1 ORALLY ACTIVE [facility], 12/13/ [facility] 1000MG CAPSULE NDA R 2014 ER (500MG BY MOUTH (CBOC) DHA/EPA) CAP,ORAL GABAPENTIN TAKE ORALLY ACTIVE 12/14/2022 [id number] TUAN , 12/31/ [facility] 100MG CAP FOUR 2 NDHYA R 2021 ER CAPSULES (CBOC) BY MOUTH EVERY MORNING AND TAKE TWO CAPSULES AT BEDTIME GABAPENTIN TAKE ORALLY DISCONT 12/16/2021 [id number] TUAN , 12/15/ [facility] 100MG CAP FOUR INUED 2 NDHYA R 2020 ER CAPSULES (CBOC) BY MOUTH EVERY MORNING AND TAKE TWO CAPSULES AT BEDTIME INSULIN,ASP INJECT SUBCUT ACTIVE 12/26/2022 [id number] BE CARLOTTA, 12/25/ [facility] ART,HUMAN 18 UNITS ANEOUS 2 NDHY2021 ER 100U/ML,NOV UNDER (CBOC) OLOG,FLEXPE THE SKIN N,3ML BEFORE MEALS *INJECT IMMEDIAT AMINATA PRIOR TO MEALTIME *DISCARD 28 DAYS AFTER INITIAL USE INSULIN,ASP INJECT SUBCUT DISCONT 12/16/2021 [id number] B EHERA, 12/15/ [facility] ART,HUMAN 18 UNITS ANEOUS INUED 2 NDHYA R 2020 ER 100U/ML,NOV UNDER (CBOC) OLOG,FLEXPE THE SKIN N,3ML BEFORE MEALS *INJECT IMMEDIAT AMINATA PRIOR TO MEALTIME *DISCARD 28 DAYS AFTER INITIAL USE INSULIN,GLA INJECT SUBCUT ACTIVE 12/14/2022 [id number] BE CARLOTTA,SA 12/13/ [facility] RGINE,HUMAN 50 UNITS ANEOUS 2 NDHYA R 2021 ER 100 UNIT/ML UNDER (CBOC) INJ,SOLOSTA THE SKIN R,3ML AT BEDTIME FOR DIABETES DISCAR D PEN 28 DAYS AFTER INITIAL USE INSULIN,GLA INJECT SUBCUT DISCONT 12/16/2021 [id number] B EHERA,SA 12/15/ [facility] RGINE,HUMAN 50 UNITS ANEOUS INUED 2 NDHYA R 2020 ER 100 UNIT/ML UNDER (CBOC) INJ,SOLOSTA THE SKIN R,3ML AT BEDTIME FOR DIABETES DISCAR D PEN 28 DAYS AFTER INITIAL USE ISOSORBIDE TAKE ONE ORALLY ACTIVE 12/14/2022 [id number] B EHERA,SA 12/31/ [facility] MONONITRATE TABLET 2 NDHYA R 2021 ER 30MG TAB,SA BY MOUTH (CBOC ) EVERY DAY ISOSORBIDE TAKE ONE ORALLY DISCONT 12/16/2021 [id number] TUAN,SA 12/15/ [facility] MONONITRATE TABLET INUED 2 NDHYA R 2020 ER 30MG TAB,SA BY MOUTH (CBOC ) EVERY DAY METFORMIN TAKE ONE ORALLY ACTIVE 06/24/2022 [id number] BE CARLOTTA,SA 03/26/ [facility] HCL 500MG TABLET 2 NDHYA R 2021 ER 24HR TAB,SA BY MOUTH (CBOC ) TWICE A DAY FOR DIABETES METFORMIN TAKE ONE ORALLY DISCONT 03/13/2022 [id number] B EHERA,SA 12/31/ [facility] HCL 500MG TABLET INUED 2 NDHYA R 2021 ER 24HR TAB,SA BY MOUTH (CBOC ) TWICE A DAY FOR DIABETES METFORMIN TAKE ONE ORALLY DISCONT 01/18/2022 [id number] B EHERA,SA 12/31/ [facility] HCL 500MG TABLET INUED 2 NDHYA R 2021 ER 24HR TAB,SA BY MOUTH (CBOC ) TWICE A DAY FOR DIABETES METFORMIN TAKE ONE ORALLY DISCONT 01/10/2022 [id number] B EHERA,SA 10/12/ [facility] HCL 500MG TABLET INUED 2 NDHYA R 2022 ER 24HR TAB,SA BY MOUTH (CBOC ) TWICE A DAY FOR DIABETES METFORMIN TAKE ONE ORALLY DISCONT 06/24/2021 [id number] B EHERA,SA 06/15/ [facility] HCL 500MG TABLET INUED 1 2020 ER 24HR TAB,SA BY MOUTH (CBOC ) TWICE A DAY FOR DIABETES METFORMIN TAKE ONE ORALLY DISCONT 06/15/2021 [id number] B EHERA,SA 03/27/ [facility] HCL 500MG TABLET INUE 1 2020 ER 24HR TAB,SA BY MOUTH (CBOC ) TWICE A DAY FOR DIABETES METOPROLOL TAKE ONE ORALLY ACTIVE 12/14/2022 [id number] B EHERA,SA 12/31/ [facility] SUCCINATE AND 2 2021 ER 50MG TAB,SA ONE-HALF (CBOC ) TABLETS BY MOUTH EVERY DAY METOPROLOL TAKE ONE ORALLY DISCONT 12/16/2021 [id number] B EHERA,SA 12/15/ [facility] SUCCINATE AND INUED 2 2020 ER 50MG TAB,SA ONE-HALF (CBOC ) TABLETS BY MOUTH EVERY DAY MULTIVITAMI TAKE ONE ORALLY ACTIVE TUAN,SA 12/13 / [facility] N/MINERALS TABLET 2021 ER SENIOR BY MOUTH (CBOC) FORMULA TAB EVERY DAY MULTIVITAMI TAKE 1 ORALLY ACTIVE 11/07/2022 [id number] BE CARLOTTA,SA 11/30/ [facility] NS CAP/TAB TABLET 2 2021 ER BY MOUTH (CBOC) EVERY DAY MULTIVITAMI TAKE 1 ORALLY DISCONT 12/16/2021 [id number] BE CARLOTTA,SA 12/15/ [facility] NS CAP/TAB TABLET INUED 2 2020 ER BY MOUTH (CBOC) EVERY DAY NITROGLYCER DISSOLVE SUBLIN ACTIVE 12/14/2022 [id number] TUAN,SA 12/13/ [facility] IN 0.4MG ONE GUAL 2 2021 ER TAB,SUBLING TABLET (CBOC) UAL UNDER THE TONGUE EVERY DAY NEEDED FOR CHEST PAIN * MAY REPEAT EVERY 5 MINUTES- -NO MORE THAN 3 TOTAL NYSTATIN APPLY TOPICA ACTIVE 12/14/2022 [id number] TUAN,SA 12/13/ [facility] [id number] THIN LLY 2 R 2021 ER M CREAM,TOP LAYER (CBOC) TOPICALL Y TWICE A DAY TRANSFORMATION ANALYST AL USE ONLY RASH IN RIGHT ARM PIT POLYETHYLEN TAKE 17 ORALLY ACTIVE 12/14/2022 [id number] B EHERA,SA 12/13/ [facility] E GLYCOL GRAMS BY 2 NDHY R 2021 ER 3350 MOUTH (CBOC) PWDR,ORAL EVERY DAY *MIX IN 4 TO 8 OUNCES OF LIQUID DIRECTED *USE COVER TO MEASURE POWDER* POLYETHYLEN TAKE 17 ORALLY DISCONT 12/16/2021 [id number] B EHERA,SA 12/15/ [facility] E GLYCOL GRAMS BY INUED 1 NDHY2020 ER 3350 MOUTH (CBOC) PWDR,ORAL EVERY DAY *MIX IN 4 TO 8 OUNCES OF LIQUID DIRECTED *USE COVER TO MEASURE POWDER* TORSEMIDE TAKE ONE ORALLY ACTIVE 12/14/2022 [id number] BE CARLOTTA,SA 12/31/ [facility] 20MG TAB TABLET 2 NDHY R 2021 ER BY MOUTH (CBOC) TWICE A DAY FOR CONGESTI VE HEART FAILURE TORSEMIDE TAKE ONE ORALLY DISCONT 12/16/2021 [id number] B EHERA,SA 12/15/ [facility] 20MG TAB TABLET INUED 2 HY2020 ER BY MOUTH (CBOC) TWICE A DAY FOR CONGESTI VE HEART FAILURE ZOLPIDEM TAKE ONE ORALLY 12/22/2021 [id number] YANIRA N,MERCED 11/22/ [place] TARTRATE TABLET 2 [...] atus Comments 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 complet [place] ([place]), 2020 ed OLIS [facility] MRNA, LNP-S, H CS PF, 30 MCG/0.3 ML DOSE INFLUENZA, complet [place] UNSPECIFIED 2020 ed HE ALTH FORMULATION COVID-19 2 complet AL [place] ([place]), 2020 ed HEAL TH MRNA, LNP-S, PF, 30 MCG/0.3 ML DOSE COVID-19 1 complet [place] ([place]), 2020 ed [place] VA MRNA, LNP-S, H [...] complet [employer] [facility] POLYSACCHARID 2014 ed [id number] 5 ER E PPV23 08/24/16 (CB OC) INFLUENZA, complet [facility] HIGH DOSE 2014 ed ER SEASONAL (CBOC ) PNEUMOCOCCAL complet wyet h [facility] CONJUGATE PCV 2015 ed Pharm, ER 13 [id number], (CBOC) 05/30 ZOSTER LIVE complet [employer] and [facility] 2014 ed [employer], ER [id number], (CBOC ) dec 1509/2015 TD (ADULT), 2 [...] Detected /2021 No comment e ntered. IS [facility] SCRN RNA Ordering Provid er: LAURYN DIAZ PANEL [PRESENCE] Report Relea sed Date/Time: November 22, 2021 08:58 AM (REBEKAH) IN Reporting Lab: [facility] RESPIRATOR [facility] [address] Y SPECIMEN Performing L ab: [facility] BY [facility] [address] [facility] [address] WITH PROBE DETECTION COVID-19 INFLUENZA Not 12/13 Specimen Type : NASOPHARYNGEAL [place] AND FLU VIRUS A Detected /2021 No comment ente red. IS [facility] RNA Ordering Provid er: LAURYN DIAZ PANEL [PRESENCE] Report Relea sed Date/Time: November 22, 2021 08:58 AM (REBEKAH) IN Reporting Lab: [facility] RESPIRATOR [facility] [address] Y SPECIMEN Performing L ab: [facility] BY [facility] [address] [facility] [address] WITH PROBE DETECTION COVID-19 INFLUENZA Not 12/13 Specimen Type : NASOPHARYNGEAL [place] AND FLU VIRUS B Detected /2021 No comment ente red. IS [facility] RNA Ordering Provid er: LAURYN DIAZ PANEL [PRESENCE] Report Relea sed Date/Time: November 22, 2021 08:58 AM (REBEKAH) IN Reporting Lab: [facility] RESPIRATOR [facility] [address] Y SPECIMEN Performing L ab: [facility] BY [facility] [address] [facility] [address] WITH PROBE DETECTION MICROALB CREATININE 67.4 58.0 - 12/13 Specimen Typ e: URINE LISA UMIN/CRE [MASS/VOLU 161.0 /2021 No comment e ntered. (CBOC) ATININE ME] IN Ordering Provid er: TUAN,ALEXIS R RATIO URINE Report Released Date/Time: Dec 13, 2021 02:41 PM URINE Reporting Lab: [facility] [address] [place] [address] Performing Lab: [facility] [address] [place] [address] MICROALB MICROALBUM 22.0 <. - 12/13 Specimen Typ e: URINE LISA UMIN/CRE IN/CREATIN No comment e ntered. (CBOC) ATININE INE [MASS Ordering Prov ider: TUAN,ALEXIS R RATIO RATIO] IN Report Releas ed Date/Time: Dec 13, 2021 02:41 PM URINE URINE Reporting Lab: [facility] [address] [place] [address] Performing Lab: [facility] [place] [address] MICROALB MICROALBUM 14.8 <. - 12/13 Specimen Typ e: URINE LISA UMIN/CRE IN No comment ente red. (CBOC) ATININE [MASS/VOLU Ordering Pro vider: ALEXIS DICKERSON R RATIO ME] IN Report Released Date/Time: Dec 13, 2021 02:41 PM URINE URINE Reporting Lab: [facility] [address] [place] [address] Performing Lab: [facility] [place] [address] B 12 COBALAMIN 263 213 - 816 12/13 Specimen Typ e: SERUM LISA (VITAMIN /2021 No comment ente red. (CBOC) B12) Ordering Provid er: ALEXIS DICKERSON R [MASS/VOLU Report Relea sed Date/Time: Dec 13, 2021 02:41 PM ME] IN Reporting Lab: [facility] SERUM OR ONE [address] [facility] [address] PLASMA Performing Lab: [facility] [address] [place] [address] CBC & LEUKOCYTES 8.93 4.0 - 11.0 12/13 Specimen T ype: BLOOD LISA DIFF [#/VOLUME] /2021 Comment: Aut omated Differential Performed (CBOC) IN BLOOD Ordering Provi gay: ALEXIS DICKERSON BY Report Released Date/Time: Dec 13, 2021 02:29 PM AUTOMATED Reporting Lab : [facility] COUNT [address] [place] [address] Performing Lab: [facility] [address] [place] [address] CBC & ERYTHROCYT 3.86 4.6 - 6.2 06/ L Specimen Ty pe: BLOOD LISA DIFF ES /2021 Comment: Automa pedro Differential Performed (CBOC) [#/VOLUME] Ordering Pro vider: ALEXIS DICKERSON IN BLOOD Report Release d Date/Time: Dec 13, 2021 02:29 PM BY Reporting Lab: [facility] AUTOMATED ONE [employer] [address] [facility] [address] COUNT Performing Lab: [facility] [address] [place] [address] CBC & HEMOGLOBIN 11.6 13.5 - 06/ L Specimen Type : BLOOD LISA DIFF [MASS/VOLU 17.9 /2021 Comment: Aut omated Differential Performed (CBOC) ME] IN Ordering Provid er: ALEXIS DICKERSON BLOOD Report Released Date/Time: Dec 13, 2021 02:29 PM Reporting Lab: [facility] [address] [facility] [address] Performing Lab: [facility] [address] [place] [address] CBC & HEMATOCRIT 36.8 41 - 54 06/ L Specimen Type : BLOOD LISA DIFF [VOLUME /2021 Comment: Automa pedro Differential Performed (CBOC) FRACTION] Ordering Prov ider: ALEXIS DICKERSON OF BLOOD Report Release d Date/Time: Dec 13, 2021 02:29 PM BY Reporting Lab: [facility] AUTOMATED ONE [facility] [address] COUNT Performing Lab: [facility] [address] [facility] [address] CBC & MCV 95.3 80 - 100 12/13 Specimen Type: BLOOD LISA DIFF [ENTITIC /2021 Comment: Autom ated Differential Performed (CBOC) VOLUME] BY Ordering Pro vider: ALEXIS DICKERSON AUTOMATED Report Releas ed Date/Time: Dec 13, 2021 02:29 PM COUNT Reporting Lab: [facility] [address] [facility] [address] Performing Lab: [facility] [address] [place] [address] CBC & MCH 30.1 27 - 33 12/13 Specimen Type: B LOOD LISA DIFF [ENTITIC /2021 Comment: Autom ated Differential Performed (CBOC) MASS] BY Ordering Provi gay: ALEXIS DICKERSON AUTOMATED Report Releas ed Date/Time: Dec 13, 2021 02:29 PM COUNT Reporting Lab: [facility] [address] [place] [address] Performing Lab: [facility] [address] [place] [address] CBC & MCHC 31.5 32.0 - 06/ L Specimen Type: B LOOD LISA DIFF [MASS/VOLU 37.5 /2021 Comment: Aut omated Differential Performed (CBOC) ME] BY Ordering Provid er: ALEXIS DICKERSON AUTOMATED Report Releas ed Date/Time: Dec 13, 2021 02:29 PM COUNT Reporting Lab: [facility] [address] [facility] [address] Performing Lab: [facility] [address] [place] [address] CBC & PLATELETS 275 150 - 400 12/13 Specimen Typ e: BLOOD LISA DIFF [#/VOLUME] /2021 Comment: Aut omated Differential Performed (CBOC) IN BLOOD Ordering Provi gay: ALEXIS DICKERSON BY Report Released Date/Time: Dec 13, 2021 02:29 PM AUTOMATED Reporting Lab : [facility] COUNT [address] [place] [address] Performing Lab: [facility] [address] [place] [address] CBC & PLATELET 11.6 7.4 - 10.4 12/13 H Specimen Typ e: BLOOD LISA DIFF MEAN /2021 Comment: Automa pedro Differential Performed (CBOC) VOLUME Ordering Provid er: ALEXIS DICKERSON [ENTITIC Report Release d Date/Time: Dec 13, 2021 02:29 PM VOLUME] IN Reporting La b: [facility] BLOOD BY ONE [place] [facility] [address] AUTOMATED Performing La b: [facility] COUNT [address] [place] [address] CBC & NEUTROPHIL 59.9 12/13 Specimen Type : BLOOD LISA DIFF S/100 /2021 Comment: Automa pedro Differential Performed (CBOC) LEUKOCYTES Ordering Pro vider: TUAN,ALEXIS R IN BLOOD Report Release d Date/Time: Dec 13, 2021 02:29 PM BY MANUAL Reporting Lab : [facility] COUNT [address] [place] [address] Performing Lab: [facility] [address] [place] [address] CBC & LYMPHOCYTE 28.3 12/13 Specimen Type : BLOOD LISA DIFF S/100 Comment: Automa pedro Differential Performed (CBOC) LEUKOCYTES Ordering Pro vider: ELEANOR DICKERSONHYA R IN BLOOD Report Release d Date/Time: Dec 13, 2021 02:29 PM BY MANUAL Reporting Lab : [facility] COUNT [address] [place] [address] Performing Lab: [facility] [address] [place] [address] CBC & MONOCYTES/ 9.0 12/13 Specimen Type : BLOOD LISA DIFF 100 Comment: Automa pedro Differential Performed (CBOC) LEUKOCYTES Ordering Pro vider: ELEANOR DICKERSONHYA R IN BLOOD Report Release d Date/Time: Dec 13, 2021 02:29 PM BY Reporting Lab: [facility] AUTOMATED ONE [employer] [address] [facility] [address] COUNT Performing Lab: [facility] [address] [facility] [address] CBC & EOSINOPHIL 2.1 12/13 Specimen Type : BLOOD LISA DIFF S/ Comment: Automa pedro Differential Performed (CBOC) LEUKOCYTES Ordering Pro vider: TUANELEANORALEXIS R IN BLOOD Report Release d Date/Time: Dec 13, 2021 02:29 PM BY Reporting Lab: [facility] AUTOMATED ONE [employer] [address] [facility] [address] COUNT Performing Lab: [facility] [address] [facility] [address] CBC & BASOPHILS/ 0.4 12/13 Specimen Type : BLOOD LISA DIFF 100 Comment: Automa pedro Differential Performed (CBOC) LEUKOCYTES Ordering Pro vider: TUANELEANORALEXIS R IN BLOOD Report Release d Date/Time: Dec 13, 2021 02:29 PM BY MANUAL Reporting Lab : [facility] COUNT [address] [facility] [address] Performing Lab: [facility] [address] [facility] [address] CBC & ERYTHROCYT 14.1 11.5 - 12/13 Specimen Type : BLOOD LISA DIFF E 14.5 /2021 Comment: Automa pedro Differential Performed (CBOC) DISTRIBUTI Ordering Pro vider: ALEXIS DICKERSON R ON WIDTH Report Release d Date/Time: Dec 13, 2021 02:29 PM [RATIO] BY Reporting La b: [facility] AUTOMATED ONE [facility] [address] COUNT Performing Lab: [facility] [address] [facility] [address] CBC & LYMPHOCYTE 2.53 1.0 - 4.0 06 Specimen Ty pe: BLOOD LISA DIFF S /2021 Comment: Automa pedro Differential Performed (CBOC) [#/VOLUME] Ordering Pro vider: ALEXIS DICKERSON R IN BLOOD Report Release d Date/Time: Dec 13, 2021 02:29 PM BY Reporting Lab: [facility] AUTOMATED [facility] [address] COUNT Performing Lab: [facility] [address] [facility] [address] CBC & MONOCYTES 0.80 0.1 - 1.0 06 Specimen Typ e: BLOOD LISA DIFF [#/VOLUME] /2021 Comment: Aut omated Differential Performed (CBOC) IN BLOOD Ordering Provi gay: ALEXIS DICKERSON BY Report Released Date/Time: Dec 13, 2021 02:29 PM AUTOMATED Reporting Lab : [facility] COUNT [address] [facility] [address] Performing Lab: [facility] [address] [facility] [address] CBC & NEUTROPHIL 5.34 2.0 - 7.7 06 Specimen Ty pe: BLOOD LISA DIFF S /2021 Comment: Automa pedro Differential Performed (CBOC) [#/VOLUME] Ordering Pro vider: ALEXIS DICKERSON IN BLOOD Report Release d Date/Time: Dec 13, 2021 02:29 PM BY Reporting Lab: [facility] AUTOMATED [facility] [address] COUNT Performing Lab: [facility] [address] [facility] [address] CBC & EOSINOPHIL 0.19 0 - 0.5 12/13 Specimen Type : BLOOD LISA DIFF S /2021 Comment: Automa pedro Differential Performed (CBOC) [#/VOLUME] Ordering Pro vider: ALEXIS DICKERSON R IN BLOOD Report Release d Date/Time: Dec 13, 2021 02:29 PM BY Reporting Lab: [facility] AUTOMATED ONE [facility] [address] COUNT Performing Lab: [facility] [address] [place] [address] CBC & BASOPHILS 0.04 0 - 0.2 12/13 Specimen Type: BLOOD LIAS DIFF [#/VOLUME] /2021 Comment: Aut omated Differential Performed (CBOC) IN BLOOD Ordering Provi gay: ALEXIS DICKERSON BY Report Released Date/Time: Dec 13, 2021 02:29 PM AUTOMATED Reporting Lab : [facility] COUNT [address] [place] [address] Performing Lab: [facility] [address] [place] [address] CBC & IG(META,MY 0.3 12/13 Specimen Type : BLOOD LISA DIFF KARISHMA,PRO) /2021 Comment: Autom ated Differential Performed (CBOC) Ordering Provid er: ALEXIS DICKERSON Report Released Date/Time: Dec 13, 2021 02:29 PM Reporting Lab: [facility] [address] [place] [address] Performing Lab: [facility] [address] [place] [address] CBC & IMMATURE 0.03 0 - 0.1 12/13 Specimen Type: BLOOD ERHARD DIFF GRANULOCYT /2021 Comment: Aut omated Differential Performed (CBOC) ES Ordering Provid er: ALEXIS DICKERSON [PRESENCE] Report Relea sed Date/Time: Dec 13, 2021 02:29 PM IN BLOOD Reporting Lab: [facility] BY [address] [place] [address] AUTOMATED Performing La b: [facility] COUNT [address] [place] [address] COMPREHE CREATININE 1.0 0.7 - 1.2 12/13 Specimen T ype: PLASMA ERHARD NSIVE [MASS/VOLU /2021 No comment en tered. (CBOC) METABOLI ME] IN Ordering Provi gay: ALEXIS DICKERSON C SERUM OR Report Release d Date/Time: Dec 13, 2021 02:29 PM PANEL+MG PLASMA Reporting Lab: [facility] [address] [place] [phone] Performing Lab: [facility] [address] [facility] [phone] COMPREHE UREA 26 8 - 26 12/13 Specimen Type: PLASMA ERHARD NSIVE NITROGEN /2021 No comment ente red. (CBOC) METABOLI [MASS/VOLU Ordering Pr ovider: TUAN,ALEXIS R C ME] IN Report Released Date/Time: Dec 13, 2021 02:29 PM PANEL+MG SERUM OR Reporting Lab : [facility] PLASMA [address] [place] [phone] Performing Lab: [facility] [address] [facility] [address] COMPREHE GLUCOSE 96 74 - 100 12/13 Specimen Type: PLASMA LISA NSIVE [MASS/VOLU /2021 No comment en tered. (CBOC) METABOLI ME] IN Ordering Provi gay: TUAN,ALEXIS R C SERUM OR Report Release d Date/Time: Dec 13, 2021 02:29 PM PANEL+MG PLASMA Reporting Lab: [facility] [address] [facility] [phone] Performing Lab: [facility] [address] [facility] [phone] COMPREHE SODIUM 140 136 - 145 12/13 Specimen Type : PLASMA ERHARD NSIVE [MOLES/VOL /2021 No comment en tered. (CBOC) METABOLI UME] IN Ordering Provi gay: TUAN,ALEXIS R C SERUM OR Report Release d Date/Time: Dec 13, 2021 02:29 PM PANEL+MG PLASMA Reporting Lab: [facility] ONE [address] [facility] [facility] [address] Performing Lab: [facility] [address] [facility] [address] COMPREHE POTASSIUM 4.0 3.5 - 5.1 12/13 Specimen Ty pe: PLASMA LISA NSIVE [MOLES/VOL /2021 No comment en tered. (CBOC) METABOLI UME] IN Ordering Provi gay: TUAN,ALEXIS R C SERUM OR Report Release d Date/Time: Dec 13, 2021 02:29 PM PANEL+MG PLASMA Reporting Lab: [facility] [address] [facility] [address] Performing Lab: [facility] [address] [facility] [address] COMPREHE CHLORIDE 103 98 - 107 12/13 Specimen Type : PLASMA LISA NSIVE [MOLES/VOL /2021 No comment en tered. (CBOC) METABOLI UME] IN Ordering Provi gay: TUAN,ALEXIS R C SERUM OR Report Release d Date/Time: Dec 13, 2021 02:29 PM PANEL+MG PLASMA Reporting Lab: [facility] [address] [facility] [address] Performing Lab: [facility] [address] [facility] [address] COMPREHE CARBON 26 22 - 29 12/13 Specimen Type: PLASMA LISA NSIVE No comment ente red. (CBOC) METABOLI TOTAL Ordering Provi gay: TUANALEXIS JOHNSON R C [MOLES/VOL Report Relea sed Date/Time: Dec 13, 2021 02:29 PM PANEL+MG UME] IN Reporting Lab: [facility] SERUM OR [address] [facility] [address] PLASMA Performing Lab: [facility] [address] [facility] [address] COMPREHE CALCIUM 9.8 8.4 - 10.2 12/13 Specimen Typ e: PLASMA LISA NSIVE [MASS/VOLU /2021 No comment en tered. (CBOC) METABOLI ME] IN Ordering Provi gay: ALEXIS DICKERSON R C SERUM OR Report Release d Date/Time: Dec 13, 2021 02:29 PM PANEL+MG PLASMA Reporting Lab: [facility] [address] [facility] [address] Performing Lab: [facility] [address] [place] [address] COMPREHE PROTEIN 7.1 6.0 - 8.3 12/13 Specimen Type : PLASMA LISA NSIVE [MASS/VOLU /2021 No comment en tered. (CBOC) METABOLI ME] IN Ordering Provi gay: ALEXIS DICKERSON R C SERUM OR Report Release d Date/Time: Dec 13, 2021 02:29 PM PANEL+MG PLASMA Reporting Lab: [facility] [address] [facility] [address] Performing Lab: [facility] [address] [facility] [address] COMPREHE ALBUMIN 4.2 3.5 - 5.2 12/13 Specimen Type : PLASMA LISA NSIVE [MASS/VOLU /2021 No comment en tered. (CBOC) METABOLI ME] IN Ordering Provi gay: RIGO DICKERSONA R C SERUM OR Report Release d Date/Time: Dec 13, 2021 02:29 PM PANEL+MG PLASMA Reporting Lab: [facility] [address] [facility] [address] Performing Lab: [facility] [address] [facility] [address] COMPREHE BILIRUBIN. 0.5 0.2 - 1.2 12/13 Specimen T ype: PLASMA LISA NSIVE TOTAL /2021 No comment enter ed. (CBOC) METABOLI [MASS/VOLU Ordering Pr ovider: ALEXIS DICKERSON ME] IN Report Released Date/Time: Dec 13, 2021 02:29 PM PANEL+MG SERUM OR Reporting Lab : [facility] PLASMA [address] [facility] [address] Performing Lab: [facility] [address] [facility] [address] COMPREHE MAGNESIUM 2.4 1.6 - 2.6 12/13 Specimen Ty pe: PLASMA LISA NSIVE [MASS/VOLU /2021 No comment en tered. (CBOC) METABOLI ME] IN Ordering Provi gay: ALEXIS DICKERSON SERUM OR Report Release d Date/Time: Dec 13, 2021 02:29 PM PANEL+MG PLASMA Reporting Lab: [facility] [address] [facility] [address] Performing Lab: [facility] [address] [facility] [address] COMPREHE ANION GAP 11 5 - 15 12/13 Specimen Type : PLASMA LISA NSIVE IN SERUM /2021 No comment ente red. (CBOC) METABOLI OR PLASMA Ordering Pro vider: ALEXIS DICKERSON Report Released Date/Time: Dec 13, 2021 02:29 PM PANEL+MG Reporting Lab: [facility] [address] [facility] [address] Performing Lab: [facility] [address] [facility] [address] COMPREHE ALKALINE 77 40 - 150 12/13 Specimen Type : PLASMA LISA NSIVE PHOSPHATAS /2021 No comment en tered. (CBOC) METABOLI E Ordering Provi gay: ALEXIS DICKERSON [ENZYMATIC Report Relea sed Date/Time: Dec 13, 2021 02:29 PM PANEL+MG ACTIVITY/V Reporting L ab: [facility] OLUME] IN [address] [facility] [address] SERUM OR Performing Lab : [facility] PLASMA [address] [facility] [address] COMPREHE ALANINE 28 <55 - 55 12/13 Specimen Type: PLASMA ERHARD NSIVE AMINOTRANS /2021 No comment en tered. (CBOC) METABOLI FERASE Ordering Provi gay: ALEXIS DICKERSON C [ENZYMATIC Report Relea sed Date/Time: Dec 13, 2021 02:29 PM PANEL+MG ACTIVITY/V Reporting L ab: [facility] OLUME] IN [address] [facility] [address] SERUM OR Performing Lab : [facility] PLASMA [address] [facility] [address] COMPREHE ASPARTATE 30 <34 - 34 12/13 Specimen Typ e: PLASMA ERHARD NSIVE AMINOTRANS /2021 No comment en tered. (CBOC) METABOLI FERASE Ordering Provi gay: ALEXIS DICKERSON C [ENZYMATIC Report Relea sed Date/Time: Dec 13, 2021 02:29 PM PANEL+MG ACTIVITY/V Reporting L ab: [facility] OLUME] IN [address] [facility] [address] SERUM OR Performing Lab : [facility] PLASMA [address] [facility] [address] COMPREHE CREAT 78 60 12/13 Specimen Type: PLASMA ERHARD NSIVE EGFR(CKD-E /2021 No comment en tered. (CBOC) METABOLI PI) Ordering Provi gay: ALEXIS DICKERSON C Report Released Date/Time: Dec 13, 2021 02:29 PM PANEL+MG Reporting Lab: [facility] [address] [facility] [address] Performing Lab: [facility] [address] [facility] [address] FOLATE FOLATE 17.4 7.0 12/13 Specimen Type: S MARIA ALEJANDRA LISA [MASS/VOLU /2021 No comment en tered. (CBOC) ME] IN Ordering Provid er: ALEXIS DICKERSON SERUM OR Report Release d Date/Time: Dec 13, 2021 02:41 PM PLASMA Reporting Lab: [facility] [address] [facility] [address] Performing Lab: [facility] [address] [facility] [address] HEMOGLOB HEMOGLOBIN 7.7 4.0 - 6.0 12/13 H Specimen T ype: BLOOD ERHARD IN A1C A1C/HEMOGL /2021 No comment en tered. (CBOC) OBIN.TOTAL Ordering Pro vider: ALEXIS DICKERSON IN BLOOD Report Release d Date/Time: Dec 13, 2021 02:29 PM Reporting Lab: [facility] [address] [facility] [address] Performing Lab: [facility] [address] [place] [address] LIPID CHOLESTERO 93 <199 - 199 12/13 Specimen T ype: PLASMA LISA PANEL,NO L /2021 No comment ente red. (CBOC) N-FASTIN [MASS/VOLU Ordering Pr ovider: ALEXIS DICKERSON R G ME] IN Report Released Date/Time: Dec 13, 2021 02:29 PM SERUM OR Reporting Lab: [facility] PLASMA [address] [facility] [address] Performing Lab: [facility] [address] [facility] [address] LIPID CHOLESTERO 27 40 06 L Specimen Type : PLASMA LISA PANEL,NO L IN HDL /2021 No comment ent ered. (CBOC) N-FASTIN [MASS/VOLU Ordering Pr ovider: ALEXIS DICKERSON G ME] IN Report Released Date/Time: Dec 13, 2021 02:29 PM SERUM OR Reporting Lab: [facility] PLASMA [address] [facility] [address] Performing Lab: [facility] [address] [facility] [address] LIPID CHOLESTERO 38 <99 - 99 12/13 Specimen Typ e: PLASMA LISA PANEL,NO L IN LDL /2021 No comment ent ered. (CBOC) N-FASTIN [MASS/VOLU Ordering Pr ovider: ALEXIS DICKERSON R G ME] IN Report Released Date/Time: Dec 13, 2021 02:29 PM SERUM OR Reporting Lab: [facility] PLASMA BY ONE [facility] [address] CALCULATIO Performing L ab: [facility] N [address] [facility] [address] LIPID CHOLESTERO 28 <29 - 29 12/13 Specimen Typ e: PLASMA LISA PANEL,NO L IN VLDL /2021 No comment en tered. (CBOC) N-FASTIN [MASS/VOLU Ordering Pr ovider: TUANRIGO JOHNSONA R G ME] IN Report Released Date/Time: Dec 13, 2021 02:29 PM SERUM OR Reporting Lab: [facility] PLASMA BY ONE [facility] [address] CALCULATIO Performing L ab: [facility] N [address] [place] [address] LIPID CHOLESTERO 66 <129 - 129 12/13 Specimen T ype: PLASMA LISA PANEL,NO L NON HDL /2021 No comment en tered. (CBOC) N-FASTIN [MASS/VOLU Ordering P rovider: ALEXIS DICKERSON] IN Report Released Date/Time: Dec 13, 2021 02:29 PM SERUM OR Reporting Lab: [facility] PLASMA [address] [place] [address] Performing Lab: [facility] [address] [place] [address] LIPID TRIGLYCERI 140 <149 - 149 12/13 Specimen T ype: PLASMA LISA PANEL,NO DE /2021 No comment ente red. (CBOC) N-FASTIN [MASS/VOLU Ordering Pr ovider: ALEXIS DICKERSON] IN Report Released Date/Time: Dec 13, 2021 02:29 PM SERUM OR Reporting Lab: [facility] PLASMA [address] [facility] [address] Performing Lab: [facility] [address] [facility] [address] IRON IRON 50 65 - 175 12/13 L Specimen Type: SERUM ERHARD GROUP [MASS/VOLU /2021 Comment: Spe cimen received is PLASMA. (CBOC) ME] IN Ordering Provid er: ALEXIS DICKERSON SERUM OR Report Release d Date/Time: Dec 14, 2021 07:50 AM PLASMA Reporting Lab: [facility] [address] [place] [address] Performing Lab: [facility] [address] [facility] [address] IRON IRON 360 250 - 425 12/13 Specimen Type: SERUM LISA GROUP BINDING /2021 Comment: Specim en received is PLASMA. (CBOC) CAPACITY Ordering Provi gay: ALEXIS DICKERSON [MASS/VOLU Report Relea sed Date/Time: Dec 14, 2021 07:50 AM ME] IN Reporting Lab: [facility] SERUM OR [address] [facility] [address] PLASMA Performing Lab: [facility] [address] [facility] [address] IRON FERRITIN 20.6 21.8 - 12/13 L Specimen Type: SERUM LISA GROUP [MASS/VOLU 274.7 /2021 Comment: Karlee lindsey received is PLASMA. (CBOC) ME] IN Ordering Provid er: ALEXIS DICKERSON SERUM OR Report Release d Date/Time: Dec 14, 2021 07:50 AM PLASMA Reporting Lab: [facility] [address] [place] [address] Performing Lab: [facility] [address] [place] [address] IRON IRON 14 20 - 50 12/13 L Specimen Type: S MARIA ALEJANDRA LISA GROUP SATURATION /2021 Comment: Karlee lindsey received is PLASMA. (CBOC) Ordering Provid er: ALEXIS DICKERSON Report Released Date/Time: Dec 14, 2021 07:50 AM Reporting Lab: [facility] [address] [place] [address] Performing Lab: [facility] [address] [facility] [address] [place] [address] IRON TRANSFERRI 288 163 - 382 12/13 Specimen Ty pe: SERUM ERHARD GROUP N /2021 Comment: Aleah miner received is PLASMA. (CBOC) [MASS/VOLU Ordering Pro vider: ALEXIS DICKERSON R ME] IN Report Released Date/Time: Dec 14, 2021 07:50 AM SERUM OR Reporting Lab: [facility] PLASMA [address] [place] [address] Performing Lab: [facility] [address] [place] [address] METHYLMA METHYLMALO 310 87 - 318 12/13 Specimen Ty pe: SERUM LISA ACID, RILEY /2021 Comment: This t est was developed and its analytical performance characteristics have been determined by [employer] [place], [place]. It has not been cleared or approved by the [place] (CBOC) [place] [MOLES/VOL . Food and Dr ug Administration. This assay has been validated pursuant to the CLIA regulations and is used for clinical purposes. Test Performed by Jimmie Soto, [employer] [place], E] [place] [address] [place] [address] Trent Olmstead M.D., Ph.D., Director of Laboratories , CLIA [id number] SERUM OR Ordering Provi gay: ALEXIS DICKERSON PLASMA Report Released Date/Time: Dec 13, 2021 10:04 PM Reporting Lab: [facility] [address] [facility] [address] Performing Lab: [facility] [address] [facility] Vital Signs Combined list of inpatient [...] Date Visit Outpatient 12/06 [place] Encounter [id number] /2021 [facility] OFFICE O/P Diagnos MARS DICKERSON 12/15 [place] EST MOD [id number] is: DHYA R /2020 ER 30-39 MIN 30 ICD-10- (CBOC) CM I50.9 Heart failure , unspeci fied
with Provide r Comment s: Congest urban heart failure (SCT [id number] 7) QNHP OL Diagnos [facility], 12[facility]20 [place] DIG [id number] is: NAGA L [facility] A ASSMT&MGMT ICD-10- HCS 21+ CM Z79.01 salvage determiner (curren t) use of anticoa gulants
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 n Outpatient 72393-9.61 04/19 [place] Encounter [id number] [facility] Outpatient 31804-8.61 04/27 [place] Encounter [id number] /2020 [facility] Outpatient 87405-3.61 ZACARIAS,KITTY 06/12 [place] Encounter [id number] /2020 [facility] Outpatient 07988-9.61 06/14 [place] Encounter [id number] /2020 [facility] Outpatient 15603-5.61 06/15 [place] Encounter [id number] /2020 [facility] Outpatient 81170-8.61 08/16 [place] EST Encounter [id number] ER 94 (CBOC) Outpatient 96258-1.61 TRACE,JOD 11/20 [place] Encounter [id number] I [facility] Outpatient 13798-6.61 TRACE,JOD 11/20 [place] Encounter [id number] I [facility] OFFICE O/P 20910-7.61 Diagnos JOE,JODIE 11/21 [place] EST HI [id number] is: [facility] 40-54 MIN ICD-10- HCS CM G47.30 Sleep apnea, unspeci fied
with Provide r Comment s: Sleep apnea ([facility] [id number] 6) Outpatient 11935-9.61 12/08 [place] Encounter [id number] /2021 [facility] 57458-2.61 12/13 [place] EST Encounter [id number] ER 53 (CBOC) OFFICE O/P 75414-7 Diagnos TUAN,CREWS 12/13 [place] MOD [id number] is: DHYA R /2021 ER 30-39 MIN 75 ICD-10- (CBOC) CM I50.9 Heart failure , unspeci fied
with Provide r Comment s: CHF QNHP OL Diagnos PUMA WISEMAN 12/14 [place] DIG [id number] is: TTHEW S [facility] [place] ASSMT&MGMT ICD-10- HCS 11-20 CM Z79.01 long-term (curren t) use of anticoa gulants
wi Provide r Comment s: salvage determiner (curren t) use of anticoa gulants Outpatient [id number] 12/18 [place] Encounter [id number] [facility] [place] [facility] POLYSOM 50594-0 Diagnos MALIKA PARK 12/18 [place] 6/>YRS [id number] is: AHAT [facility] CPAP 4/> ICD-10- HCS PARM CM G47.30 Sleep apnea, unspeci fied
with Provide r Comment s: Sleep apnea ([facility] [id number] 6) HC PRO 77352-0 Diagnos GENNARO MCKENNA 12/25 M [place] PHONE CALL [id number] is: R MARISA /2021 O [facility] [place] 5-10 MIN ICD-10- HCS CM G47.33 Obstruc tive sleep apnea (adult) (pediat dewayne)
with Provide r Comment s: Obstruc tive sleep apnea (adult) (pediat dewayne) COLLJ & 99944-7.61 Diagnos JODIE DIAZ 02/12 [place] INTERPJ [id number] is: CA J /2021 [facility] [place] DATA EA 30 ICD-10- HCS D CM G47.30 Sleep apnea, unspeci fied
with Provide r Comment s: Sleep apnea ([facility] [id number] 6) Social History Combined list of available smoking, tobacco, and other social history [facility]. Social History Type Response Date Comment Source Tobacco smoking status VA-TOBACCO FORMER USER 12/13/2021 [facility] ([facility]) [place] History of tobacco use VA-TOBACCO QUIT 15 YRS 12/13/2021 [facility] ([facility]) OR MORE History of tobacco use VA-TOBACCO FORMER USER 12/15/2020 [facility] ([facility]) History of tobacco use VA-TOBACCO QUIT 15 YRS 11/17/2019 [facility] ([facility]) OR MORE History of tobacco use VA-TOBACCO QUIT 15 YRS 01/13/2019 [facility] ([facility]) OR MORE History of tobacco use FORMER TOBACCO USER 7Y 12/24/2017 [facility] ([facility]) OR GREATER History of tobacco use FORMER TOBACCO USER 7Y 01/22/2017 [facility] ([facility]) OR GREATER History of tobacco use FORMER TOBACCO USER 7Y 01/02/2016 [facility] ([facility]) OR GREATER History of tobacco use FORMER TOBACCO USER 7Y 12/13/2014 [facility] ([facility]) OR GREATER
--- OUTSIDE RECORDS SUMMARY | 2022-04-24 12:03 | XMS_ITS | Clinical Summary ---
:1945 Author Organization [employer] [facility] [place] [address] Care Team Providers Name Role Phone Gregory Day MD Primary Care Provider FlygenHolden phelps MD Unavailable [phone] Allergies Active Allergy Reactions Severity Noted Date [...] Active oral route once daily with food [id number] Take by mouth. 0 Active Oil (FISH [...] powderIndications: Constipation. Constipation, unspecified constipation type Insulin [place], As directed. For 2 box 9 05/04/2020 [...] tablet 24 hourIndications: Coronary artery disease involving [place] coronary artery of [place] heart without angina pectoris torsemide (DEMADEX) Take [...] ONCE DAILY tabletIndications: Coronary artery disease involving [place] coronary artery of [place] heart without angina pectoris Eliquis 5 mg [...] use of insulin Coronary artery disease involving [place] coronary devon ry of [place] heart 04/05/2017 without angina pectoris Acute renal [...] and anterior cerebra l arteries through patent hoh of Will is collaterals. Unspecified essential hypertension [...] 05/16/2011, 008 years)(Flu Clinic Only) COVID-19 vaccine ([employer] 09/14/2020, 08/24/2020 30mcg/0.3mL) PF, MDV Hepatitis A [...] at 73 Other Brother 2 Killed in [place] [employer] war No Known Problems Brother 3 No Known Problems Brother 4 Alcohol/Drug Father Heart Disease Father Heart attack Father Cancer-breast Mother Cancer-breast Sister Relation Name Status Comments Brother 1 Brother 2 Brother 3 Alive Brother 4 Alive Child 1 Alive adopted Child 2 Alive adopted Father (Age 63) [place] Mother (Age late 60's) Sister Alive Son [...] 180.3 cm (5' 10.98) 05/29/2021 9:19 AM SURGICAL GARMENT INSPECTOR Body Mass Index 38.32 05/29/2021 9:19 AM SURGICAL GARMENT INSPECTOR Plan of Treatment Upcoming Encounters Date Type Specialty Care Team Description 04/24/2022 Procedure Only Rios Dumont MD Arrived [phone] (Wo tawana) 05/07/2022 Office Visit Gregory Day MD [address] (Joaquín gilliam) 07/18/2022 Orders Only Lab, [place] 07/18/2022 Office Visit Gregory Day MD [address] (Wo rk) Health Maintenance Due [...] REFLEX MEASURED LDL (01/24/2022 1:44 PM CDT) [facility] Method Time Signature CHOLESTEROL,TOTAL 81 (L) [...] Organization Address City/State/ZIP Code Phon e Number [facility] [address] [place] [address] LABORATORY-CENTRAL 2000 LABORATORY ANTI HCV (01/24/2022 1:44 PM CDT) [facility] gist Method Time Signature HEPATITIS C Non-Reacti Non-Reacti 01/25/2022 [facility] ANTIBODY ve ve 10:19 AM CDT LABORATORY-CHAU TRAL LABORATORY Comment: Antibodies to HCV not detected; does not exclude the possibility of exposure to HCV. Specimen Anatomical Collection Method / Collection Time Recei jessica Time (Source) Location / Volume Laterality Blood BLOOD SPECIMEN / Venipuncture / 01/24/2022 1:44 2021 1:46 Unknown Unknown PM CDT PM CDT Gregory Day MD SEND OUTS Performing Organization Address City/[facility]/ZIP Code Phon e Number [facility] [address] [place] [address] LABORATORY-CENTRAL 2000 LABORATORY (ABNORMAL) HEMOGLOBIN A1C MONITORING (POCT) (01/24/2022 1:44 PM CDT) Analysis Performed At Path logist Time Signature HEMOGLOBIN A1C 6.9 (H) <=6.4 % 01/24/2022 [facility] MONITORING 1:57 PM CDT [place] (POCT) [facility] Specimen Anatomical Collection Method / Collection Time Recei jessica Time (Source) Location / Volume Laterality Blood BLOOD SPECIMEN / Venipuncture / 01/24/2022 1:44 2021 1:46 Unknown Unknown PM CDT PM CDT Narrative [facility] - 2021 1:57 PM CDT [...] Gregory Day MD CHEMISTRY Performing Organization Address City/[facility]/ZIP Code Phon e Number [facility] [address] [place] [address] (ABNORMAL) BASIC METABOLIC PANEL (01/24/2022 1:44 PM CDT) [facility] Method Time Signature SODIUM 140 135 - 145 01/25/2022 [facility] mmol/L 7:29 AM CDT LABORATORY-CHAU TRAL LABORATORY POTASSIUM 4.6 3.5 - 5.0 01/25/2022 [facility] mmol/L 7:29 AM CDT LABORATORY-CHAU TRAL LABORATORY CHLORIDE 101 98 - 110 01/25/2022 [facility] mmol/L 7:29 AM CDT LABORATORY-CHAU TRAL LABORATORY CO2,TOTAL 27 21 - 31 01/25/2022 [facility] mmol/L 7:29 AM CDT LABORATORY-CAHU TRAL LABORATORY ANION GAP 12 5 - 18 01/25/2022 [facility] 7:29 AM CDT LABORATORY-CHAU TRAL LABORATORY GLUCOSE 256 (H) 65 - 100 01/25/2022 [facility] mg/dL 7:29 AM CDT LABORATORY-CHAU TRAL LABORATORY CALCIUM 9.2 8.5 - 10.5 01/25/2022 [facility] mg/dL 7:29 AM CDT LABORATORY-CHAU TRAL LABORATORY BUN 28 (H) 8 - 25 01/25/2022 [facility] mg/dL 7:29 AM CDT LABORATORY-CHAU TRAL LABORATORY CREATININE 1.29 (H) 0.72 - 01/25/2022 [facility] 1.25 mg/dL 7:29 AM CDT LABORATORY-CHAU TRAL LABORATORY BUN/CREAT RATIO 22 (H) 10 - 20 01/25/2022 [facility] 7:29 AM CDT LABORATORY-CHAU TRAL LABORATORY eGFR 57 (L) >90 01/25/2022 [facility] mL/min/1.7 7:29 AM CDT LABORATORY-CHAU 3m2 TRAL [...] Organization Address City/State/ZIP Code Phon e Number [employer] [address] [facility] [place] [address] LABORATORY-CENTRAL 2000 LABORATORY from Last 3 Months Insurance Payer Benefit Plan / Subscriber ID Effective Dates Phone Addre ss Type Group MEDICARE PART A MEDICARE PART A [id number] 2010-Prese ATTN: CLAIMS - HB USE ONLY HB ONLY nt [address] [place] [address] MEDICARE PART B MEDICARE PART B [id number] 2014-Presen ATTN: CLAIMS - HB USE ONLY HB ONLY t [address] [place] [address] BLUE CROSS MR BLUE CROSS [id number] 2019-Presen [address] [address] [place], [place] [id number] BLUE CROSS BLUE CROSS [id number] 2016-Presen [address] [address] [place] [id number] [employer] 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 1945 [id number] [address] [place] (Home) [place] [address] Mateus Red Personal/Family Self 1945 [address] [place] (Home) [place] [id number] Advance Directives Latest Code Status on File Code Status Date Activated Date Inactivated Comments Full Code 03/23/2019 8:53 AM 03/24/2019 2:13 AM Full Code 03/25/2017 4:54 PM 04/02/2017 8:21 PM Full Code 03/25/2017 4:45 PM 03/25/2017 4:54 PM Full Code 03/25/2017 12:43 PM 03/25/2017 4:45 PM Code Status Discussion: Discussed Full Code 09/24/2012 6:58 AM 09/24/2012 3:15 PM Care Teams Prestidigitator Relationship Specialty Start Date End Date Gregory Day MD PCP - General 11/20/05 [address] [place] [address] Holden Pink, Cardiology Cardiovascular Disease 09/03
--- OUTSIDE RECORDS SUMMARY | 2022-04-24 12:05 | XMS_ITS | Encounter Summary ---
:1945 Author Organization [facility] Address [address] [place] [address]. [place] [address] Care Team Providers Name Role Phone Gregory [...] on filedocumented in this encounter Care Teams Information Technology Auditor Relationship Specialty Start Date End Date Gregory Day MD PCP - General Family Medicine 02/03/21 [facility] [address] [place] [address] documented as of this encounter
--- OUTSIDE RECORDS SUMMARY | 2022-04-24 12:05 | XMS_ITS | Clinical Summary ---
:1945 Author Organization [facility] Address [address] [place] [address]. [place] [address] Care Team Providers Name Role Phone Gregory [...] Address T ype Group Dates BCBS BCBS [place] [id number] 2019-Prese [phone] [address] [address] PPO BLUE nt [address] [place] [address] MEDICARE MEDICARE FOR HB [id number] 2010-Pres [phone] ATTN CLAIMS Medicare SUPPLEMENT ent 40 [address] [place] [address] Care Teams Switchboard Wire Worker Helper Relationship Specialty Start Date End Date Gregory Day MD PCP - General Family Medicine 02/03/21 [facility] [address] [place] [address]
--- OUTSIDE RECORDS SUMMARY | 2022-04-24 12:05 | XMS_ITS | Encounter Summary ---
:1945 Author Organization [facility] Address [address] [place] [address]. [place] [address] Care Team Providers Name Role Phone Gregory Day MD Primary Care Provider Reason for Visit Reason Comments Wound Infection Encounter Details Date Type Department Care Team Description 02/03/2021 Emergency [facility] and Gregory Shi , Recurrent cellulitis of [facility] lower leg [address] [place] [address] [place], [place] [phone] Social History Tobacco Use Types Packs/Day Years [...] be sent through Care Everywhere.Skin Infection, Cellulitis (Tamazight)documented in this encounter Medications at Time of [...] Keflex until his seen back in the [facility]. He denies any fever or chills.No [...] Status --------- ------ CBC with platelets and d...[[id number]] Abnormal Final result Please view results for [...] time pending reviewby his provider in the [facility]. He can discontinue his Keflex and we will start him on clindamycin for broader coverage. Follow-up sooner if there is any other concerns problems or questions. Rx was written for probiotics as well given all of his antibiotic use. 02/03/2021 [facility] Gregory Shi PA-C 02/03/21 1218 documented in [...] platelets and differential (02/03/2021 11:16 AM CDT) [facility] Method Time Signature WBC Count 7.7 4.0 - 02/03/2021 [facility] 11.0 11:31 AM CDT 10e3/uL RBC [...] 11:31 AM CDT Absolute 0.0 <=0.0 02/03/2021 [facility] Immature 10e3/uL 11:31 AM CDT Granulocytes [...] Address City/State/ZIP Code Phon e Number LABORATORY [facility] [address] Hospital Laboratory [address] Laboratory [...] CDT Unknown Gregory Shi PA-C LAB - MICRO GENERAL ORDERABL ES Performing Organization Address City/[facility]/ZIP Code Phon e Number LABORATORY [facility] [address] Hospital Laboratory [address] Laboratory Blood Culture Arm, Right (02/03/2021 11:16 AM CDT) P athologist Signature Culture No Growth AMEYA 02/09/2021 LABORATORY 7:43 AM CDT Specimen Anatomical Collection Method / Collection Time Recei jessica Time (Source) Location / Volume Laterality Blood STRUCTURE OF RIGHT Venipuncture / 02/03/2021 11:16 UPPER LIMB / Unknown AM CDT 11:26 AM CDT Unknown Gregory Shi PA-C LAB - MICRO GENERAL ORDERABL ES Performing Organization Address City/State/ZIP Code Phon e Number LABORATORY [facility] [address] Hospital Laboratory [address] Laboratory [...] LAB - BLOOD ORDERABLES Performing Organization Address City/[facility]/ZIP Code Phon e Number LABORATORY [facility] [place] [address] [facility] Laboratory [address] Laboratory [...] Address City/State/ZIP Code Phon e Number LABORATORY [facility] [place] [facility] [place] [address] Hospital Laboratory [address] Laboratory documented in this encounter Visit Diagnoses Diagnosis Recurrent cellulitis of lower leg Cellulitis and abscess of leg, except fo ot documented in this encounter Care Teams Registered Massage Therapist Relationship Specialty Start Date End Date Gregory Day MD PCP - General Family Medicine 02/03/21 [facility] [address] [place] [address] documented as of this encounter
== END 2022-04-24 12:01 | disposition home or self-care (01) ==
PROVIDERS: PCP Family Medicine; Visit Provider Family Medicine
DX: M17.12 Unilateral primary osteoarthritis, left knee (principal); M25.562 Pain in left knee
CPT/HCPCS: 64624; J2250; J3010

== ENCOUNTER 2022-07-10 14:49 | Outpatient (CLI) | payer MEDICARE, BC, SELFPAY | END 2022-07-10 14:50 | disposition home or self-care (01) | LOC: INJ CL 14:51 | PROVIDERS: PCP Family Medicine; Visit Provider Family Medicine | DX: M17.11 Unilateral primary osteoarthritis, right knee (principal); M25.561 Pain in right knee | CPT/HCPCS: 64454 ==

== ENCOUNTER 2022-07-17 12:02 | Outpatient (CLI) | payer MEDICARE, BC, SELFPAY | END 2022-07-17 12:03 | disposition home or self-care (01) | LOC: INJ CL 12:04 | PROVIDERS: PCP Family Medicine; Visit Provider Family Medicine | DX: M17.11 Unilateral primary osteoarthritis, right knee (principal); M25.561 Pain in right knee; G89.29 Other chronic pain | CPT/HCPCS: 64624; J2250; J3010 ==

== ENCOUNTER 2023-05-15 07:32 | Day surgery (SDC) | payer MEDICARE, BC, SELFPAY ==
[2023-05-15] MEDS: TETRACAINE 0.5% OPHTH 1 DROP EYE-LEFT ×2 (08:04→08:14)
[2023-05-15] MEDS: KETOROLAC OPHTH 0.5% 1 DROP EYE-LEFT ×3 (08:05→08:28)
[2023-05-15] MEDS: SODIUM CHLORIDE 0.9 % (FLUSH) 10 ML SYRINGE IVF (08:13)
[2023-05-15 08:15] VITALS: BP 151/66; PULSE 58; RESP 16; TEMP 36.7; O2SAT 93
[2023-05-15 08:17] VITALS: BMI 40.0
--- NOTE | 2023-05-15 09:24 | W.ANESCHARGE ---
Anesthesia Charges Start Date/Time Anesthesia Start Date: 05/15/23 Anesthesia Start Time: 09:26 Stop Date/Time Anesthesia Stop Date: 05/15/23 Anesthesia Stop Time: 10:10 Summary Extremes of Age - Over 70 or under 1: MDA
[2023-05-15] MEDS: TETRACAINE 0.5% OPHTH 2 DROP EYE-LEFT (09:30)
--- NOTE | 2023-05-15 09:33 | P.ANES_ITS ---
Anesthesia Charges Start Date/Time Anesthesia Start Date: 05/15/23 Anesthesia Start Time: 09:26 Stop Date/Time Anesthesia Stop Date: 05/15/23 Anesthesia Stop Time: 10:10 Summary Extremes of Age - Over 70 or under 1: AIRLINE COUNTER AGENT
[2023-05-15] MEDS: BALANCED SALT IRRIG SOLN 15 ML EYE-LEFT (09:34)
--- NOTE | 2023-05-15 10:16 | W.PM.OPTPROC ---
Procedure Note Date of procedure: 05/15/23 Will [facility] bill your pro fee for this procedure?: Yes Procedure Description: SURGEON: Johanna Lord MD PREOPERATIVE DIAGNOSIS: 1. Mature cataract, left eye. 2. Miosis, left eye. POSTOPERATIVE DIAGNOSIS: 1. Mature cataract, left eye. 2. Miosis, left eye. NAME OF OPERATION: Phacoemulsification of cataract with posterior chamber intraocular lens implantation in the left eye with pupilloplasty. ANESTHESIA: Topical. ESTIMATED BLOOD LOSS: Less than 2 cc. COMPLICATIONS: None. PATHOLOGY SPECIMEN: None. INDICATIONS: See consult note for details. The risks, benefits and alternatives of the procedure were explained to the patient, who elected to proceed and signed informed consent to do so. PROCEDURE: The patient was brought to the pre-holding area where the left eye was identified as the operative eye. I placed my initials above this eye. The patient received eye drops consisting of 0.5% tetracaine, 1% tropicamide, 10% phenylephrine, and 0.5% ketorolac. The patient was given 12.5 grams IV mannitol and a Honan balloon was placed for 8 minutes pre-operatively. The patient was then brought to the operating room where the left eye was again identified as the operative eye. The eye was prepped with Betadine and draped in the usual sterile ophthalmic fashion. A #15 super-sharp blade was used to create a paracentesis site. 1% non-preserved intracameral lidocaine was injected into the anterior chamber. Endocoat was injected into the anterior chamber. A 2.4 mm keratome was used to create a three-plane self-sealing incision 1 mm anterior to the temporal limbus. A #15 super-sharp blade was used to create five additional paracentesis sites. Five Grieshaber iris hooks were placed in order to stretch the iris. A cystotome was used to create an anterior capsular leaflet. The Utrata forceps were used to extend this to form a continuous curvilinear capsulorrhexis. Hydrodissection was performed. The cataract was removed with phacoemulsification using the [id number] technique. The irrigation and aspiration tip was used to remove the remaining cortex. Healon was injected into the capsular bag. An LUISANA ZCB00 intraocular lens of 21.5 diopters was injected into the capsular bag. The four Grieshaber iris hooks were removed. The irrigation and aspiration tip was used to remove the remaining viscoelastic. Miostat was injected into the anterior chamber. Balanced salt solution on a cannula was used to hydrate the wound, and the wound was found to be watertight. The pupil was noted to be round. DISPOSITION: The patient was taken to the recovery room and discharged to home in stable condition. The patient was instructed to call me or go to the emergency department with any sudden change, including dramatic loss of vision, severe pain in the eye or eyebrow region, nausea, or vomiting. The patient will follow up in the clinic tomorrow morning.
[2023-05-15 10:29] VITALS: BP 136/70; PULSE 61; RESP 16; TEMP 36.4; O2SAT 91
== END 2023-05-15 10:45 | disposition home or self-care (01) ==
LOC: OR 07:33
PROVIDERS: PCP Family Medicine; Visit Provider Ophthalmology
PROC: (CPT 66982; principal; 2023-05-15 08:15)
DX: H25.89 Other age-related cataract (principal); H57.03 Miosis
CPT/HCPCS: 66982; 00142; 99100; A9270; J2150; J2250; J2405; J3010; V2632

== ENCOUNTER 2023-05-29 09:32 | Day surgery (SDC) | payer MEDICARE, BC, SELFPAY ==
[2023-05-29] MEDS: TETRACAINE 0.5% OPHTH 1 DROP EYE-RIGHT ×2 (09:42→09:49)
[2023-05-29] MEDS: KETOROLAC OPHTH 0.5% 1 DROP EYE-RIGHT ×3 (09:45→10:00)
[2023-05-29] MEDS: SODIUM CHLORIDE 0.9 % (FLUSH) 10 ML SYRINGE IVF (09:55)
[2023-05-29] MEDS: TETRACAINE 0.5% OPHTH 2 DROP EYE-RIGHT (10:21)
[2023-05-29] MEDS: BALANCED SALT IRRIG SOLN 15 ML EYE-RIGHT (10:22)
[2023-05-29 10:24] VITALS: BP 169/75; PULSE 66; RESP 18; O2SAT 93
--- NOTE | 2023-05-29 10:30 | P.ANES_ITS ---
Anesthesia Charges Start Date/Time Anesthesia Start Date: 05/29/23 Anesthesia Start Time: 10:14 Stop Date/Time Anesthesia Stop Date: 05/29/23 Anesthesia Stop Time: 11:00 Summary Extremes of Age - Over 70 or under 1: DIRECTOR INFORMATION
--- NOTE | 2023-05-29 10:55 | W.ANESCHARGE ---
Anesthesia Charges Start Date/Time Anesthesia Start Date: 05/29/23 Anesthesia Start Time: 10:14 Stop Date/Time Anesthesia Stop Date: 05/29/23 Anesthesia Stop Time: 11:00 Summary Extremes of Age - Over 70 or under 1: MDA
--- NOTE | 2023-05-29 11:01 | P.OPTPRC_ITS ---
Procedure Note Date of procedure: 05/29/23 Will [facility] bill your pro fee for this procedure?: Yes Procedure Description: SURGEON: Johanna Lord MD PREOPERATIVE DIAGNOSIS: 1. Nuclear sclerotic cataract, right eye. 2. Miosis, right eye. POSTOPERATIVE DIAGNOSIS: 1. Nuclear sclerotic cataract, right eye. 2. Miosis, right eye. NAME OF OPERATION: Phacoemulsification of cataract with posterior chamber intraocular lens implantation in the right eye with pupilloplasty. ANESTHESIA: Topical. ESTIMATED BLOOD LOSS: Less than 2 cc. COMPLICATIONS: None. PATHOLOGY SPECIMEN: None. INDICATIONS: See consult note for details. The risks, benefits and alternatives of the procedure were explained to the patient, who elected to proceed and signed informed consent to do so. PROCEDURE: The patient was brought to the pre-holding area where the right eye was identified as the operative eye. I placed my initials above this eye. The patient received eye drops consisting of 0.5% tetracaine, 1% tropicamide, 10% phenylephrine, and 0.5% ketorolac. The patient was given 12.5 grams IV mannitol and a Honan balloon was placed for 8 minutes pre-operatively. The patient was then brought to the operating room where the right eye was again identified as the operative eye. The eye was prepped with Betadine and draped in the usual sterile ophthalmic fashion. A #15 super-sharp blade was used to create a paracentesis site. 1% non-preserved intracameral lidocaine was injected into the anterior chamber. Endocoat was injected into the anterior chamber. A 2.4 mm keratome was used to create a three-plane self-sealing incision 1 mm anterior to the temporal limbus. A #15 super-sharp blade was used to create four additional paracentesis sites. Four Grieshaber iris hooks were placed in order to stretch the iris. A cystotome was used to create an anterior capsular leaflet. The Utrata forceps were used to extend this to form a continuous curvilinear capsulorrhexis. Hydrodissection was performed. The cataract was removed with phacoemulsification using the [id number]-[id number] technique. The irrigation and aspiration tip was used to remove the remaining cortex. Healon was injected into the capsular bag. An LUISANA ZCB00 intraocular lens of 22.0 diopters was injected into the capsular bag. The four Grieshaber iris hooks were removed. The irrigation and aspiration tip was used to remove the remaining viscoelastic. Miostat was injected into the anteri or chamber. Balanced salt solution on a cannula was used to hydrate the wound, and the wound was found to be watertight. The pupil was noted to be round. DISPOSITION: The patient was taken to the recovery room and discharged to home in stable condition. The patient was instructed to call me or go to the emergency department with any sudden change, including dramatic loss of vision, severe pain in the eye or eyebrow region, nausea, or vomiting. The patient will follow up in the clinic tomorrow morning.
[2023-05-29 11:08] VITALS: BP 142/73; PULSE 60; RESP 18; TEMP 36.8; O2SAT 96
== END 2023-05-29 11:23 | disposition home or self-care (01) ==
LOC: OR 09:34
PROVIDERS: PCP Family Medicine; Visit Provider Ophthalmology
PROC: (CPT 66982; principal; 2023-05-29 09:45)
DX: H25.11 Age-related nuclear cataract, right eye (principal); H57.03 Miosis
CPT/HCPCS: 66982; 00142; 82962; 99100; A9270; J2150; J2250; J2405; J3010; V2632